=== PATIENT | male | born 1955 | race Caucasian/White ===

== ENCOUNTER 2017-09-02 01:46 | Inpatient (IN) | payer SELFPAY ==
[~2017-09-02] VITALS: Ht 170.2 cm; Wt 71.3 kg
[2017-09-02] VITALS (8 sets, daily range): BP systolic 108–129; BP diastolic 60–78; PULSE 88–125; TEMP 36.3–36.9; O2SAT 92–99; BMI 24.6
[~2017-09-02 01:46] MED LIST: INSHRI SQ; LSN25 PO; MCR5 PO; OXYC-57 PO
[2017-09-02] MEDS ORDERED: ALBUT/IPRATROP 3MG/0.5MG NEB 3 ML VIAL INH STA (02:19)
[2017-09-02] MEDS ORDERED: METHYLPREDNISOLONE 125 MG VIAL IV STA (02:19)
--- NOTE | 2017-09-02 02:27 | EMERGENCY ROOM VISIT NOTE ---
History Report prepared by Nicho: Fernando Huntley Under the Supervision of: Dr. Aleshia Mathis M.D. First contact with patient: 01:57 Chief Complaint: SHORTNESS OF BREATH Stated Complaint: SOB History of Present Illness The patient is a 62 year old male who presents to the Emergency Room with complaints of constant shortness of breath beginning three days ago. He states that his symptoms become worse when lying down. He notes he had a bronchial infection years ago. He denies a history of asthma. He also denies fever or chest pain, but occasionally coughs to get rid of phlegm. The patient states that he smokes 1.5 packs of cigarettes a day. He does not believe he is exposed to chemicals at work that would contribute to his symptoms. He reports that he has not seen a doctor in 6 years. He states that he has been under a lot of stress recently. Source of History: patient Onset: 3 days ago Quality: other (shortness of breath) Timing: constant Modifying Factors (Worsening): other (lying down) Associated Symptoms: + cough, No fevers, No chest pain Review of Systems See HPI for pertinent positives & negatives. A total of 10 systems reviewed and were otherwise negative. Past Medical & Surgical Medical Problems: (1) COPD with exacerbation (2) Infection of the larynx, trachea, bronchi or lungs Family History Diabetes mellitus Hypertension Social History Smoking Status: Current Every Day Smoker Marital Status: Housing Status: lives with family Occupation Status: employed Current/Historical Medications No Active Prescriptions or Reported Meds Allergies Coded Allergies: No Known Allergies (Unverified , 09/02/17) Physical Exam Vital Signs Date Time Temp Pulse Resp B/P (MAP) Pulse Ox O2 Delivery O2 Flow Rate FiO2 09/02/17 05:12 125 99 35 09/02/17 05:00 130 35 150/96 09/02/17 04:30 120 21 134/78 94 Nasal Cannula 2.0 09/02/17 04:00 109 14 121/66 97 Nasal Cannula 2.0 09/02/17 03:30 99 20 130/68 93 Nasal Cannula 2.0 09/02/17 03:00 100 21 137/74 96 Nasal Cannula 2.0 09/02/17 02:30 101 17 125/71 96 Nasal Cannula 2.0 09/02/17 02:26 105 22 122/65 95 Nasal Cannula 2.0 09/02/17 02:03 106 09/02/17 02:01 122/65 09/02/17 01:56 94 Nasal Cannula 2.0 09/02/17 01:53 36.9 113 20 130/75 89 Room Air 09/02/17 01:53 88 Room Air 09/02/17 01:50 94 Nasal Cannula 2.0 Physical Exam Vital signs reviewed. General: Chronically ill-appearing male, in some respiratory discomfort HEENT: No scleral icterus, PERRLA, neck supple. Atraumatic. Cardiovascular: Slightly tachycardic but regular. Distant heart tones? Systolic ejection murmur Pulmonary: normal work of breathing on nasal cannula oxygen. Distant breath sounds bilaterally with barely audible air exchange Abdomen: Soft, nontender, nondistended, positive bowel sounds. Musculoskeletal: Atraumatic, no peripheral edema. Neurologic: Patient awake alert and oriented x 3 Skin: Warm, dry, no rash Medical Decision & Procedures ER Provider Diagnostic Interpretation: Radiology results as stated below per my review and radiologist interpretation: X-ray of chest per my review reveals diffuse interstitial density. No focal lung consolidation. No failure. CTA CHEST: No evidence for pulmonary embolism. Patchy to confluent opacities in the dependent portions of the lungs and less dramatic changes in the perihilar regions. There is interlobular ansley thickening inferiorly. Primary consideration is pulmonary edema versus infectious process. Bilateral pleural effusions layering posteriorly. Thoracic aorta demonstrates no evidence for aneurysm or dissection. Atherosclerotic changes noted. No pericardial effusion. Left ventricular hypertrophy noted. No significant mediastinal or hilar adenopathy Radiologist: Fernando Lopez MD Study ready at 05:54 and initial results transmitted at 06:32. Laboratory Results Test 09/02/17 01:54 Prothrombin Time 10.7 SECONDS (9.0-12.0) Prothromb Time International Ratio 1.0 (0.9-1.1) Estimated Average Glucose 220 mg/dl Hemoglobin A1c 9.3 % (4.5-5.6) Total Bilirubin 0.5 mg/dl (0.2-1) Direct Bilirubin 0.2 mg/dl (0-0.2) Aspartate Amino Transf (AST/SGOT) 20 U/L (15-37) Alanine Aminotransferase (ALT/SGPT) 30 U/L (12-78) Alkaline Phosphatase 131 U/L (45-117) Total Protein 7.6 gm/dl (6.4-8.2) Albumin 3.5 gm/dl (3.4-5.0) Laboratory results per my review. Medications Administered Medications (Trade) Dose Ordered Sig/Jailyn Route Start Time Stop Time Status Last Admin Dose Admin Albuterol/ Ipratropium (Duoneb) 3 ml NOW STAT INH 09/02/17 02:19 09/02/17 02:22 DC 09/02/17 02:30 3 ML Methylprednisolone Sodium Succinate (Solu-Medrol IV) 125 mg NOW STAT IV 09/02/17 02:19 09/02/17 02:22 DC 09/02/17 02:30 125 MG Azithromycin 500 mg/Dextrose 255 ml @ 125 mls/hr ONE ONCE IV 09/02/17 03:00 09/02/17 05:02 DC 09/02/17 03:28 125 MLS/HR Aspirin (Aspirin Chew) 324 mg NOW STAT PO 09/02/17 02:55 09/02/17 02:56 DC 09/02/17 02:59 324 MG Albuterol/ Ipratropium (Duoneb) 3 ml STK-MED ONCE .ROUTE 09/02/17 04:47 09/02/17 04:48 DC 09/02/17 05:01 3 ML Lorazepam (Ativan Inj) 2 mg STK-MED ONCE .ROUTE 09/02/17 04:50 09/02/17 04:51 DC 09/02/17 05:02 1 MG Albuterol/ Ipratropium (Duoneb) 12 ml ONE ONCE INH 09/02/17 05:15 09/02/17 05:16 DC 09/02/17 05:11 12 ML ECG Per My Interpretation Indication: SOB/dyspnea Rate (beats per minute): 105 Rhythm: sinus tachycardia Findings: other (LVH, QRS widening, repolarization abnormality most notably in inferior and lateral leads. 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 ED Course 0217: Past medical records reviewed. The patient was evaluated in room B2. A complete history and physical examination was performed. 1489: I updated with the patient. 1985: I [facility]. He will reevaluate the patient for admission. 0510: The patient is anxious, diaphoretic, and tachycardic. He was given Ativan and BiPAP with an hour long nebulizer. Ordered repeat troponin and CT angiogram of chest. Repeat EKG shows sinus tachycardia at a rate of 134. Poor quality baseline for interpretation. Tachycardia is worsened, but there is otherwise no significant change. Medical Decision Differential diagnosis: Etiologies such as infections, reactive airway disease, pneumonia, pneumothorax , COPD, CHF, cardiac ischemia, pulmonary embolism, musculoskeletal, gastrointestinal, as well as others were entertained. This patient was evaluated and appeared to be in no significant distress. Patient was noted to be hypoxic upon arrival to his room. He is placed on nasal cannula oxygen and was able to maintain his oxygenation. Patient was given a DuoNeb treatment and 125 mg of IV Solu-Medrol. Azithromycin 500 mg IV was administered. Chest x-ray reveals evidence of interstitial fullness. I do not see focal infiltrate. Patient's laboratory work reveals a leukocytosis and elevated troponin. Patient is hyperglycemic in the 200s. Patient's EKG reveals a repolarization abnormality and previous septal infarct. Patient was resting comfortably until he was awakened. He was informed of the findings. He ambulated to the bathroom without oxygen per his request. Upon return to the bed he began to have significant respiratory difficulty, became diaphoretic and anxious. Repeat EKG was performed and although has a poor quality baseline , no ST elevation was identified. The patient was given a small dose of Ativan and a DuoNeb treatment. He continued to be very anxious although maintaining his oxygenation. He was placed on BiPAP with significant improvement. CT angiogram was performed without evidence of PE however there is patchy to confluent opacities consistent with pulmonary edema versus infectious process. The patient remains stable and case was discussed with Dr. Cazares of the hospitalist service. He agreed to evaluate the patient for admission. Patient did receive p.o. aspirin. Medication Reconcilliation Current Medication List: was personally reviewed by me Blood Pressure Screening Patient's blood pressure: Normal blood pressure Blood pressure disposition: Did not require urgent referral Consults Time Called: [id number] Consulting Physician: Dr. Sage López Returned Call: [phone] Sage López. He will reevaluate the patient for admission Impression Primary Impression: COPD with exacerbation Additional Impressions: Pulmonary vascular congestion Elevated troponin Critical Care I have personally spent greater than 45 minutes of critical care time in the direct management of this patient. This includes bedside care, interpretation of diagnostic studies, and testing, discussion with consultants, patient, and family members, and other required patient management activities. This 45 minutes is in excess of all separately billable procedures. Scribe Attestation The scribe's documentation has been prepared under my direction and personally reviewed by me in its entirety. I confirm that the note above accurately reflects all work, treatment, procedures, and medical decision making performed by me. Departure Information Dispostion Being Evaluated By Hospitalist Prescriptions No Active Prescriptions or Reported Meds Referrals No Doctor, Assigned (PCP) Patient Instructions My [facility] Problem Qualifiers
[2017-09-02 02:36] LABS: BASO % 0.3 %; BASO ABS # 0.04 K/uL (0-0.2); EOS % 0.9 %; EOS ABS # 0.14 K/uL (0-0.5); HEMATOCRIT 45.2 % (42-52); HEMOGLOBIN 15.5 g/dL (14.0-18.0); IG# 0.04 K/uL (0.00-0.02); LYMPH % 13.9 %; LYMPH ABS # 2.22 K/uL (1.2-3.4); MEAN CELL VOLUME 84.2 fL (80-100); MEAN CORPUSCULAR HEMOGLOBIN 28.9 pg (25-34); MEAN CORPUSCULAR HGB CONC 34.3 g/dl (32-36); MEAN PLATELET VOLUME 10.3 fL (7.4-10.4); NEUT % 79.6 %; PLATELET COUNT 350 K/uL (130-400); RED CELL DISTRIBUTION WIDTH CV 14.6 % (11.5-14.5); RED CELL DISTRIBUTION WIDTH SD 44.5 fL (36.4-46.3); WHITE BLOOD COUNT 15.94 K/uL (4.8-10.8)
[2017-09-02 02:55] LABS: ALBUMIN 3.5 gm/dl (3.4-5.0); CALCIUM 8.3 mg/dl (8.5-10.1); CREATININE 1.18 mg/dl (0.60-1.40); POTASSIUM 3.9 mmol/L (3.5-5.1); TOTAL PROTEIN 7.6 gm/dl (6.4-8.2)
[2017-09-02] MEDS ORDERED: ASPIRIN 81 MG CHEW PO STA (02:55)
[2017-09-02] MEDS ORDERED: AZITHROMYCIN IV 500 MG in DEXTROSE 5% 250ML 250 ML IV ONE (03:00)
[2017-09-02] MEDS ORDERED: ALBUT/IPRATROP 3MG/0.5MG NEB 3 ML VIAL ONE (04:47)
[2017-09-02] MEDS ORDERED: LORAZEPAM 2 MG/ML 1 ML VIAL ONE (04:50)
[2017-09-02] MEDS ORDERED: ACETAMINOPHEN 325 MG TAB PO PRN (05:00)
[2017-09-02] MEDS ORDERED: ALUMINUM/MAGNESIUM/SIMETH (MAALOX MAX) 30 ML UDC PO PRN (05:00)
[2017-09-02] MEDS ORDERED: NITROGLYCERIN 0.4 MG SL PER TAB CHARGE SL PRN (05:00)
[2017-09-02] MEDS ORDERED: ONDANSETRON INJ 2 MG/ML 2 ML VIAL IV PRN (05:00)
[2017-09-02] MEDS ORDERED: POLYETHYLENE (MIRALAX) 17 GM PACK PO PRN (05:00)
[2017-09-02] MEDS ORDERED: LEVALBUTEROL/IPRATROPIUM NEB INH PRN (05:00)
[2017-09-02] MEDS ORDERED: OPTIRAY 320 IV PRN (05:15)
[2017-09-02] MEDS ORDERED: ALBUT/IPRATROP 3MG/0.5MG NEB 3 ML VIAL INH ONE (05:15)
[2017-09-02] MEDS ORDERED: GLUCOSE 10 TABS/TUBE PO PRN (05:30)
[2017-09-02] MEDS ORDERED: DEXTROSE 50% 50 ML SYR IV PRN (05:30)
[2017-09-02] MEDS ORDERED: CARBOHYDRATES FOR HYPOGLYCEMIA PO PRN (05:30)
[2017-09-02] MEDS ORDERED: GLUCOSE 40% GEL 15 GM TUBE PO PRN (05:30)
[2017-09-02] MEDS ORDERED: GLUCAGON FOR INJ 1 MG VIAL IM PRN (05:30)
[2017-09-02] MEDS ORDERED: LEVALBUTEROL 0.63MG/3 ML NEB INH PRN (06:00)
[2017-09-02] MEDS ORDERED: IPRATROPIUM BROMIDE NEB SOLN 0.02% 2.5 ML VIAL INH PRN ×2 (06:00→16:30)
[2017-09-02 06:51] LABS: PTT PATIENT 32.1 SECONDS (21.0-31.0)
[2017-09-02] MEDS: LEVALBUTEROL 1.25MG/0.5ML NEB INH SCH ×2 (07:10→14:21)
[2017-09-02] MEDS: IPRATROPIUM BROMIDE NEB SOLN 0.02% 2.5 ML VIAL INH SCH ×2 (07:10→14:21)
--- NOTE | 2017-09-02 07:57 | HISTORY & PHYSICAL EXAMINATION ---
DATE OF ADMISSION: 09/02/2017 CHIEF COMPLAINT: Shortness of breath. HISTORY OF PRESENT ILLNESS: This is a 62-year-old male with past medical history significant for diabetes, hypertension, hyperlipidemia, not taking any medications. He says he could not tolerate his diabetes medications, did not see a doctor for past 6 years, smokes 1-1/2 packs a day for several years, comes with shortness of breath. Patient says she has been short of breath since about 1 year, but in the last few days, it is getting worse, and today, it was really worse, so he came to the ER. In the ER, initially he was saturating 88-89% on room air, was given DuoNebs, Solu-Medrol, azithromycin, oxygen and some Ativan, and he was doing okay, but then he went to the bathroom without using his oxygen and when he came back, he was tachypneic, tachycardic, and very air hungry. His oxygen was increased but was not getting better, so was placed him on BiPAP and started feeling better. He was sweating at that time. He denies any headaches, no blurred vision. Normal hearing. Denies any chest pain. He has some dry cough. No nausea, no vomiting, no abdominal pain. Appetite is okay. No swelling in the legs. Normal bowel and bladder movements. Currently, respiratory status is improving. ALLERGIES: No known drug allergies. PAST MEDICAL HISTORY: As mentioned above. PAST SURGICAL HISTORY: Laparoscopic converted to open sigmoid colectomy, colonoscopy, tonsillectomy, hand finger surgery. MEDICATIONS: Currently taking none. FAMILY HISTORY: Father had a cancer. SOCIAL HISTORY: Smoked 1-1/2 packs a day for several years. No alcohol use, no drug use. REVIEW OF SYMPTOMS: As per HPI. Rest of review of symptoms negative. PHYSICAL EXAMINATION: GENERAL: Patient is of moderate build, not in distress. VITAL SIGNS: Temperature 36.9, pulse when he came in was 113, currently in 120s, respiratory rate currently is more than in 20s, blood pressure 134/78, oxygen on presentation was 89% on room air and then desaturated to 83%-85% on oxygen 2 L, is currently placed back on BiPAP and saturating 99%. HEENT: No pallor, no icterus. NECK: No neck masses. CARDIOVASCULAR SYSTEM: S1 and S2 heard. Tachycardia. No murmurs. RESPIRATORY SYSTEM: Normal AP diameter. Mildly tachypneic. Bilateral diminished breath sounds. No crackles heard. GASTROINTESTINAL: Abdomen is soft, bowel sounds present, nontender, no distention. CENTRAL NERVOUS SYSTEM: Neurologically grossly nonfocal. EXTREMITIES: No edema, no erythema. LABORATORY DATA: WBC 15.9, hemoglobin 15.5, hematocrit 45.2, platelets 350. Sodium 138, potassium 3.9, chloride 106, bicarbonate 22, BUN 22, creatinine 1.1, serum glucose 235, calcium 8.3, magnesium 1.9, total bilirubin 0.5, direct bilirubin 0.2, AST 20, ALT 30, alkaline phosphatase 131. Troponin I 0.08. IMAGING: Chest x-ray: Bilateral lower lobe possible infiltrates. EKG: Poor quality, sinus tachycardia at a rate of 134. ASSESSMENT AND PLAN: This is a 62-year-old male with a history of smoking who presents with shortness of breath. 1. Chronic obstructive pulmonary disease exacerbation, history of tobacco abuse for several years with 1-1/2 packs of cigarettes a day with progressive shortness of breath but lately got worse, currently requiring BiPAP in the ER as he was tachypneic and desaturated when he went to bathroom without being on oxygen. Will get an ABG. Empirically starting on IV Solu-Medrol, nebulizers around the clock and then p.r.n., Levaquin.Possible Pneumonia. Monitor on tele floor.Followup Ct chest. Consult pulmonary for further recommendation and followup. 2. Diabetes. Did not see a doctor for the last 6 years. He was on glyburide before but not on any medications anymore. Currently, patient is put on Solu-Medrol. Will watch for blood sugars. Place him on Lantus and sliding scale. We will also check HbA1c level. 3. Hyperlipidemia, not taking any medication. Will check lipid profile. 4. Hypertension, not taking any medication currently. We will monitor blood pressure. If required, we will place him on lisinopril. 5. Mild elevation of troponin,mostlikely [id number] myocardial infarction secondary to demand ischemia from his chronic obstructive pulmonary disease exacerbation. We will follow serial cardiac enzymes and echocardiogram. Follow CT of the chest for PE study. 6. Deep venous thrombosis prophylaxis. Lovenox. DISPOSITION: Admitted to tele floor. Expect to discharge home and follow with his family doctor. Level 1 full code. MTDSabina
[2017-09-02] MEDS ORDERED: LEVALBUTEROL/IPRATROPIUM NEB INH SCH (09:00)
[2017-09-02] MEDS ORDERED: INSULIN GLARGINE SOLOSTAR 100 UNITS/ML 3 ML PEN SC SCH (09:00)
[2017-09-02] MEDS ORDERED: ENOXAPARIN 40 MG/0.4 ML SYR SC SCH (09:00)
--- NOTE | 2017-09-02 09:02 | DIAGNOSTIC IMAGING REPORT ---
CHEST ONE VIEW PORTABLE CLINICAL HISTORY: Shortness of breath. Smoker. COMPARISON STUDY: Chest radiograph April 02, 2010. FINDINGS: Lung volumes are normal. No pneumothorax or pleural effusion is identified. There is interstitial thickening and mild lower lung opacities which favors pulmonary edema. Note is made of mild cardiomegaly. IMPRESSION: Interstitial thickening and lower lung opacities which favor pulmonary edema. Bibasilar pneumonia could appear similar although is considered less likely. Electronically signed by: Ramesh Shelton M.D. 09/02/2017 6:30 AM Dictated Date/Time: 09/02/2017 6:29 AM
--- NOTE | 2017-09-02 09:03 | DIAGNOSTIC IMAGING REPORT ---
(CHEST FOR PE) ANGIO WITH CT DOSE: 417.27 mGy.cm HISTORY: Chest pain dyspnea TECHNIQUE: Multiaxial CT images of the chest were performed following the intravenous administration of contrast to evaluate the pulmonary arteries. Maximal intensity projection images were also obtained. A dose lowering technique was utilized adhering to the principles of ALARA. COMPARISON STUDY: None. FINDINGS: Considerable atherosclerotic change thoracic aorta. No evidence for aneurysm. Pulmonary vasculature enhances appropriately. No significant cardiac enlargement. No significant mediastinal or hilar adenopathy. Prominent parenchymal markings of the mid to lower lung regions bilaterally. Small bilateral pleural effusions. IMPRESSION: 1. Study is negative for pulmonary embolus. 2. Diffuse bilateral parenchymal infiltrative change versus pulmonary edema. 3. Considerable atherosclerotic change thoracic aorta. The above report was generated using voice recognition software. It may contain grammatical, syntax or spelling errors. Electronically signed by: Aung Del Toro M.D. 09/02/2017 7:02 AM Dictated Date/Time: 09/02/2017 6:59 AM
[2017-09-02] MEDS ORDERED: PERFLUTREN LIPID MICROSPHERE (DEFINITY) IV ONE (09:05)
[2017-09-02] MEDS: METHYLPREDNISOLONE IV 40 MG in SYRINGE 0 ML IV SCH ×2 (09:11→18:52)
[2017-09-02] MEDS: INSULIN ASPART 100 UNITS/ML 3 ML PEN SC SCH ×4 (09:17→21:06)
[2017-09-02 09:27] LABS: HEMOGLOBIN A1C 9.3 % (4.5-5.6)
[2017-09-02] MEDS ORDERED: PHARMACY GLYCEMIC MGMT CONSULT PRN (09:53)
[2017-09-02] MEDS ORDERED: INSULIN GLARGINE SOLOSTAR 100 UNITS/ML 3 ML PEN SC STA (09:59)
[2017-09-02] MEDS: LEVOFLOXACIN 750 MG TAB PO SCH (12:20)
--- NOTE | 2017-09-02 13:05 | PULMONARY CONSULTATION ---
DATE OF CONSULTATION: 09/02/2017 TIME: 9:45 a.m. REPORT OF CONSULTATION: The patient was seen in room 230, bed 2. He is a 62-year-old male who presented to the Emergency Room in the counter tender hours of today with severe acute respiratory distress. The patient states that he went to bed last evening and felt perfectly well. After sleeping about 2 hours, he awakened and was gasping and could not catch his breath. His called 911. The patient I believe somewhat tends to minimize his symptoms. He brought up the fact that 30 years ago, he had some type of respiratory infection and ever since then when it is hot and humid, he is bothered with his breathing. He also stated that it seems like he has trouble when he is in his bedroom. He thought it might be due to the air conditioner. I suspect it is more likely related to being in the supine position. I believe he has had some increasing shortness of breath for about 5 days. He has been under a lot of stress. His mother within the past week. She had been ill and on hospice care, but nonetheless she recently passed and he had to travel near [place]. 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 He has a job that he is trying to finish by this Wednesday and there is a lot of stress doing this. The patient also works at an [employer] store. He has had a slight cough. He does not bring up any phlegm. He denies any chest pains, chills, fevers or sweats. He denies prior pulmonary problems. He specifically denied asthma, emphysema, tuberculosis, pneumonia or pleurisy. He has a longstanding history of smoking 1.5 packs per day for 40 years. The patient denies any prior cardiac problems except having rheumatic fever as a child. He has not seen a physician for 6 years. Six years ago, the patient was hospitalized and had what sounds like a perforated diverticulum and he underwent a colon surgery. He apparently had sigmoid perforation with abscess and this was in 2010 in February. During that hospital stay, his blood sugars were elevated, but the patient did not accept the fact that he was diabetic. He has never been treated for diabetes except when he was hospitalized. There is a listed history of hypertension, but the patient denies that he has ever been told he was hypertensive. Apparently, he was told of hyperlipidemia. He was put on statins, which gave him severe pains. PAST SURGICAL HISTORY: 1. Sigmoid colectomy 2010. 2. Tonsillectomy. 3. Right thumb surgery. PAST MEDICAL HISTORY: 1. Diverticulitis. 2. Rheumatic fever as a child. 3. Hyperlipidemia. 4. Diabetes. 5. Questionable hypertension. SOCIAL HISTORY: Tobacco 60 pack years as noted. ETOH - none. ALLERGIES: No known allergies. FAMILY HISTORY: Mother , age 86, congestive heart failure, coronary artery disease and renal failure. Father , age 49, and the exact problems were unknown. REVIEW OF SYSTEMS: The patient states his energy level has been okay. He denies any change in appetite. His weight has been stable. The remainder of the review of systems is negative except as noted in the history of present illness. Ten systems reviewed. MEDICATIONS AT HOME: None. PHYSICAL EXAMINATION: GENERAL: The patient is a 62-year-old male who was cooperative, alert and oriented. He did look tired. He was closing his eyes at times during the exam. VITAL SIGNS: Temperature is 36.4. There have been no documented fevers. HEENT: Pupils were reactive to light. Nares were clear. Mouth: Exam showed teeth to be in somewhat poor repair. NECK: Palpation of the neck reveals no lymph nodes. HEART: Current cardiac rate is 104. His heart rates have been as high as the 130s. The rhythm is regular. I cannot exclude a gallop. Blood pressure is 129/78. LUNGS: Auscultation of the lung kelsey revealed rales posteriorly bilaterally in the mid and lower lung field regions. Oxygen saturation on room air was 91%. ABDOMEN: Soft. Bowel sounds were normal. There was no tenderness to palpation, masses, or organomegaly. EXTREMITIES: Showed no cyanosis, clubbing or edema. There was no erythema or induration of the legs. IMAGING DATA: Chest x-ray showed interstitial thickening and lower lung opacities which would be somewhat suggestive of pulmonary edema with an inability to exclude bibasilar pneumonia. CT angio of the chest showed no evidence of pulmonary embolic disease. There were diffuse bilateral parenchymal infiltrative changes versus pulmonary edema. LABORATORY DATA: White count is elevated at 15.94. Hemoglobin 15.5. Platelets 350,000. INR is 1 and PTT is 32.1. Arterial blood gas showed a pH of 7.33 with a pCO2 of 39 and a pO2 of 110. This was reportedly done on 35% oxygen, but it is unknown if he had BiPAP on at the time. Electrolytes show sodium 138, potassium 3.9, chloride 106, bicarbonate 22. BUN is 22 with a creatinine of 1.18. Random blood sugar was 235. Troponin initially mildly elevated at 0.086. Repeat troponin elevated at 0.138. AST and ALT were normal, but alkaline phosphatase was elevated at 131. Calcium was 8.3. Hemoglobin A1c is 9.3. EKG shows a sinus tachycardia with a rate of 105. There was left ventricular hypertrophy. There was an interventricular conduction delay. Not mentioned above is that the CAT scan of the chest also showed small bilateral pleural effusions. IMPRESSION: 1. Probable pulmonary edema. 2. Rule out bilateral pneumonia. 3. Small pleural effusions. 4. Nicotine addiction. 5. Cannot exclude chronic obstructive pulmonary disease. COMMENTS AND RECOMMENDATIONS: The patient has had an acute onset of respiratory distress in the middle of sleep. His EKG is abnormal. X-ray and CAT scan suggests pulmonary vascular congestion in all likelihood. I cannot entirely exclude bilateral pneumonia. He denies a history of vomiting or aspiration. The patient did have an echo done. We are awaiting those results. If the echo is normal, then I would assume that this was a primary pulmonary issue. At present, he is on methylprednisolone, levofloxacin and neb treatments with levalbuterol and ipratropium. I would agree with all of those for now. If his cardiac status is significantly abnormal, I would make the assumption that it would be a primary cardiac issue when these other modalities could be backed off. Obviously, the patient needs his diabetes addressed. I believe he has had a little bit of denial about some medical issues. If he does not have a cardiac issue, he ultimately would need to have a pulmonary function test done. I will order a BNP and a procalcitonin to see if these help further elucidate the origin of his problem. Thank you very much for asking me to assist in his care.
--- NOTE | 2017-09-02 13:31 | Pharmacy Progress Note ---
Glycemic Control Intl Consult Date of Service Sep 02, 2017. Scope Glycemic Pharmacist consulted by Dr Hernández on 09/02/17 for glycemic control and to write orders per [facility] inpatient glycemic control protocol Objective Weight (Kilograms): 71.100 Accuchecks BSG (last 24hrs): Test 09/02/17 01:54 09/02/17 07:29 09/02/17 10:54 Random Glucose 235 mg/dl (70-99) Bedside Glucose 343 mg/dl (70-99) 256 mg/dl (70-99) Laboratory Data (last 24hrs) Test 09/02/17 01:54 Anion Gap 10.0 mmol/L BUN/Creatinine Ratio 18.9 Blood Urea Nitrogen 22 mg/dl Creatinine 1.18 mg/dl Hemoglobin A1c 9.3 % Potassium Level 3.9 mmol/L Sodium Level 138 mmol/L White Blood Count 15.94 K/uL Red Blood Count 5.37 M/uL Hemoglobin 15.5 g/dL Hematocrit 45.2 % Mean Corpuscular Volume 84.2 fL Mean Corpuscular Hemoglobin 28.9 pg Mean Corpuscular Hemoglobin Concent 34.3 g/dl Platelet Count 350 K/uL Mean Platelet Volume 10.3 fL Neutrophils (%) (Auto) 79.6 % Lymphocytes (%) (Auto) 13.9 % Monocytes (%) (Auto) 5.0 % Eosinophils (%) (Auto) 0.9 % Basophils (%) (Auto) 0.3 % Neutrophils # (Auto) 12.70 K/uL Lymphocytes # (Auto) 2.22 K/uL Monocytes # (Auto) 0.80 K/uL Eosinophils # (Auto) 0.14 K/uL Basophils # (Auto) 0.04 K/uL HbA1c Test 09/02/17 01:54 Hemoglobin A1c 9.3 % (4.5-5.6) H Recent Pertinent Medications Outpatient Anti-diabetic Regimen: * Glyburide in the past * A1c = 9.3 % 09/02/17 Risk Factors for Insulin Resistance: * Steroids: SM 125mg in the ED then SM 40mg IV q8 * Infection: r/o Pulmonary source Assessment & Plan ASSESSMENT: * Mr. Means is a 62yo M unbeknownst to the pharmacy glycemic service. He p/w a COPD exacerbation and r/o infectious etiology. He received 125mg IV SM in the ED overnight and now being ordered ATC Solumedrol 40mg IV. BSG this AM was 343 and lunch BSG 256. All likely due to steroids. He is ordered a diet, I spoke with his nurse and the pt endorses a decreased appetite. PLAN FOR INPATIENT GLYCEMIC CONTROL: * Basal insulin with LANTUS: He receive 10 units of lantus this AM which was ordered by the primary team. Once I was consulted I ordered an additional 10 units to be given. Scheduled BID lantus scale set to start @[facility] tonight. BSGs < 110 hold lantus, BSGs 110-180 give 12 units, >180 give 16 units. * Correctional Insulin with NOVOLOG per scale ACHS - tightened * Goal Range: Low 110 mg/dL - High 140 mg/dL * Correction Factor: 25 mg/dL/unit * Nutritional / Prandial insulin per carb ratio of 1 unit per 8 grams CHO consumed * 00,04 checks while on ATC steroids * Please note that the plan above was derived based on current level of insulin resistance and hospital stress. These recommendations are appropriate for inpatient admission only. Plan of care upon discharge will need to be reassessed to avoid potential outpatient hypo/hyperglycemia. Thank you.
--- NOTE | 2017-09-02 14:26 | Progress Note ---
Internal Med Progress Note Date of Service: Sep 02, 2017. 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 ASSESSMENT & PLAN: This is a 62-year-old male with a history of smoking who presents with shortness of breath. Chronic obstructive pulmonary disease exacerbation CTA suggestive of bibasilar infiltration secondary to pneumonitis and/or pulmonary edema History of tobacco abuse for several years with 1-1/2 packs of cigarettes a day with progressive Required BiPAP in the ER Empirically starting on IV Solu-Medrol,nebulizers around the clock and then p.r.n., Appreciate pulmonary consult and recommendation Tachycardia with the EKG changes Initial troponin was mildly elevated and subsequent troponins were significantly high Echocardiogram is done but the report is pending Most likely has ACS We will get cardiology evaluation Diabetes. Did not see a doctor for the last 6 years. Not been taking any medications and/or following a diabetic diet Hemoglobin A1c more than 9 and blood sugar more than 350 Pharmacy consulted for diabetic management Discussed with the patient in detail Hyperlipidemia, not taking any medication. Will check lipid profile. Hypertension, not taking any medication currently. We will monitor blood pressure. If required, we will place him on lisinopril. Deep venous thrombosis prophylaxis. Lovenox. DISPOSITION: Admitted to tele floor. Expect to discharge home and follow Vital Signs: Date Time Temp Pulse Resp B/P (MAP) Pulse Ox O2 Delivery O2 Flow Rate FiO2 09/02/17 12:50 36.5 100 18 124/76 (92) 98 09/02/17 07:45 97 BiPAP 35 09/02/17 07:41 36.4 111 20 129/78 (95) 97 BiPAP 35 09/02/17 06:29 36.3 110 22 122/77 97 BiPAP 09/02/17 06:05 112 24 94/57 99 09/02/17 05:30 120 22 105/77 98 BiPAP 35 Nebulizer 09/02/17 05:12 125 99 35 09/02/17 05:00 130 35 150/96 09/02/17 04:30 120 21 134/78 94 Nasal Cannula 2.0 09/02/17 04:00 109 14 121/66 97 Nasal Cannula 2.0 09/02/17 03:30 99 20 130/68 93 Nasal Cannula 2.0 09/02/17 03:00 100 21 137/74 96 Nasal Cannula 2.0 09/02/17 02:30 101 17 125/71 96 Nasal Cannula 2.0 09/02/17 02:26 105 22 122/65 95 Nasal Cannula 2.0 09/02/17 02:03 106 09/02/17 02:01 122/65 09/02/17 01:56 94 Nasal Cannula 2.0 09/02/17 01:53 36.9 113 20 130/75 89 Room Air 09/02/17 01:53 88 Room Air 09/02/17 01:50 94 Nasal Cannula 2.0 Lab Results: Results Past 24 Hours Test 09/02/17 01:54 09/02/17 05:05 09/02/17 05:34 09/02/17 07:29 Range/Units White Blood Count 15.94 4.8-10.8 K/uL Red Blood Count 5.37 4.7-6.1 M/uL Hemoglobin 15.5 14.0-18.0 g/dL Hematocrit 45.2 42-52 % Mean Corpuscular Volume 84.2 80-100 fL Mean Corpuscular Hemoglobin 28.9 25-34 pg Mean Corpuscular Hemoglobin Concent 34.3 32-36 g/dl Platelet Count 350 130-400 K/uL Mean Platelet Volume 10.3 7.4-10.4 fL Neutrophils (%) (Auto) 79.6 % Lymphocytes (%) (Auto) 13.9 % Monocytes (%) (Auto) 5.0 % Eosinophils (%) (Auto) 0.9 % Basophils (%) (Auto) 0.3 % Neutrophils # (Auto) 12.70 1.4-6.5 K/uL Lymphocytes # (Auto) 2.22 1.2-3.4 K/uL Monocytes # (Auto) 0.80 0.11-0.59 K/uL Eosinophils # (Auto) 0.14 0-0.5 K/uL Basophils # (Auto) 0.04 0-0.2 K/uL RDW Standard Deviation 44.5 36.4-46.3 fL RDW Coefficient of Variation 14.6 11.5-14.5 % Immature Granulocyte % (Auto) 0.3 % Immature Granulocyte # (Auto) 0.04 0.00-0.02 K/uL Prothrombin Time 10.7 9.0-12.0 SECONDS Prothromb Time International Ratio 1.0 0.9-1.1 Activated Partial Thromboplast Time 32.1 21.0-31.0 SECONDS Partial Thromboplastin Ratio 1.2 Sodium Level 138 136-145 mmol/L Potassium Level 3.9 3.5-5.1 mmol/L Chloride Level 106 98-107 mmol/L Carbon Dioxide Level 22 21-32 mmol/L Anion Gap 10.0 3-11 mmol/L Blood Urea Nitrogen 22 7-18 mg/dl Creatinine 1.18 0.60-1.40 mg/dl Est Creatinine Clear Calc Drug Dose 61.5 ml/min Estimated GFR () 76.7 Estimated GFR (Non- 66.2 BUN/Creatinine Ratio 18.9 10-20 Random Glucose 235 70-99 mg/dl Estimated Average Glucose 220 mg/dl Hemoglobin A1c 9.3 4.5-5.6 % Calcium Level 8.3 8.5-10.1 mg/dl Magnesium Level 1.9 1.8-2.4 mg/dl Total Bilirubin 0.5 0.2-1 mg/dl Direct Bilirubin 0.2 0-0.2 mg/dl Aspartate Amino Transf (AST/SGOT) 20 15-37 U/L Alanine Aminotransferase (ALT/SGPT) 30 12-78 U/L Alkaline Phosphatase 131 45-117 U/L Troponin I 0.086 0.138 0-0.045 ng/ml Total Protein 7.6 6.4-8.2 gm/dl Albumin 3.5 3.4-5.0 gm/dl Arterial Blood pH 7.33 7.35-7.45 Arterial Blood Partial Pressure CO2 39 35-46 mmHg Arterial Blood Partial Pressure O2 110 80-95 mm/Hg Arterial Blood HCO3 20 19-24 mmol/L Arterial Blood Oxygen Saturation 97.9 90-95 % Arterial Blood Base Excess -5.3 -9-1.8 mEq/L Arterial Blood Gas Delivery 35% Steven Test POS POS Bedside Glucose 343 70-99 mg/dl Test 09/02/17 10:54 09/02/17 12:16 Range/Units Bedside Glucose 256 70-99 mg/dl Troponin I 1.840 0-0.045 ng/ml Pro-B-Type Natriuretic Peptide 9842 0-900 pg/ml Procalcitonin < 0.05 0-0.5 ng/ml Microbiology Results 09/02/17 Blood Culture, Received Pending 09/02/17 Blood Culture, Received Pending
[2017-09-02] MEDS ORDERED: PNEUMOCOCCAL ADMINISTRATION CHARGE ONE (14:45)
[2017-09-02] MEDS ORDERED: PNEUMOCOCCAL POLYSACCHARIDES 25 MCG/0.5 ML VIAL/SYR IM. ONE (14:45)
[2017-09-02] MEDS ORDERED: METOPROLOL SUCC 25MG EXT REL TAB PO STA (15:39)
[2017-09-02] MEDS ORDERED: POTASSIUM CHLORIDE 20 MEQ TABCR PO STA (15:41)
[2017-09-02] MEDS ORDERED: FUROSEMIDE INJ 20 MG in SYRINGE 0 ML IV ONE (15:45)
--- NOTE | 2017-09-02 15:58 | Cardiology Consultation ---
Cardiology Consultation Date of Service Sep 02, 2017. Cardiology Consultation Indication: Consultation for shortness of breath History: This is a 62-year-old male patient who has been a refugee from medical care. He was diagnosed with diabetes approximately 6 years ago when he had an episode of diverticulitis. He states he took medications for approximately 6 months and then stopped. He has not been followed by health provider for over 5 years. He is an avid smoker. Over the past 1-2 weeks he has had slowly progressive shortness of breath with activity. No chest, arm or neck discomfort. The patient states that he has been wheezing due to the high humidity from the rain. He denies lower extremity edema or orthopnea. After admission the patient had an echocardiogram reveals an ischemic cardiomyopathy with a previous extensive anterior wall infarct. The LVEF is around 35%. His pro natruretic peptide is 9000. His cardiac troponin is 1.8. His admission EKG reveals a sinus tachycardia with poor R-wave progression across the precordium and left ventricular hypertrophy. Allergies: No known medical allergies Medications: None listed. Past medical history: As presented in the history of chief complaint. The patient denies previous history of heart disease, strokes, kidney disease. It should be noted that the patient had a CT scan of the chest prior to admission with calcifications of the aorta suggesting diffuse arteriosclerotic vascular disease. Social history: The patient lives with his . He has a long-standing history of cigarette smoking. Denies alcohol. Family history: Patient's father is at age 49 from ischemic heart disease Review of systems: The 10 point review of systems is negative except for the history of chief complaint. Vital Signs Past 12 Hours Date Time Temp Pulse Resp B/P (MAP) Pulse Ox O2 Delivery O2 Flow Rate FiO2 09/02/17 15:30 36.9 98 18 108/67 (81) 92 Room Air 09/02/17 12:50 36.5 100 18 124/76 (92) 98 09/02/17 07:45 97 BiPAP 35 09/02/17 07:41 36.4 111 20 129/78 (95) 97 BiPAP 35 09/02/17 06:29 36.3 110 22 122/77 97 BiPAP 09/02/17 06:05 112 24 94/57 99 09/02/17 05:30 120 22 105/77 98 BiPAP 35 Nebulizer 09/02/17 05:12 125 99 35 09/02/17 05:00 130 35 150/96 09/02/17 04:30 120 21 134/78 94 Nasal Cannula 2.0 09/02/17 04:00 109 14 121/66 97 Nasal Cannula 2.0 General Appearance: Alert and Oriented x3. NAD. Head: Normocephalic Atraumatic. Eyes: PERRLA, EOMI, conjunctiva and sclera clear Neck: Supple. No carotid bruits noted. No JVD. No HJD. Respiratory: Breath sounds clear to auscultation bilaterally. No w/r/r. Cardiovascular: Reg rate and rhythm. S1 and S2 noted. No murmurs, rubs, gallops. PMI non displace. Abdomen: Normal bowel sounds, soft nontender. no abdominal bruits. Extremities: No edema, no clubbing or cyanosis. distal pulses 2/4 bilaterally. Neuro: No focal deficits. Psychiatric: Normal affect. Last 24 Hours Test 09/02/17 01:54 09/02/17 05:05 09/02/17 05:34 09/02/17 07:29 White Blood Count 15.94 K/uL Red Blood Count 5.37 M/uL Hemoglobin 15.5 g/dL Hematocrit 45.2 % Mean Corpuscular Volume 84.2 fL Mean Corpuscular Hemoglobin 28.9 pg Mean Corpuscular Hemoglobin Concent 34.3 g/dl Platelet Count 350 K/uL Mean Platelet Volume 10.3 fL Neutrophils (%) (Auto) 79.6 % Lymphocytes (%) (Auto) 13.9 % Monocytes (%) (Auto) 5.0 % Eosinophils (%) (Auto) 0.9 % Basophils (%) (Auto) 0.3 % Neutrophils # (Auto) 12.70 K/uL Lymphocytes # (Auto) 2.22 K/uL Monocytes # (Auto) 0.80 K/uL Eosinophils # (Auto) 0.14 K/uL Basophils # (Auto) 0.04 K/uL RDW Standard Deviation 44.5 fL RDW Coefficient of Variation 14.6 % Immature Granulocyte % (Auto) 0.3 % Immature Granulocyte # (Auto) 0.04 K/uL Prothrombin Time 10.7 SECONDS Prothromb Time International Ratio 1.0 Activated Partial Thromboplast Time 32.1 SECONDS Partial Thromboplastin Ratio 1.2 Sodium Level 138 mmol/L Potassium Level 3.9 mmol/L Chloride Level 106 mmol/L Carbon Dioxide Level 22 mmol/L Anion Gap 10.0 mmol/L Blood Urea Nitrogen 22 mg/dl Creatinine 1.18 mg/dl Est Creatinine Clear Calc Drug Dose 61.5 ml/min Estimated GFR () 76.7 Estimated GFR (Non- 66.2 BUN/Creatinine Ratio 18.9 Random Glucose 235 mg/dl Estimated Average Glucose 220 mg/dl Hemoglobin A1c 9.3 % Calcium Level 8.3 mg/dl Magnesium Level 1.9 mg/dl Total Bilirubin 0.5 mg/dl Direct Bilirubin 0.2 mg/dl Aspartate Amino Transf (AST/SGOT) 20 U/L Alanine Aminotransferase (ALT/SGPT) 30 U/L Alkaline Phosphatase 131 U/L Troponin I 0.086 ng/ml 0.138 ng/ml Total Protein 7.6 gm/dl Albumin 3.5 gm/dl Arterial Blood pH 7.33 Arterial Blood Partial Pressure CO2 39 mmHg Arterial Blood Partial Pressure O2 110 mm/Hg Arterial Blood HCO3 20 mmol/L Arterial Blood Oxygen Saturation 97.9 % Arterial Blood Base Excess -5.3 mEq/L Arterial Blood Gas Delivery 35% Steven Test POS Bedside Glucose 343 mg/dl Test 09/02/17 10:54 09/02/17 12:16 Bedside Glucose 256 mg/dl Troponin I 1.840 ng/ml Pro-B-Type Natriuretic Peptide 9842 pg/ml Procalcitonin < 0.05 ng/ml Impression: 1. Acute systolic heart failure 2. Ischemic cardiomyopathy 3. 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 He should be switched from DVT prophylaxis Lovenox to IV heparin in case any procedures are planned. Due to his ischemic heart disease he should be started on a beta-tam. We will start him on low-dose metoprolol tonight. His blood pressure is marginal for the start of an SILVIA inhibitor. He is receiving an aspirin. I had a long discussion with the patient and explained his shortness of breath is most likely due to heart failure. I do not believe that he has had a recent [facility]. His blood glucose level on admission was 343 and he may have a defective warning system due to diabetic neuropathy from under treatment of his diabetes.
[2017-09-02] MEDS: HEPARIN 25,000 UNIT/500ML D5W 500 ML IV SCH (16:46)
[2017-09-02] MEDS ORDERED: LEVALBUTEROL 1.25MG/0.5ML NEB INH PRN (21:00)
[2017-09-02] MEDS ORDERED: IPRATROPIUM BROMIDE NEB SOLN 0.02% 2.5 ML VIAL INH SCH (21:00)
[2017-09-02] MEDS: INSULIN GLARGINE SOLOSTAR 100 UNITS/ML 3 ML PEN SC SCH (21:05)
[2017-09-03 00:30] LABS: PTT PATIENT 54.8 SECONDS (21.0-31.0)
[2017-09-03] MEDS: INSULIN ASPART 100 UNITS/ML 3 ML PEN SC SCH ×6 (01:17→20:33)
[2017-09-03] MEDS: METHYLPREDNISOLONE IV 40 MG in SYRINGE 0 ML IV SCH (02:09)
[2017-09-03 04:15] VITALS: BP 110/62; PULSE 69; TEMP 36.6; O2SAT 95
[2017-09-03 04:29] LABS: HEMOGLOBIN 14.7 g/dL (14.0-18.0); MEAN CELL VOLUME 83.8 fL (80-100); MEAN CORPUSCULAR HEMOGLOBIN 28.7 pg (25-34); MEAN CORPUSCULAR HGB CONC 34.2 g/dl (32-36); PLATELET COUNT 312 K/uL (130-400); RED CELL DISTRIBUTION WIDTH CV 14.8 % (11.5-14.5); WHITE BLOOD COUNT 22.81 K/uL (4.8-10.8)
[2017-09-03 04:47] LABS: CALCIUM 8.5 mg/dl (8.5-10.1); CREATININE 1.13 mg/dl (0.60-1.40); POTASSIUM 4.2 mmol/L (3.5-5.1)
[2017-09-03 04:48] LABS: PTT PATIENT 65.5 SECONDS (21.0-31.0)
[2017-09-03 05:41] LABS: BASO ABS # 0.01 K/uL (0-0.2); IG# 0.09 K/uL (0.00-0.02); LYMPH % 4.4 %; MONO % 3.2 %; MONO ABS # 0.73 K/uL (0.11-0.59); NEUT ABS # 20.98 K/uL (1.4-6.5)
[2017-09-03 07:20] VITALS: BP 133/75; PULSE 67; TEMP 36.7; O2SAT 97
[2017-09-03] MEDS: METOPROLOL SUCC 25MG EXT REL TAB PO SCH (08:45)
[2017-09-03] MEDS: INSULIN GLARGINE SOLOSTAR 100 UNITS/ML 3 ML PEN SC SCH ×2 (08:48→21:45)
--- NOTE | 2017-09-03 09:58 | PULMONARY PROGRESS NOTE ---
DATE: 09/03/2017 PULMONARY PROGRESS NOTE TIME: 9:15 a.m. SUBJECTIVE: The patient is feeling much better. He is much less short of breath. He denies cough or sputum production. He has had no chest pains. He is now able to lie flat. OBJECTIVE: GENERAL: The patient is comfortable. VITAL SIGNS: Temperature is 36.7. CARDIOVASCULAR: The cardiac rate is 93 per minute. The rhythm is regular. Blood pressure is 133/75. LUNGS: Lung kelsey revealed mild rales posteriorly bilaterally. These are definitely less prominent than on yesterday's exam. His respiratory rate is 18 breaths per minute. Saturation is 97% on room air. ABDOMEN: Soft. Bowel sounds were normal. There was no tenderness to palpation or masses. EXTREMITIES: Showed no cyanosis, clubbing or edema. The patient had a proBNP yesterday severely elevated at 9842. Procalcitonin was normal. BUN today is 30 with a creatinine of 1.13. Electrolytes show sodium 137, potassium 4.2, chloride 107, bicarbonate 21. Blood sugar this a.m. 223. White count is 22.81. Yesterday it had been 15.94. This may be related to steroids. Hemoglobin 14.7. Platelets are 312,000. PTT today is 65.5. The patient's troponin level last evening was elevated to 4.95. Blood cultures have shown no growth. IMPRESSIONS: 1. Acute pulmonary edema -- clinically much improved. 2. Small bilateral pleural effusions. 3. Elevated troponin suggestive for acute myocardial infarction. 4. Nicotine addiction. COMMENTS AND RECOMMENDATIONS: The official report of the echocardiogram is not seen. However, Dr. Moore's note comments that the ejection fraction was 35%. In light of all of the information pointing to a primary cardiac problem, I am doubtful the patient has pneumonia. I explained to him that we do not know if he has underlying COPD. That would require a pulmonary function test. I believe that we should stop the steroids. I do not believe they are necessary for his breathing and they may be worsening his blood sugar situation. His neb treatments have been changed to p.r.n. only and I am fine with that. I am not certain that he actually needs the levofloxacin, but I have no problem continuing it for a day or two until it is clear what is happening. He seems to be improving in all aspects. We will sign off of his care for now. Please call us if we can help in anyway from a pulmonary perspective.
[2017-09-03] MEDS ORDERED: FUROSEMIDE 20 MG TAB PO STA (10:47)
[2017-09-03] MEDS ORDERED: ATORVASTATIN 40 MG TAB PO ONE (11:00)
[2017-09-03] MEDS ORDERED: LISINOPRIL 10 MG TAB PO ONE (11:00)
[2017-09-03] MEDS: LEVOFLOXACIN 750 MG TAB PO SCH (11:22)
[2017-09-03 11:58] VITALS: BP 150/72; PULSE 83; TEMP 36.7; O2SAT 96
--- NOTE | 2017-09-03 12:27 | Cardiology Follow-Up ---
Subjective Subjective Date of Service: Sep 03, 2017. Pt evaluation today including: conversation w/ patient, conversation w/ family , physical exam, chart review, lab review, review of studies, review of inpatient medication list Additional Details: The patient has no new cardiac complaints. He denies chest pain. His shortness of breath has improved. His was here today and I had a lengthy discussion with the patient and his . All questions were answered. The patient was considering leaving the hospital, I indicated to him that that would not be a good idea. After lengthy discussion he is decided to stay. Problem List Medical Problems: (1) Elevated troponin Status: Acute (2) Pulmonary vascular congestion Status: Acute Objective Vital Signs Last Vital Signs Documentation Date Time Temp Pulse Resp B/P (MAP) Pulse Ox O2 Delivery O2 Flow Rate FiO2 09/03/17 11:58 36.7 83 18 150/72 (98) 96 Room Air 09/02/17 07:45 35 09/02/17 04:30 2.0 Physical Exam: General Appearance: no apparent distress ENT: normal ENT inspection Neck: supple, no adenopathy, thyroid normal Respiratory/Chest: chest non-tender, lungs clear, + wheezing Cardiovascular: regular rate, rhythm, no edema, no gallop, no JVD, no murmur Abdomen: normal bowel sounds, non tender, soft, no organomegaly Extremities: normal range of motion, non-tender, normal inspection, no pedal edema Neurologic/Psychiatric: no motor/sensory deficits, alert, normal mood/affect, oriented x 3 Skin: normal color, warm/dry, no rash Lymphatic: no adenopathy Assessment and Plan Impression: 1. Non-STEMI infarct 2. Acute systolic heart failure 3. Ischemic cardiomyopathy 4. Diabetes Recommendations: As mentioned above, I had a long discussion with the patient and his . The patient wanted to leave the hospital due to finances as well as the recent of his mother. I told him that would not be a good idea and could result to further complicating his heart disease and even possible . Also, what appeared to be a elevation in his cardiac troponin of a type II variety due to heart failure and strain, further elevation of his cardiac troponin today indicate a non-STEMI. A noninvasive workup of his ischemic heart disease would not be indicated and he will need a cardiac catheterization. Our plan will be to treat him through the weekend for his heart failure and as long as he remains stable he will have cardiac catheterization on Wednesday. I have added an SILVIA inhibitor to his medical regimen. I will also give him additional diuretics today. At this point he has decided to stay in the hospital. Medications: Current Inpatient Medications Medications (Trade) Dose Ordered Sig/Jailyn Route Start Time Stop Time Status Last Admin Dose Admin Ioversol (Optiray 320) 125 ml UD PRN IV 09/02/17 05:15 09/06/17 05:14 Acetaminophen (Tylenol Tab) 650 mg Q4H PRN PO 09/02/17 05:00 10/02/17 04:59 Al Hydrox/Mg Hydrox/Simethicone (Maalox Max Susp) 15 ml Q4H PRN PO 09/02/17 05:00 10/02/17 04:59 Ondansetron HCl (Zofran Inj) 4 mg Q6H PRN IV 09/02/17 05:00 10/02/17 04:59 Nitroglycerin (Nitrostat Tab) 0.4 mg UD PRN SL 09/02/17 05:00 10/02/17 04:59 Polyethylene (Miralax Powder Packet) 17 gm DAILY PRN PO 09/02/17 05:00 10/02/17 04:59 Levofloxacin (Levaquin Tab) 750 mg DAILY@11 PO 09/02/17 11:00 09/09/17 10:59 09/03/17 11:22 750 MG Insulin Aspart (novoLOG ASPART) SLIDING SCALE G... ACHS SC 09/02/17 07:00 10/02/17 06:59 09/03/17 08:47 10 UNITS Glucose (Glucose 40% Gel) 15-30 GRAMS 15 GRAMS... UD PRN PO 09/02/17 05:30 10/02/17 05:29 Glucose (Glucose Chew Tab) 4-8 Tablets 4 Tabl... UD PRN PO 09/02/17 05:30 10/02/17 05:29 Dextrose (Dextrose 50% 50ML Syringe) 25-50ML 25ML FOR ... UD PRN IV 09/02/17 05:30 10/02/17 05:29 Glucagon (Glucagon Inj) 1 mg UD PRN IM 09/02/17 05:30 10/02/17 05:29 Carbohydrates (Carbohydrates For Hypoglycemia) 15-30 GRAMS 15 grams if BSG 54-69... UD PRN PO 09/02/17 05:30 10/02/17 05:29 Miscellaneous Information (Consult Glycemic Management Pharmacy) 1 ea UD PRN N/A 09/02/17 09:53 10/02/17 09:52 Insulin Glargine (Lantus Solostar Pen) PLEASE SEE PROTOCOL TE... BID SC 09/02/17 21:00 10/02/17 20:59 09/03/17 08:48 18 UNITS Metoprolol Succinate (Toprol Xl Tab) 25 mg QAM PO 09/03/17 09:00 10/03/17 08:59 09/03/17 08:45 25 MG Levalbuterol (Xopenex 1.25MG/ 0.5ML Neb) 1.25 mg Q6R PRN INH 09/02/17 21:00 10/02/17 20:59 Heparin Sodium/ Dextrose 500 ml @ 25 mls/hr Q20H IV 09/02/17 16:30 10/02/17 16:29 09/02/17 16:46 25 MLS/HR Ipratropium [place] (Atrovent 0.02% 0.5MG/2.5ML Neb) 0.5 mg Q6R PRN INH 09/02/17 16:30 10/02/17 16:29 Lisinopril (Zestril Tab) 10 mg QAM PO 09/04/17 09:00 10/04/17 08:59 Furosemide (Lasix Tab) 20 mg QAM PO 09/04/17 09:00 10/04/17 08:59 Atorvastatin Calcium (Lipitor Tab) 40 mg QAM PO 09/04/17 09:00 10/04/17 08:59 Lab Results: Last 24 Hours Test 09/02/17 16:18 09/02/17 16:27 09/02/17 19:54 09/02/17 20:37 Troponin I 3.160 ng/ml 4.950 ng/ml Bedside Glucose 184 mg/dl 174 mg/dl Test 09/02/17 23:07 09/02/17 23:40 09/03/17 03:53 09/03/17 04:08 Activated Partial Thromboplast Time 54.8 SECONDS 65.5 SECONDS Partial Thromboplastin Ratio 2.1 2.5 Bedside Glucose 174 mg/dl 206 mg/dl White Blood Count 22.81 K/uL Red Blood Count 5.13 M/uL Hemoglobin 14.7 g/dL Hematocrit 43.0 % Mean Corpuscular Volume 83.8 fL Mean Corpuscular Hemoglobin 28.7 pg Mean Corpuscular Hemoglobin Concent 34.2 g/dl Platelet Count 312 K/uL Mean Platelet Volume 10.0 fL Neutrophils (%) (Auto) 92.0 % Lymphocytes (%) (Auto) 4.4 % Monocytes (%) (Auto) 3.2 % Eosinophils (%) (Auto) 0.0 % Basophils (%) (Auto) 0.0 % Neutrophils # (Auto) 20.98 K/uL Lymphocytes # (Auto) 1.00 K/uL Monocytes # (Auto) 0.73 K/uL Eosinophils # (Auto) 0.00 K/uL Basophils # (Auto) 0.01 K/uL RDW Standard Deviation 45.0 fL RDW Coefficient of Variation 14.8 % Immature Granulocyte % (Auto) 0.4 % Immature Granulocyte # (Auto) 0.09 K/uL Red Blood Cell Morphology Unremarkable Sodium Level 137 mmol/L Potassium Level 4.2 mmol/L Chloride Level 107 mmol/L Carbon Dioxide Level 21 mmol/L Anion Gap 9.0 mmol/L Blood Urea Nitrogen 30 mg/dl Creatinine 1.13 mg/dl Est Creatinine Clear Calc Drug Dose 64.2 ml/min Estimated GFR () 80.9 Estimated GFR (Non- 69.8 BUN/Creatinine Ratio 26.3 Random Glucose 212 mg/dl Calcium Level 8.5 mg/dl Magnesium Level 2.4 mg/dl Test 09/03/17 07:15 Bedside Glucose 223 mg/dl
[2017-09-03] MEDS: HEPARIN 25,000 UNIT/500ML D5W 500 ML IV SCH (12:52)
[2017-09-03] MEDS ORDERED: ASPIRIN 81 MG CHEW PO ONE (13:15)
[2017-09-03 15:30] VITALS: BP 121/62; PULSE 70; TEMP 36.8; O2SAT 97
[2017-09-03] MEDS ORDERED: ASPIRIN 81 MG CHEW ONE (16:05)
--- NOTE | 2017-09-03 18:18 | Progress Note ---
Internal Med Progress Note Date of Service: Sep 03, 2017. 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 He was admitted yesterday with orthopnea, shortness of breath and high blood sugar Feels a little better as of today 09/03: Very anxious today after knowing about his current medical problems He was seen in front of his and they were explained about his current condition of heart attack, uncontrolled diabetes, ischemic cardiomyopathy and possible COPD status Denies any symptoms OBJECTIVE: Vital Signs-as noted below Exam: General-no apparent distress at rest Eyes-normal ENT-normal Neck-supple Lungs-decreased breath sounds with coarse crackles at the bases Heart-regular, no murmur appreciated Abdomen-benign, soft, nontender Extremities-negative for any edema Neuro-alert, awake and oriented 3 No focal sensory or motor deficit appreciated Lab data as noted below. ASSESSMENT & PLAN: This is a 62-year-old male with a history of smoking who presents with shortness of breath. Shortness of breath Due to acute systolic heart failure Likely complicated by chronic obstructive pulmonary disease exacerbation CTA suggestive of bibasilar infiltration secondary to pneumonitis and/or pulmonary edema History of tobacco abuse for several years with 1-1/2 packs of cigarettes a day with progressive Required BiPAP in the ER Empirically starting on IV Solu-Medrol,nebulizers around the clock and then p.r.n., Appreciate pulmonary consult and recommendation DC Solu-Medrol Lasix as per cardiology Continue antibiotic Non-ST ZEKE Tachycardia with the EKG changes Initial troponin was mildly elevated and subsequent troponins were significantly high Echocardiogram is done but the report is pending Most likely has ACS Has been on IV heparin and oral beta-tam Echo did show EF of 40-45% Appreciate cardiology input and recommendation Likely to cardiac cath on Wednesday Diabetes. Did not see a doctor for the last 6 years. Not been taking any medications and/or following a diabetic diet Hemoglobin A1c more than 9 and blood sugar more than 350 Pharmacy consulted for diabetic management Discussed with the patient in detail Hyperlipidemia, not taking any medication. Will check lipid profile. Hypertension, not taking any medication currently. We will monitor blood pressure. If required, we will place him on lisinopril. Deep venous thrombosis prophylaxis. Lovenox. DISPOSITION: Admitted to tele floor. Expect to discharge home and follow Discussed with the in detail-reasonable understanding of the medical conditions Vital Signs: Date Time Temp Pulse Resp B/P (MAP) Pulse Ox O2 Delivery O2 Flow Rate FiO2 09/03/17 15:30 36.8 70 18 121/62 (81) 97 09/03/17 11:58 36.7 83 18 150/72 (98) 96 Room Air 09/03/17 07:50 Room Air 09/03/17 07:20 36.7 67 18 133/75 (94) 97 Room Air 09/03/17 04:15 36.6 69 18 110/62 (78) 95 Room Air 09/03/17 00:50 Room Air 09/02/17 19:56 36.8 88 18 112/60 (77) 94 Room Air Lab Results: Results Past 24 Hours Test 09/02/17 19:54 09/02/17 20:37 09/02/17 23:07 09/02/17 23:40 Range/Units Troponin I 4.950 0-0.045 ng/ml Bedside Glucose 174 174 70-99 mg/dl Activated Partial Thromboplast Time 54.8 21.0-31.0 SECONDS Partial Thromboplastin Ratio 2.1 Test 09/03/17 03:53 09/03/17 04:08 09/03/17 07:15 09/03/17 11:32 Range/Units Bedside Glucose 206 223 151 70-99 mg/dl White Blood Count 22.81 4.8-10.8 K/uL Red Blood Count 5.13 4.7-6.1 M/uL Hemoglobin 14.7 14.0-18.0 g/dL Hematocrit 43.0 42-52 % Mean Corpuscular Volume 83.8 80-100 fL Mean Corpuscular Hemoglobin 28.7 25-34 pg Mean Corpuscular Hemoglobin Concent 34.2 32-36 g/dl Platelet Count 312 130-400 K/uL Mean Platelet Volume 10.0 7.4-10.4 fL Neutrophils (%) (Auto) 92.0 % Lymphocytes (%) (Auto) 4.4 % Monocytes (%) (Auto) 3.2 % Eosinophils (%) (Auto) 0.0 % Basophils (%) (Auto) 0.0 % Neutrophils # (Auto) 20.98 1.4-6.5 K/uL Lymphocytes # (Auto) 1.00 1.2-3.4 K/uL Monocytes # (Auto) 0.73 0.11-0.59 K/uL Eosinophils # (Auto) 0.00 0-0.5 K/uL Basophils # (Auto) 0.01 0-0.2 K/uL RDW Standard Deviation 45.0 36.4-46.3 fL RDW Coefficient of Variation 14.8 11.5-14.5 % Immature Granulocyte % (Auto) 0.4 % Immature Granulocyte # (Auto) 0.09 0.00-0.02 K/uL Red Blood Cell Morphology Unremarkable Activated Partial Thromboplast Time 65.5 21.0-31.0 SECONDS Partial Thromboplastin Ratio 2.5 Sodium Level 137 136-145 mmol/L Potassium Level 4.2 3.5-5.1 mmol/L Chloride Level 107 98-107 mmol/L Carbon Dioxide Level 21 21-32 mmol/L Anion Gap 9.0 3-11 mmol/L Blood Urea Nitrogen 30 7-18 mg/dl Creatinine 1.13 0.60-1.40 mg/dl Est Creatinine Clear Calc Drug Dose 64.2 ml/min Estimated GFR () 80.9 Estimated GFR (Non- 69.8 BUN/Creatinine Ratio 26.3 10-20 Random Glucose 212 70-99 mg/dl Calcium Level 8.5 8.5-10.1 mg/dl Magnesium Level 2.4 1.8-2.4 mg/dl Test 09/03/17 15:58 Range/Units Bedside Glucose 112 70-99 mg/dl
[2017-09-03 19:29] VITALS: BP 110/67; PULSE 60; TEMP 36.4; O2SAT 94
[2017-09-03] MEDS: LORAZEPAM 0.5 MG TAB PO PRN (21:47)
[2017-09-03 23:55] VITALS: BP 132/69; PULSE 51; TEMP 36.8; O2SAT 95
[2017-09-04 02:55] VITALS: BP 127/67; PULSE 48; TEMP 36.7; O2SAT 99
[2017-09-04 05:10] LABS: EOS % 0.1 %; EOS ABS # 0.01 K/uL (0-0.5); HEMATOCRIT 41.7 % (42-52); HEMOGLOBIN 14.1 g/dL (14.0-18.0); IG# 0.04 K/uL (0.00-0.02); LYMPH % 17.3 %; LYMPH ABS # 2.65 K/uL (1.2-3.4); MEAN CELL VOLUME 84.4 fL (80-100); MEAN CORPUSCULAR HEMOGLOBIN 28.5 pg (25-34); MEAN CORPUSCULAR HGB CONC 33.8 g/dl (32-36); MEAN PLATELET VOLUME 10.3 fL (7.4-10.4); MONO % 9.4 %; MONO ABS # 1.44 K/uL (0.11-0.59); NEUT % 72.9 %; PLATELET COUNT 277 K/uL (130-400); RED CELL DISTRIBUTION WIDTH CV 14.9 % (11.5-14.5); RED CELL DISTRIBUTION WIDTH SD 46.1 fL (36.4-46.3); WHITE BLOOD COUNT 15.34 K/uL (4.8-10.8)
[2017-09-04 05:39] LABS: PTT PATIENT 67.4 SECONDS (21.0-31.0)
[2017-09-04 05:44] LABS: CALCIUM 8.1 mg/dl (8.5-10.1); CREATININE 1.29 mg/dl (0.60-1.40); POTASSIUM 3.2 mmol/L (3.5-5.1)
[2017-09-04 06:54] VITALS: BP 91/56; PULSE 57; TEMP 36.8; O2SAT 98
[2017-09-04] MEDS ORDERED: POTASSIUM CHLORIDE 10 MEQ TABCR PO STA (08:25)
[2017-09-04] MEDS: HEPARIN 25,000 UNIT/500ML D5W 500 ML IV SCH (09:10)
[2017-09-04] MEDS: FUROSEMIDE 20 MG TAB PO SCH (09:11)
[2017-09-04] MEDS: ASPIRIN 81 MG CHEW PO SCH (09:11)
[2017-09-04] MEDS: ATORVASTATIN 40 MG TAB PO SCH (09:11)
[2017-09-04] MEDS: NICOTINE 14 MG/24 HR TDSY TD SCH (09:12)
[2017-09-04] MEDS: LISINOPRIL 10 MG TAB PO SCH (09:12)
[2017-09-04] MEDS: INSULIN ASPART 100 UNITS/ML 3 ML PEN SC SCH ×4 (09:15→20:58)
[2017-09-04] MEDS: METOPROLOL SUCC 25MG EXT REL TAB PO SCH (09:18)
[2017-09-04 09:19] VITALS: BP 133/69; PULSE 64
--- NOTE | 2017-09-04 10:45 | Cardiology Follow-Up ---
Subjective General Date of Service: Sep 04, 2017. Chief Complaint: Follow-up, non-ST segment elevation myocardial infarction Pt evaluation today including: conversation w/ patient, physical exam History of Present Illness The patient is a 62 year old male seen in cardiology follow-up today for the first time by the undersigned having previously seen Dr. Moore of our practice earlier this hospital stay. The patient feels well from a cardiac perspective today. Per his report, his presenting symptom of shortness of breath has improved during his hospital stay thus far. He is tolerating a heparin infusion without any bleeding complications. Telemetry reveals sinus rhythm and sinus bradycardia in the 50-60 bpm range with occasional PVCs. Allergies Coded Allergies: No Known Allergies (Unverified , 09/02/17) Social History Smoking Status: Current Every Day Smoker Hx Alcohol Use - Type And Amou: No Hx Substance Use - Type And Am: No Problem List Medical Problems: (1) Elevated troponin Status: Acute (2) Pulmonary vascular congestion Status: Acute Physical Exam Vital Signs Last Vital Signs Documentation Date Time Temp Pulse Resp B/P (MAP) Pulse Ox O2 Delivery O2 Flow Rate FiO2 09/04/17 09:19 64 133/69 (90) 09/04/17 06:54 36.8 17 98 Room Air 09/02/17 07:45 35 09/02/17 04:30 2.0 Physical Exam Constitutional: Level of Distress: NAD ENMT: normal ENT inspection, hearing grossly normal Neck: supple, trachea midline Lungs: Auscultation: no wheezing, no rales/crackles, no rhonchi Cardiovascular: Heart Auscultation: RRR, no murmurs, no rubs Abdomen: Bowel Sounds: normal Extremities: no edema Neurologic: Gait & Station: pertinent finding (No focal deficits) Assessment and Plan Assessment and Plan Transthoracic echocardiogram performed this admission on 09/02/17: Left ventricular cavity is mildly dilated. Regional wall motion abnormalities were present with hypokinesis of the anterior , anterolateral, and apical myocardial eduardo. The left ventricular ejection fraction is moderately reduced, LVEF 35-40% Normal right ventricular chamber size and systolic function is noted. There is no significant valvular abnormality. Impression: 62-year-old male 1. Essentially with shortness of breath, acute systolic heart failure in the setting of non-ST segment elevation myocardial infarction -Peak troponin IV 0.9 NG per mL -Presenting proBNP 9842 PG per mL -CT evidence of pulmonary edema on presentation 09/02/17 2. Dyslipidemia 3. Type 2 diabetes mellitus 4. Cigarette smoking Discussion/plan: I summarized the patient's cardiac findings so far this hospital stay with him. Recommend proceeding with cardiac catheterization early next week for workup of cardiomyopathy, myocardial infarction. The patient is stable without anginal symptoms or symptoms suggestive of ongoing volume overload at this time. He was somewhat tearful during his discussion with me as he is worried about his new heart related diagnosis. Reassurance was provided. Continue current medications including aspirin, atorvastatin, furosemide 20 mg p.o. daily, unfractionated heparin infusion, metoprolol succinate, and lisinopril. Patient is to remain in the hospital on telemetry pending further cardiac assessment. A repeat EKG and troponin have been requested for tomorrow. Laboratory Results Last 24 Hours Test 09/03/17 11:32 09/03/17 15:58 09/03/17 20:03 09/04/17 04:39 Bedside Glucose 151 mg/dl 112 mg/dl 114 mg/dl White Blood Count 15.34 K/uL Red Blood Count 4.94 M/uL Hemoglobin 14.1 g/dL Hematocrit 41.7 % Mean Corpuscular Volume 84.4 fL Mean Corpuscular Hemoglobin 28.5 pg Mean Corpuscular Hemoglobin Concent 33.8 g/dl Platelet Count 277 K/uL Mean Platelet Volume 10.3 fL Neutrophils (%) (Auto) 72.9 % Lymphocytes (%) (Auto) 17.3 % Monocytes (%) (Auto) 9.4 % Eosinophils (%) (Auto) 0.1 % Basophils (%) (Auto) 0.0 % Neutrophils # (Auto) 11.20 K/uL Lymphocytes # (Auto) 2.65 K/uL Monocytes # (Auto) 1.44 K/uL Eosinophils # (Auto) 0.01 K/uL Basophils # (Auto) 0.00 K/uL RDW Standard Deviation 46.1 fL RDW Coefficient of Variation 14.9 % Immature Granulocyte % (Auto) 0.3 % Immature Granulocyte # (Auto) 0.04 K/uL Activated Partial Thromboplast Time 67.4 SECONDS Partial Thromboplastin Ratio 2.6 Sodium Level 139 mmol/L Potassium Level 3.2 mmol/L Chloride Level 106 mmol/L Carbon Dioxide Level 24 mmol/L Anion Gap 9.0 mmol/L Blood Urea Nitrogen 44 mg/dl Creatinine 1.29 mg/dl Est Creatinine Clear Calc Drug Dose 56.2 ml/min Estimated GFR () 68.9 Estimated GFR (Non- 59.4 BUN/Creatinine Ratio 34.1 Random Glucose 104 mg/dl Calcium Level 8.1 mg/dl Magnesium Level 2.5 mg/dl Triglycerides Level 225 mg/dl Cholesterol Level 249 mg/dl HDL Cholesterol 36 mg/dl LDL Cholesterol, Calculated 168 mg/dl VLDL Cholesterol, Calculated 45 mg/dl Cholesterol/HDL Ratio 6.9 Test 09/04/17 07:45 Bedside Glucose 107 mg/dl
[2017-09-04 12:06] VITALS: BP 117/56; PULSE 62; TEMP 36.7; O2SAT 98
[2017-09-04] MEDS: LEVOFLOXACIN 750 MG TAB PO SCH (12:28)
--- NOTE | 2017-09-04 13:54 | Pharmacy Progress Note ---
Pharmacy Glycemic Short Note 2 Date of Service Sep 04, 2017. OUTPATIENT ANTIDIABETIC REGIMEN: * ON Glyburide in the past, n/a at this time Test 09/03/17 15:58 09/03/17 20:03 09/04/17 04:39 09/04/17 07:45 Bedside Glucose 112 mg/dl (70-99) 114 mg/dl (70-99) 107 mg/dl (70-99) Random Glucose 104 mg/dl (70-99) Test 09/04/17 11:14 Bedside Glucose 108 mg/dl (70-99) ASSESSMENT: * Blood sugars at goal, last dose of Solu-medrol yesterday morning, no longer needing basal, and can loosen other parameters * Patient to have cardiac cath early next week per cardio PLAN FOR INPATIENT GLYCEMIC CONTROL: * Discontinue Lantus * Bolus insulin * NovoLog per scale ACHS or Q6hrs while NPO * Goal Range: Low 110 mg/dL - High 140 mg/dL * Loosen: Correction Factor: 35 mg/dL/unit * Loosen: Nutritional / Prandial insulin per carb ratio of 1 unit per 12 grams CHO consumed PLAN FOR DISCHARGE: * A1c = 9.3% - recommend starting once daily dose of Lantus at home, likely 10 units daily to start then titrate every 3 days to goal.
[2017-09-04 15:47] VITALS: BP 132/63; PULSE 57; TEMP 36.6; O2SAT 98
--- NOTE | 2017-09-04 19:10 | Progress Note ---
Internal Med Progress Note Date of Service: Sep 04, 2017. 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 He was admitted yesterday with orthopnea, shortness of breath and high blood sugar Feels a little better as of today 09/03: Very anxious today after knowing about his current medical problems He was seen in front of his and they were explained about his current condition of heart attack, uncontrolled diabetes, ischemic cardiomyopathy and possible COPD status Denies any symptoms 09/04: Denies any symptoms Anxious but remains stable No arrhythmias or chest pain OBJECTIVE: Vital Signs-as noted below Exam: General-no apparent distress at rest Eyes-normal ENT-normal Neck-supple Lungs-clear to auscultate bilaterally Heart-regular, no murmur appreciated Abdomen-benign, soft, nontender Extremities-negative for any edema Neuro-alert, awake and oriented 3 No focal sensory or motor deficit appreciated Lab data as noted below. ASSESSMENT & PLAN: This is a 62-year-old male with a history of smoking who presents with shortness of breath. Shortness of breath Due to acute systolic heart failure Likely complicated by chronic obstructive pulmonary disease exacerbation CTA suggestive of bibasilar infiltration secondary to pneumonitis and/or pulmonary edema History of tobacco abuse for several years with 1-1/2 packs of cigarettes a day with progressive Required BiPAP in the ER Empirically starting on IV Solu-Medrol,nebulizers around the clock and then p.r.n., Appreciate pulmonary consult and recommendation DC Solu-Medrol Lasix as per cardiology Continue antibiotic for about 5 days in total Clinically CHF is is improved Non-ST ZEKE Tachycardia with the EKG changes Initial troponin was mildly elevated and subsequent troponins were significantly high Echocardiogram is done but the report is pending Most likely has ACS Has been on IV heparin and oral beta-tam, lisinopril and aspirin Echo did show EF of 40-45% Appreciate cardiology input and recommendation Likely to cardiac cath on Wednesday Diabetes. Did not see a doctor for the last 6 years. Not been taking any medications and/or following a diabetic diet Hemoglobin A1c more than 9 and blood sugar more than 350 Pharmacy consulted for diabetic management Discussed with the patient in detail Blood sugar seems to be under control Hyperlipidemia, not taking any medication. Lipid profile.-TG-225 and cholesterol 249 Started on Lipitor 40 mg daily Hypertension, not taking any medication currently. We will monitor blood pressure. If required, we will place him on lisinopril. Deep venous thrombosis prophylaxis. IV heparin DISPOSITION: Admitted to tele floor. Expect to discharge home and follow Discussed with the in detail-reasonable understanding of the medical conditions Vital Signs: Date Time Temp Pulse Resp B/P (MAP) Pulse Ox O2 Delivery O2 Flow Rate FiO2 09/04/17 15:47 36.6 57 19 132/63 (86) 98 Room Air 09/04/17 12:06 36.7 62 19 117/56 (76) 98 Room Air 09/04/17 09:19 64 133/69 (90) 09/04/17 08:05 Room Air 09/04/17 06:54 36.8 57 17 91/56 (68) 98 Room Air 09/04/17 02:55 36.7 48 17 127/67 (87) 99 Room Air 09/03/17 23:55 36.8 51 17 132/69 (90) 95 Room Air 09/03/17 20:00 Room Air 09/03/17 19:29 36.4 60 18 110/67 (81) 94 Lab Results: Results Past 24 Hours Test 09/03/17 20:03 09/04/17 04:39 09/04/17 07:39 09/04/17 07:45 Range/Units Bedside Glucose 114 110 107 70-99 mg/dl White Blood Count 15.34 4.8-10.8 K/uL Red Blood Count 4.94 4.7-6.1 M/uL Hemoglobin 14.1 14.0-18.0 g/dL Hematocrit 41.7 42-52 % Mean Corpuscular Volume 84.4 80-100 fL Mean Corpuscular Hemoglobin 28.5 25-34 pg Mean Corpuscular Hemoglobin Concent 33.8 32-36 g/dl Platelet Count 277 130-400 K/uL Mean Platelet Volume 10.3 7.4-10.4 fL Neutrophils (%) (Auto) 72.9 % Lymphocytes (%) (Auto) 17.3 % Monocytes (%) (Auto) 9.4 % Eosinophils (%) (Auto) 0.1 % Basophils (%) (Auto) 0.0 % Neutrophils # (Auto) 11.20 1.4-6.5 K/uL Lymphocytes # (Auto) 2.65 1.2-3.4 K/uL Monocytes # (Auto) 1.44 0.11-0.59 K/uL Eosinophils # (Auto) 0.01 0-0.5 K/uL Basophils # (Auto) 0.00 0-0.2 K/uL RDW Standard Deviation 46.1 36.4-46.3 fL RDW Coefficient of Variation 14.9 11.5-14.5 % Immature Granulocyte % (Auto) 0.3 % Immature Granulocyte # (Auto) 0.04 0.00-0.02 K/uL Activated Partial Thromboplast Time 67.4 21.0-31.0 SECONDS Partial Thromboplastin Ratio 2.6 Sodium Level 139 136-145 mmol/L Potassium Level 3.2 3.5-5.1 mmol/L Chloride Level 106 98-107 mmol/L Carbon Dioxide Level 24 21-32 mmol/L Anion Gap 9.0 3-11 mmol/L Blood Urea Nitrogen 44 7-18 mg/dl Creatinine 1.29 0.60-1.40 mg/dl Est Creatinine Clear Calc Drug Dose 56.2 ml/min Estimated GFR () 68.9 Estimated GFR (Non- 59.4 BUN/Creatinine Ratio 34.1 10-20 Random Glucose 104 70-99 mg/dl Calcium Level 8.1 8.5-10.1 mg/dl Magnesium Level 2.5 1.8-2.4 mg/dl Triglycerides Level 225 0-150 mg/dl Cholesterol Level 249 0-200 mg/dl HDL Cholesterol 36 mg/dl LDL Cholesterol, Calculated 168 mg/dl VLDL Cholesterol, Calculated 45 mg/dl Cholesterol/HDL Ratio 6.9 Test 09/04/17 11:14 09/04/17 16:12 Range/Units Bedside Glucose 108 118 70-99 mg/dl
[2017-09-04 19:14] VITALS: BP 119/64; PULSE 63; TEMP 36.9; O2SAT 97
[2017-09-04] MEDS: LORAZEPAM 0.5 MG TAB PO PRN (21:38)
[2017-09-05] VITALS (8 sets, daily range): BP systolic 101–144; BP diastolic 59–75; PULSE 55–73; TEMP 36.6–36.9; O2SAT 96–99
[2017-09-05] MEDS: HEPARIN 25,000 UNIT/500ML D5W 500 ML IV SCH ×2 (04:31→05:33)
[2017-09-05 04:46] LABS: BASO % 0.2 %; BASO ABS # 0.02 K/uL (0-0.2); EOS % 1.4 %; EOS ABS # 0.17 K/uL (0-0.5); HEMATOCRIT 44.3 % (42-52); HEMOGLOBIN 14.9 g/dL (14.0-18.0); IG# 0.04 K/uL (0.00-0.02); LYMPH % 22.2 %; LYMPH ABS # 2.65 K/uL (1.2-3.4); MEAN CELL VOLUME 85.2 fL (80-100); MEAN CORPUSCULAR HEMOGLOBIN 28.7 pg (25-34); MEAN CORPUSCULAR HGB CONC 33.6 g/dl (32-36); MEAN PLATELET VOLUME 10.3 fL (7.4-10.4); MONO % 10.8 %; MONO ABS # 1.29 K/uL (0.11-0.59); NEUT % 65.1 %; NEUT ABS # 7.78 K/uL (1.4-6.5); PLATELET COUNT 277 K/uL (130-400); RED CELL DISTRIBUTION WIDTH CV 14.7 % (11.5-14.5); RED CELL DISTRIBUTION WIDTH SD 45.6 fL (36.4-46.3); WHITE BLOOD COUNT 11.95 K/uL (4.8-10.8)
[2017-09-05 05:14] LABS: CALCIUM 7.9 mg/dl (8.5-10.1); CREATININE 1.26 mg/dl (0.60-1.40); POTASSIUM 4.1 mmol/L (3.5-5.1)
[2017-09-05 05:26] LABS: PTT PATIENT 52.8 SECONDS (21.0-31.0)
[2017-09-05] MEDS: ASPIRIN 81 MG CHEW PO SCH (08:00)
[2017-09-05] MEDS: METOPROLOL SUCC 25MG EXT REL TAB PO SCH (08:00)
[2017-09-05] MEDS: LISINOPRIL 10 MG TAB PO SCH (08:00)
[2017-09-05] MEDS: NICOTINE 14 MG/24 HR TDSY TD SCH (08:00)
[2017-09-05] MEDS: ATORVASTATIN 40 MG TAB PO SCH (08:00)
[2017-09-05] MEDS: FUROSEMIDE 20 MG TAB PO SCH (08:00)
[2017-09-05] MEDS: INSULIN ASPART 100 UNITS/ML 3 ML PEN SC SCH ×4 (08:04→20:21)
--- NOTE | 2017-09-05 09:28 | Progress Note ---
Medicine Progress Note Date & Time of Visit: Sep 05, 2017 at 09:20 . Subjective CC: Follow-up visit for non-STEMI and CHF. HPI: Feels much better. No CP or SOB. ROS: General- no fever, no chills Resp- no cough; no shortness of breath Cardiac- as noted above in HPI GI- no nausea, no vomiting, no diarrhea, no constipation - no dysuria, no difficulty voiding . Objective Last 8 Hrs Date Time Temp Pulse Resp B/P (MAP) Pulse Ox O2 Delivery O2 Flow Rate FiO2 09/05/17 08:00 99 Room Air 09/05/17 06:45 36.8 61 18 127/72 (90) 99 Room Air 09/05/17 03:58 36.8 57 16 133/64 (87) 98 Room Air Physical Exam: General- lying in bed; no distress Lungs- clear to auscultation; no respiratory distress Cardiovascular- RRR; I/ systolic murmur at base; no gallop appreciated; no JVD ; no pretibial edema Abdomen- + bowel sounds, soft, nontender Extremities- no cyanosis; no calf tenderness Neuro- alert, oriented Skin- warm & dry . Laboratory Results: Last 24 Hours Test 09/04/17 11:14 09/04/17 16:12 09/04/17 20:34 09/05/17 04:21 Bedside Glucose 108 mg/dl 118 mg/dl 191 mg/dl White Blood Count 11.95 K/uL Red Blood Count 5.20 M/uL Hemoglobin 14.9 g/dL Hematocrit 44.3 % Mean Corpuscular Volume 85.2 fL Mean Corpuscular Hemoglobin 28.7 pg Mean Corpuscular Hemoglobin Concent 33.6 g/dl Platelet Count 277 K/uL Mean Platelet Volume 10.3 fL Neutrophils (%) (Auto) 65.1 % Lymphocytes (%) (Auto) 22.2 % Monocytes (%) (Auto) 10.8 % Eosinophils (%) (Auto) 1.4 % Basophils (%) (Auto) 0.2 % Neutrophils # (Auto) 7.78 K/uL Lymphocytes # (Auto) 2.65 K/uL Monocytes # (Auto) 1.29 K/uL Eosinophils # (Auto) 0.17 K/uL Basophils # (Auto) 0.02 K/uL RDW Standard Deviation 45.6 fL RDW Coefficient of Variation 14.7 % Immature Granulocyte % (Auto) 0.3 % Immature Granulocyte # (Auto) 0.04 K/uL Activated Partial Thromboplast Time 52.8 SECONDS Partial Thromboplastin Ratio 2.0 Sodium Level 136 mmol/L Potassium Level 4.1 mmol/L Chloride Level 105 mmol/L Carbon Dioxide Level 25 mmol/L Anion Gap 6.0 mmol/L Blood Urea Nitrogen 34 mg/dl Creatinine 1.26 mg/dl Est Creatinine Clear Calc Drug Dose 57.6 ml/min Estimated GFR () 70.9 Estimated GFR (Non- 61.2 BUN/Creatinine Ratio 27.2 Random Glucose 142 mg/dl Calcium Level 7.9 mg/dl Magnesium Level 2.4 mg/dl Troponin I 1.910 ng/ml Test 09/05/17 07:21 Bedside Glucose 170 mg/dl Other Studies: EKG performed at 06:13 reviewed and demonstrated NSR at 65 / minute, LVH, inverted T-waves I, aVL, V4-V6. . Assessment & Plan NON-STEMI Presented with chest tightness and CHF. EKG in ED showed ST 105, LVH, NSSTTWA's. Serum troponin 0.086 --> --> 4.950. Cardiology consulted. Received aspirin and IV heparin. Echo showed decreased LV systolic function. Started on metoprolol succinate and lisinopril Cardiac cath recommended. CHF / PULMONARY EDEMA Presented with dyspnea. Chest x-ray demonstrated pulmonary edema. Echo demonstrated segmental wall motion abnormalities with overall LVEF 35-40%. Acute left ventricular systolic heart failure due to underlying ischemic heart disease. Received furosemide with improvement. Started on metoprolol succinate and lisinopril. DYSLIPIDEMIA LDL-c = 168. Atorvastatin. DM TYPE 2 Random blood sugar at time of admission 235. Hgb A1C = 9.3. New onset DM. Receiving insulin coverage as need with improving glycemic control. Anticipated discharge on metformin. TOBACCO USE Smoking cessation counseling. VTE PROPHYLAXIS IV heparin. DISPOSITION Expected discharge to home. Need to establish with primary care provider. Outpatient follow-up with [facility]. . Current Inpatient Medications: Current Inpatient Medications Medications (Trade) Dose Ordered Sig/Jailyn Route Start Time Stop Time Status Last Admin Dose Admin Ioversol (Optiray 320) 125 ml UD PRN IV 09/02/17 05:15 09/06/17 05:14 Acetaminophen (Tylenol Tab) 650 mg Q4H PRN PO 09/02/17 05:00 10/02/17 04:59 Al Hydrox/Mg Hydrox/Simethicone (Maalox Max Susp) 15 ml Q4H PRN PO 09/02/17 05:00 10/02/17 04:59 Ondansetron HCl (Zofran Inj) 4 mg Q6H PRN IV 09/02/17 05:00 10/02/17 04:59 Nitroglycerin (Nitrostat Tab) 0.4 mg UD PRN SL 09/02/17 05:00 10/02/17 04:59 Polyethylene (Miralax Powder Packet) 17 gm DAILY PRN PO 09/02/17 05:00 10/02/17 04:59 Levofloxacin (Levaquin Tab) 750 mg DAILY@11 PO 09/02/17 11:00 09/09/17 10:59 09/04/17 12:28 750 MG Insulin Aspart (novoLOG ASPART) SLIDING SCALE G... ACHS SC 09/02/17 07:00 10/02/17 06:59 09/05/17 08:04 5 UNITS Glucose (Glucose 40% Gel) 15-30 GRAMS 15 GRAMS... UD PRN PO 09/02/17 05:30 10/02/17 05:29 Glucose (Glucose Chew Tab) 4-8 Tablets 4 Tabl... UD PRN PO 09/02/17 05:30 10/02/17 05:29 Dextrose (Dextrose 50% 50ML Syringe) 25-50ML 25ML FOR ... UD PRN IV 09/02/17 05:30 10/02/17 05:29 Glucagon (Glucagon Inj) 1 mg UD PRN IM 09/02/17 05:30 10/02/17 05:29 Carbohydrates (Carbohydrates For Hypoglycemia) 15-30 GRAMS 15 grams if BSG 54-69... UD PRN PO 09/02/17 05:30 10/02/17 05:29 Miscellaneous Information (Consult Glycemic Management Pharmacy) 1 ea UD PRN N/A 09/02/17 09:53 10/02/17 09:52 Metoprolol Succinate (Toprol Xl Tab) 25 mg QAM PO 09/03/17 09:00 10/03/17 08:59 09/05/17 08:00 25 MG Levalbuterol (Xopenex 1.25MG/ 0.5ML Neb) 1.25 mg Q6R PRN INH 09/02/17 21:00 10/02/17 20:59 Heparin Sodium/ Dextrose 500 ml @ 25 mls/hr Q20H IV 09/02/17 16:30 10/02/17 16:29 09/05/17 05:33 25 MLS/HR Ipratropium [place] (Atrovent 0.02% 0.5MG/2.5ML Neb) 0.5 mg Q6R PRN INH 09/02/17 16:30 10/02/17 16:29 Lisinopril (Zestril Tab) 10 mg QAM PO 09/04/17 09:00 10/04/17 08:59 09/05/17 08:00 10 MG Furosemide (Lasix Tab) 20 mg QAM PO 09/04/17 09:00 10/04/17 08:59 09/05/17 08:00 20 MG Atorvastatin Calcium (Lipitor Tab) 40 mg QAM PO 09/04/17 09:00 10/04/17 08:59 09/05/17 08:00 40 MG Aspirin (Aspirin Chew) 81 mg DAILY PO 09/04/17 09:00 10/04/17 08:59 09/05/17 08:00 81 MG Nicotine (Nicoderm Cq 14MG Patch) 1 patch QAM TD 09/04/17 09:00 10/04/17 08:59 09/05/17 08:00 1 PATCH Miscellaneous (Remove Nicoderm Patch) 1 ea HS N/A 09/03/17 21:00 10/03/17 20:59 09/04/17 20:58 1 EA Lorazepam (Ativan Tab) 0.5 mg BID PRN PO 09/03/17 21:45 10/03/17 21:44 09/04/17 21:38 0.5 MG
[2017-09-05] MEDS: LEVOFLOXACIN 750 MG TAB PO SCH (12:13)
--- NOTE | 2017-09-05 12:56 | Cardiology Follow-Up ---
Subjective General Date of Service: Sep 05, 2017. Chief Complaint: Follow-up, non-ST segment elevation myocardial infarction Pt evaluation today including: conversation w/ patient, physical exam History of Present Illness The patient is a 62 year old male seen in follow-up. Patient feels well. Telemetry reveals stable sinus rhythm and sinus bradycardia in the range of 50-60 bpm. Repeat troponin today reveals that the troponin has trended down to 1.9 having peaked at 4.9 on 09/02/17. Repeat EKG performed today 09/05/17 reviewed independently reveals sinus rhythm with septal Q waves in lead V2, and evolution of lateral OH including deep T- wave inversions in the high lateral leads I and aVL, as well as the lateral precordial leads V4 to V6. Allergies Coded Allergies: No Known Allergies (Unverified , 09/02/17) Social History Smoking Status: Current Every Day Smoker Hx Alcohol Use - Type And Amou: No Hx Substance Use - Type And Am: No Problem List Medical Problems: (1) Elevated troponin Status: Acute (2) Pulmonary vascular congestion Status: Acute Physical Exam Vital Signs Last Vital Signs Documentation Date Time Temp Pulse Resp B/P (MAP) Pulse Ox O2 Delivery O2 Flow Rate FiO2 09/05/17 08:00 99 Room Air 09/05/17 06:45 36.8 61 18 127/72 (90) 09/02/17 07:45 35 09/02/17 04:30 2.0 Physical Exam Constitutional: Level of Distress: NAD ENMT: normal ENT inspection, hearing grossly normal Neck: supple, trachea midline Lungs: Auscultation: no wheezing, no rales/crackles, no rhonchi Cardiovascular: Heart Auscultation: RRR, no murmurs, no rubs Abdomen: Bowel Sounds: normal Extremities: no edema Neurologic: Gait & Station: pertinent finding (No focal deficits) Assessment and Plan Assessment and Plan Transthoracic echocardiogram performed this admission on 09/02/17: Left ventricular cavity is mildly dilated. Regional wall motion abnormalities were present with hypokinesis of the anterior , anterolateral, and apical myocardial eduardo. There is a separate small no motion abnormality limited to the basal portion of the inferior wall. The left ventricular ejection fraction is moderately reduced, LVEF ~35% Normal right ventricular chamber size and systolic function is noted. There is no significant valvular abnormality. Impression: 62-year-old male 1. Initially presented with shortness of breath, acute systolic heart failure in the setting of non-ST segment elevation myocardial infarction -Peak troponin IV 4.9 NG per mL -Presenting proBNP 9842 PG per mL -CT evidence of pulmonary edema on presentation 09/02/17 2. Dyslipidemia 3. Type 2 diabetes mellitus 4. Cigarette smoking Discussion/plan: Continue aspirin 81 mg daily, plan for 324 mg chewed aspirin tomorrow prior cardiac cath Atorvastatin, given very high total cholesterol 249 and LDL cholesterol of 160, we will increase atorvastatin to 80 mg daily. Continue metoprolol succinate 25 mg daily. Lisinopril 10 mg daily. Hold Furosemide for cardiac catheterization. Plan for cardiac cath tomorrow, with interventional cardiology. Update CBC and conference metabolic panel tomorrow. N.p.o. after midnight except medications. We will readdress timing of stopping heparin prior to the procedure tomorrow. Laboratory Results Last 24 Hours Test 09/04/17 16:12 09/04/17 20:34 09/05/17 04:21 09/05/17 07:21 Bedside Glucose 118 mg/dl 191 mg/dl 170 mg/dl White Blood Count 11.95 K/uL Red Blood Count 5.20 M/uL Hemoglobin 14.9 g/dL Hematocrit 44.3 % Mean Corpuscular Volume 85.2 fL Mean Corpuscular Hemoglobin 28.7 pg Mean Corpuscular Hemoglobin Concent 33.6 g/dl Platelet Count 277 K/uL Mean Platelet Volume 10.3 fL Neutrophils (%) (Auto) 65.1 % Lymphocytes (%) (Auto) 22.2 % Monocytes (%) (Auto) 10.8 % Eosinophils (%) (Auto) 1.4 % Basophils (%) (Auto) 0.2 % Neutrophils # (Auto) 7.78 K/uL Lymphocytes # (Auto) 2.65 K/uL Monocytes # (Auto) 1.29 K/uL Eosinophils # (Auto) 0.17 K/uL Basophils # (Auto) 0.02 K/uL RDW Standard Deviation 45.6 fL RDW Coefficient of Variation 14.7 % Immature Granulocyte % (Auto) 0.3 % Immature Granulocyte # (Auto) 0.04 K/uL Activated Partial Thromboplast Time 52.8 SECONDS Partial Thromboplastin Ratio 2.0 Sodium Level 136 mmol/L Potassium Level 4.1 mmol/L Chloride Level 105 mmol/L Carbon Dioxide Level 25 mmol/L Anion Gap 6.0 mmol/L Blood Urea Nitrogen 34 mg/dl Creatinine 1.26 mg/dl Est Creatinine Clear Calc Drug Dose 57.6 ml/min Estimated GFR () 70.9 Estimated GFR (Non- 61.2 BUN/Creatinine Ratio 27.2 Random Glucose 142 mg/dl Calcium Level 7.9 mg/dl Magnesium Level 2.4 mg/dl Troponin I 1.910 ng/ml Test 09/05/17 11:21 09/05/17 12:35 Bedside Glucose 169 mg/dl
[2017-09-05 13:32] LABS: PTT PATIENT 51.6 SECONDS (21.0-31.0)
[2017-09-05] MEDS: LORAZEPAM 0.5 MG TAB PO PRN (20:18)
[2017-09-06] VITALS (16 sets, daily range): BP systolic 90–150; BP diastolic 54–81; PULSE 58–77; TEMP 36.3–36.9; O2SAT 94–100; Ht 170.2 cm; Wt 71.3 kg
[2017-09-06] MEDS: HEPARIN 25,000 UNIT/500ML D5W 500 ML IV SCH ×2 (01:51→06:48)
[2017-09-06 06:16] LABS: HEMATOCRIT 46.6 % (42-52); HEMOGLOBIN 15.9 g/dL (14.0-18.0); MEAN CELL VOLUME 84.6 fL (80-100); MEAN CORPUSCULAR HEMOGLOBIN 28.9 pg (25-34); MEAN CORPUSCULAR HGB CONC 34.1 g/dl (32-36); MEAN PLATELET VOLUME 10.4 fL (7.4-10.4); PLATELET COUNT 296 K/uL (130-400); RED CELL DISTRIBUTION WIDTH CV 14.5 % (11.5-14.5); RED CELL DISTRIBUTION WIDTH SD 44.5 fL (36.4-46.3); WHITE BLOOD COUNT 13.53 K/uL (4.8-10.8)
[2017-09-06 06:44] LABS: PTT PATIENT 51.8 SECONDS (21.0-31.0)
[2017-09-06 06:55] LABS: ALBUMIN 2.8 gm/dl (3.4-5.0); CALCIUM 8.2 mg/dl (8.5-10.1); CREATININE 1.25 mg/dl (0.60-1.40); POTASSIUM 4.2 mmol/L (3.5-5.1); TOTAL PROTEIN 6.5 gm/dl (6.4-8.2)
[2017-09-06] MEDS: INSULIN ASPART 100 UNITS/ML 3 ML PEN SC SCH ×4 (07:42→21:27)
[2017-09-06] MEDS: NICOTINE 14 MG/24 HR TDSY TD SCH (08:36)
[2017-09-06] MEDS: METOPROLOL SUCC 25MG EXT REL TAB PO SCH (08:36)
[2017-09-06] MEDS: LISINOPRIL 10 MG TAB PO SCH (08:36)
[2017-09-06] MEDS ORDERED: ASPIRIN 81 MG CHEW PO ONE (09:00)
[2017-09-06] MEDS ORDERED: ATORVASTATIN 40 MG TAB PO SCH (09:00)
--- NOTE | 2017-09-06 09:58 | Pharmacy Progress Note ---
Pharmacy Glycemic Short Note 2 Date of Service Sep 06, 2017. OUTPATIENT ANTIDIABETIC REGIMEN: * On glyburide in the past, n/a at this time * A1c 9.3% on 09/02/17 Test 09/05/17 11:21 09/05/17 16:06 09/05/17 20:10 09/06/17 05:26 Bedside Glucose 169 mg/dl (70-99) 102 mg/dl (70-99) 116 mg/dl (70-99) Random Glucose 165 mg/dl (70-99) Test 09/06/17 07:14 Bedside Glucose 170 mg/dl (70-99) ASSESSMENT: 09/06/17 * Mr. Means received 22 units of insulin yesterday * Is currently NPO for a cardiac cath today * Fasting BSG has been elevated after discontinuation of basal insulin on 09/03. Will plan to resume Lantus this evening to improve fasting BSGs. * Continue current CF/CR for today but loosen tomorrow with resumption of basal insulin PLAN FOR INPATIENT GLYCEMIC CONTROL: * Resume Lantus at a dose of 10 units qHS * Bolus insulin - loosen starting tomorrow * NovoLog per scale ACHS or Q6hrs while NPO * Goal Range: Low 110 mg/dL - High 140 mg/dL * Correction Factor: 25 mg/dL/unit; 30 mg/dL/unit on 09/07 * Nutritional / Prandial insulin per carb ratio of 1 unit per 9 grams CHO consumed; 1 unit per 10 gm starting 09/07 PLAN FOR DISCHARGE: * A1c = 9.3% * Recommend starting once daily dose of Lantus at home, likely 10 units daily to start, then titrate by 2 units every 3 days to goal OR * Metformin 500 mg BID, titrating upwards by 500 mg on a weekly basis as tolerated
--- NOTE | 2017-09-06 11:31 | Cardiology Follow-Up ---
Subjective General Date of Service: Sep 06, 2017. Chief Complaint: Follow-up, non-ST segment elevation myocardial infarction Pt evaluation today including: conversation w/ patient, physical exam History of Present Illness The patient is a 62 year old male seen in cardiology follow up. Pt feels well, no chest pain or shortness of breath overnight. Allergies Coded Allergies: No Known Allergies (Unverified , 09/02/17) Social History Smoking Status: Current Every Day Smoker Hx Alcohol Use - Type And Amou: No Hx Substance Use - Type And Am: No Problem List Medical Problems: (1) Elevated troponin Status: Acute (2) Pulmonary vascular congestion Status: Acute Physical Exam Vital Signs Last Vital Signs Documentation Date Time Temp Pulse Resp B/P (MAP) Pulse Ox O2 Delivery O2 Flow Rate FiO2 09/06/17 08:00 99 Room Air 09/06/17 06:58 36.6 61 18 146/69 (94) 09/02/17 07:45 35 09/02/17 04:30 2.0 Physical Exam Constitutional: Level of Distress: NAD ENMT: normal ENT inspection, hearing grossly normal Neck: supple, trachea midline Lungs: Auscultation: no wheezing, no rales/crackles, no rhonchi Cardiovascular: Heart Auscultation: RRR, no murmurs, no rubs Abdomen: Bowel Sounds: normal Extremities: no edema Neurologic: Gait & Station: pertinent finding (No focal deficits) Assessment and Plan Assessment and Plan Transthoracic echocardiogram performed this admission on 09/02/17: Left ventricular cavity is mildly dilated. Regional wall motion abnormalities were present with hypokinesis of the anterior , anterolateral, and apical myocardial eduardo. There is a separate small no motion abnormality limited to the basal portion of the inferior wall. The left ventricular ejection fraction is moderately reduced, LVEF ~35% Normal right ventricular chamber size and systolic function is noted. There is no significant valvular abnormality. Impression: 62-year-old male 1. Initially presented with shortness of breath, acute systolic heart failure in the setting of non-ST segment elevation myocardial infarction -Peak troponin IV 4.9 NG per mL -Presenting proBNP 9842 PG per mL -CT evidence of pulmonary edema on presentation 09/02/17 2. Dyslipidemia 3. Type 2 diabetes mellitus 4. Cigarette smoking Discussion/plan: Continue current medications. Hold UF heparin infusion for planned cardiac cath today. Spouse at bedside, I updated her with pt's progress and plan. Laboratory Results Last 24 Hours Test 09/05/17 13:01 09/05/17 16:06 09/05/17 20:10 09/06/17 05:26 Activated Partial Thromboplast Time 51.6 SECONDS 51.8 SECONDS Partial Thromboplastin Ratio 2.0 2.0 Bedside Glucose 102 mg/dl 116 mg/dl White Blood Count 13.53 K/uL Red Blood Count 5.51 M/uL Hemoglobin 15.9 g/dL Hematocrit 46.6 % Mean Corpuscular Volume 84.6 fL Mean Corpuscular Hemoglobin 28.9 pg Mean Corpuscular Hemoglobin Concent 34.1 g/dl RDW Standard Deviation 44.5 fL RDW Coefficient of Variation 14.5 % Platelet Count 296 K/uL Mean Platelet Volume 10.4 fL Sodium Level 135 mmol/L Potassium Level 4.2 mmol/L Chloride Level 102 mmol/L Carbon Dioxide Level 25 mmol/L Anion Gap 8.0 mmol/L Blood Urea Nitrogen 31 mg/dl Creatinine 1.25 mg/dl Est Creatinine Clear Calc Drug Dose 58.0 ml/min Estimated GFR () 71.6 Estimated GFR (Non- 61.8 BUN/Creatinine Ratio 24.8 Random Glucose 165 mg/dl Calcium Level 8.2 mg/dl Total Bilirubin 0.3 mg/dl Aspartate Amino Transf (AST/SGOT) 12 U/L Alanine Aminotransferase (ALT/SGPT) 28 U/L Alkaline Phosphatase 100 U/L Total Protein 6.5 gm/dl Albumin 2.8 gm/dl Globulin 3.7 gm/dl Albumin/Globulin Ratio 0.8 Test 09/06/17 07:14 Bedside Glucose 170 mg/dl
[2017-09-06] MEDS: LEVOFLOXACIN 750 MG TAB PO SCH (11:32)
[2017-09-06] MEDS ORDERED: MIDAZOLAM HCL 1 MG/ML 2ML VIAL ONE (12:05)
[2017-09-06] MEDS ORDERED: FENTANYL CITRATE INJ 50 MCG/1 ML 2 ML VIAL ONE (12:05)
[2017-09-06] MEDS ORDERED: NiCARDipine HCL INJ 2.5 MG/ML 10 ML AMP ONE (12:05)
[2017-09-06] MEDS ORDERED: HEPARIN SOD (PORCINE) 1000 UNIT/ML 10 ML VIAL ONE (12:05)
[2017-09-06] MEDS ORDERED: NITROGLYCERIN/D5W 100MCG/ML 20ML SYR ONE (12:06)
--- NOTE | 2017-09-06 13:19 | Pre Sedation Assessment ---
Pre Sedation Assessment General Date of Sedation: Sep 06, 2017. Vital Signs Past 12 Hours Date Time Temp Pulse Resp B/P (MAP) Pulse Ox O2 Delivery O2 Flow Rate FiO2 09/06/17 13:11 72 18 107/48 (67) 95 Room Air 09/06/17 11:52 36.7 66 18 114/63 (80) 96 Room Air 09/06/17 08:00 99 Room Air 09/06/17 06:58 36.6 61 18 146/69 (94) 97 Room Air 09/06/17 03:30 36.4 58 18 150/67 (94) 100 Room Air Review Cardiovascular: regular rate, rhythm, no edema Lungs: chest non-tender, lungs clear Pre-Sedation Airway Assessment Smoking Status: Current Every Day Smoker Hx of Sleep Apnea: No Hx of difficult intubation: No Short Thick Neck: No Thyro-mental Distance: > 3 Finger Breadths Oral Cavity: WNL Mallampati Classification: Class III ASA Classification: Class III NPO Status Date of Last Intake of Solids: Sep 05, 2017 Time of Last Intake of Solids: 1900 Procedure Planning Contraindications for Sedation: None Current Medications Reviewed: Yes Notes The planned sedation has been discussed with the patient. Informed Consent was obtained. I have identified the patient, determined the appropriateness of sedation and have assessed the patient immediately prior to the procedure. All medicine(s) and interventions are by my order.
--- NOTE | 2017-09-06 13:19 | Post Sedation Assessment ---
Post Sedation Assessment General Date of Sedation Sep 06, 2017. Vital Signs: Vital Signs Past 12 Hours Date Time Temp Pulse Resp B/P (MAP) Pulse Ox O2 Delivery O2 Flow Rate FiO2 09/06/17 13:11 72 18 107/48 (67) 95 Room Air 09/06/17 11:52 36.7 66 18 114/63 (80) 96 Room Air 09/06/17 08:00 99 Room Air 09/06/17 06:58 36.6 61 18 146/69 (94) 97 Room Air 09/06/17 03:30 36.4 58 18 150/67 (94) 100 Room Air Post Procedure Recovery Score Activity: (2) Moves 4 extremities * Respiration: (2) Deep breath/cough Circulation: (2) +/-20% PreAnes Value Consciousness: (2) Fully Awake Oxygen Saturation: (2) > 92% On Room Air Post Anesthesia Score: 10 Discharge Sedation Level of Care: Fast Track Phase II Post Sedation Plan On clinical assessment, the patient appears to have tolerated the sedation without complications. Patient is recovering as anticipated. Patient will continue to be monitored by nursing and may be discharged when sedation discharge criteria are met per below protocol. Upon Completions of procedure and additional 15 minutes continue every 5 minute vital signs and the P.A.R. score; then discharge to a Phase I or Fast Track to Phase II per the following guidelines: * Discharge Patient to appropriate Phase II area if PAR is 8 or greater or return to pre- procedure baseline. The post - procedure orders will be as directed. * If PAR score is less than 8 or not return to pre-procedure baseline then patient will follow Phase I monitoring till PAR is reached for Phase II. The Phase I may be done in procedure room or may call to secure a Phase I area. * If naloxone or flumazenil are used for reversal, hold in Phase I for an additional 60 -120 minutes before discharge to Phase II. Please call the Sedation Physician to re-evaluate and complete post-note for discharge to Phase II area. Do NOT discharge from procedure sedation or Phase 1 until post- sedation evaluation note is complete by procedure /sedation MD Sedation Discharge Instructions to be given to the patient at discharge to home.
[2017-09-06] MEDS ORDERED: SODIUM CHLORIDE 0.9% 1000ML 1,000 ML IV SCH (13:31)
--- NOTE | 2017-09-06 13:31 | Cardiac Catheterization ---
Procedure Note Procedure Date Sep 06, 2017. Pre-Procedure Diagnosis Non STEMI AUC Score 8 Post-Procedure Diagnosis Severe CAD, Normal Intracardiac Pressures Procedure(s) Performed Coronary Angiography, Left Heart Cath Supervisor [employer] [employer]/Spa Manager(s) [place] Estimated Blood Loss 15 Medication(s) Fentanyl, Heparin, Nicardipine, Nitroglycerin, Versed, Lidocaine 1% Summary of Findings Indication: High-risk NSTEMI; New LV dysfunction with anterior wall motion abnormality Access: 6Fr right radial artery Catheters: [place], pigtail Findings: LM - Mild distal disease LAD - 60-70% early-mid segment stenosis at take-off of 1st diagonal; 50-60% diffuse mid disease; distal luminal irregularities as wraps around apex. - Moderate caliber 2nd diagonal with 95% hazy ostial stenosis and 60-70% mid segment disease. Circumflex - 40% ostial stenosis, mild diffuse disease; chronically occluded very small OM3 with distal vessel filling via left to left collaterals. RCA - Dominant, severe diffuse proximal to mid disease; 100% chronically occluded mid segment; right to right collaterals to R-PDA via acute marginal branch. LVEDP - 13 Arterial Closure: TR band Summary: 1. Severe multivessel coronary artery disease - 100% chronically occluded mid RCA with right to right collaterals - 70% early-mid LAD, 50-60% diffuse mid disease - Moderate caliber 2nd diagonal with 95% ostial, 60-70% mid segment stenosis. 2. Normal intracardiac filling pressure Recommendations: Evaluate for CABG versus complex PCI at [facility]. Hemodynamics Rest Ao: 109/53/73 Final Ao: 104/43/64 LV: 111/13 Recommendations CABG Specimens None Radiation Exposure (mGy) 1356 Contrast (mls) 50 Opti Fluids (cc crystalloids) 300 NSS Drains none Anesthesia moderate Procedural Complication(s) None Disposition PCU ACC Data Cardiac Status Clinical evaluation leading to the procedure CAD Presntation: Non STEMI Anginal Classification: CCS IV Heart Failure: No, NYHA Class: CCS IV Cardiogenic Shock w/in 24Hrs: No Cardiac Arrest w/in 24Hrs: No Imaging studies past 6 months: Yes Stress studies past 6 months: No Closure Device Percutaneous Entry Location: Radial Closure Device: Radial Band Recommendations: CABG Intraprocedure Events Significant Dissection: No Perforation: No
--- NOTE | 2017-09-06 14:36 | Cardiology Progress Note ---
Cardiology Progress Note Date of Service Sep 06, 2017. Cardiology Progress Note Patient underwent cardiac catheterization with findings of multivessel CAD, as described in Dr Felix' procedure note. I reviewed the films in the cardiac aquatic laborer control room with Dr Felix while patient was on the procedure table. Given complex multivessel CAD, recommend transfer to tertiary care for CT surgery consultation for CABG. CABG likely best option given history of CAD and multivessel CAD although high risk multivessel PCI by also be an option. Pt is free of angina. Results discussed with pt and spouse at bedside back in his room on the telemetry floor post procedure. Pt agreeable to transfer. I discussed case with Dr Boucher of cardiology at [facility] who accepts pt for transfer. Will transfer by ACLS ground when bed is available. Pt to complete post cath radial access recovery. As long as hemostasis present, will resume heparin infusion 4 hours post removal of radial access , which will be at 17:20 today, 09/06/17. Will resume diet. Dr Marr update. I completed the transfer paperwork.
--- NOTE | 2017-09-06 17:14 | Progress Note ---
Medicine Progress Note Date & Time of Visit: Sep 06, 2017 at 16:30 . Subjective Underwent cardiac cath today without incident. No CP or SOB. No pain or swelling right wrist. . Objective Last 8 Hrs Date Time Temp Pulse Resp B/P (MAP) Pulse Ox O2 Delivery O2 Flow Rate FiO2 09/06/17 16:15 58 18 114/69 (84) 96 Room Air 09/06/17 15:15 63 18 90/57 (68) 96 Room Air 09/06/17 14:45 63 16 97/58 (71) 96 Room Air 09/06/17 14:15 61 16 112/70 (84) 97 Room Air 09/06/17 14:00 71 16 96/58 (71) 97 Room Air 09/06/17 13:45 74 18 95/58 (70) 97 Room Air 09/06/17 13:30 36.3 65 18 100/62 (75) 98 Room Air 09/06/17 13:20 69 18 102/57 (72) 95 Room Air 09/06/17 13:11 72 18 107/48 (67) 95 Room Air 09/06/17 11:52 36.7 66 18 114/63 (80) 96 Room Air Physical Exam: General- lying in bed; no distress Lungs- clear to auscultation; no respiratory distress Cardiovascular- RRR; I/ systolic murmur at base; no gallop appreciated; no JVD ; no pretibial edema Abdomen- + bowel sounds, soft, nontender Extremities- no cyanosis; no calf tenderness; right wrist bandaged, no hematoma ; capillary refill right fingers < 1 sec Neuro- alert, oriented Skin- warm & dry . Laboratory Results: Last 24 Hours Test 09/05/17 20:10 09/06/17 05:26 09/06/17 07:14 09/06/17 11:12 Bedside Glucose 116 mg/dl 170 mg/dl 141 mg/dl White Blood Count 13.53 K/uL Red Blood Count 5.51 M/uL Hemoglobin 15.9 g/dL Hematocrit 46.6 % Mean Corpuscular Volume 84.6 fL Mean Corpuscular Hemoglobin 28.9 pg Mean Corpuscular Hemoglobin Concent 34.1 g/dl RDW Standard Deviation 44.5 fL RDW Coefficient of Variation 14.5 % Platelet Count 296 K/uL Mean Platelet Volume 10.4 fL Activated Partial Thromboplast Time 51.8 SECONDS Partial Thromboplastin Ratio 2.0 Sodium Level 135 mmol/L Potassium Level 4.2 mmol/L Chloride Level 102 mmol/L Carbon Dioxide Level 25 mmol/L Anion Gap 8.0 mmol/L Blood Urea Nitrogen 31 mg/dl Creatinine 1.25 mg/dl Est Creatinine Clear Calc Drug Dose 58.0 ml/min Estimated GFR () 71.6 Estimated GFR (Non- 61.8 BUN/Creatinine Ratio 24.8 Random Glucose 165 mg/dl Calcium Level 8.2 mg/dl Total Bilirubin 0.3 mg/dl Aspartate Amino Transf (AST/SGOT) 12 U/L Alanine Aminotransferase (ALT/SGPT) 28 U/L Alkaline Phosphatase 100 U/L Total Protein 6.5 gm/dl Albumin 2.8 gm/dl Globulin 3.7 gm/dl Albumin/Globulin Ratio 0.8 Test 09/06/17 16:20 Bedside Glucose 128 mg/dl Assessment & Plan NON-STEMI Presented with chest tightness and CHF. EKG in ED showed ST 105, LVH, NSSTTWA's. Serum troponin 0.086 --> --> 4.950. Cardiology consulted. Received aspirin and IV heparin. Echo showed decreased LV systolic function. Started on metoprolol succinate and lisinopril Cardiac cath performed 09/06/[address] Felix: Findings: LM - Mild distal disease LAD - 60-70% early-mid segment stenosis at take-off of 1st diagonal; 50-60% diffuse mid disease; distal luminal irregularities as wraps around apex. - Moderate caliber 2nd diagonal with 95% hazy ostial stenosis and 60-70% mid segment disease. Circumflex - 40% ostial stenosis, mild diffuse disease; chronically occluded very small OM3 with distal vessel filling via left to left collaterals. RCA - Dominant, severe diffuse proximal to mid disease; 100% chronically occluded mid segment; right to right collaterals to R-PDA via acute marginal branch. LVEDP - 13 CABG recommended in light of multivessel disease. Dr. Long discussed case with Dr. Boucher at [facility] who accepted the pt in transfer when a bed is available. CHF / PULMONARY EDEMA Presented with dyspnea. Chest x-ray demonstrated pulmonary edema. Echo demonstrated segmental wall motion abnormalities with overall LVEF 35-40%. Acute left ventricular systolic heart failure due to underlying ischemic heart disease. Received furosemide with improvement. Started on metoprolol succinate and lisinopril. DYSLIPIDEMIA LDL-c = 168. Startede on atorvastatin. DM TYPE 2 Random blood sugar at time of admission 235. Hgb A1C = 9.3. New onset DM. Receiving insulin coverage as need with improving glycemic control. FBS today = 170. Anticipated discharge on metformin. Will need ongoing outpatient education / support. TOBACCO USE Smoking cessation counseling. VTE PROPHYLAXIS IV heparin. DISPOSITION Arrangements being made for transfer to [facility] for evaluation for CABG. Needs to establish with primary care provider- patient prefers to make arrangements himself. [facility] with [facility]. . Current Inpatient Medications: Current Inpatient Medications Medications (Trade) Dose Ordered Sig/Jailyn Route Start Time Stop Time Status Last Admin Dose Admin Acetaminophen (Tylenol Tab) 650 mg Q4H PRN PO 09/02/17 05:00 10/02/17 04:59 Al Hydrox/Mg Hydrox/Simethicone (Maalox Max Susp) 15 ml Q4H PRN PO 09/02/17 05:00 10/02/17 04:59 Ondansetron HCl (Zofran Inj) 4 mg Q6H PRN IV 09/02/17 05:00 10/02/17 04:59 Nitroglycerin (Nitrostat Tab) 0.4 mg UD PRN SL 09/02/17 05:00 10/02/17 04:59 Polyethylene (Miralax Powder Packet) 17 gm DAILY PRN PO 09/02/17 05:00 10/02/17 04:59 Levofloxacin (Levaquin Tab) 750 mg DAILY@11 PO 09/02/17 11:00 09/09/17 10:59 09/06/17 11:32 750 MG Insulin Aspart (novoLOG ASPART) SLIDING SCALE G... ACHS SC 09/02/17 07:00 09/06/17 23:59 09/06/17 07:42 2 UNITS Glucose (Glucose 40% Gel) 15-30 GRAMS 15 GRAMS... UD PRN PO 09/02/17 05:30 10/02/17 05:29 Glucose (Glucose Chew Tab) 4-8 Tablets 4 Tabl... UD PRN PO 09/02/17 05:30 10/02/17 05:29 Dextrose (Dextrose 50% 50ML Syringe) 25-50ML 25ML FOR ... UD PRN IV 09/02/17 05:30 10/02/17 05:29 Glucagon (Glucagon Inj) 1 mg UD PRN IM 09/02/17 05:30 10/02/17 05:29 Carbohydrates (Carbohydrates For Hypoglycemia) 15-30 GRAMS 15 grams if BSG 54-69... UD PRN PO 09/02/17 05:30 10/02/17 05:29 Miscellaneous Information (Consult Glycemic Management Pharmacy) 1 ea UD PRN N/A 09/02/17 09:53 10/02/17 09:52 Metoprolol Succinate (Toprol Xl Tab) 25 mg QAM PO 09/03/17 09:00 10/03/17 08:59 09/06/17 08:36 25 MG Levalbuterol (Xopenex 1.25MG/ 0.5ML Neb) 1.25 mg Q6R PRN INH 09/02/17 21:00 10/02/17 20:59 Heparin Sodium/ Dextrose 500 ml @ 25 mls/hr Q20H IV 09/02/17 16:30 10/02/17 16:29 Future hold 09/06/17 06:48 25 MLS/HR Ipratropium [place] (Atrovent 0.02% 0.5MG/2.5ML Neb) 0.5 mg Q6R PRN INH 09/02/17 16:30 10/02/17 16:29 Lisinopril (Zestril Tab) 10 mg QAM PO 09/04/17 09:00 10/04/17 08:59 09/06/17 08:36 10 MG Furosemide (Lasix Tab) 20 mg QAM PO 09/04/17 09:00 10/04/17 08:59 Future Hold 09/05/17 08:00 20 MG Aspirin (Aspirin Chew) 81 mg DAILY PO 09/04/17 09:00 10/04/17 08:59 Future hold 09/05/17 08:00 81 MG Nicotine (Nicoderm Cq 14MG Patch) 1 patch QAM TD 09/04/17 09:00 10/04/17 08:59 09/06/17 08:36 1 PATCH Miscellaneous (Remove Nicoderm Patch) 1 ea HS N/A 09/03/17 21:00 10/03/17 20:59 09/05/17 20:18 1 EA Lorazepam (Ativan Tab) 0.5 mg BID PRN PO 09/03/17 21:45 10/03/17 21:44 09/05/17 20:18 0.5 MG Atorvastatin Calcium (Lipitor Tab) 80 mg QAM PO 09/06/17 09:00 10/06/17 08:59 09/06/17 08:35 80 MG Insulin Aspart (novoLOG ASPART) SLIDING SCALE G... ACHS SC 09/07/17 07:00 10/07/17 06:59 Insulin Glargine (Lantus Solostar Pen) 10 units HS SC 09/06/17 21:00 10/06/17 20:59 Miscellaneous Information (Pending Order) 1 ea TODAY@1720 N/A 09/06/17 17:20 09/06/17 17:21
--- NOTE | 2017-09-06 17:32 | Discharge Summary ---
Discharge Summary Date of Service Sep 06, 2017. Discharge Summary Admission Date: Sep 02, 2017 at 05:19 Discharge Date: Sep 06, 2017 Discharge Disposition: Acute care facility ([facility]) Principal Diagnosis: non ST-elevation myocardial infarction multivessel coronary artery disease SECONDARY DIAGNOSES: acute left ventricular systolic heart failure dyslipidemia DM type 2 . Procedures: cardiac monitoring IV meds CTA chest echocardiogram cardiac cath . Consultations: Cardiology with Drs. Moore and Ethan. Pulmonary with Dr. Green. . Admission Information HPI (per Admitting provider): This is a 62-year-old male with past medical history significant for diabetes, hypertension, hyperlipidemia, not taking any medications. He says he could not tolerate his diabetes medications, did not see a doctor for past 6 years, smokes 1-1/2 packs a day for several years, comes with shortness of breath. Patient says she has been short of breath since about 1 year, but in the last few days, it is getting worse, and today, it was really worse, so he came to the ER. In the ER, initially he was saturating 88-89% on room air, was given DuoNebs, Solu-Medrol, azithromycin, oxygen and some Ativan, and he was doing okay, but then he went to the bathroom without using his oxygen and when he came back, he was tachypneic, tachycardic, and very air hungry. His oxygen was increased but was not getting better, so was placed him on BiPAP and started feeling better. He was sweating at that time. He denies any headaches, no blurred vision. Normal hearing. Denies any chest pain. He has some dry cough. No nausea, no vomiting, no abdominal pain. Appetite is okay. No swelling in the legs. Normal bowel and bladder movements. Currently, respiratory status is improving. . Physical Exam (per Admitting): GENERAL: Patient is of moderate build, not in distress. VITAL SIGNS: Temperature 36.9, pulse when he came in was 113, currently in 120s, respiratory rate currently is more than in 20s, blood pressure 134/78, oxygen on presentation was 89% on room air and then desaturated to 83%-85% on oxygen 2 L, is currently placed back on BiPAP and saturating 99%. HEENT: No pallor, no icterus. NECK: No neck masses. CARDIOVASCULAR SYSTEM: S1 and S2 heard. Tachycardia. No murmurs. RESPIRATORY SYSTEM: Normal AP diameter. Mildly tachypneic. Bilateral diminished breath sounds. No crackles heard. GASTROINTESTINAL: Abdomen is soft, bowel sounds present, nontender, no distention. CENTRAL NERVOUS SYSTEM: Neurologically grossly nonfocal. EXTREMITIES: No edema, no erythema. . Hospital Course NON-STEMI Presented with chest tightness and CHF. EKG in ED showed ST 105, LVH, NSSTTWA's. Serum troponin 0.086 --> --> 4.950. Cardiology consulted. Received aspirin and IV heparin. Echo showed decreased LV systolic function. Started on metoprolol succinate and lisinopril Cardiac cath performed 09/06/[address] Felix: Findings: LM - Mild distal disease LAD - 60-70% early-mid segment stenosis at take-off of 1st diagonal; 50-60% diffuse mid disease; distal luminal irregularities as wraps around apex. - Moderate caliber 2nd diagonal with 95% hazy ostial stenosis and 60-70% mid segment disease. Circumflex - 40% ostial stenosis, mild diffuse disease; chronically occluded very small OM3 with distal vessel filling via left to left collaterals. RCA - Dominant, severe diffuse proximal to mid disease; 100% chronically occluded mid segment; right to right collaterals to R-PDA via acute marginal branch. LVEDP - 13 CABG recommended in light of multivessel disease. Dr. Long discussed case with Dr. Boucher at [facility] who accepted the pt in transfer when a bed is available. CHF / PULMONARY EDEMA Presented with dyspnea. Chest x-ray demonstrated pulmonary edema. Echo demonstrated segmental wall motion abnormalities with overall LVEF 35-40%. Acute left ventricular systolic heart failure due to underlying ischemic heart disease. Received furosemide with improvement. Started on metoprolol succinate and lisinopril. DYSLIPIDEMIA LDL-c = 168. Started on atorvastatin. DM TYPE 2 Random blood sugar at time of admission 235. Hgb A1C = 9.3. Prior history of DM, but stopped taking meds several years ago. Received insulin coverage as need with improving glycemic control. FBS 09/06 was 170. Anticipated discharge to home on metformin. Will need ongoing outpatient education / support. TOBACCO USE Smoking cessation counseling. VTE PROPHYLAXIS IV heparin. DISPOSITION Arrangements being made for transfer to [facility] for evaluation for CABG. Needs to establish with primary care provider- patient prefers to make arrangements himself. Outpatient follow-up with [facility]. . Total time spent on discharge = 40 min. This includes examination of the patient, discharge planning, medication reconciliation, and communication with other providers. . Discharge Instructions HOME MEDICATIONS: none Current Inpatient Medications Medications (Trade) Dose Ordered Sig/Jailyn Route Start Time Stop Time Status Last Admin Dose Admin Acetaminophen (Tylenol Tab) 650 mg Q4H PRN PO 09/02/17 05:00 10/02/17 04:59 Al Hydrox/Mg Hydrox/Simethicone (Maalox Max Susp) 15 ml Q4H PRN PO 09/02/17 05:00 10/02/17 04:59 Ondansetron HCl (Zofran Inj) 4 mg Q6H PRN IV 09/02/17 05:00 10/02/17 04:59 Nitroglycerin (Nitrostat Tab) 0.4 mg UD PRN SL 09/02/17 05:00 10/02/17 04:59 Polyethylene (Miralax Powder Packet) 17 gm DAILY PRN PO 09/02/17 05:00 10/02/17 04:59 Insulin Aspart (novoLOG ASPART) SLIDING SCALE G... ACHS SC 09/02/17 07:00 09/06/17 23:59 09/06/17 07:42 2 UNITS Glucose (Glucose 40% Gel) 15-30 GRAMS 15 GRAMS... UD PRN PO 09/02/17 05:30 10/02/17 05:29 Glucose (Glucose Chew Tab) 4-8 Tablets 4 Tabl... UD PRN PO 09/02/17 05:30 10/02/17 05:29 Dextrose (Dextrose 50% 50ML Syringe) 25-50ML 25ML FOR ... UD PRN IV 09/02/17 05:30 10/02/17 05:29 Glucagon (Glucagon Inj) 1 mg UD PRN IM 09/02/17 05:30 10/02/17 05:29 Carbohydrates (Carbohydrates For Hypoglycemia) 15-30 GRAMS 15 grams if BSG 54-69... UD PRN PO 09/02/17 05:30 10/02/17 05:29 Miscellaneous Information (Consult Glycemic Management Pharmacy) 1 ea UD PRN N/A 09/02/17 09:53 8/25/18 09:52 Metoprolol Succinate (Toprol Xl Tab) 25 mg QAM PO 09/03/17 09:00 10/03/17 08:59 09/06/17 08:36 25 MG Levalbuterol (Xopenex 1.25MG/ 0.5ML Neb) 1.25 mg Q6R PRN INH 09/02/17 21:00 10/02/17 20:59 Heparin Sodium/ Dextrose 500 ml @ 25 mls/hr Q20H IV 09/02/17 16:30 10/02/17 16:29 Future hold 09/06/17 06:48 25 MLS/HR Ipratropium [place] (Atrovent 0.02% 0.5MG/2.5ML Neb) 0.5 mg Q6R PRN INH 09/02/17 16:30 10/02/17 16:29 Lisinopril (Zestril Tab) 10 mg QAM PO 09/04/17 09:00 10/04/17 08:59 09/06/17 08:36 10 MG Furosemide (Lasix Tab) 20 mg QAM PO 09/04/17 09:00 10/04/17 08:59 Future Hold 09/05/17 08:00 20 MG Aspirin (Aspirin Chew) 81 mg DAILY PO 09/04/17 09:00 10/04/17 08:59 Future hold 09/05/17 08:00 81 MG Nicotine (Nicoderm Cq 14MG Patch) 1 patch QAM TD 09/04/17 09:00 10/04/17 08:59 09/06/17 08:36 1 PATCH Miscellaneous (Remove Nicoderm Patch) 1 ea HS N/A 09/03/17 21:00 10/03/17 20:59 09/05/17 20:18 1 EA Lorazepam (Ativan Tab) 0.5 mg BID PRN PO 09/03/17 21:45 10/03/17 21:44 09/05/17 20:18 0.5 MG Atorvastatin Calcium (Lipitor Tab) 80 mg QAM PO 09/06/17 09:00 10/06/17 08:59 09/06/17 08:35 80 MG Insulin Aspart (novoLOG ASPART) SLIDING SCALE G... ACHS SC 09/07/17 07:00 10/07/17 06:59 Insulin Glargine (Lantus Solostar Pen) 10 units HS SC 09/06/17 21:00 10/06/17 20:59 VITALS routine ACTIVITY as tolerated ALLERGIES NKDA IV saline lock DIET AHA, diabetic VTE PROPHYLAXIS IV heparin Thank you for receiving this patient in transfer. Please call if you have any questions. Christian Marr .
[2017-09-06] MEDS ORDERED: INSULIN GLARGINE SOLOSTAR 100 UNITS/ML 3 ML PEN SC SCH (21:00)
[2017-09-06 23:47] LABS: PTT PATIENT 47.2 SECONDS (21.0-31.0)
[2017-09-07] MEDS ORDERED: INSULIN ASPART 100 UNITS/ML 3 ML PEN SC SCH (07:00)
--- NOTE | 2017-09-07 14:57 | ECHOCARDIOGRAM REPORT ---
*NOTICE TO RECEIVING DEMOCRAT AGENCY This information is strictly Confidential and protected under [place] law. [place] law prohibits you from making any further disclosure of this information unless further disclosure is expressly permitted by the written consent of the person to whom it pertains or is authorized by law. A general authorization for the release of medical or other information is not sufficient for this purpose. Hospital accepts no responsibility if the information is made available to any other person, INCLUDING THE PATIENT. Interpretation Summary * Name: Jose GARCIA Study Date: 09/02/2017 07:53 AM BP: 105/77 mmHg * Patient Location: C.2T\S\S230\S\2 HR: 115 * : 1955 (M/d/yyyy) Gender: Male Height: 67 in * Age: 62 yrs Ethnicity: [place] Weight: 161 lb * Ordering Physician: Reymundo Cazares * Referring Physician: Self, Referred * Performed By: Mattie Zarate RDCS * * Reason For Study: Elevated Troponin * BSA: 1.8 m2 * -- Conclusions -- * The left ventricle is mildly dilated. * There is hypokinesis of the anterior, anterior lateral and apical myocardium. * Ejection Fraction = 35-40%. * The right ventricular systolic function is normal. * The left atrial size is normal. * Right atrial size is normal. * No significant valvular pathology. Procedure Details * A complete two-dimensional transthoracic echocardiogram was performed (2D, M-mode, Doppler and color flow Doppler). * The study was technically difficult. * The study was technically difficult, but visualization was adequate with the administration of Definity ultrasound contrast. * A contrast injection of Definity was performed to improve assessment of LV function. * Contrast was injected into an intravenous site in the left arm. * One vial of Definity ultrasound contrast was diluted in normal saline to a total volume of 10 ml. A total of '2' ml of solution was administered during imaging. * Lot # [id number] of Definity utilized for procedure. * Expiration date . * The attending nurse who injected the contrast agent was Rin Padgett RN. Left Ventricle * The left ventricle is mildly dilated. * There is normal left ventricular wall thickness. * Ejection Fraction = 35-40%. * There is hypokinesis of the anterior, anterior lateral and apical myocardium. Right Ventricle * The right ventricle is normal size. * The right ventricular systolic function is normal. Atria * The left atrial size is normal. * Right atrial size is normal. * No ASD detected; PFO is not assessed. Mitral Valve * The mitral valve anatomy is normal. * Significant mitral regurgitation is absent. Tricuspid Valve * The tricuspid valve anatomy is normal. * Significant tricuspid regurgitation is absent. Aortic Valve * The aortic valve is not well visualized. * No hemodynamically significant valvular aortic stenosis. * There is no significant aortic regurgitation. Pulmonic Valve * The pulmonic valve is not well visualized. * There is no significant pulmonary regurgitation. Great Vessels * The aortic root is not well visualized. Pericardium/Pleural * There is no pericardial effusion. MMode 2D Measurements and Calculations IVSd 1.2 cm IVSs 1.3 cm LVIDd 5.5 cm LVIDs 4.4 cm LVPWd 1.2 cm LVPWs 1.8 cm IVS/LVPW 1.0 FS 20.2 % EDV(Teich) 150.5 ml ESV(Teich) 89.0 ml EF(Teich) 40.8 % EDV(cubed) 170.9 ml ESV(cubed) 86.9 ml EF(cubed) 49.2 % % IVS thick 9.1 % % LVPW thick 54.8 % LV mass(C)d 278.3 grams LV mass(C)dI 150.9 grams/m\S\2 LV mass(C)s 294.2 grams LV mass(C)sI 159.5 grams/m\S\2 CO(Teich) 6.6 l/min CI(Teich) 3.6 l/min/m\S\2 SV(Teich) 61.5 ml SI(Teich) 33.3 ml/m\S\2 CO(cubed) 9.0 l/min CI(cubed) 4.9 l/min/m\S\2 SV(cubed) 84.1 ml SI(cubed) 45.6 ml/m\S\2 Ao root diam 3.2 cm Ao root area 8.2 cm\S\2 ACS 1.9 cm LA dimension 3.7 cm LA/Ao 1.1 LVAd ap4 50.3 cm\S\2 LVLd ap4 11.2 cm EDV(MOD-sp4) 185.7 ml EDV(sp4-el) 191.4 ml LVAs ap4 38.0 cm\S\2 LVLs ap4 9.7 cm ESV(MOD-sp4) 122.2 ml ESV(sp4-el) 125.7 ml EF(MOD-sp4) 34.2 % EF(sp4-el) 34.3 % LVAd ap2 48.3 cm\S\2 LVLd ap2 10.8 cm EDV(MOD-sp2) 182.2 ml EDV(sp2-el) 183.3 ml LVAs ap2 38.0 cm\S\2 LVLs ap2 10.2 cm ESV(MOD-sp2) 115.9 ml ESV(sp2-el) 120.4 ml EF(MOD-sp2) 36.4 % EF(sp2-el) 34.3 % LVLd %diff -3.60 % EDV(MOD-bp) 187.8 ml LVLs %diff 4.6 % ESV(MOD-bp) 120.3 ml EF(MOD-bp) 36.0 % CO(MOD-sp4) 6.8 l/min CI(MOD-sp4) 3.7 l/min/m\S\2 SV(MOD-sp4) 63.5 ml SI(MOD-sp4) 34.4 ml/m\S\2 CO(MOD-sp2) 7.1 l/min CI(MOD-sp2) 3.8 l/min/m\S\2 SV(MOD-sp2) 66.3 ml SI(MOD-sp2) 36.0 ml/m\S\2 CO(MOD-bp) 7.2 l/min CI(MOD-bp) 3.9 l/min/m\S\2 SV(MOD-bp) 67.6 ml SI(MOD-bp) 36.6 ml/m\S\2 CO(sp4-el) 7.0 l/min CI(sp4-el) 3.8 l/min/m\S\2 SV(sp4-el) 65.6 ml SI(sp4-el) 35.6 ml/m\S\2 CO(sp2-el) 6.7 l/min CI(sp2-el) 3.7 l/min/m\S\2 SV(sp2-el) 63.0 ml SI(sp2-el) 34.1 ml/m\S\2 Doppler Measurements and Calculations MV E max sadaf 152.8 cm/sec MV dec time 0.11 sec Ao V2 max 180.4 cm/sec Ao max PG 13.0 mmHg Ao max PG (full) 8.7 mmHg LV V1 max PG 4.3 mmHg LV V1 max 103.8 cm/sec PA V2 max 116.4 cm/sec PA max PG 5.4 mmHg
== END 2017-09-07 | disposition short-term general hospital (02) | DRG 280 ==
LOC: EDBD 01:46 → C.EDB 01:47 → C.2T 05:19 → ENRESERV 05:37
PROVIDERS: ADMIT Internal Medicine; ATTEND Hospitalist
PROC: 4A023N7 Measurement of Cardiac Sampling and Pressure, Left Heart, Percutaneous Approach (ICD-10-PCS; principal; 2017-09-06 12:03)
PROC: B2111ZZ Fluoroscopy of Multiple Coronary Arteries using Low Osmolar Contrast (ICD-10-PCS; principal; 2017-09-06 12:03)
DX: I21.4 Non-ST elevation (NSTEMI) myocardial infarction (principal); I50.21 Acute systolic (congestive) heart failure; I11.0 Hypertensive heart disease with heart failure; J44.1 Chronic obstructive pulmonary disease with (acute) exacerbation; I25.10 Atherosclerotic heart disease of native coronary artery without angina pectoris; F17.210 Nicotine dependence, cigarettes, uncomplicated; E11.9 Type 2 diabetes mellitus without complications; E78.5 Hyperlipidemia, unspecified; I50.1 Left ventricular failure, unspecified; I25.5 Ischemic cardiomyopathy

== ENCOUNTER 2019-05-16 06:29 | Inpatient (IN) ==
--- NOTE | 2019-05-09 10:43 | PAT Medication Instructions ---
Medication Instructions Date of Service May 09, 2019 Home Medications Medication Instructions Recorded hydrocodone-acetaminophen [[place]] 1 tab PO Q6H PRN #30 tab 05/05/19 hydrocodone-acetaminophen [[place]] 1 tab PO Q6H PRN #30 tab 05/05/19 atorvastatin [Lipitor] 80 mg PO QPM glyburide 2.5 mg PO QAM metoprolol tartrate 50 mg PO BID amlodipine 10 mg PO QPM furosemide [Lasix] 40 mg PO QAM trazodone 50 mg PO HS PRN aspirin 81 mg PO QPM hydroxyzine HCl 10 mg PO QID PRN lisinopril 20 mg PO QAM sevelamer carbonate [Renvela] 800 mg PO TID Triphrocaps 1 cap PO QAM dicyclomine 10 mg PO QID pantoprazole 40 mg PO BID ropinirole 0.25 mg PO HS hydrocodone-acetaminophen [[place]] 1 tab PO Q6H PRN hydrocodone-acetaminophen [[place]] 1 tab PO Q6H PRN ASK your prescriber and surgeon aspirin 81 mg PO QPM STOP taking 24 hours before surgery ropinirole 0.25 mg PO HS DO NOT take the morning of surgery glyburide 2.5 mg PO QAM furosemide [Lasix] 40 mg PO QAM hydroxyzine HCl 10 mg PO QID PRN lisinopril 20 mg PO QAM sevelamer carbonate [Renvela] 800 mg PO TID Triphrocaps 1 cap PO QAM dicyclomine 10 mg PO QID Take morning of surgery With a small sip of water, OTHERWISE NOTHING TO EAT OR DRINK AFTER MIDNIGHT: metoprolol tartrate 50 mg PO BID pantoprazole 40 mg PO BID hydrocodone-acetaminophen [[place]] 1 tab PO Q6H PRN (okay to take up to 4 hours prior to surgery if needed) hydrocodone-acetaminophen [[place]] 1 tab PO Q6H PRN (okay to take up to 4 hours prior to surgery if needed) Take evening before surgery atorvastatin [Lipitor] 80 mg PO QPM metoprolol tartrate 50 mg PO BID amlodipine 10 mg PO QPM trazodone 50 mg PO HS PRN (if needed) hydroxyzine HCl 10 mg PO QID PRN (if needed) sevelamer carbonate [Renvela] 800 mg PO TID dicyclomine 10 mg PO QID pantoprazole 40 mg PO BID hydrocodone-acetaminophen [[place]] 1 tab PO Q6H PRN (if needed) hydrocodone-acetaminophen [[place]] 1 tab PO Q6H PRN (if needed) Other Notes If you have any questions please call us at [phone] or [phone] or [phone] or [phone]
--- NOTE | 2019-05-09 10:44 | Anesthesiology Consultation ---
Date of Service May 09, 2019 Assessment & Plan (1) Encounter for pre-operative examination: - Hyperkalemia: K+ 5.6 on preop labs. Reviewed with Dr. Huber: Given proximity/urgency of procedure, he recommends rechecking AM DOS. Order placed. Left message for Karina at surgeon's office to make them aware. - S/P colonoscopy: 04/18/19: MAC sedation at [facility] - S/P Left Arm Distal Revascularization and Interval Ligation Procedure Using Bovine Graft: 05/31/18: LMA#5 at [facility] - Check BSG, BMP (of note, review potassium from BMP) AM DOS Chart Review Chart Review: Acceptable Risk for Surgery (pending evaluation/labs AM DOS) and Patient seen in Pre Admission Testing Teaching & Discussion Pre-Anesthesia Teaching/Discussion Notes: Instructed NPO after midnight before surgery,except medications with 15 cc of water. Medication instructions provided according to the PAT guidelines. History Surgery Operation Date: 05/16/19 08:00 Proposed Procedures p Left Upper Extremity Arteriorgram - Weston Rivers MD s Left Upper Extremity Brachial to Brachial Bypass - Weston Rivers MD Height/Weight Height: 5 ft 8 in Weight: 70.5 kg Allergies Allergy/AdvReac Type Severity Reaction Status Date / Time oxycodone AdvReac Intermediate Hallucinati Verified 05/09/19 10:50 ons Medications Home Medications Medication Instructions Recorded Confirmed Last Taken atorvastatin [Lipitor] 80 mg PO QPM 11/23/17 05/08/19 04/17/19 glyburide 2.5 mg PO QAM 11/23/17 05/08/19 04/17/19 metoprolol tartrate 50 mg PO BID 11/23/17 05/08/19 04/17/19 amlodipine 10 mg PO QPM 01/04/18 05/08/19 04/17/19 furosemide [Lasix] 40 mg PO QAM 01/04/18 05/08/19 04/17/19 trazodone 50 mg PO HS PRN 01/04/18 05/08/19 04/16/19 aspirin 81 mg PO QPM 03/02/18 05/08/19 04/16/19 hydroxyzine HCl 10 mg PO QID PRN 03/02/18 05/08/19 04/17/19 lisinopril 20 mg PO QAM 03/08/18 05/08/19 04/17/19 sevelamer carbonate [Renvela] 800 mg PO TID 04/06/18 05/08/19 04/17/19 Triphrocaps 1 cap PO QAM 04/11/19 05/08/19 04/17/19 dicyclomine 10 mg PO QID 04/11/19 05/08/19 04/17/19 pantoprazole 40 mg PO BID 04/11/19 05/08/19 04/17/19 ropinirole 0.25 mg PO HS 04/11/19 05/08/19 04/16/19 hydrocodone-acetaminophen [[place]] 1 tab PO Q6H PRN #30 tab 05/05/19 05/08/19 U nknown hydrocodone-acetaminophen [[place]] 1 tab PO Q6H PRN #30 tab 05/05/19 05/08/19 Unknown Past Medical History Medical History Anemia Anxiety AV fistula LUE Carotid artery stenosis under surveillance by cardiology Chronic systolic CHF (congestive heart failure) Coronary artery disease S/P CABG x4 09/2017 Diabetes mellitus, type 2 NIDDM Dyslipidemia ESRD (end stage renal disease) dialysis M/W/F, [facility] ([place]) GERD (gastroesophageal reflux disease) controlled GI bleed 11/2017 2/2 gastric ulcer s/p cauterization/clipping History of blood transfusion 11/2017 2/2 gastric ulcer s/p cauterization/clipping Hypertension Morbid obesity Myocardial Infarction 08/2017 Restless leg syndrome S/P arteriogram of extremity Exercise / Class Metabolic Activity III < 4 Walking/Shop/Light housework Past Family History Family History Father Cancer Mother Family history of diabetes mellitus Daughter Family history of diabetes mellitus Other No family history of adverse response to anesthesia Past Surgical History Surgical History History of cardiac cath 08/2017 @ [facility]--no stents placed History of colonoscopy with polypectomy History of esophagogastroduodenoscopy (EGD) EGD/COLONOSCOPY= 01/13/18= MAC SEDATION AT [facility] History of removal of Port-a-Cath 05/10/18, REMOVAL OF DIAYLSIS CATH FROM CHEST WALL. History of tonsillectomy History of tooth extraction History of vascular access device CHEST PORT/DIALYSIS ACCESS History of vascular surgery "bypass" put into left arm after fistula placed to establish blood flow--Dr. Rivers Hx of vascular surgery STARCLOSE - RIGHT FEMORAL AREA. Status post coronary artery bypass graft CABG x 4 09[place]09/2017 [place] [facility] [place] post creation of arteriovenous fistula left arm 05/2018 Dr. Rivers Status post partial resection of colon 2011 03/12 DIVERTICULITIS Past Anesthesia History No Hx of Anesthesia Complications and No Family Hx of Anesthesia Complications History of PONV No Hx of PONV and No Hx of Motion Sickness Social History Smoking Status: Current every day smoker tobacco type: cigarettes Smoking cigarettes per day: 10/day (tobacco use x 45 years) Do You Dip or Chew Tobacco: No Hx Alcohol Use: No Hx Substance Use: No substance use type: does not use Review of Systems Patient denies chest pain, shortness of breath, cough, wheezing, palpitations. Physical Exam Vital Signs VITALS BP 110/64 P 63 TEMP 98.0 SP02 100%RA RESP 18 PHYSICAL Full neck and c-spine range of motion. Full TMJ range of motion. TMD 4 finger breaths Mallampati Score 2 Dentition: poor dentition; several missing Lungs: clear throughout to auscultation Cardiac: regular rate and rhythm, II/ systolic murmur (loudest LUSB) Spine: normal Carotid arteries: + bruit Extremities: no edema Trimmed galeas Testing Laboratory Results 05/09/19 11:17 05/09/19 11:17 PT 10.9 Seconds (9.0-12.0) 05/09/19 11:17 INR 1.0 (0.9-1.1) 05/09/19 11:17 APTT 31.0 Seconds (21.0-31.0) 05/09/19 11:17 Hemoglobin A1c 5.8 % (4.5-5.6) H 05/09/19 11:17 Blood Type A Positive 05/09/19 11:17 Antibody Screen NEGATIVE 05/09/19 11:17 Surgeon's office (left message for Karina) made aware of elevated potassium and WBC on preop labs* Electrocardiogram Date: 05/09/19 SB at 59bpm. NS IVCD. Isolated NS vs. TWI lead III. Chest X-Ray Date: 05/09/19 The tunneled right internal jugular central venous catheter has been removed. Median sternotomy wires intact. Atherosclerosis of the aortic arch. Cardiac silhouette normal in size. Lungs may be mildly hyperinflated. No focal opacity. No pleural effusion or pneumothorax. Osseous structures normal. Upper abdomen normal. IMPRESSION: No acute cardiopulmonary disease. Echocardiogram Date: 11/09/17 EF of 40-44% moderate aortic sclerosis, moderate secondary mitral regurgitation without evidence of pulmonary hypertension. No pericardial effusion. Cardiac Catheterization Date: 09/06/17 Severe multivessel coronary artery disease. 100% chronically occluded mid RCA with right to right collaterals. 70% early-mid LAD, 50-60% diffuse mid disease. Moderate caliber 2nd diagonal with 95% ostial, 60-70% mid segment stenosis. Normal intracardiac filling pressure. Subsequent CABG x 4 (09/2017). Other Testing Carotid artery duplex: 02/10/18: Right vertebral artery antegrade flow. Left vertebral artery with peak systolic velocity 3.51 m/s. B/L ICA stenosis 50-69% (cardio monitoring).
--- NOTE | 2019-05-09 11:44 | XRay Report ---
XR chest Pre-admission PA/Lat CLINICAL HISTORY: 64 years-old Male presenting with preoperative assessment. TECHNIQUE: PA and lateral views of the chest were obtained. COMPARISON: 04/06/2018. FINDINGS: The tunneled right internal jugular central venous catheter has been removed. Median sternotomy wires intact. Atherosclerosis of the aortic arch. Cardiac silhouette normal in size. Lungs may be mildly h yperinflated. No focal opacity. No pleural effusion or pneumothorax. Osseous structures normal. Upper abdomen normal. IMPRESSION: 1. No acute cardiopulmonary disease. ACT 112: Negative or not required by law. Electronically signed by: Ryan Butler M.D. 05/09/2019 11:43 AM
[2019-05-09 12:32] LABS: Basophils # (auto) 0.05 K/uL (0-0.2); Basophils % (auto) 0.4 %; Eosinophils # (auto) 0.34 K/uL (0-0.5); Eosinophils % (auto) 2.5 %; Hemoglobin 12.6 g/dL (14.0-18.0); Immature Granulocytes # (auto) 0.05 K/uL (0.00-0.02); Immature Granulocytes % (auto) 0.4 %; Lymphocytes # (auto) 1.31 K/uL (1.2-3.4); Lymphocytes % (auto) 9.7 %; Mean Corpuscular Hemoglobin 31.7 pg (25-34); Mean Corpuscular Hgb Conc 33.2 g/dL (32-36); Mean Corpuscular Volume 95.5 fL (80-100); Mean Platelet Volume 9.2 fL (7.4-10.4); Monocytes % (auto) 11.1 %; Neutrophils # (auto) 10.22 K/uL (1.4-6.5); Neutrophils % (auto) 75.9 %; Platelet Count 403 K/uL (130-400); RDW Coefficient of Variation 14.4 % (11.5-14.5); RDW Standard Deviation 50.2 fL (36.4-46.3); Red Blood Count 3.98 M/uL (4.7-6.1); White Blood Count 13.47 K/uL (4.8-10.8)
[2019-05-09 12:35] LABS: Estimated Average Glucose 120 mg/dl; Hemoglobin A1C 5.8 % (4.5-5.6)
[2019-05-09 12:44] LABS: Partial Thromboplastin Ratio 1.1; Prothrombin Time 10.9 Seconds (9.0-12.0)
[2019-05-09 12:58] LABS: BUN Creatinine Ratio 5.2 (10-20); Calcium 9.3 mg/dl (8.5-10.1); Creatinine Clr Calc Pharmacy 9.6 ml/min; Est GFR (African American) 7.9; Est GFR (Non-African American) 6.9; Potassium 5.6 mmol/L (3.5-5.1)
--- NOTE | 2019-05-09 13:00 | Electrocardiogram Report ---
Test Reason : Blood Pressure : / mmHG Vent. Rate : 059 BPM Atrial Rate : 059 BPM P-R Int : 158 ms QRS Dur : 124 ms QT Int : 496 ms P-R-T Axes : 054 071 000 degrees QTc Int : 491 ms Sinus bradycardia Non-specific intra-ventricular conduction delay Borderline ECG When compared with ECG of 06-APR-2018 13:15, T wave inversion now evident in Inferior leads Nonspecific T wave abnormality no longer evident in Lateral leads Confirmed by Juan Luis Luna ([id number]) on 05/09/2019 12:59:42 PM Referred By: Weston Rivers Confirmed By:Juan Luis Luna
[~2019-05-16 06:29] MED LIST changes: -INSHRI SQ; -LSN25 PO; -MCR5 PO; -OXYC-57 PO; +SODIUM CHLORIDE 0.9% 1000ML IV SCH
[2019-05-16] MEDS ORDERED: PROPOFOL IV EMULSION 10 MG/ML 20 ML VIAL IV ONE (07:27)
[2019-05-16] MEDS ORDERED: LIDOCAINE HCL 2% 2 ML VIAL/AMP(20MG/ML) INFIL ONE ×4 (07:27→12:12)
[2019-05-16] MEDS ORDERED: ONDANSETRON INJ 2 MG/ML 2 ML VIAL ONE (07:27)
[2019-05-16] MEDS ORDERED: fentaNYL citrate 100 MCG/2 ML VIAL ONE ×3 (07:27→12:30)
[2019-05-16] MEDS ORDERED: MIDAZOLAM HCL 1 MG/ML 2ML VIAL ONE (07:27)
--- NOTE | 2019-05-16 07:28 | History & Physical Report ---
Date of Service May 16, 2019 Assessment & Plan (1) Brachial artery occlusion, left: Patient is admitted for arteriography and revascularization of his left upper extremity. I have discussed the risks options and benefits of the procedure with the patient. The patient understands the risks options and benefits and agrees to the procedure. History of Present Illness Chief Complaint: Worsening left hand pain Primary Care Provider: Myron Frost DO This is a 64yo male on dialysis with a left upper arm fistula. He had a DRIL procedure done for steal syndrome of his left arm. This has subsequently thrombosed. He did not have symptoms for a period of time. He then developed left hand pain on dialysis which has progressed. We were planning on revascularization once elective cases could be done but he has developed rest pain especially at night of his left hand. He also has developed an ulcer of his fingertips on his left hand. This now becomes an urgent case for limb salvage. Allergies Allergy/AdvReac Type Severity Reaction Status Date / Time oxycodone AdvReac Intermediate Hallucinati Verified 05/16/19 07:10 ons Home Medications Home Medications Medication Instructions Recorded Confirmed Type atorvastatin [Lipitor] 80 mg PO QPM 11/23/17 05/08/19 History glyburide 2.5 mg PO QAM 11/23/17 05/08/19 History metoprolol tartrate 50 mg PO BID 11/23/17 05/08/19 History amlodipine 10 mg PO QPM 01/04/18 05/08/19 History furosemide [Lasix] 40 mg PO QAM 01/04/18 05/08/19 History trazodone 50 mg PO HS PRN 01/04/18 05/16/19 History aspirin 81 mg PO QPM 03/02/18 05/08/19 History hydroxyzine HCl 10 mg PO QID PRN 03/02/18 05/16/19 History lisinopril 20 mg PO QAM 03/08/18 05/08/19 History sevelamer carbonate [Renvela] 800 mg PO TID 04/06/18 05/16/19 History Triphrocaps 1 cap PO QAM 04/11/19 05/08/19 History dicyclomine 10 mg PO QID 04/11/19 05/16/19 History pantoprazole 40 mg PO BID 04/11/19 05/08/19 History ropinirole 0.25 mg PO HS 04/11/19 05/16/19 History hydrocodone-acetaminophen [[place]] 1 tab PO Q6H PRN #30 tab 05/05/19 05/16/19 Rx hydrocodone-acetaminophen [[place]] 1 tab PO Q6H PRN #30 tab 05/05/19 05/16/19 Rx Past Med/Surg History Medical History Anemia Anxiety AV fistula LUE Carotid artery stenosis under surveillance by cardiology Chronic systolic CHF (congestive heart failure) Coronary artery disease S/P CABG x4 09/2017 Diabetes mellitus, type 2 NIDDM Dyslipidemia ESRD (end stage renal disease) dialysis M/W/F, [facility] ([place]) GERD (gastroesophageal reflux disease) controlled GI bleed 11/2017 2 gastric ulcer s/p cauterization/clipping History of blood transfusion 11/2017 gastric ulcer s/p cauterization/clipping Hypertension Morbid obesity Myocardial Infarction 08/2017 Restless leg syndrome S/P arteriogram of extremity Surgical History History of cardiac cath 08/2017 @ [facility]--no stents placed History of colonoscopy with polypectomy History of esophagogastroduodenoscopy (EGD) EGD/COLONOSCOPY= 01/13/18= MAC SEDATION AT [facility] History of removal of Port-a-Cath 05/10/18, REMOVAL OF DIAYLSIS CATH FROM CHEST WALL. History of tonsillectomy History of tooth extraction History of vascular access device CHEST PORT/DIALYSIS ACCESS History of vascular surgery "bypass" put into left arm after fistula placed to establish blood flow--Dr. Rivers Hx of vascular surgery STARCLOSE - RIGHT FEMORAL AREA. Status post coronary artery bypass graft CABG x 4 09/09/2017 @ [facility] [place] Status post creation of arteriovenous fistula left arm 05/2018 Dr. 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 Beliefs That Will Affect Care: None marital status: Current Living Situation: Spouse Other Information That Helps Us Care for You: No Feels Safe at Home: Yes Safety Concerns: Feels Safe At This Time Smoking Status: Current every day smoker Tobacco Type: cigarettes ; Cigarettes Per Day: 10/day (tobacco use x 45 years) ; Do You Dip or Chew Tobacco: No ; Second Hand Exposure: Yes ( smokes) ; Tobacco Cessation Education Requested by Patient: No Hx Alcohol Use: No Hx Substance Use: No Review of Systems All systems reviewed & are unremarkable except as noted in HPI & below Physical Exam Constitutional: well developed and well nourished Neck: normal visual inspection and trachea midline Respiratory: normal respiratory effort, lungs clear to auscultation Cardiovascular: RRR, no murmur, no edema Vessels: femoral pulses present and radial pulses present (none on left) Extremities: normal capillary refill (markedly decreased on left hand) and + AV fistula (left upper arm) Gastrointestinal (Abdomen): normal bowel sounds, soft, nontender, no hepatosplenomegaly Musculoskeletal: no cyanosis or clubbing, extremities motor strength 5/5 Neurologic: normal sensation to monofilament (decreased left hand) and moves all extremities; no focal motor deficits Cranial Nerves: PERRL and EOM intact bilaterally Psychiatric: Orientation: alert and oriented x 3
[2019-05-16] MEDS ORDERED: HYDROmorphone INJ 1 MG/ML SYRINGE IV PRN (07:41)
[2019-05-16] MEDS ORDERED: ePHEDrine sulfate 50 MG/ML AMP IV PRN (07:41)
[2019-05-16] MEDS ORDERED: ONDANSETRON INJ 2 MG/ML 2 ML VIAL IV PRN (07:41)
[2019-05-16] MEDS ORDERED: ATROPINE SULFATE 0.1 MG/ML 10ML SYR IV PRN (07:41)
[2019-05-16] MEDS ORDERED: HEPARIN (PORCINE) 1000 UNIT/ML 10 ML (CATH LAB USE ONLY) ONE (07:48)
[2019-05-16] MEDS ORDERED: THROMBIN FOR SOLN 20000 UNIT KIT ONE (07:49)
[2019-05-16] MEDS ORDERED: GELATIN SPONGE 12-7MM ONE (07:49)
[2019-05-16] MEDS ORDERED: BUPIVACAINE/EPINEPHRINE 0.5% MPF 1:200,000 10 ML VIAL ONE (07:49)
[2019-05-16] MEDS ORDERED: LIDOCAINE HCL 1% 20 ML VIAL ONE (07:49)
[2019-05-16 08:23] LABS: Calcium 8.7 mg/dl (8.5-10.1); Creatinine Clr Calc Pharmacy 10.8 ml/min; Est GFR (African American) 9.4; Est GFR (Non-African American) 8.1
[2019-05-16] MEDS: CEFAZOLIN 1000MG 1,000 MG/7.5 ML SYR IV SCH ×2 (08:33→09:30)
[2019-05-16] MEDS ORDERED: VISIPAQUE IV PRN (09:59)
[2019-05-16] MEDS ORDERED: KETAMINE HCL INJ 50 MG/ML 10 ML VIAL ONE ×2 (10:28)
[2019-05-16] MEDS ORDERED: CEFAZOLIN 1000MG 1,000 MG/7.5 ML SYR IV ONE (10:33)
[2019-05-16] MEDS ORDERED: SURGICEL ABSORB HEMOSTAT 2IN X 14IN TOP ONE (10:44)
[2019-05-16] MEDS ORDERED: ROCURONIUM BROMIDE 10 MG/ML 5 ML VIAL ONE (10:46)
[2019-05-16] MEDS ORDERED: PHENYLEPHRINE HCL 10 MG/ML VIAL ONE (11:57)
[2019-05-16] MEDS ORDERED: ePHEDrine sulfate 50 MG/ML AMP ONE (11:57)
--- NOTE | 2019-05-16 12:14 | Operative Report ---
Post Operative Report Pre & Post Diagnosis Operation Date: 05/16/19 08:00 Pre-Op Diagnosis: Brachial artery occlusion, left Post-Op Diagnosis: Brachial artery occlusion, left I identified the patient and participated in the time-out.: Yes Procedure Operation Date: 05/16/19 08:00 Actual Procedures p Left Upper Extremity Arteriorgram;Balloon angioplasty left subclavian artery(Left) - Weston Rivers MD s Left Upper Extremity Brachial to Brachial Reverse Saphenous Vein Bypass(Left) - Weston Rivers MD Surgeon Weston Rivers MD Engineering Project Designer Viktor,PAC Estimated Blood Loss 100 Findings Consistent with Post-Op Diagnosis Specimens none Anesthesia Type General Complications none Disposition Accompanied Patient To Recovery: No Disposition: Recovery Room Indications This is a 64-year-old male in end-stage renal disease patient with a left upper arm fistula. He had a dril procedure done in the past stent which occluded. He only had minimal symptoms once the occlusion occurred until recently which point his left hand was more painful. Occurs especially on dialysis. Over the last week he has been having rest pain at night in the hand and ulcerations of the fingertips. Arteriography with any intervention needed plus a brachial brachial bypass was recommended. I have discussed the risks options and benefits of the procedure with the patient. The patient understands the risks options and benefits and agrees to the procedure. Description of Procedure The patient was taken to the operating placed in the supine position. After general anesthesia was accomplished the 20-minute wait was done. The left thigh and left arm were then prepped and draped. Timeout was performed the patient was identified. Incision was then made over the brachial artery and the distal left upper arm. Brachial arteries identified. Puncture was then done using micropuncture technique and a 5 Occitan sheath inserted. Hand-injection was then performed which showed the brachial artery be widely patent down to the anastomosis of the fistula. Beyond that there was abrupt occlusion at the site of ligation for the dril procedure. We then passed an 035 guidewire up through the subclavian to the arch. An angled glide catheter was then inserted and passed up to the proximal subclavian. Hand-injection done there showed a 70 to 80% narrowing at the subclavian just beyond the origin. We then exchanged the 5 Occitan sheath a 6 Occitan sheath over an 035 wire once the guide catheter was removed. Using 8 x 4 balloon this area was dilated without difficulty. No residual stenosis was noted. The 6 Occitan sheath was removed. The puncture site was closed with interrupted 7-0 Prolene. An incision was then made below the antecubital fossa and the distal brachial artery just before the bifurcation was identified. It was of small caliber. It was usable. Incision was made in the left groin this was carried down to the upper third of the thigh exposing the small segment of saphenous vein which was left. There was a clip at the end which look like the vein had been harvested for the previous time. The remaining saphenous vein was then removed. All side branches were ligated and divided. This wound was inspected at the end of the procedure. Adequate stasis was obtained and was closed with running Vicryl suture subcutaneous layer and st aples for the skin. Saphenous vein was that was harvested was gently dilated. It was good caliber and usable. Patient was heparinized at that time. After adequate heparinization the brachial artery was then clamped proximal distally just below the elbow. Longitudinal arteriotomy was then made. The saphenous vein was reversed and beveled on its side anastomosis was accomplished between the saphenous vein and the distal brachial artery using a 7-0 Prolene suture in the usual vascular fashion. Prior to completing the closure backbleeding for bleeding was allowed to occur. The final few sutures were then placed and securely tied. Clamp was then placed on the saphenous vein and the clamps removed from the distal brachial artery. Brachial artery above the elbow was then clamped proximal distally. Longitudinal arteriotomy was then made. Saphenous vein was pulled appropriate length and beveled in appropriate fashion. End-to-side anastomosis was then accomplished between the saphenous vein and the brachial artery above the elbow again using a 7-0 Prolene suture in the usual vascular fashion. Once anastomosis completed clamps removed. Good Doppler signals were heard at the brachial artery beyond the distal anastomosis. There was a good radial and ulnar artery Doppler signal at the wrist level and actually a palmar arch which was heard with the Doppler. The signals did not sound like there was a significant steal present. Adequate stasis was then obtained to the wounds. After this was accomplished the arm wounds were then closed with a running 3-0 Vicryl suture for the subcutaneous layer and ruben for the skin. Sterile dressings were applied to the wounds.The patient left the operation room in satisfactory condition and tolerated the procedure well. All needle and sponge counts were correct at the end of the procedure. I attest to the content of the Intraoperative Record and any orders documented therein. Any exceptions are noted below.
[2019-05-16] MEDS ORDERED: NEOSTIGMINE METHYLSULFATE 5 MG/5 ML SYR ONE (12:32)
[2019-05-16] MEDS ORDERED: HEPARIN SOD (PORCINE) 1000 UNIT/ML 10 ML VIAL ONE (12:32)
[2019-05-16] MEDS ORDERED: GLYCOPYRROLATE 0.2 MG/ML VIAL ONE (12:32)
[2019-05-16] MEDS: fentaNYL citrate 100 MCG/2 ML VIAL IV PRN ×3 (13:20→13:40)
[2019-05-16] MEDS ORDERED: LIDOCAINE/EPINEPHRINE 1% 20 ML VIAL ONE (13:34)
--- NOTE | 2019-05-16 14:03 | Anesthesiology Progress Note ---
Date of Service May 16, 2019 Anesthesia Post Procedure Vital Signs Vital Signs: Temp Pulse Pulse Resp BP Pulse Ox 05/16/19 13:45 68 17 110/41 L 97 05/16/19 13:35 77 15 98/61 L 95 05/16/19 13:25 71 16 93/45 L 100 05/16/19 13:15 59 L 20 115/39 L 100 05/16/19 13:05 68 15 110/38 L 100 05/16/19 12:55 60 12 118/38 L 100 05/16/19 12:48 36.2 C L 71 16 114/42 L 97 05/16/19 07:18 36.9 C 59 L 18 144/50 H 98 Pain Intensity Left Arm: Pain Intensity: 4 Left Leg: Pain Intensity: 2 Transfer of Care Handoff Completed per policy Notes Mental Status: alert / awake / arousable and participated in evaluation Patient Amnestic to Procedure: Yes Nausea / Vomiting: adequately controlled Pain: adequately controlled Airway Patency, RR, SpO2: stable & adequate BP & HR: stable & adequate Hydration State: stable & adequate Anesthetic Complications: no major complications apparent and Pt Satisfied with anesthetic care
--- NOTE | 2019-05-16 14:26 | Communication Note ---
Date of Service: May 16, 2019 Notified that pt was having significant shadowing from LEFT upper arm dressing. Arrived to see pt in PACU and dressing removed. Mild bleeding noted from upper arm incision. 7cc of 1% lidocaine with epinephrine injected locally to upper arm wound and 2 more ruben placed. Bleeding significantly reduced. New clean dressings placed. No large hematoma noted. Fingers with good cap refill.
[2019-05-16] MEDS ORDERED: TRAZODONE HCL 50 MG TAB PO PRN ×2 (15:07)
[2019-05-16] MEDS ORDERED: SODIUM CHLORIDE 0.9% 500 ML IV SCH (15:07)
[2019-05-16] MEDS ORDERED: NORCO 5/325MG HOMEPACK PO PRN ×3 (15:07)
[2019-05-16] MEDS ORDERED: hydrOXYzine HCl 10 MG TAB PO PRN ×2 (15:07)
[2019-05-16] MEDS: HYDROCODONE/ACETAMOPHEN 5/325MG TAB PO PRN ×2 (16:19→23:33)
[2019-05-16] MEDS: SEVELAMER HCL 800 MG TABLET PO SCH (16:23)
[2019-05-16] MEDS: DICYCLOMINE HCL 10 MG CAP PO SCH ×3 (16:23→21:00)
[2019-05-16] MEDS ORDERED: DICYCLOMINE HCL 10 MG CAP PO SCH (17:00)
[2019-05-16] MEDS: PANTOprazole 40 MG TAB PO SCH (21:00)
[2019-05-16] MEDS ORDERED: SEVELAMER HCL 800 MG TABLET PO SCH (21:00)
[2019-05-16] MEDS: METOPROLOL TARTRATE 50 MG TAB PO SCH (21:00)
[2019-05-16] MEDS ORDERED: METOPROLOL TARTRATE 50 MG TAB PO SCH (21:00)
[2019-05-16] MEDS ORDERED: AMLODIPINE BESYLATE 5 MG TAB PO SCH ×2 (21:00)
[2019-05-16] MEDS ORDERED: ATORVASTATIN 40 MG TAB PO SCH ×2 (21:00)
[2019-05-16] MEDS ORDERED: ASPIRIN 81 MG ECTAB PO SCH ×2 (21:00)
[2019-05-16] MEDS ORDERED: PANTOprazole 40 MG TAB PO SCH (21:00)
[2019-05-16] MEDS ORDERED: ROPINIROLE HCL 0.25 MG TABLET PO SCH ×2 (21:00)
--- NOTE | 2019-05-17 07:47 | Anesthesiology Progress Note ---
Date of Service May 17, 2019 Anesthesia Post Procedure Vital Signs Vital Signs: Temp Pulse Pulse Pulse Resp BP Pulse Ox 05/17/19 07:12 36.8 C 74 18 115/49 L 99 05/17/19 03:22 36.7 C 65 16 111/57 L 94 05/16/19 23:27 37.0 C 58 L 16 137/79 97 05/16/19 23:11 36.6 C 73 16 103/49 L 93 05/16/19 20:28 36.7 C 95 H 17 119/52 L 95 05/16/19 17:31 36.6 C 69 17 115/49 L 97 05/16/19 16:38 65 17 120/52 L 93 05/16/19 16:00 36.4 C L 73 17 110/61 95 05/16/19 15:18 36.7 C 73 16 106/62 97 05/16/19 14:30 36.8 C 79 16 105/53 L 96 05/16/19 14:10 79 16 114/39 L 98 05/16/19 13:55 36.4 C L 59 L 15 111/37 L 97 05/16/19 13:45 68 17 110/41 L 97 05/16/19 13:35 77 15 98/61 L 95 05/16/19 13:25 71 16 93/45 L 100 05/16/19 13:15 59 L 20 115/39 L 100 05/16/19 13:05 68 15 110/38 L 100 05/16/19 12:55 60 12 118/38 L 100 05/16/19 12:48 36.2 C L 71 16 114/42 L 97 Pain Intensity Left Arm: Pain Intensity: 7 Left Leg: Pain Intensity: 2 Notes Mental Status: alert / awake / arousable and participated in evaluation Nausea / Vomiting: adequately controlled Pain: adequately controlled BP & HR: stable & adequate Hydration State: stable & adequate Anesthetic Complications: no major complications apparent and Pt Satisfied with anesthetic care
[2019-05-17] MEDS ORDERED: glyBURIDE 2.5 MG TAB PO SCH ×2 (08:00→09:00)
[2019-05-17] MEDS ORDERED: HYDROmorphone INJ 1 MG/ML SYRINGE IV PRN (08:57)
[2019-05-17] MEDS ORDERED: FUROSEMIDE 40 MG TAB PO SCH ×2 (09:00)
[2019-05-17] MEDS ORDERED: lisinopriL 20 MG TAB PO SCH ×2 (09:00)
[2019-05-17] MEDS ORDERED: NEPHROCAPS PO SCH ×2 (09:00)
[2019-05-17] MEDS: DICYCLOMINE HCL 10 MG CAP PO SCH ×3 (09:04→17:59)
[2019-05-17] MEDS: SEVELAMER HCL 800 MG TABLET PO SCH ×3 (09:04→17:59)
[2019-05-17] MEDS: PANTOprazole 40 MG TAB PO SCH (09:05)
[2019-05-17] MEDS: METOPROLOL TARTRATE 50 MG TAB PO SCH (09:05)
[2019-05-17] MEDS: HYDROCODONE/ACETAMOPHEN 5/325MG TAB PO PRN (09:15)
--- NOTE | 2019-05-17 09:18 | Surgery Progress Note ---
Date of Service May 17, 2019 Assessment & Plan (1) Brachial artery occlusion, left: Post op day 1 from a left brachial to brachial bypass. Doing well. Has excellent doppler signals at left wrist. Will have dialysis today and d/c after. Subjective Patient without pain in his left hand. Still has some feelings of pins and needles. Does have incisional pain. Physical Exam Constitutional: WD/WN, vitals as above Cardiovascular: Extremities: normal capillary refill (still slightly decrease in left hand fingers but improved from pre op) Skin: Incision with slight oozing from the lower incision Neurologic: no focal motor deficits Results & Data Vital Signs (Past 12 Hours) Vital Signs Temp Pulse Pulse Resp BP Pulse Ox 05/17/19 07:12 36.8 C 74 18 115/49 L 99 05/17/19 03:22 36.7 C 65 16 111/57 L 94 05/16/19 23:27 37.0 C 58 L 16 137/79 97 05/16/19 23:11 36.6 C 73 16 103/49 L 93
[2019-05-17] MEDS ORDERED: HEPARIN SOD (PORCINE) 1000 UNIT/ML 10 ML VIAL IV ONE (09:58)
[2019-05-17] MEDS ORDERED: SODIUM CHLORIDE 0.9% 1000ML 1,000 ML IV PRN ×2 (09:58→10:00)
[2019-05-17 11:13] LABS: Calcium 8.1 mg/dl (8.5-10.1); Creatinine Clr Calc Pharmacy 7.8 ml/min; Est GFR (African American) 6.3; Est GFR (Non-African American) 5.5; Potassium 5.1 mmol/L (3.5-5.1)
[2019-05-17] MEDS: HEPARIN SOD (PORCINE) 1000 UNIT/ML 10 ML VIAL IV SCH ×3 (12:40→14:40)
--- NOTE | 2019-05-17 15:12 | Consultation Report ---
DATE OF CONSULTATION: 05/17/2019 NEPHROLOGY CONSULTATION NOTE REASON FOR CONSULT: Dialysis patient. HISTORY OF PRESENT ILLNESS: The patient is a 64-year-old male who is on chronic hemodialysis [id number] and followed by Dr. Manisha Kate. Had surgery for AV graft bypass yesterday for symptomatic steal syndrome. It appears steal syndrome symptoms have improved slightly. Today is his regular dialysis day and he is getting dialysis as I speak through his AV graft. There were no issues reported. The patient is hemodynamically stable, does not have evidence of fluid overload or any major electrolyte imbalance. PAST MEDICAL HISTORY AND SURGICAL HISTORY: Reviewed in detail and includes ESRD - on hemodialysis, diabetes, hypertension, congestive heart failure, GERD, hyperlipidemia, history of GI bleed, history of [place], obesity, peripheral vascular disease, multiple surgeries related with peripheral vascular disease, status post CABG. FAMILY HISTORY: Negative for renal disease or dialysis. SOCIAL HISTORY: Current smoker. No alcohol. and lives with his . REVIEW OF SYSTEMS: Twelve systems reviewed and otherwise negative. PHYSICAL EXAMINATION: GENERAL: Middle-aged white male who is awake, alert, oriented x3. He is not in any respiratory distress. VITAL SIGNS: Blood pressure is 125/48, pulse 52 per minute, temperature 36.5 degrees Celsius, 95% on room air. HEENT: Mucous membrane is moist. NECK: Supple. No jugular venous distention. CHEST: Bilaterally clear to auscultation. CARDIOVASCULAR: S1, S2 regular. ABDOMEN: Soft, nontender. EXTREMITIES: Show no edema. AV graft appears normal looking. LABORATORY TEST: From yesterday was reviewed and showed a creatinine of 9.17, BUN 55, potassium 5.1, sodium 133. Hemoglobin 12.6, WBC count 13,000, platelet count 403. ASSESSMENT AND PLAN: A 64-year-old male, long-term diabetic with hypertension and peripheral vascular disease as well as coronary artery disease, with end-stage renal disease - on chronic hemodialysis [id number], admitted for surgery to fix his steal syndrome. End-stage renal disease: He is getting dialysis as I speak without any major problem despite fresh surgery from yesterday. Arteriovenous graft was cannulated without problem and is running smoothly with good blood flow, no evidence of fluid overload. We will do dialysis for 3 hours 30 minutes and take about 1.5 kilo off on a 2 K bath. Other medications will be as per outpatient prescriptions. Thank you very much. CRISS
--- NOTE | 2019-05-22 10:34 | Operative Report ---
Post Operative Report Pre & Post Diagnosis Operation Date: 05/16/19 08:00 Pre-Op Diagnosis: Brachial artery occlusion, left Post-Op Diagnosis: Brachial artery occlusion, left I identified the patient and participated in the time-out.: Yes Procedure Operation Date: 05/16/19 08:00 Actual Procedures s Left Upper Extremity Arteriorgram;Balloon angioplasty left subclavian artery(Left) - Weston Rivers MD p Left Upper Extremity Brachial to Brachial Reverse Saphenous Vein Bypass(Left) - Weston Rivers MD Surgeon Weston Rivers MD Barber Viktor,PAC Estimated Blood Loss 100 Findings Consistent with Post-Op Diagnosis Specimens none Anesthesia Type General Complications none Disposition Accompanied Patient To Recovery: No Disposition: Recovery Room Indications This is a 64-year-old male in end-stage renal disease patient with a left upper arm fistula. He had a dril procedure done in the past stent which occluded. He only had minimal symptoms once the occlusion occurred until recently which point his left hand was more painful. Occurs especially on dialysis. Over the last week he has been having rest pain at night in the hand and ulcerations of the fingertips. Arteriography with any intervention needed plus a brachial brachial bypass was recommended. I have discussed the risks options and benefits of the procedure with the patient. The patient understands the risks options and benefits and agrees to the procedure. Description of Procedure The patient was taken to the operating placed in the supine position. After general anesthesia was accomplished the 20-minute wait was done. The left thigh and left arm were then prepped and draped. Timeout was performed the patient was identified. Incision was then made over the brachial artery and the distal left upper arm. Brachial arteries identified. Puncture was then done using micropuncture technique and a 5 Kinyarwanda sheath inserted. Hand-injection was then performed which showed the brachial artery be widely patent down to the anastomosis of the fistula. Beyond that there was abrupt occlusion at the site of ligation for the dril procedure. We then passed an 035 guidewire up through the subclavian to the arch. An angled glide catheter was then inserted and passed up to the proximal subclavian. Hand-injection done there showed a 70 to 80% narrowing at the subclavian just beyond the origin. We then exchanged the 5 Kinyarwanda sheath a 6 Kinyarwanda sheath over an 035 wire once the guide catheter was removed. Using 8 x 4 balloon this area was dilated without difficulty. No residual stenosis was noted. The 6 Kinyarwanda sheath was removed. The puncture site was closed with interrupted 7-0 Prolene. An incision was then made below the antecubital fossa and the distal brachial artery just before the bifurcation was identified. It was of small caliber. It was usable. Incision was made in the left groin this was carried down to the upper third of the thigh exposing the small segment of saphenous vein which was left. There was a clip at the end which look like the vein had been harvested for the previous time. The remaining saphenous vein was then removed. All side branches were ligated and divided. This wound was inspected at the end of the procedure. Adequate stasis was obtained and was closed with running Vicryl suture subcutaneous layer and st aples for the skin. Saphenous vein was that was harvested was gently dilated. It was good caliber and usable. Patient was heparinized at that time. After adequate heparinization the brachial artery was then clamped proximal distally just below the elbow. Longitudinal arteriotomy was then made. The saphenous vein was reversed and beveled on its side anastomosis was accomplished between the saphenous vein and the distal brachial artery using a 7-0 Prolene suture in the usual vascular fashion. Prior to completing the closure backbleeding for bleeding was allowed to occur. The final few sutures were then placed and securely tied. Clamp was then placed on the saphenous vein and the clamps removed from the distal brachial artery. Brachial artery above the elbow was then clamped proximal distally. Longitudinal arteriotomy was then made. Saphenous vein was pulled appropriate length and beveled in appropriate fashion. End-to-side anastomosis was then accomplished between the saphenous vein and the brachial artery above the elbow again using a 7-0 Prolene suture in the usual vascular fashion. Once anastomosis completed clamps removed. Good Doppler signals were heard at the brachial artery beyond the distal anastomosis. There was a good radial and ulnar artery Doppler signal at the wrist level and actually a palmar arch which was heard with the Doppler. The signals did not sound like there was a significant steal present. Adequate stasis was then obtained to the wounds. After this was accomplished the arm wounds were then closed with a running 3-0 Vicryl suture for the subcutaneous layer and ruben for the skin. Sterile dressings were applied to the wounds.The patient left the operation room in satisfactory condition and tolerated the procedure well. All needle and sponge counts were correct at the end of the procedure. Lorraine Hunt Pac assisted due to lack of resident availability and was necessary for positioning, draping, retraction, wound closure deep layers, subcutaneous tissue, and skin closure and was necessary for assisting with the case. I attest to the content of the Intraoperative Record and any orders documented therein. Any exceptions are noted below. I attest to the content of the Intraoperative Record and any orders documented therein. Any exceptions are noted below.
--- NOTE | 2019-05-29 13:33 | Discharge Summary ---
Date of Service May 29, 2019 Admission HPI Per Admitting Provider This is a 64yo male on dialysis with a left upper arm fistula. He had a DRIL procedure done for steal syndrome of his left arm. This has subsequently thrombosed. He did not have symptoms for a period of time. He then developed left hand pain on dialysis which has progressed. We were planning on revascularization once elective cases could be done but he has developed rest pain especially at night of his left hand. He also has developed an ulcer of his fingertips on his left hand. This now becomes an urgent case for limb salvage. Admission Exam Per Admitting Provider Constitutional: well developed and well nourished Neck: normal visual inspection and trachea midline Respiratory: normal respiratory effort, lungs clear to auscultation Cardiovascular: RRR, no murmur, no edema Vessels: femoral pulses present and radial pulses present (none on left) Extremities: normal capillary refill (markedly decreased on left hand) and + AV fistula (left upper arm) Gastrointestinal (Abdomen): normal bowel sounds, soft, nontender, no hepatosplenomegaly Musculoskeletal: no cyanosis or clubbing, extremities motor strength 5/5 Neurologic: normal sensation to monofilament (decreased left hand) and moves all extremities; no focal motor deficits Cranial Nerves: PERRL and EOM intact bilaterally Psychiatric: Orientation: alert and oriented x 3 Principal Diagnosis 1. s/p LUE brachial-brachial artery reverse saphenous vein bypass and LUE Angiography wiht REPA[employer] MECH[employer]IC of subclavian artery 2. 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 Discharge Exam Constitutional WD/WN, vitals as above well developed and well nourished Neck normal visual inspection, trachea midline and + facial hair Respiratory normal respiratory effort, lungs clear to auscultation + abnormal respiratory effort Auscultation: + lungs not clear to auscultation Cardiovascular RRR, no murmur, no edema Rate/Rhythm: regular rate and regular rhythm Vessels: femoral pulses present and radial pulses present (none on left) Extremities: normal capillary refill (still slightly decrease in left hand fingers but improved from pre op) and + AV fistula (left upper arm) Gastrointestinal (Abdomen) normal bowel sounds, soft, nontender, no hepatosplenomegaly Musculoskeletal no cyanosis or clubbing, extremities motor strength 5/5 Spine: normal cervical ROM and no pain with cervical ROM Neurologic normal sensation to monofilament (decreased left hand) and moves all extremities; no focal motor deficits Cranial Nerves: PERRL and EOM intact bilaterally Psychiatric Orientation: alert and oriented x 3 Discharge Data Allergies Allergy/AdvReac Type Severity Reaction Status Date / Time oxycodone AdvReac Intermediate Hallucinati Verified 05/16/19 07:10 ons Consultations 05/16/19 15:07 Consult Nephrology Routine Procedures Performed Operation Date: 05/16/19 08:00 Actual Procedures s Left Upper Extremity Arteriorgram;Balloon angioplasty left subclavian artery(Left) - Wseton Rivers MD p Left Upper Extremity Brachial to Brachial Reverse Saphenous Vein Bypass(Left) - Weston Rivers MD Ordered Studies 05/16/19 05:00 US guide needle placement Stat 05/16/19 08:01 EV angio arteriovenous shunt Routine Hospital Course (1) Brachial artery occlusion, left: Post op day 1 from a left brachial to brachial bypass. Doing well. Has excellent doppler signals at left wrist. Will have dialysis and d/c after. 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 Left brachial to brachial bypass Activity: Per Instructions section Lifting: Gradually increase as tolerated Bathing: May shower/bathe in 3 days Driving/Machine Use: Resume 3 days after discharge Non-emergency contact: Surgeon Call non-emergency contact if: you have any medication questions, your symptoms worsen, your pain is not controlled, your pain is worsening, your pain is unusual for you, your pain is concerning for you, your temperature is above 101.5, your wound has increased redness, your wound has increased drainage and your wound pain has increased Follow-up/Referrals: Weston Rivers MD [Physician] - 06/01/19 1:00 pm (Follow up visit will be at [facility]. 's office will call to give directions.) Myron Frost DO [Primary Care Provider] - Diet: Carb Consistent or DM2, Dialysis Renal and Heart Healthy Addtl Attending Provider Instructions: ACTIVITY RECOMMENDATIONS: See Above Change left arm dressing daily with 4x4's and tape until all drainage stops, then may keep open to air SPECIAL CARE INSTRUCTIONS: Call your doctor if: * Temperature above 101 degrees * Pain not relieved by pain medicine ordered * There is increased drainage or redness from any incision * You have any unanswered questions or concerns. Pending Studies at Discharge: No Stand-Alone Forms: My [facility], Smoking Cessation Medications and DC Order Prescriptions: Continued hydroxyzine HCl 10 mg Tablet 10 mg PO QID PRN (Reason: Itching) RF: 0 aspirin 81 mg tablet,delayed release (DR/EC) 81 mg PO QPM RF: 0 lisinopril 20 mg Tablet 20 mg PO QAM RF: 0 atorvastatin [Lipitor] 80 mg Tablet 80 mg PO QPM RF: 0 glyburide 2.5 mg Tablet 2.5 mg PO QAM RF: 0 metoprolol tartrate 50 mg Tablet 50 mg PO BID RF: 0 furosemide [Lasix] 40 mg Tablet 40 mg PO QAM RF: 0 trazodone 50 mg Tablet 50 mg PO HS PRN (Reason: Sleep) RF: 0 amlodipine 10 mg Tablet 10 mg PO QPM RF: 0 sevelamer carbonate [Renvela] 800 mg Tablet 800 mg PO TID RF: 0 ropinirole 0.25 mg Tablet 0.25 mg PO HS RF: 0 pantoprazole 40 mg Tablet,Delayed Release (Dr/Ec) 40 mg PO BID RF: 0 Triphrocaps 1 mg Capsule 1 cap PO QAM RF: 0 dicyclomine 10 mg Capsule 10 mg PO QID RF: 0 hydrocodone-acetaminophen [[place]] 5-325 mg tablet 1 tab PO Q6H PRN (Reason: pain) Qty: 30 RF: 0 hydrocodone-acetaminophen [[place]] 5-325 mg tablet 1 tab PO Q6H PRN (Reason: pain) Qty: 30 RF: 0 Discharge Orders: Discharge Order (Routine); Ordered 05/17/19 Ordered By: Weston Mills/Other Patient Handouts: Diabetes Type 2 Managing Admission Data Admit Date/Time: 05/16/19 07:34 Attending Provider: Weston Rivers Admit Provider: Weston Rivers Primary Care Provider: Myron Frost Other Providers: Manisha Kate ; Mandeep Delcid ; Anayeli Reynolds ; Kary Zapata ; Rachael Lao Other Interventions: Discharge Summary Assessment (RN) Last Done: 05/17/19 12:38 DC Date/Time DO NOT enter until pt leaves facility: 05/17/19 18:40
== END 2019-05-17 18:40 | disposition home or self-care (01) | DRG 252 ==
LOC: ASU 06:29 → 3E 07:34
DX: Z79.82 Long term (current) use of aspirin; Z80.9 Family history of malignant neoplasm, unspecified; Z88.5 Allergy status to narcotic agent; F17.210 Nicotine dependence, cigarettes, uncomplicated; K21.9 Gastro-esophageal reflux disease without esophagitis; I11.0 Hypertensive heart disease with heart failure; T82.856A Stenosis of peripheral vascular stent, initial encounter; I50.22 Chronic systolic (congestive) heart failure; I25.2 Old myocardial infarction; Z83.3 Family history of diabetes mellitus; E11.9 Type 2 diabetes mellitus without complications; E78.5 Hyperlipidemia, unspecified; N18.6 End stage renal disease

== ENCOUNTER 2020-10-08 12:03 | Inpatient (IN) ==
--- NOTE | 2020-10-08 14:20 | Emergency Department Note ---
Impression & Plan Leukocytosis, HTN (hypertension), Malfunction of peripheral inserted central catheter ED Provider Note NAME: Jose GARCIA Jr AGE: 65 SEX: M : 1955 ARRIVES VIA: Walk-In INFORMANT: Patient ED PROVIDER(S): Michael Mendoza DO CHIEF COMPLAINT: catheter not working HPI: Patient is a 65-year-old male on HD dialysis with a right central line placed by Silvestre gomez in May who presents the ER as they are teaching him in her HD. They attempted to hook him up and the arterial side flushed without any difficulties and pulled back. They cannot work the venous side. They are able to flush it but there is no return. While they are trying to continue to flush it patient got sick and vomited multiple times as he became nauseated and felt very cold. He has no history of any fevers. He had a headache yesterday but that resolved today. No chest pain shortness of breath nausea or vomiting currently. He denies any diarrhea. No belly pain. ROS: See above HPI for pertinent positives & negatives. A total of 10 systems reviewed and were otherwise negative. PAST MEDICAL HISTORY:See Below PAST SURGICAL HISTORY:See Below FAMILY HISTORY:See Below SOCIAL HISTORY:See Below HOME MEDICATIONS:See Below ALLERGIES:See Below VITALS:See Below PHYSICAL EXAMINATION: GENERAL: Sitting up in bed, alert, chronically ill-appearing, disheveled EYE EXAM: normal conjunctiva. PERRL and EOM's grossly intact. OROPHARYNX: no exudate, no erythema, lips, buccal mucosa, and tongue normal and mucous membranes are moist NECK: supple, no nuchal rigidity, no adenopathy, non-tender CHEST: CVC right upper chest wall no surrounding redness LUNGS: Clear to auscultation. Normal chest wall mechanics HEART: no murmurs, S1 normal and S2 normal ABDOMEN: abdomen soft, non-tender, normo-active bowel sounds, no masses, no rebound or guarding. UPPER EXTREMITIES: upper extremities are grossly normal. LOWER EXTREMITIES: No pitting edema. NEURO EXAM: Normal sensorium, cranial nerves II-XII grossly intact, normal speech, no gross weakness of arms, no gross weakness of legs. MEDICAL DECISION MAKING: Patient is a 65-year-old male dialysis dependent who is just starting home HD. They were unable to get return of the venous port consequently he was sent in. He became very nauseated and vomited when this occurred. IV was established blood was obtained. He was found to have a leukocytosis of 19,000. Mild anemia at 11. BMP with a creatinine of 9. LFTs bilirubin was unremarkable. Troponin was negative. Lipase was unremarkable. Covid was negative. Patient denies any chest pain or shortness of breath. Discussed with Dr. Rivers's office/Lorraine Yepez check. Lorraine recommended no additional studies and if blocked they will evaluate tomorrow. Discussed with Manisha Rachel and she recommends admission and monitoring. She will dialyze him tonight to see if they can get it to work. Patient was given a dose of Zosyn with a white count was updated bedside admitted for further work-up. Blood cultures were obtained. Question if he does have an infection as he does admit to chills and has a white count. Patient only urinates about 1 to 2 ounces a day. Triage Nursing notes reviewed. Limited review of prior medical records performed Vital Signs: reviewed and remarkable for HTN Differential diagnosis: Differential diagnoses includes but is not limited to gastritis, peptic ulcer disease, GERD, gallbladder disease, pancreatitis, small bowel obstruction, acute coronary syndrome, pericarditis, ischemic bowel, irritable bowel disease, irritable bowel syndrome, appendicitis, diverticulitis, malignancy, hernia, urinary tract infection, torsion, perforation, trauma, infectious. ER treatment provided: See below Diagnostics interpreted by me: ECG: Sinus rhythm rate 86 Normal axis No PVCs QTC [address] ST depressions in the inferior leads Cardiac Monitoring: An order was placed for continuous cardiac monitoring. The monitor shows a rate of 92 with sinus rhythm. Laboratory studies: As stated above and show below. Imaging studies: CT head chest abdomen pelvis shows mild stranding around the kidneys. Consultation(s): Discussed with hospitalist for further evaluation Procedures: none Critical Care: None Past Med/Surg History Medical History (Updated 10/08/20 @ 19:27 by Michael Mendoza DO) Anemia Anxiety AV fistula LUE Carotid artery stenosis under surveillance by cardiology Chronic systolic CHF (congestive heart failure) Coronary artery disease S/P CABG x4 09/2017 Diabetes mellitus, type 2 NIDDM Dyslipidemia ESRD (end stage renal disease) dialysis M/W/F, [facility] ([place]) GERD (gastroesophageal reflux disease) controlled GI bleed 11/2017 2/2 gastric ulcer s/p cauterization/clipping History of blood transfusion 11/2017 gastric ulcer s/p cauterization/clipping Hypertension Morbid obesity Myocardial Infarction 08/2017 Restless leg syndrome S/P arteriogram of extremity Surgical History History of cardiac cath 08/2017 @ [facility]--no stents placed History of colonoscopy with polypectomy History of esophagogastroduodenoscopy (EGD) EGD/COLONOSCOPY= 01/13/18= MAC SEDATION AT [facility] History of removal of Port-a-Cath 05/10/18, REMOVAL OF DIAYLSIS CATH FROM CHEST WALL. History of tonsillectomy History of tooth extraction History of vascular access device CHEST PORT/DIALYSIS ACCESS History of vascular surgery "bypass" put into left arm after fistula placed to establish blood flow--Dr. Rivers Hx of vascular surgery STARCLOSE - RIGHT FEMORAL AREA. Status post coronary artery bypass graft CABG x 4 [place] [facility] [place] post creation of arteriovenous fistula left arm 05/2018 Dr. Rivers Status post partial resection of colon 03/12 DIVERTICULITIS Family History Father Cancer Mother Family history of diabetes mellitus Daughter Family history of diabetes mellitus Other No family history of adverse response to anesthesia Social History Smoking Status: Former smoker Tobacco Type: Cigarettes Cigarettes Per Day: 10/day (tobacco use x 45 years); Smoking End Date: 2020; Second Hand Exposure: No; Hx Alcohol Use: No Hx Substance Use: No Preferred Language: Syriac Communication Ability: Effective Orthopedic Brace Maker Required: No Beliefs That Will Affect Care: None marital status: Current Living Situation: Spouse Other Information That Helps Us Care for You: No Feels Safe at Home: Yes Safety Concerns: Feels Safe At This Time Assistive Devices: None Allergies Allergies Allergy/AdvReac Type Severity Reaction Status Date / Time oxycodone AdvReac Intermediate Hallucinati Verified 10/08/20 15:07 ons Home Meds Home Medications Medication Instructions Recorded Confirmed atorvastatin 80 mg tablet (Lipitor) 80 mg PO QPM 11/23/17 10/08/20 glyburide 2.5 mg tablet 2.5 mg PO QAM 11/23/17 10/08/20 trazodone 50 mg tablet 50 mg PO HS PRN 01/04/18 10/08/20 aspirin 81 mg tablet,delayed 81 mg PO QPM 03/02/18 10/08/20 release hydroxyzine HCl 10 mg tablet 25 mg PO QID PRN 03/02/18 10/08/20 lisinopril 20 mg tablet 20 mg PO QAM 03/08/18 10/08/20 dicyclomine 10 mg capsule 10 mg PO QID 04/11/19 10/08/20 pantoprazole 40 mg tablet,delayed 40 mg PO BID 04/11/19 10/08/20 release ropinirole 0.25 mg tablet 0.25 mg PO HS 04/11/19 10/08/20 vitamin B complex and vitamin C 1 cap PO QAM 04/11/19 10/08/20 no.20-folic acid 1 mg capsule (Triphrocaps) calcium acetate 667 mg tablet 667 mg PO BIDM 11/14/19 10/08/20 diclofenac sodium 1 % topical gel 2 g TOPICAL DIRECTED PRN 10/08/20 10/08/20 metoprolol succinate 100 mg 100 mg PO QPM 10/08/20 10/08/20 tablet,extended release 24 hr Results & Data (ED) Vital Signs Vital Signs - 24 hr 10/08/20 12:12 10/08/20 13:04 10/08/20 14:30 Temperature 36.6 C Temperature Source Temporal Artery Scan Pulse Rate 90 Pulse Rate [Apical] Pulse Rhythm [Apical] Pulse Strength [Apical] Respiratory Rate 18 23 Respiratory Effort / Characteristics Non-Labored Respiratory Depth Normal Shallow Respiratory Pattern Tachypnea Blood Pressure 201/71 H Blood Pressure [Right Arm] 164/86 H Blood Pressure Mean 114 Blood Pressure Mean [Right Arm] 112 Blood Pressure Position [Right Arm] Sitting Pulse Oximetry 97 96 96 Oxygen Delivery Method Room Air Room Air Room Air Sepsis Recent Fever Within 48 Hours No Sepsis New/Unexplained Change in Mental Status No Sepsis Action Taken by Nursing No Action Required 10/08/20 15:20 10/08/20 17:34 10/08/20 18:26 Temperature 37.7 C H Temperature Source Oral Pulse Rate Pulse Rate [Apical] 93 H 86 77 Pulse Rhythm [Apical] Regular Pulse Strength [Apical] Normal Respiratory Rate 16 18 16 Respiratory Effort / Characteristics Non-Labored Spontaneous Non-Labored Respiratory Depth Normal Normal Respiratory Pattern Regular Blood Pressure Blood Pressure [Right Arm] 176/72 H 169/62 H 138/40 L Blood Pressure Mean Blood Pressure Mean [Right Arm] 106 97 72 Blood Pressure Position [Right Arm] Lying Pulse Oximetry 95 94 94 Oxygen Delivery Method Room Air Room Air Sepsis Recent Fever Within 48 Hours Sepsis New/Unexplained Change in Mental Status Sepsis Action Taken by Nursing Laboratory Data Result diagrams: 10/08/20 15:01 10/08/20 15:01 Lab Results 10/08/20 10/08/20 10/08/20 Range/Units 15:01 15: 15:01 WBC 19.72 H (4.8-10.8) K/uL RBC 3.74 L (4.7-6.1) M/uL Hgb 11.1 L (14.0-18.0) g/dL Hct 33.5 L (42-52) % MCV 89.6 (80-100) fL MCH 29.7 (25-34) pg MCHC 33.1 (32-36) g/dL RDW Std Deviation 49.5 H (36.4-46.3) fL RDW Coeff of Lyla 15.2 H (11.5-14.5) % Plt Count 284 (130-400) K/uL MPV 9.9 (7.4-10.4) fL Immature Gran % (Auto) 0.3 % Neut % (Auto) 97.8 % Lymph % (Auto) 1.0 % [place] % (Auto) 0.7 % Eos % (Auto) 0.1 % Baso % (Auto) 0.1 % Neut # (Auto) 19.31 H (1.4-6.5) K/uL Lymph # (Auto) 0.20 L (1.2-3.4) K/uL [place] # (Auto) 0.13 (0.11-0.59) K/uL Eos # (Auto) 0.01 (0-0.5) K/uL Baso # (Auto) 0.02 (0-0.2) K/uL Immature Gran # (Auto) 0.05 H (0.00-0.02) K/uL APTT 56.7 H* (21.0-31.0) Seconds PTT Ratio 2.2 Sodium 139 (136-145) mmol/L Potassium 3.9 (3.5-5.1) mmol/L Chloride 105 (98-107) mmol/L Carbon Dioxide 21 (21-32) mmol/L Anion Gap 12.0 H (3-11) BUN 63 H (7-18) mg/dl Creatinine 9.01 H* (0.6-1.4) mg/dl Est Cr Clr Drug Dosing 8.0 ml/min Est GFR ( Amer) 6.4 ml/min Est GFR (Non-Af Amer) 5.6 ml/min BUN/Creatinine Ratio 7.0 L (10-20) Glucose 107 H (70-99) mg/dl Calcium 8.6 (8.5-10.1) mg/dl Total Bilirubin 0.6 (0.2-1) mg/dl AST 18 (15-37) U/L ALT 20 (12-78) U/L Alkaline Phosphatase 146 H (45-117) U/L Troponin I < 0.015 (0-0.045) ng/ml Total Protein 6.6 (6.4-8.2) gm/dl Albumin 3.1 L (3.4-5.0) gm/dl Globulin 3.5 (2.5-4.0) gm/dl Albumin/Globulin Ratio 0.9 (0.9-2) Lipase 116 (73-393) U/L COVID-19 Eval Order SARS-CoV-2 (PCR) (Negative) 10/08/20 10/08/20 Range/Units 15:26 15:26 WBC (4.8-10.8) K/uL RBC (4.7-6.1) M/uL Hgb (14.0-18.0) g/dL Hct (42-52) % MCV (80-100) fL MCH (25-34) pg MCHC (32-36) g/dL RDW Std Deviation (36.4-46.3) fL RDW Coeff of Lyla (11.5-14.5) % Plt Count (130-400) K/uL MPV (7.4-10.4) fL Immature Gran % (Auto) % Neut % (Auto) % Lymph % (Auto) % [place] % (Auto) % Eos % (Auto) % Baso % (Auto) % Neut # (Auto) (1.4-6.5) K/uL Lymph # (Auto) (1.2-3.4) K/uL [place] # (Auto) (0.11-0.59) K/uL Eos # (Auto) (0-0.5) K/uL Baso # (Auto) (0-0.2) K/uL Immature Gran # (Auto) (0.00-0.02) K/uL APTT (21.0-31.0) Seconds PTT Ratio Sodium (136-145) mmol/L Potassium (3.5-5.1) mmol/L Chloride (98-107) mmol/L Carbon Dioxide (21-32) mmol/L Anion Gap (3-11) BUN (7-18) mg/dl Creatinine (0.6-1.4) mg/dl Est Cr Clr Drug Dosing ml/min Est GFR ( Amer) ml/min Est GFR (Non-Af Amer) ml/min BUN/Creatinine Ratio (10-20) Glucose (70-99) mg/dl Calcium (8.5-10.1) mg/dl Total Bilirubin (0.2-1) mg/dl AST (15-37) U/L ALT (12-78) U/L Alkaline Phosphatase (45-117) U/L Troponin I (0-0.045) ng/ml Total Protein (6.4-8.2) gm/dl Albumin (3.4-5.0) gm/dl Globulin (2.5-4.0) gm/dl Albumin/Globulin Ratio (0.9-2) Lipase (73-393) U/L COVID-19 Eval Order Covid19 at [facility] SARS-CoV-2 (PCR) NEGATIVE (Negative) Administered Medications Discontinued Medications Piperacillin Sod/Tazobactam Sod (Zosyn) 4.5 gm in 120 mls @ 240 mls/hr IV NOW ONE Stop: 10/08/20 17:53 Last Infusion: 10/08/20 17:55 Dose: 0 mls/hr Documented by: [id number] Admin: 10/08/20 17:35 Dose: 240 mls/hr Documented by: [id number] Ioversol (Optiray 320 100ml) 93 ml IV ONCE ONE Stop: 10/08/20 16:27 Last Admin: 10/08/20 16:26 Dose: 93 ml Documented by: [id number] Imaging Data Radiologist's Impression: Chest X-Ray 10/08/20 14:15 XR chest 1V portable CLINICAL HISTORY: Chest pain. COMPARISON STUDY: Chest radiograph May 09, 2019. FINDINGS: Dual lumen right internal jugular catheter is in place. There are median sternotomy wires. There is no pneumothorax or pleural effusion. There is no consolidation. Cardiomediastinal silhouette is stable. There is pulmonary vascular congestion. IMPRESSION: Pulmonary vascular congestion without overt pulmonary edema. ACT 112: Negative or not required by law. Electronically signed by: Ramesh Shelton M.D. 10/08/2020 2:56 PM Abdomen/Pelvis CT 10/08/20 14:21 CT SCAN OF THE CHEST, ABDOMEN, AND PELVIS WITH IV CONTRAST CLINICAL HISTORY: Atypical chest pain. Nausea and vomiting. Central venous catheter dysfunction. COMPARISON STUDY: Chest x-ray dated 10/08/2020. Chest CT dated 09/02/2017. Abdominal CT dated 11/23/2018. TECHNIQUE: Following the IV administration of 93 of Optiray 320, CT scan of the chest, abdomen, and pelvis was performed from the thoracic inlet to the proximal femora. Images are reviewed in the axial, sagittal, and coronal planes. IV contrast was administered without complication. A dose lowering technique was utilized adhering to the principles of ALARA. CT DOSE: 1010.35 mGycm FINDINGS: CHEST: Thyroid: Imaged portions of the thyroid gland are normal in size and attenuation. Thoracic aorta: There is atherosclerotic calcification of the thoracic aorta, which is normal in caliber and demonstrates bovine variant arch anatomy. No dissection is seen. Atherosclerotic plaque causes approximately 50% stenosis of the distal descending thoracic aorta are seen on image #251. Pulmonary vasculature: The pulmonary trunk is normal in caliber. There are no filling defects identified in the central pulmonary vessels to indicate pulmonary embolus. Note that this examination was not protocoled for evaluation of the pulmonary arteries. Heart: A right internal jugular central venous catheter is in place. The patient is status post midline sternotomy. The heart is enlarged and without pericardial effusion. The coronary arteries are densely calcified. Lungs and pleural spaces: Evaluation of the lung parenchyma is modestly degraded by motion artifact. There is moderate emphysema. The trachea and central airways are clear. There is no airspace consolidation typical for pneumonia or pleural effusion. Foci of scarring/atelectasis are noted at the lung bases. A 5 mm nodular density is seen at the left apex on image #58. A 3 mm left lower lobe pulmonary nodule is seen on image were 223. Mediastinum: There is no mediastinal lymphadenopathy. Carolyne: Clear. Axillae: There is no axillary lymphadenopathy. Bony thorax: The skeletal structures are osteopenic. No lytic or blastic lesions are identified. ABDOMEN AND PELVIS: Liver: The contrast-enhanced liver is normal in size, contour, and attenuation. There is no intra- or extrahepatic biliary ductal dilatation. The hepatic veins and portal veins are patent. Gallbladder: Unremarkable. Spleen: Normal in size and attenuation. Pancreas: Unremarkable. Adrenal glands: A 3.2 cm nodule is noted in the left adrenal gland. This was shown to represent an adenoma on a prior unenhanced CT scan. The right adrenal gland is normal in appearance. Kidneys: The contrast enhanced kidneys demonstrate cortical atrophy and are without hydronephrosis. The kidneys enhance symmetrically. A 2.2 cm cyst arises from the upper pole of left kidney. Additional subcentimeter cortical hypodensities also likely represent cysts but are too small for definitive characterization. There are numerous bilateral renal vascular calcifications. Small nonobstructing renal calculi are not excluded. There is bilateral perinephric stranding and fluid. Abdominal vasculature: The abdominal aorta is normal in course and caliber noting advanced atherosclerotic calcification. 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 There is at least moderate stenosis of the right common iliac artery. Stomach and bowel: There is a tiny hiatal hernia. There is postoperative change from sigmoid colon resection with colocolonic anastomosis. No bowel obstruction is seen. There is rectosigmoid fecal retention and moderate constipation. There is mild to moderate diverticulosis of the remaining colon without CT evidence of acute diverticulitis. The appendix is well-visualized and normal. Asymmetric rectal wall thickening suggested on the left as seen on image #3 and 64. Peritoneum: There is no intraperitoneal free air or abdominal ascites. Lymphadenopathy: None. Pelvic viscera: The prostate gland is enlarged and heterogeneous noting median lobe hypertrophy. The bladder is distended. The bladder wall appears thickened and trabeculated indicating chronic outlet obstruction. The seminal vesicles are normal as visualized. There are small bilateral fat-containing inguinal hernias. Skeletal structures: The skeletal structures are osteopenic. There is a mild and chronic appearing superior endplate compression deformity of L1. Mild lumbosacral spondylosis is observed. No lytic or blastic lesions are seen. IMPRESSION: 1. Cardiomegaly and emphysema. 2. There is no airspace consolidation typical for pneumonia or pleural effusion. 3. There are 2 nodular densities in the left lung measuring up to 5 mm. These are pathologically indeterminant and follow-up is recommended as per the Fleis chner criteria. See below. 4. A right internal jugular central venous catheter is in place. The catheter is normal as visualized by CT. 5. There is nonspecific bilateral perinephric stranding and fluid. Correlate with clinical findings and urinalysis. 6. There is evidence of sigmoid colon resection with colocolonic anastomosis. No bowel obstruction is identified. 7. Rectosigmoid fecal retention and moderate constipation. 8. Mild to moderate diverticulosis of the remaining colon without CT evidence of acute diverticulitis. 9. Question asymmetric left rectal wall thickening. If not recently performed this could be further assessed with colonoscopy to assess for underlying lesion. 10. Advanced atherosclerotic change is seen throughout the chest and abdomen. 11. Additional findings as above. Please refer to below summary of Fleischner criteria recommendations for follow- up of incidental CT nodules (King Singh, Guidelines for management of small pulmonary nodules detected on CT scans: A statement from the Fleischner Society, Radiology 237: [id number].) SOLID NODULES Solitary nodule size: <6 mm * low risk patients: no follow-up needed * high risk patients: optional CT at 12 months Solitary nodule size: 6-8 mm * low risk patients: follow-up at 6-12 months, then consider further follow-up at 18-24 months * high risk patients: initial follow-up CT at 6-12 months and then at 18-24 months if no change Solitary nodule size: >8 mm * either low or high risk patients - consider follow-up CT at 3 months, and/or CT-PET, and/or biopsy Multiple nodules size: <6 mm * low risk patients: no routine follow-up * high risk patients: optional CT at 12 months Multiple nodules size: 6-8 mm * low risk patients: follow-up at 3-6 months, then consider further follow-up at 18-24 months * high risk patients: follow-up at 3-6 months, then at 18-24 months if no change Multiple nodules size: >8 mm * low risk patients: follow-up at 3-6 months, then consider further follow-up at 18-24 months * high risk patients: follow-up at 3-6 months, then at 18-24 months if no change Note: newly detected indeterminate nodule in persons 35 years of age or older. * low risk patients: minimal or absent history of smoking and/or other known r isk factors * high risk patients: history of smoking or of other known risk factors (e.g. first degree relative with lung cancer, or exposure to asbestos, radon, uranium) * if a nodule up to 8 mm is partly solid or is ground glass further follow-up is required after 24 months to exclude possible slow growing adenocarcinoma (AUTUMN) SUBSOLID NODULES Solitary pure ground-glass nodule * nodule size <6 mm - no CT follow-up required * nodule size >=6 mm - follow-up CT at 6-12 months, then every 2 years until 5 years Solitary part-solid nodule * nodule size <6 mm - no CT follow-up required * nodule size >=6 mm - follow-up CT at 3-6 months. If unchanged, and solid component remains <6 mm, then annual follow-up for 5 years Multiple subsolid nodules * nodule size <6 mm - follow-up CT at 3-6 months, consider further follow-up at 2 and 4 years if stable * nodule size >=6 mm - follow-up CT at 3-6 months, subsequent management based on the most suspicious nodule(s) ACT 112: Positive. There are findings on this exam that require communication between the performing entity and the patient following Patient Test Result Information Act ([place] Act 112) guidelines. Electronically signed by: Néstor Hernandez M.D. 10/08/2020 5:[address] 10/08/20 14:21 CT SCAN OF THE CHEST, ABDOMEN, AND PELVIS WITH IV CONTRAST CLINICAL HISTORY: Atypical chest pain. Nausea and vomiting. Central venous catheter dysfunction. COMPARISON STUDY: Chest x-ray dated 10/08/2020. Chest CT dated 09/02/2017. Abdominal CT dated 11/23/2018. TECHNIQUE: Following the IV administration of 93 of Optiray 320, CT scan of the chest, abdomen, and pelvis was performed from the thoracic inlet to the proximal femora. Images are reviewed in the axial, sagittal, and coronal planes. IV contrast was administered without complication. A dose lowering technique was utilized adhering to the principles of ALARA. CT DOSE: 1010.35 mGycm FINDINGS: CHEST: Thyroid: Imaged portions of the thyroid gland are normal in size and attenuation. Thoracic aorta: There is atherosclerotic calcification of the thoracic aorta, which is normal in caliber and demonstrates bovine variant arch anatomy. No dissection is seen. Atherosclerotic plaque causes approximately 50% stenosis of the distal descending thoracic aorta are seen on image #251. Pulmonary vasculature: The pulmonary trunk is normal in caliber. There are no filling defects identified in the central pulmonary vessels to indicate pulmonary embolus. Note that this examination was not protocoled for evaluation of the pulmonary arteries. Heart: A right internal jugular central venous catheter is in place. The patient is status post midline sternotomy. The heart is enlarged and without pericardial effusion. The coronary arteries are densely calcified. Lungs and pleural spaces: Evaluation of the lung parenchyma is modestly degraded by motion artifact. There is moderate emphysema. The trachea and central airways are clear. There is no airspace consolidation typical for pneumonia or pleural effusion. Foci of scarring/atelectasis are noted at the lung bases. A 5 mm nodular density is seen at the left apex on image #58. A 3 mm left lower lobe pulmonary nodule is seen on image were 223. Mediastinum: There is no mediastinal lymphadenopathy. Carolyne: Clear. Axillae: There is no axillary lymphadenopathy. Bony thorax: The skeletal structures are osteopenic. No lytic or blastic lesions are identified. ABDOMEN AND PELVIS: Liver: The contrast-enhanced liver is normal in size, contour, and attenuation. There is no intra- or extrahepatic biliary ductal dilatation. The hepatic veins and portal veins are patent. Gallbladder: Unremarkable. Spleen: Normal in size and attenuation. Pancreas: Unremarkable. Adrenal glands: A 3.2 cm nodule is noted in the left adrenal gland. This was shown to represent an adenoma on a prior unenhanced CT scan. The right adrenal gland is normal in appearance. Kidneys: The contrast enhanced kidneys demonstrate cortical atrophy and are without hydronephrosis. The kidneys enhance symmetrically. A 2.2 cm cyst arises from the upper pole of left kidney. Additional subcentimeter cortical hypodensities also likely represent cysts but are too small for definitive characterization. There are numerous bilateral renal vascular calcifications. Small nonobstructing renal calculi are not excluded. There is bilateral perinephric stranding and fluid. Abdominal vasculature: The abdominal aorta is normal in course and caliber noting advanced atherosclerotic calcification. 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 There is at least moderate stenosis of the right common iliac artery. Stomach and bowel: There is a tiny hiatal hernia. There is postoperative change from sigmoid colon resection with colocolonic anastomosis. No bowel obstruction is seen. There is rectosigmoid fecal retention and moderate constipation. There is mild to moderate diverticulosis of the remaining colon without CT evidence of acute diverticulitis. The appendix is well-visualized and normal. Asymmetric rectal wall thickening suggested on the left as seen on image #3 and 64. Peritoneum: There is no intraperitoneal free air or abdominal ascites. Lymphadenopathy: None. Pelvic viscera: The prostate gland is enlarged and heterogeneous noting median lobe hypertrophy. The bladder is distended. The bladder wall appears thickened and trabeculated indicating chronic outlet obstruction. The seminal vesicles are normal as visualized. There are small bilateral fat-containing inguinal hernias. Skeletal structures: The skeletal structures are osteopenic. There is a mild and chronic appearing superior endplate compression deformity of L1. Mild lumbosacral spondylosis is observed. No lytic or blastic lesions are seen. IMPRESSION: 1. Cardiomegaly and emphysema. 2. There is no airspace consolidation typical for pneumonia or pleural effusion. 3. There are 2 nodular densities in the left lung measuring up to 5 mm. These are pathologically indeterminant and follow-up is recommended as per the Fleischner criteria. See below. 4. A right internal jugular central venous catheter is in place. The catheter is normal as visualized by CT. 5. There is nonspecific bilateral perinephric stranding and fluid. Correlate with clinical findings and urinalysis. 6. There is evidence of sigmoid colon resection with colocolonic anastomosis. No bowel obstruction is identified. 7. Rectosigmoid fecal retention and moderate constipation. 8. Mild to moderate diverticulosis of the remaining colon without CT evidence of acute diverticulitis. 9. Question asymmetric left rectal wall thickening. If not recently performed this could be further assessed with colonoscopy to assess for underlying lesion. 10. Advanced atherosclerotic change is seen throughout the chest and abdomen. 11. Additional findings as above. Please refer to below summary of Fleischner criteria recommendations for follow- up of incidental CT nodules (King Singh, Guidelines for management of small pulmonary nodules detected on CT scans: A statement from the Fleischner Society, Radiology 237: [phone].) SOLID NODULES Solitary nodule size: <6 mm * low risk patients: no follow-up needed * high risk patients: optional CT at 12 months Solitary nodule size: 6-8 mm * low risk patients: follow-up at 6-12 months, then consider further follow-up at 18-24 months * high risk patients: initial follow-up CT at 6-12 months and then at 18-24 months if no change Solitary nodule size: >8 mm * either low or high risk patients - consider follow-up CT at 3 months, and/or CT-PET, and/or biopsy Multiple nodules size: <6 mm * low risk patients: no routine follow-up * high risk patients: optional CT at 12 months Multiple nodules size: 6-8 mm * low risk patients: follow-up at 3-6 months, then consider further follow-up at 18-24 months * high risk patients: follow-up at 3-6 months, then at 18-24 months if no change Multiple nodules size: >8 mm * low risk patients: follow-up at 3-6 months, then consider further follow-up at 18-24 months * high risk patients: follow-up at 3-6 months, then at 18-24 months if no change Note: newly detected indeterminate nodule in persons 35 years of age or older. * low risk patients: minimal or absent history of smoking and/or other known risk factors * high risk patients: history of smoking or of other known risk factors (e.g. first degree relative with lung cancer, or exposure to asbestos, radon, uranium) * if a nodule up to 8 mm is partly solid or is ground glass further follow-up is required after 24 months to exclude possible slow growing adenocarcinoma (AUTUMN) SUBSOLID NODULES Solitary pure ground-glass nodule * nodule size <6 mm - no CT follow-up required * nodule size >=6 mm - follow-up CT at 6-12 months, then every 2 years until 5 years Solitary part-solid nodule * nodule size <6 mm - no CT follow-up required * nodule size >=6 mm - follow-up CT at 3-6 months. If unchanged, and solid component remains <6 mm, then annual follow-up for 5 years Multiple subsolid nodules * nodule size <6 mm - follow-up CT at 3-6 months, consider further follow-up at 2 and 4 years if stable * nodule size >=6 mm - follow-up CT at 3-6 months, subsequent management based on the most suspicious nodule(s) ACT 112: Positive. There are findings on this exam that require communication between the performing entity and the patient following Patient Test Result Information Act ([place] Act 112) guidelines. Electronically signed by: Néstor Hernandez M.D. 10/08/2020 5:[address] 10/08/20 14:21 CT SCAN OF THE BRAIN WITHOUT IV CONTRAST CLINICAL HISTORY: Headache. COMPARISON STUDY: No priors. TECHNIQUE: Unenhanced axial CT scan of the brain is performed from the vertex to the skull base. A dose lowering technique was utilized adhering to the principles of ALARA. CT DOSE: 638.56 mGycm FINDINGS: Brain parenchyma: There are age-related involutional changes noting mild subcor tical and periventricular microangiopathic change. There is no hemorrhage, mass effect, or evidence of acute territorial ischemia by CT criteria. Pnito-white matter differentiation is preserved. No extra-axial fluid collection is seen. Ventricles, sulci, cisterns: Prominent secondary to involutional change. Intracranial vasculature: There is atherosclerotic calcification of the cavernous carotid and vertebral arteries. Calvarium: Unremarkable. Sinuses and mastoids: Mild mucosal thickening is noted in the left maxillary antrum. The remaining visualized paranasal sinuses are clear. The mastoid air cells are well pneumatized. Orbits: The bony orbits are grossly intact. IMPRESSION: There is no hemorrhage, mass effect, or evidence of acute territorial ischemia by CT criteria. ACT 112: Negative or not required by law. Electronically signed by: Néstor Hernandez M.D. 10/08/2020 4:39 PM Discharge Plan Visit Data Chief Complaint: Illness Stated Complaint: HEADACHE, N/V, SHIVERING - WAS AT DIALYSIS ED Provider: Michael Mendoza Discharge Problem: Leukocytosis, HTN (hypertension), Malfunction of peripheral inserted central catheter Forms Stand Alone Forms: [facility] Prescriptions Prescriptions: No Action hydroxyzine HCl 10 mg Tablet 25 mg PO QID PRN (Reason: Itching) RF: 0 aspirin 81 mg tablet,delayed release (DR/EC) 81 mg PO QPM RF: 0 lisinopril 20 mg Tablet 20 mg PO QAM RF: 0 atorvastatin [Lipitor] 80 mg Tablet 80 mg PO QPM RF: 0 glyburide 2.5 mg Tablet 2.5 mg PO QAM RF: 0 trazodone 50 mg Tablet 50 mg PO HS PRN (Reason: Sleep) RF: 0 ropinirole 0.25 mg Tablet 0.25 mg PO HS RF: 0 pantoprazole 40 mg Tablet,Delayed Release (Dr/Ec) 40 mg PO BID RF: 0 Triphrocaps 1 mg Capsule 1 cap PO QAM RF: 0 dicyclomine 10 mg Capsule 10 mg PO QID RF: 0 calcium acetate 667 mg Tablet 667 mg PO BIDM RF: 0 metoprolol succinate 100 mg tablet extended release 24 hr 100 mg PO QPM RF: 0 diclofenac sodium 1 % gel 2 g TOPICAL DIRECTED PRN (Reason: Pain) RF: 0 Referrals Referrals: Myron Frost DO [Primary Care Provider] - Discharge Problem: Leukocytosis Qualifiers: Leukocytosis type: unspecified Qualified Code(s): D72.829 - Elevated white blood cell count, unspecified HTN (hypertension) Qualifiers: Hypertension type: unspecified Qualified Code(s): I10 - Essential (primary) hypertension Malfunction of peripheral inserted central catheter Qualifiers: Encounter type: initial encounter Qualified Code(s): T82.598A - Other mechanical complication of other cardiac and vascular devices and implants, initial encounter
--- NOTE | 2020-10-08 14:57 | XRay Report ---
XR chest 1V portable CLINICAL HISTORY: Chest pain. COMPARISON STUDY: Chest radiograph May 09, 2019. FINDINGS: Dual lumen right internal jugular catheter is in place. There are median sternotomy wires. There is no pneumothorax or pleural effusion. There is no consolidation. Cardiomediastinal silhouette is stable. There is pulmonary vascular congestion. IMPRESSION: Pulmonary vascular congestion without overt pulmonary edema. ACT 112: Negative or not required by law. Electronically signed by: Ramesh Shelton M.D. 10/08/2020 2:56 PM
[2020-10-08 15:22] LABS: Basophils # (auto) 0.02 K/uL (0-0.2); Basophils % (auto) 0.1 %; Eosinophils # (auto) 0.01 K/uL (0-0.5); Eosinophils % (auto) 0.1 %; Hematocrit (blood only) 33.5 % (42-52); Hemoglobin 11.1 g/dL (14.0-18.0); Immature Granulocytes # (auto) 0.05 K/uL (0.00-0.02); Immature Granulocytes % (auto) 0.3 %; Mean Corpuscular Hemoglobin 29.7 pg (25-34); Mean Corpuscular Hgb Conc 33.1 g/dL (32-36); Mean Corpuscular Volume 89.6 fL (80-100); Mean Platelet Volume 9.9 fL (7.4-10.4); Monocytes # (auto) 0.13 K/uL (0.11-0.59); Monocytes % (auto) 0.7 %; Neutrophils # (auto) 19.31 K/uL (1.4-6.5); Neutrophils % (auto) 97.8 %; Platelet Count 284 K/uL (130-400); RDW Coefficient of Variation 15.2 % (11.5-14.5); RDW Standard Deviation 49.5 fL (36.4-46.3); Red Blood Count 3.74 M/uL (4.7-6.1); White Blood Count 19.72 K/uL (4.8-10.8)
[2020-10-08 15:41] LABS: Partial Thromboplastin Ratio 2.2
[2020-10-08 16:02] LABS: Alanine Aminotransferase 20 U/L (12-78); Albumin Globulin Ratio 0.9 (0.9-2); Albumin Level 3.1 gm/dl (3.4-5.0); Alkaline Phosphatase 146 U/L (45-117); Aspartate Aminotransferase 18 U/L (15-37); Bilirubin,Total 0.6 mg/dl (0.2-1); Blood Urea Nitrogen 63 mg/dl (7-18); Calcium 8.6 mg/dl (8.5-10.1); Carbon Dioxide 21 mmol/L (21-32); Chloride 105 mmol/L (98-107); Est GFR (African American) 6.4 ml/min; Est GFR (Non-African American) 5.6 ml/min; Globulin 3.5 gm/dl (2.5-4.0); Glucose 107 mg/dl (70-99); Lipase 116 U/L (73-393); Potassium 3.9 mmol/L (3.5-5.1); Sodium 139 mmol/L (136-145); Total Protein 6.6 gm/dl (6.4-8.2); Troponin I < 0.015 ng/ml (0-0.045)
[2020-10-08] MEDS ORDERED: OPTIRAY 320 100ml IV ONE (16:26)
--- NOTE | 2020-10-08 16:41 | CT Scan Report ---
CT SCAN OF THE BRAIN WITHOUT IV CONTRAST CLINICAL HISTORY: Headache. COMPARISON STUDY: No priors. TECHNIQUE: Unenhanced axial CT scan of the brain is performed from the vertex to the skull base. A do se lowering technique was utilized adhering to the principles of ALARA. CT DOSE: 638.56 mGycm FINDINGS: Brain parenchyma: There are age-related involutional changes noting mild subcortical and periventric ular microangiopathic change. There is no hemorrhage, mass effect, or evidence of acute territorial i schemia by CT criteria. Pinto-white matter differentiation is preserved. No extra-axial fluid collecti on is seen. Ventricles, sulci, cisterns: Prominent secondary to involutional change. Intracranial vasculature: There is atherosclerotic calcification of the cavernous carotid and vertebr al arteries. Calvarium: Unremarkable. Sinuses and mastoids: Mild mucosal thickening is noted in the left maxillary antrum. The remaining vi sualized paranasal sinuses are clear. The mastoid air cells are well pneumatized. Orbits: The bony orbits are grossly intact. IMPRESSION: There is no hemorrhage, mass effect, or evidence of acute territorial ischemia by CT galen friend. ACT 112: Negative or not required by law. Electronically signed by: Néstor Hernandez M.D. 10/08/2020 4:39 PM
[2020-10-08 16:45] LABS: Partial Thromboplastin Time 56.7 Seconds (21.0-31.0)
--- NOTE | 2020-10-08 17:01 | CT Scan Report ---
CT SCAN OF THE CHEST, ABDOMEN, AND PELVIS WITH IV CONTRAST CLINICAL HISTORY: Atypical chest pain. Nausea and vomiting. Central venous catheter dysfunction. COMPARISON STUDY: Chest x-ray dated 10/08/2020. Chest CT dated 09/02/2017. Abdominal CT dated 11/24/19 19. TECHNIQUE: Following the IV administration of 93 of Optiray 320, CT scan of the chest, abdomen, and p [place] was performed from the thoracic inlet to the proximal femora. Images are reviewed in the axial, sagittal, and coronal planes. IV contrast was administered without complication. A dose lowering te chnique was utilized adhering to the principles of ALARA. CT DOSE: 1010.35 mGycm FINDINGS: CHEST: Thyroid: Imaged portions of the thyroid gland are normal in size and attenuation. Thoracic aorta: There is atherosclerotic calcification of the thoracic aorta, which is normal in ronal conchita and demonstrates bovine variant arch anatomy. No dissection is seen. Atherosclerotic plaque cause s approximately 50% stenosis of the distal descending thoracic aorta are seen on image #251. Pulmonary vasculature: The pulmonary trunk is normal in caliber. There are no filling defects identif ied in the central pulmonary vessels to indicate pulmonary embolus. Note that this examination was no t protocoled for evaluation of the pulmonary arteries. Heart: A right internal jugular central venous catheter is in place. The patient is status post midli ne sternotomy. The heart is enlarged and without pericardial effusion. The coronary arteries are dens veronica calcified. Lungs and pleural spaces: Evaluation of the lung parenchyma is modestly degraded by motion artifact. There is moderate emphysema. The trachea and central airways are clear. There is no airspace consolid ation typical for pneumonia or pleural effusion. Foci of scarring/atelectasis are noted at the lung b ases. A 5 mm nodular density is seen at the left apex on image #58. A 3 mm left lower lobe pulmonary nodule is seen on image were 223. Mediastinum: There is no mediastinal lymphadenopathy. Carolyne: Clear. Axillae: There is no axillary lymphadenopathy. Bony thorax: The skeletal structures are osteopenic. No lytic or blastic lesions are identified. ABDOMEN AND PELVIS: Liver: The contrast-enhanced liver is normal in size, contour, and attenuation. There is no intra- or extrahepatic biliary ductal dilatation. The hepatic veins and portal veins are patent. Gallbladder: Unremarkable. Spleen: Normal in size and attenuation. Pancreas: Unremarkable. Adrenal glands: A 3.2 cm nodule is noted in the left adrenal gland. This was shown to represent an ad enoma on a prior unenhanced CT scan. The right adrenal gland is normal in appearance. Kidneys: The contrast enhanced kidneys demonstrate cortical atrophy and are without hydronephrosis. T he kidneys enhance symmetrically. A 2.2 cm cyst arises from the upper pole of left kidney. Additional subcentimeter cortical hypodensities also likely represent cysts but are too small for definitive ch aracterization. There are numerous bilateral renal vascular calcifications. Small nonobstructing silas l calculi are not excluded. There is bilateral perinephric stranding and fluid. Abdominal vasculature: The abdominal aorta is normal in course and caliber noting advanced atheroscle rotic calcification. 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 There is at least moderate stenosis of the right common iliac artery. Stomach and bowel: There is a tiny hiatal hernia. There is postoperative change from sigmoid colon re section with colocolonic anastomosis. No bowel obstruction is seen. There is rectosigmoid fecal reten tion and moderate constipation. There is mild to moderate diverticulosis of the remaining colon witho ut CT evidence of acute diverticulitis. The appendix is well-visualized and normal. Asymmetric recta l wall thickening suggested on the left as seen on image #3 and 64. Peritoneum: There is no intraperitoneal free air or abdominal ascites. Lymphadenopathy: None. Pelvic viscera: The prostate gland is enlarged and heterogeneous noting median lobe hypertrophy. The bladder is distended. The bladder wall appears thickened and trabeculated indicating chronic outlet o bstruction. The seminal vesicles are normal as visualized. There are small bilateral fat-containing i nguinal hernias. Skeletal structures: The skeletal structures are osteopenic. There is a mild and chronic appearing sales perior endplate compression deformity of L1. Mild lumbosacral spondylosis is observed. No lytic or bl astic lesions are seen. IMPRESSION: 1. Cardiomegaly and emphysema. 2. There is no airspace consolidation typical for pneumonia or pleural effusion. 3. There are 2 nodular densities in the left lung measuring up to 5 mm. These are pathologically inde terminant and follow-up is recommended as per the Fleischner criteria. See below. 4. A right internal jugular central venous catheter is in place. The catheter is normal as visualized by CT. 5. There is nonspecific bilateral perinephric stranding and fluid. Correlate with clinical findings a nd urinalysis. 6. There is evidence of sigmoid colon resection with colocolonic anastomosis. No bowel obstruction is identified. 7. Rectosigmoid fecal retention and moderate constipation. 8. Mild to moderate diverticulosis of the remaining colon without CT evidence of acute diverticulitis . 9. Question asymmetric left rectal wall thickening. If not recently performed this could be further a ssessed with colonoscopy to assess for underlying lesion. 10. Advanced atherosclerotic change is seen throughout the chest and abdomen. 11. Additional findings as above. Please refer to below summary of Fleischner criteria recommendations for follow-up of incidental CT n odules (King Singh, Guidelines for management of small pulmonary nodules detected on CT scans: A sta tement from the Fleischner Society, Radiology 237: [phone].) SOLID NODULES Solitary nodule size: <6 mm * low risk patients: no follow-up needed * high risk patients: optional CT at 12 months Solitary nodule size: 6-8 mm * low risk patients: follow-up at 6-12 months, then consider further follow-up at 18-24 months * high risk patients: initial follow-up CT at 6-12 months and then at 18-24 months if no change Solitary nodule size: >8 mm * either low or high risk patients - consider follow-up CT at 3 months, and/or CT-PET, and/or biopsy Multiple nodules size: <6 mm * low risk patients: no routine follow-up * high risk patients: optional CT at 12 months Multiple nodules size: 6-8 mm * low risk patients: follow-up at 3-6 months, then consider further follow-up at 18-24 months * high risk patients: follow-up at 3-6 months, then at 18-24 months if no change Multiple nodules size: >8 mm * low risk patients: follow-up at 3-6 months, then consider further follow-up at 18-24 months * high risk patients: follow-up at 3-6 months, then at 18-24 months if no change Note: newly detected indeterminate nodule in persons 35 years of age or older. * low risk patients: minimal or absent history of smoking and/or other known risk factors * high risk patients: history of smoking or of other known risk factors (e.g. first degree relative with lung cancer, or exposure to asbestos, radon, uranium) * if a nodule up to 8 mm is partly solid or is ground glass further follow-up is required after 24 m onths to exclude possible slow growing adenocarcinoma (AUTUMN) SUBSOLID NODULES Solitary pure ground-glass nodule * nodule size <6 mm - no CT follow-up required * nodule size >=6 mm - follow-up CT at 6-12 months, then every 2 years until 5 years Solitary part-solid nodule * nodule size <6 mm - no CT follow-up required * nodule size >=6 mm - follow-up CT at 3-6 months. If unchanged, and solid component remains <6 mm, then annual follow-up for 5 years Multiple subsolid nodules * nodule size <6 mm - follow-up CT at 3-6 months, consider further follow-up at 2 and 4 years if sta ble * nodule size >=6 mm - follow-up CT at 3-6 months, subsequent management based on the most suspiciou s nodule(s) ACT 112: Positive. There are findings on this exam that require communication between the performing entity and the patient following Patient Test Result Information Act ([place] Act 112) guidelines. Electronically signed by: Néstor Hernandez M.D. 10/08/2020 5:00 PM
[2020-10-08] MEDS ORDERED: PIPERACILLIN/TAZOBACTAM 4.5 GM/120 ML BAG IV ONE (17:24)
[2020-10-08] MEDS ORDERED: PIPERACILL/TAZOBAC CONSULT ACTIVE PRN (17:24)
[2020-10-08] MEDS ORDERED: HEPARIN SOD (PORCINE) 1000 UNIT/ML IV SCH (18:35)
[2020-10-08] MEDS ORDERED: SODIUM CHLORIDE 0.9% 1000ML 1,000 ML IV PRN (18:35)
--- NOTE | 2020-10-08 21:51 | History & Physical Report ---
Date of Service October 08, 2020 Assessment & Plan (1) Hypertensive urgency: Plan: This is a 65yo M with a PMH of ESRD on HD, HTN, DM II, RLS, ALICIA and other medical problems listed below who presents with elevated BP, nausea and headache. BP has been elevated over the past 2 days with SBP around 190-200s. Elevated BP x 2 days, initially 201/71 today with headache and nausea BP improved, now 136/66 with resolution of symptoms CT head with no hemorrhage, mass effect, or evidence of acute territorial ischemia by CT criteria Recent OP medication changes made yesterday, see HPI Continue to monitor (2) Leukocytosis: Plan: WBC 19.7, afebrile, VSS CT abd/pelvis without airspace consolidation typical for pneumonia or pleural effusion Nonspecific bilateral perinephric stranding and fluid. Correlate with clinical findings and urinalysis Patient makes very little urine, unable to obtain sample for UA Zosyn given empirically for possible bladder infxn Also need to consider possibility of vascular-access related infection in setting of home HD training Continue empiric zosyn, follow blood cultures (3) ESRD (end stage renal disease) on dialysis: (4) Malfunction of peripheral inserted central catheter: Plan: Completed HD this evening since arrival Follows with Dr. Kate (5) Coronary artery disease: Plan: CABG x 4 in 2018 Following with cardiology Recent normal dobutamine stress echo in pre-op for possible renal transplant Continue aspirin, plavix, statin, Toprol (6) Ischemic cardiomyopathy: Plan: EF 40-45%, following with Dr. Moore Continue Toprol (7) Diabetes mellitus, type II: Plan: A1c 6.7 in July 2020 Hold home agents SSI while in-patient BSG AC HS (8) Constipation: Plan: Rectosigmoid fecal retention and moderate constipation on CT abd/pelvis Bowel regimen DVT Ppx: SQ heparin Code status: FULL PCP: Steff Dispo: Admitted to PCU Patient seen in collaboration with Dr. Winchester. Please see addendum. Admission and Anticipated Discharge Date Admission Date: October 08, 2020 History of Present Illness Chief Complaint: HTN, headache, nausea Primary Care Provider: Myron Frost DO This is a 65yo M with a PMH of ESRD on HD, HTN, DM II, RLS, ALICIA and other medical problems listed below who presents with elevated BP, nausea and headache. BP has been elevated over the past 2 days with SBP around 190-200s. HTN medication changes made yesterday when patient saw Dr. Kate with lisinopril increased to 20mg daily and Lopressor switched to Toprol 100mg HS. Has been undergoing training for home hemodialysis and earlier today during training, BP was elevated and patient admitted to headache. Had 2 bouts of nausea during this time and brought to ED for further evaluation. Did not complete dialysis treatment due to malfunction so was interviewed in the hospital during dialysis treatment on fourth floor via catheter. BP improved to 138/66 at this time with resolution to headache and nausea. Patient still feeling tired. notes that earlier during treatment patient had moments of rigors that have since resolved. Denies chest pain, shortness of breath, abdominal pain, dysuria, diarrhea. + Constipation. Makes very little urine so unable to obtain urine culture. CT abd/pelvis without airspace consolidation typical for pneumonia or pleural effusion. Nonspecific bilateral perinephric stranding and fluid. Correlate with clinical findings and urinalysis. Rectosigmoid fecal retention and moderate constipation. Allergies Allergy/AdvReac Type Severity Reaction Status Date / Time oxycodone AdvReac Intermediate Hallucinati Verified 10/08/20 15:07 ons Home Medications Medication Instructions Recorded Confirmed Type atorvastatin 80 mg tablet (Lipitor) 80 mg PO QPM 11/23/17 10/08/20 History glyburide 2.5 mg tablet 2.5 mg PO QAM 11/23/17 10/08/20 History trazodone 50 mg tablet 50 mg PO HS PRN 01/04/18 10/08/20 History aspirin 81 mg tablet,delayed 81 mg PO QPM 03/02/18 10/08/20 History release hydroxyzine HCl 10 mg tablet 25 mg PO QID PRN 03/02/18 10/08/20 History lisinopril 20 mg tablet 20 mg PO QAM 03/08/18 10/08/20 History dicyclomine 10 mg capsule 10 mg PO QID 04/11/19 10/08/20 History pantoprazole 40 mg tablet,delayed 40 mg PO BID 04/11/19 10/08/20 History release ropinirole 0.25 mg tablet 0.25 mg PO HS 04/11/19 10/08/20 History vitamin B complex and vitamin C 1 cap PO QAM 04/11/19 10/08/20 History no.20-folic acid 1 mg capsule (Triphrocaps) calcium acetate 667 mg tablet 667 mg PO BIDM 11/14/19 10/08/20 History baclofen 10 mg tablet 10 mg PO HS PRN 10/08/20 10/08/20 History diclofenac sodium 1 % topical gel 2 g TOPICAL DIRECTED PRN 10/08/20 10/08/20 History metoprolol succinate 100 mg 100 mg PO QPM 10/08/20 10/08/20 History tablet,extended release 24 hr Past Med/Surg History Medical History (Updated 10/08/20 @ 22:15 by Karissa Sheppard PA-C) Anemia Anxiety AV fistula LUE Carotid artery stenosis under surveillance by cardiology Chronic systolic CHF (congestive heart failure) Coronary artery disease S/P CABG x4 09/2017 Diabetes mellitus, type 2 NIDDM Dyslipidemia ESRD (end stage renal disease) dialysis M/W/F, [facility] ([place]) GERD (gastroesophageal reflux disease) controlled GI bleed 11/2017 gastric ulcer s/p cauterization/clipping History of blood transfusion 11/2017 gastric ulcer s/p cauterization/clipping Hypertension Ischemic cardiomyopathy Morbid obesity Myocardial Infarction 08/2017 Restless leg syndrome S/P arteriogram of extremity Surgical History History of cardiac cath 08/2017 @ [facility]--no stents placed History of colonoscopy with polypectomy History of esophagogastroduodenoscopy (EGD) EGD/COLONOSCOPY= 01/13/18= [facility] AT [facility] History of removal of Port-a-Cath 05/10/18, REMOVAL OF DIAYLSIS CATH FROM CHEST WALL. History of tonsillectomy History of tooth extraction History of vascular access device CHEST PORT/DIALYSIS ACCESS History of vascular surgery "bypass" put into left arm after fistula placed to establish blood flow--Dr. Rivers Hx of vascular surgery STARCLOSE - RIGHT FEMORAL AREA. Status post coronary artery bypass graft CABG x 4 09/09/2017 @ [facility] [place] Status post creation of arteriovenous fistula left arm 05/2018 Dr. Rivers Status post partial resection of colon 2010 22 DIVERTICULITIS Family History Father Cancer Mother Family history of diabetes mellitus Daughter Family history of diabetes mellitus Other No family history of adverse response to anesthesia Social History Smoking Status: Former smoker Tobacco Type: Cigarettes Cigarettes Per Day: 10/day (tobacco use x 45 years); Smoking End Date: 2020; Second Hand Exposure: No; Hx Alcohol Use: No Hx Substance Use: No Preferred Language: Algerian Communication Ability: Effective Hose Wrapper Required: No Beliefs That Will Affect Care: None marital status: Current Living Situation: Spouse Other Information That Helps Us Care for You: No Feels Safe at Home: Yes Safety Concerns: Feels Safe At This Time Assistive Devices: None Review of Systems Review of Systems: At least ten systems reviewed and negative except as noted in the HPI. Physical Exam Physical Exam: Please see Dr. Winchester's addendum for physical exam. Results & Data Results & Data ([facility]) Vital Signs (Past 12 Hours) Vital Signs Temp Pulse Pulse Pulse Resp BP BP 10/08/20 21:36 37.7 C H 76 138/66 10/08/20 21:28 77 127/61 10/08/20 21:00 75 129/54 L 10/08/20 20:40 74 134/62 10/08/20 20:20 77 139/50 L 10/08/20 20:00 80 133/61 10/08/20 19:40 80 150/58 H 10/08/20 19:26 77 113/46 L 10/08/20 19:20 37.7 C H 77 10/08/20 19:00 75 11 L 131/34 L 10/08/20 18:30 78 21 138/40 L 10/08/20 18:26 37.7 C H 77 16 138/40 L 10/08/20 18:00 87 21 158/58 H 10/08/20 17:34 86 18 169/62 H 10/08/20 17:30 86 18 169/62 H 10/08/20 17:00 86 20 189/63 H 10/08/20 16:50 85 23 10/08/20 16:41 87 21 10/08/20 16:00 91 H 22 177/68 H 10/08/20 15:30 87 25 H 174/73 H 10/08/20 15:20 86 93 H 19 176/72 H 176/72 H 10/08/20 15:10 102 H 21 10/08/20 15:00 101 H 15 10/08/20 14:50 105 H 19 10/08/20 14:40 94 H 23 10/08/20 14:30 89 23 10/08/20 14:00 88 26 H 187/57 H 10/08/20 13:30 89 19 179/47 H 10/08/20 13:04 23 164/86 H 10/08/20 13:00 94 H 24 184/68 H 10/08/20 12:12 36.6 C 90 18 201/71 H Pulse Ox 10/08/20 21:36 10/08/20 21:28 10/08/20 21:00 10/08/20 20:40 10/08/20 20:20 10/08/20 20:00 10/08/20 19:40 10/08/20 19:26 10/08/20 19:20 10/08/20 19:00 94 10/08/20 18:30 94 10/08/20 18:26 94 10/08/20 18:00 91 10/08/20 17:34 94 10/08/20 17:30 94 10/08/20 17:00 93 10/08/20 16:50 92 10/08/20 16:41 95 10/08/20 16:00 95 10/08/20 15:30 94 10/08/20 15:20 93 10/08/20 15:10 93 10/08/20 15:00 96 10/08/20 14:50 94 10/08/20 14:40 94 10/08/20 14:30 98 10/08/20 14:00 95 10/08/20 13:30 93 10/08/20 13:04 96 10/08/20 13:00 97 10/08/20 12:12 97 Laboratory Results Short CBC 10/08/20 Range/Units 15:01 WBC 19.72 H (4.8-10.8) K/uL Hgb 11.1 L (14.0-18.0) g/dL Hct 33.5 L (42-52) % Plt Count 284 (130-400) K/uL BMP 10/08/20 15:01 Sodium 139 Potassium 3.9 Chloride 105 Carbon Dioxide 21 BUN 63 H Creatinine 9.01 H* Glucose 107 H Calcium 8.6 Cardiac Enzymes 10/08/20 Range/Units 15:01 Troponin I < 0.015 (0-0.045) ng/ml Liver Function 10/08/20 Range/Units 15:01 Total Bilirubin 0.6 (0.2-1) mg/dl AST 18 (15-37) U/L ALT 20 (12-78) U/L Alkaline Phosphatase 146 H (45-117) U/L Albumin 3.1 L (3.4-5.0) gm/dl Diagnostic Findings Chest X-Ray 10/08/20 14:15 XR chest 1V portable CLINICAL HISTORY: Chest pain. COMPARISON STUDY: Chest radiograph May 09, 2019. FINDINGS: Dual lumen right internal jugular catheter is in place. There are median sternotomy wires. There is no pneumothorax or pleural effusion. There is no consolidation. Cardiomediastinal silhouette is stable. There is pulmonary vascular congestion. IMPRESSION: Pulmonary vascular congestion without overt pulmonary edema. ACT 112: Negative or not required by law. Electronically signed by: Ramesh Shelton M.D. 10/08/2020 2:56 PM Abdomen/Pelvis CT 10/08/20 14:21 CT SCAN OF THE CHEST, ABDOMEN, AND PELVIS WITH IV CONTRAST CLINICAL HISTORY: Atypical chest pain. Nausea and vomiting. Central venous catheter dysfunction. COMPARISON STUDY: Chest x-ray dated 10/08/2020. Chest CT dated 09/02/2017. Abdominal CT dated 11/23/2018. TECHNIQUE: Following the IV administration of 93 of Optiray 320, CT scan of the chest, abdomen, and pelvis was performed from the thoracic inlet to the proximal femora. Images are reviewed in the axial, sagittal, and coronal planes. IV contrast was administered without complication. A dose lowering technique was utilized adhering to the principles of ALARA. CT DOSE: 1010.35 mGycm FINDINGS: CHEST: Thyroid: Imaged portions of the thyroid gland are normal in size and attenuation. Thoracic aorta: There is atherosclerotic calcification of the thoracic aorta, which is normal in caliber and demonstrates bovine variant arch anatomy. No dissection is seen. Atherosclerotic plaque causes approximately 50% stenosis of the distal descending thoracic aorta are seen on image #251. Pulmonary vasculature: The pulmonary trunk is normal in caliber. There are no filling defects identified in the central pulmonary vessels to indicate pulmonary embolus. Note that this examination was not protocoled for evaluation of the pulmonary arteries. Heart: A right internal jugular central venous catheter is in place. The patient is status post midline sternotomy. The heart is enlarged and without pericardial effusion. The coronary arteries are densely calcified. Lungs and pleural spaces: Evaluation of the lung parenchyma is modestly degraded by motion artifact. There is moderate emphysema. The trachea and central airways are clear. There is no airspace consolidation typical for pneumonia or pleural effusion. Foci of scarring/atelectasis are noted at the lung bases. A 5 mm nodular density is seen at the left apex on image #58. A 3 mm left lower lobe pulmonary nodule is seen on image were 223. Mediastinum: There is no mediastinal lymphadenopathy. Carolyne: Clear. Axillae: There is no axillary lymphadenopathy. Bony thorax: The skeletal structures are osteopenic. No lytic or blastic lesions are identified. ABDOMEN AND PELVIS: Liver: The contrast-enhanced liver is normal in size, contour, and attenuation. There is no intra- or extrahepatic biliary ductal dilatation. The hepatic veins and portal veins are patent. Gallbladder: Unremarkable. Spleen: Normal in size and attenuation. Pancreas: Unremarkable. Adrenal glands: A 3.2 cm nodule is noted in the left adrenal gland. This was shown to represent an adenoma on a prior unenhanced CT scan. The right adrenal gland is normal in appearance. Kidneys: The contrast enhanced kidneys demonstrate cortical atrophy and are without hydronephrosis. The kidneys enhance symmetrically. A 2.2 cm cyst arises from the upper pole of left kidney. Additional subcentimeter cortical hypodensities also likely represent cysts but are too small for definitive characterization. There are numerous bilateral renal vascular calcifications. Small nonobstructing renal calculi are not excluded. There is bilateral perinephric stranding and fluid. Abdominal vasculature: The abdominal aorta is normal in course and caliber noting advanced atherosclerotic calcification. 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 There is at least moderate stenosis of the right common iliac artery. Stomach and bowel: There is a tiny hiatal hernia. There is postoperative change from sigmoid colon resection with colocolonic anastomosis. No bowel obstruction is seen. There is rectosigmoid fecal retention and moderate constipation. There is mild to moderate diverticulosis of the remaining colon without CT evidence of acute diverticulitis. The appendix is well-visualized and normal. Asymmetric rectal wall thickening suggested on the left as seen on image #3 and 64. Peritoneum: There is no intraperitoneal free air or abdominal ascites. Lymphadenopathy: None. Pelvic viscera: The prostate gland is enlarged and heterogeneous noting median lobe hypertrophy. The bladder is distended. The bladder wall appears thickened and trabeculated indicating chronic outlet obstruction. The seminal vesicles are normal as visualized. There are small bilateral fat-containing inguinal hernias. Skeletal structures: The skeletal structures are osteopenic. There is a mild and chronic appearing superior endplate compression deformity of L1. Mild lumbosacral spondylosis is observed. No lytic or blastic lesions are seen. IMPRESSION: 1. Cardiomegaly and emphysema. 2. There is no airspace consolidation typical for pneumonia or pleural effusion. 3. There are 2 nodular densities in the left lung measuring up to 5 mm. These are pathologically indeterminant and follow-up is recommended as per the Fleischner criteria. See below. 4. A right internal jugular central venous catheter is in place. The catheter is normal as visualized by CT. 5. There is nonspecific bilateral perinephric stranding and fluid. Correlate with clinical findings and urinalysis. 6. There is evidence of sigmoid colon resection with colocolonic anastomosis. No bowel obstruction is identified. 7. Rectosigmoid fecal retention and moderate constipation. 8. Mild to moderate diverticulosis of the remaining colon without CT evidence of acute diverticulitis. 9. Question asymmetric left rectal wall thickening. If not recently performed this could be further assessed with colonoscopy to assess for underlying lesion. 10. Advanced atherosclerotic change is seen throughout the chest and abdomen. 11. Additional findings as above. Please refer to below summary of Fleischner criteria recommendations for follow- up of incidental CT nodules (King Singh, Guidelines for management of small pulmonary nodules detected on CT scans: A statement from the Fleischner Society, Radiology 237: [phone].) SOLID NODULES Solitary nodule size: <6 mm * low risk patients: no follow-up needed * high risk patients: optional CT at 12 months Solitary nodule size: 6-8 mm * low risk patients: follow-up at 6-12 months, then consider further follow-up at 18-24 months * high risk patients: initial follow-up CT at 6-12 months and then at 18-24 months if no change Solitary nodule size: >8 mm * either low or high risk patients - consider follow-up CT at 3 months, and/or CT-PET, and/or biopsy Multiple nodules size: <6 mm * low risk patients: no routine follow-up * high risk patients: optional CT at 12 months Multiple nodules size: 6-8 mm * low risk patients: follow-up at 3-6 months, then consider further follow-up at 18-24 months * high risk patients: follow-up at 3-6 months, then at 18-24 months if no ch ashlie Multiple nodules size: >8 mm * low risk patients: follow-up at 3-6 months, then consider further follow-up at 18-24 months * high risk patients: follow-up at 3-6 months, then at 18-24 months if no change Note: newly detected indeterminate nodule in persons 35 years of age or older. * low risk patients: minimal or absent history of smoking and/or other known risk factors * high risk patients: history of smoking or of other known risk factors (e.g. first degree relative with lung cancer, or exposure to asbestos, radon, uranium) * if a nodule up to 8 mm is partly solid or is ground glass further follow-up is required after 24 months to exclude possible slow growing adenocarcinoma (AUTUMN) SUBSOLID NODULES Solitary pure ground-glass nodule * nodule size <6 mm - no CT follow-up required * nodule size >=6 mm - follow-up CT at 6-12 months, then every 2 years until 5 years Solitary part-solid nodule * nodule size <6 mm - no CT follow-up required * nodule size >=6 mm - follow-up CT at 3-6 months. If unchanged, and solid component remains <6 mm, then annual follow-up for 5 years Multiple subsolid nodules * nodule size <6 mm - follow-up CT at 3-6 months, consider further follow-up at 2 and 4 years if stable * nodule size >=6 mm - follow-up CT at 3-6 months, subsequent management based on the most suspicious nodule(s) ACT 112: Positive. There are findings on this exam that require communication between the performing entity and the patient following Patient Test Result Information Act ([place] Act 112) guidelines. Electronically signed by: Néstor Hernandez M.D. 10/08/2020 5:[address] 10/08/20 14:21 CT SCAN OF THE CHEST, ABDOMEN, AND PELVIS WITH IV CONTRAST CLINICAL HISTORY: Atypical chest pain. Nausea and vomiting. Central venous catheter dysfunction. COMPARISON STUDY: Chest x-ray dated 10/08/2020. Chest CT dated 09/02/2017. Abdominal CT dated 11/23/2018. TECHNIQUE: Following the IV administration of 93 of Optiray 320, CT scan of the chest, abdomen, and pelvis was performed from the thoracic inlet to the proximal femora. Images are reviewed in the axial, sagittal, and coronal planes. IV con trast was administered without complication. A dose lowering technique was utilized adhering to the principles of ALARA. CT DOSE: 1010.35 mGycm FINDINGS: CHEST: Thyroid: Imaged portions of the thyroid gland are normal in size and attenuation. Thoracic aorta: There is atherosclerotic calcification of the thoracic aorta, which is normal in caliber and demonstrates bovine variant arch anatomy. No dissection is seen. Atherosclerotic plaque causes approximately 50% stenosis of the distal descending thoracic aorta are seen on image #251. Pulmonary vasculature: The pulmonary trunk is normal in caliber. There are no filling defects identified in the central pulmonary vessels to indicate pulmonary embolus. Note that this examination was not protocoled for evaluation of the pulmonary arteries. Heart: A right internal jugular central venous catheter is in place. The patient is status post midline sternotomy. The heart is enlarged and without pericardial effusion. The coronary arteries are densely calcified. Lungs and pleural spaces: Evaluation of the lung parenchyma is modestly degraded by motion artifact. There is moderate emphysema. The trachea and central airways are clear. There is no airspace consolidation typical for pneumonia or pleural effusion. Foci of scarring/atelectasis are noted at the lung bases. A 5 mm nodular density is seen at the left apex on image #58. A 3 mm left lower lobe pulmonary nodule is seen on image were 223. Mediastinum: There is no mediastinal lymphadenopathy. Carolyne: Clear. Axillae: There is no axillary lymphadenopathy. Bony thorax: The skeletal structures are osteopenic. No lytic or blastic lesions are identified. ABDOMEN AND PELVIS: Liver: The contrast-enhanced liver is normal in size, contour, and attenuation. There is no intra- or extrahepatic biliary ductal dilatation. The hepatic veins and portal veins are patent. Gallbladder: Unremarkable. Spleen: Normal in size and attenuation. Pancreas: Unremarkable. Adrenal glands: A 3.2 cm nodule is noted in the left adrenal gland. This was shown to represent an adenoma on a prior unenhanced CT scan. The right adrenal gland is normal in appearance. Kidneys: The contrast enhanced kidneys demonstrate cortical atrophy and are without hydronephrosis. The kidneys enhance symmetrically. A 2.2 cm cyst arises from the upper pole of left kidney. Additional subcentimeter cortical hypodensities also likely represent cysts but are too small for definitive characterization. There are numerous bilateral renal vascular calcifications. Small nonobstructing renal calculi are not excluded. There is bilateral perinephric stranding and fluid. Abdominal vasculature: The abdominal aorta is normal in course and caliber noting advanced atherosclerotic calcification. 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 There is at least moderate stenosis of the right common iliac artery. Stomach and bowel: There is a tiny hiatal hernia. There is postoperative change from sigmoid colon resection with colocolonic anastomosis. No bowel obstruction is seen. There is rectosigmoid fecal retention and moderate constipation. There is mild to moderate diverticulosis of the remaining colon without CT evidence of acute diverticulitis. The appendix is well-visualized and normal. Asymmetric rectal wall thickening suggested on the left as seen on image #3 and 64. Peritoneum: There is no intraperitoneal free air or abdominal ascites. Lymphadenopathy: None. Pelvic viscera: The prostate gland is enlarged and heterogeneous noting median lobe hypertrophy. The bladder is distended. The bladder wall appears thickened and trabeculated indicating chronic outlet obstruction. The seminal vesicles are normal as visualized. There are small bilateral fat-containing inguinal hernias. Skeletal structures: The skeletal structures are osteopenic. There is a mild and chronic appearing superior endplate compression deformity of L1. Mild lumbo sacral spondylosis is observed. No lytic or blastic lesions are seen. IMPRESSION: 1. Cardiomegaly and emphysema. 2. There is no airspace consolidation typical for pneumonia or pleural effusion. 3. There are 2 nodular densities in the left lung measuring up to 5 mm. These are pathologically indeterminant and follow-up is recommended as per the Fleischner criteria. See below. 4. A right internal jugular central venous catheter is in place. The catheter is normal as visualized by CT. 5. There is nonspecific bilateral perinephric stranding and fluid. Correlate with clinical findings and urinalysis. 6. There is evidence of sigmoid colon resection with colocolonic anastomosis. No bowel obstruction is identified. 7. Rectosigmoid fecal retention and moderate constipation. 8. Mild to moderate diverticulosis of the remaining colon without CT evidence of acute diverticulitis. 9. Question asymmetric left rectal wall thickening. If not recently performed this could be further assessed with colonoscopy to assess for underlying lesion. 10. Advanced atherosclerotic change is seen throughout the chest and abdomen. 11. Additional findings as above. Please refer to below summary of Fleischner criteria recommendations for follow- up of incidental CT nodules (King Singh, Guidelines for management of small pulmonary nodules detected on CT scans: A statement from the [employer], Radiology 237: [phone].) SOLID NODULES Solitary nodule size: <6 mm * low risk patients: no follow-up needed * high risk patients: optional CT at 12 months Solitary nodule size: 6-8 mm * low risk patients: follow-up at 6-12 months, then consider further follow-up at 18-24 months * high risk patients: initial follow-up CT at 6-12 months and then at 18-24 mo nths if no change Solitary nodule size: >8 mm * either low or high risk patients - consider follow-up CT at 3 months, and/or CT-PET, and/or biopsy Multiple nodules size: <6 mm * low risk patients: no routine follow-up * high risk patients: optional CT at 12 months Multiple nodules size: 6-8 mm * low risk patients: follow-up at 3-6 months, then consider further follow-up at 18-24 months * high risk patients: follow-up at 3-6 months, then at 18-24 months if no change Multiple nodules size: >8 mm * low risk patients: follow-up at 3-6 months, then consider further follow-up at 18-24 months * high risk patients: follow-up at 3-6 months, then at 18-24 months if no change Note: newly detected indeterminate nodule in persons 35 years of age or older. * low risk patients: minimal or absent history of smoking and/or other known risk factors * high risk patients: history of smoking or of other known risk factors (e.g. first degree relative with lung cancer, or exposure to asbestos, radon, uranium) * if a nodule up to 8 mm is partly solid or is ground glass further follow-up is required after 24 months to exclude possible slow growing adenocarcinoma (AUTUMN) SUBSOLID NODULES Solitary pure ground-glass nodule * nodule size <6 mm - no CT follow-up required * nodule size >=6 mm - follow-up CT at 6-12 months, then every 2 years until 5 years Solitary part-solid nodule * nodule size <6 mm - no CT follow-up required * nodule size >=6 mm - follow-up CT at 3-6 months. If unchanged, and solid component remains <6 mm, then annual follow-up for 5 years Multiple subsolid nodules * nodule size <6 mm - follow-up CT at 3-6 months, consider further follow-up at 2 and 4 years if stable * nodule size >=6 mm - follow-up CT at 3-6 months, subsequent management based on the most suspicious nodule(s) ACT 112: Positive. There are findings on this exam that require communication between the performing entity and the patient following Patient Test Result Information Act ([place] Act 112) guidelines. Electronically signed by: éNstor Hernandez M.D. 10/08/2020 5:[address] 10/08/20 14:21 CT SCAN OF THE BRAIN WITHOUT IV CONTRAST CLINICAL HISTORY: Headache. COMPARISON STUDY: No priors. TECHNIQUE: Unenhanced axial CT scan of the brain is performed from the vertex to the skull base. A dose lowering technique was utilized adhering to the principles of ALARA. CT DOSE: 638.56 mGycm FINDINGS: Brain parenchyma: There are age-related involutional changes noting mild subcortical and periventricular microangiopathic change. There is no hemorrhage, mass effect, or evidence of acute territorial ischemia by CT criteria. Pinto- white matter differentiation is preserved. No extra-axial fluid collection is seen. Ventricles, sulci, cisterns: Prominent secondary to involutional change. Intracranial vasculature: There is atherosclerotic calcification of the cavernous carotid and vertebral arteries. Calvarium: Unremarkable. Sinuses and mastoids: Mild mucosal thickening is noted in the left maxillary antrum. The remaining visualized paranasal sinuses are clear. The mastoid air cells are well pneumatized. Orbits: The bony orbits are grossly intact. IMPRESSION: There is no hemorrhage, mass effect, or evidence of acute territorial ischemia by CT criteria. ACT 112: Negative or not required by law. Electronically signed by: Néstor Hernandez M.D. 10/08/2020 4:39 PM Code Status & VTE Plan VTE Prophylaxis Plan VTE Prophylaxis will be ordered: Yes Supervising Physician Co-Signing Physician Notes I saw this patient with the physician pediatric physician assistant, I participated in the history, physical, review of systems, and physical exam. I reviewed the medications with the patient and the physician pediatric physician assistant and helped reconcile the medications. I helped take a detailed family and social history as well. I formulated the assessment and plan personally with the physician pediatric physician assistant and went over it with the patient. Physical Exam Gen-AAO x 3, NAD, Afebrile, hematuria-BRB in johnson Head-NCAT, EOMI, PERRLA, Anicteric Sclera, No Posterior Pharyngeal Erythema Neck-Supple, No JVD, No Thyromegaly, No Masses, No LAD, No Bruits Lungs-Clear to Auscultation Bilaterally, No Rales, No Rhonchi, No Wheezing, No Crepitus Chest-No S4, +S1, +S2, No S3, No Murmurs, No Rubs, No Gallops, No Ectopy Abdomen-Soft, Bowel Sounds Present, Non Tender, Non Distended, No Hepatomegaly, No Splenomegaly, No Palpable Masses, No Rebound, No Rigidity, No Guarding Musculoskeletal-Full Range of Motion Bilaterally, No CVAT Extremities-No Cyanosis, No Clubbing, No Edema Nuero-Cranial Nerves II-XII grossly intact, Motor WNL, DTRs WNL, Strength WNL, Non Focal Psych-Normal Mood (1) Malfunction of peripheral inserted central catheter Encounter type: initial encounter Qualified Code(s): T82.598A - Other mechanical complication of other cardiac and vascular devices and implants, initial encounter (2) Leukocytosis Leukocytosis type: unspecified Qualified Code(s): D72.829 - Elevated white blood cell count, unspecified
[2020-10-08] MEDS ORDERED: GLUCAGON FOR INJ 1 MG VIAL SQ PRN (21:58)
[2020-10-08] MEDS ORDERED: GLUCOSE 40% GEL 15 GM TUBE PO PRN (21:58)
[2020-10-08] MEDS ORDERED: POLYETHYLENE (MIRALAX) 17 GM PACK PO PRN ×2 (21:58→22:23)
[2020-10-08] MEDS ORDERED: GLUCOSE 10 TABS/TUBE PO PRN (21:58)
[2020-10-08] MEDS ORDERED: DEXTROSE 50% 50 ML SYRINGE IV PRN (21:58)
[2020-10-08] MEDS ORDERED: hydrOXYzine HCl 25 MG TAB PO PRN (21:58)
[2020-10-08] MEDS ORDERED: ONDANSETRON INJ 2 MG/ML 2 ML VIAL IV PRN (21:58)
[2020-10-08] MEDS ORDERED: CARBOHYDRATES FOR HYPOGLYCEMIA PO PRN (21:58)
[2020-10-08] MEDS ORDERED: DICLOFENAC SOD 1% GEL 100 GM TUBE EXT PRN (21:58)
[2020-10-08 22:35] LABS: Hepatitis B Surface Ab Quant 114.76 mIU/mL (>or=10mIU/mL Immune); Hepatitis B Surface Antibody Immune
[2020-10-08 22:46] LABS: Hepatitis B Surf Ag Rflx Conf Neg (Neg)
[2020-10-08] MEDS: HEPARIN SOD 5,000 UNIT/0.5 ML VIAL SQ SCH (23:06)
[2020-10-08] MEDS: DOCUSATE SODIUM 100 MG CAP PO SCH (23:07)
[2020-10-08] MEDS: METOPROLOL SUCC 50MG EXT REL TAB PO SCH (23:07)
[2020-10-08] MEDS: INSULIN ASPART 100 UNITS/ML 3 ML PEN SC SCH (23:20)
[2020-10-08] MEDS: HEPARIN SOD (PORCINE) 1000 UNIT/ML IV SCH ×3 (23:22→23:24)
[2020-10-09] MEDS: PIPERACILLIN/TAZOBACTAM 3.375 GM in DEXTROSE 5% 100 ML IV SCH ×2 (02:18→13:30)
[2020-10-09] MEDS: HEPARIN SOD 5,000 UNIT/0.5 ML VIAL SQ SCH ×3 (05:50→21:24)
--- NOTE | 2020-10-09 05:55 | Electrocardiogram Report ---
Test Reason : Blood Pressure : / mmHG Vent. Rate : 086 BPM Atrial Rate : 086 BPM P-R Int : 140 ms QRS Dur : 106 ms QT Int : 394 ms P-R-T Axes : 000 063 -10 degrees QTc Int : 471 ms Poor data quality, interpretation may be adversely affected Normal sinus rhythm Cannot rule out Inferior infarct , age undetermined Nonspecific ST abnormality Abnormal ECG When compared with ECG of 09-MAY-2019 11:14, No significant change was found Confirmed by Nikita Fernandez ([id number]) on 10/09/2020 5:55:39 AM Referred By: REFERRED SELF Confirmed By:Nikita Fernandez
[2020-10-09 06:12] LABS: Hemoglobin 10.3 g/dL (14.0-18.0); Mean Corpuscular Hemoglobin 29.4 pg (25-34); Mean Corpuscular Hgb Conc 33.2 g/dL (32-36); Mean Corpuscular Volume 88.6 fL (80-100); Mean Platelet Volume 9.8 fL (7.4-10.4); Platelet Count 255 K/uL (130-400); RDW Coefficient of Variation 15.5 % (11.5-14.5); RDW Standard Deviation 49.3 fL (36.4-46.3); White Blood Count 20.99 K/uL (4.8-10.8)
[2020-10-09 07:00] LABS: BUN Creatinine Ratio 6.2 (10-20); Calcium 8.2 mg/dl (8.5-10.1); Creatinine Clr Calc Pharmacy 9.7 ml/min; Est GFR (African American) 8.1 ml/min; Phosphorus 4.2 mg/dl (2.5-4.9); Potassium 4.3 mmol/L (3.5-5.1)
[2020-10-09] MEDS ORDERED: CALCIUM ACETATE 667 MG CAP/TAB PO SCH (08:00)
[2020-10-09] MEDS: DICYCLOMINE HCL 10 MG CAP PO SCH ×4 (08:29→20:19)
[2020-10-09] MEDS: DOCUSATE SODIUM 100 MG CAP PO SCH ×2 (08:29→20:19)
--- NOTE | 2020-10-09 08:29 | Hospitalist Progress Note ---
Date of Service October 09, 2020 Assessment & Plan (1) Hypertensive urgency: Plan: Gram-negative bacteremia Pt is a 65yo M w/ ESRD on HD, HTN, DM II, RLS, ALICIA who presents with elevated BP, nausea and headache. BP has been elevated over the past 2 days with SBP around 190-200s. In hospital he was also found to be bacteremic, with gram-negative bacilli Elevated BP x 2 days, initially 201/71 on admission with headache and nausea BP improved, now 136/66 with resolution of symptoms CT head with no hemorrhage, mass effect, or evidence of acute territorial ischemia by CT criteria Recent OP medication changes made, see HPI Continue to monitor (2) Leukocytosis: Plan: Gram-negative bacteremia WBC 20K, afebrile, VSS CT abd/pelvis without airspace consolidation typical for pneumonia or pleural effusion Nonspecific bilateral perinephric stranding and fluid. Correlate with clinical findings and urinalysis Patient makes very little urine, unable to obtain sample for UA - but UA ordered Zosyn given empirically for possible bladder infxn Blood cultx (10/08) -positive with gram-negative bacilli Also need to consider possibility of vascular- access related infection in setting of home HD training Continue empiric zosyn, follow blood cultures Patient also reports poor dentition, however currently denies any dental pain, drainage, abscess ID consulted Also discussed with nephrology (3) ESRD (end stage renal disease) on dialysis: (4) Malfunction of peripheral inserted central catheter: Plan: Completed HD last evening (on admission) Follows with Dr. Kate (5) Coronary artery disease: Plan: CABG x 4 in 2017 Following with cardiology Recent normal dobutamine stress echo in pre-op for possible renal transplant Continue aspirin, plavix, statin, Toprol (6) Ischemic cardiomyopathy: Plan: EF 40-45%, following with Dr. Moore Continue Toprol (7) Diabetes mellitus, type II: Plan: A1c 6.7 in July 2020 Hold home agents SSI while in-patient BSG AC HS (8) Constipation: Plan: Rectosigmoid fecal retention and moderate constipation on CT abd/pelvis Bowel regimen DVT Ppx: SQ heparin Code status: FULL PCP: Dr. 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 Review of Systems Review of Systems: All systems reviewed & are unremarkable except as noted in Subjective Physical Exam Physical Exam: Gen- AAO x 3, NAD, R upper Chest HD Catheter in place HEENT- NCAT, EOMI, PERRL, Anicteric Sclera, No Posterior Pharyngeal Erythema Neck- Supple, No JVD Lungs- Clear to Auscultation Bilaterally, No Rales, No Rhonchi, No Wheezing Chest- No S4, +S1, +S2, No S3, No Murmurs Abdomen- Soft, + Bowel Sounds, Non Tender, Non Distended Musculoskeletal- Full Range of Motion Bilaterally, No CVAT Extremities- No Edema, moves extremities spontaneously Neuro-alert, oriented, answering questions appropriately, no facial asymmetry, moves extremities Psych- Normal Mood Results & Data Results & Data ([facility]) Vital Signs (Past 12 Hours) Vital Signs Temp Pulse Pulse Pulse Resp BP BP 10/09/20 05:14 37.3 C 65 16 116/56 L 10/08/20 23:00 66 10/08/20 21:51 36.8 C 79 17 136/66 10/08/20 21:36 37.7 C H 76 138/66 10/08/20 21:28 77 127/61 10/08/20 21:00 75 129/54 L 10/08/20 20:40 74 134/62 Pulse Ox 10/09/20 05:14 98 10/08/20 23:00 10/08/20 21:51 98 10/08/20 21:36 10/08/20 21:28 10/08/20 21:00 10/08/20 20:40 Laboratory Results 10/09/20 10/09/20 10/09/20 Range/Units 07:13 05:46 05:46 WBC 20.99 H (4.8-10.8) K/uL RBC 3.50 L (4.7-6.1) M/uL Hgb 10.3 L (14.0-18.0) g/dL Hct 31.0 L (42-52) % MCV 88.6 (80-100) fL MCH 29.4 (25-34) pg MCHC 33.2 (32-36) g/dL RDW Std Deviation 49.3 H (36.4-46.3) fL RDW Coeff of Lyla 15.5 H (11.5-14.5) % Plt Count 255 (130-400) K/uL MPV 9.8 (7.4-10.4) fL Immature Gran % (Auto) % Neut % (Auto) % Lymph % (Auto) % Cascade % (Auto) % Eos % (Auto) % Baso % (Auto) % Neut # (Auto) (1.4-6.5) K/uL Lymph # (Auto) (1.2-3.4) K/uL Cascade # (Auto) (0.11-0.59) K/uL Eos # (Auto) (0-0.5) K/uL Baso # (Auto) (0-0.2) K/uL Immature Gran # (Auto) (0.00-0.02) K/uL APTT (21.0-31.0) Seconds PTT Ratio Sodium 137 (136-145) mmol/L Potassium 4.3 (3.5-5.1) mmol/L Chloride 102 (98-107) mmol/L Carbon Dioxide 26 (21-32) mmol/L Anion Gap 9.0 (3-11) BUN 46 H (7-18) mg/dl Creatinine 7.47 H* D (0.6-1.4) mg/dl Est Cr Clr Drug Dosing 9.7 ml/min Est GFR ( Amer) 8.1 ml/min Est GFR (Non-Af Amer) 7.0 ml/min BUN/Creatinine Ratio 6.2 L (10-20) Glucose 98 (70-99) mg/dl POC Glucose 91 (70-99) mg/dl Calcium 8.2 L (8.5-10.1) mg/dl Phosphorus 4.2 (2.5-4.9) mg/dl Magnesium 2.0 (1.8-2.4) mg/dl Total Bilirubin (0.2-1) mg/dl AST (15-37) U/L ALT (12-78) U/L Alkaline Phosphatase (45-117) U/L Troponin I (0-0.045) ng/ml Total Protein (6.4-8.2) gm/dl Albumin (3.4-5.0) gm/dl Globulin (2.5-4.0) gm/dl Albumin/Globulin Ratio (0.9-2) Lipase (73-393) U/L COVID-19 Eval Order SARS-CoV-2 (PCR) (Negative) Hep Bs Antigen (Neg) Hep Bs Antibody Hep Bs Antibody, Quant (>or=10mIU/mL Immune) mIU/mL 10/08/20 10/08/20 10/08/20 Range/Units 22:06 15:26 15:26 WBC (4.8-10.8) K/uL RBC (4.7-6.1) M/uL Hgb (14.0-18.0) g/dL Hct (42-52) % MCV (80-100) fL MCH (25-34) pg MCHC (32-36) g/dL RDW Std Deviation (36.4-46.3) fL RDW Coeff of Lyla (11.5-14.5) % Plt Count (130-400) K/uL MPV (7.4-10.4) fL Immature Gran % (Auto) % Neut % (Auto) % Lymph % (Auto) % Cascade % (Auto) % Eos % (Auto) % Baso % (Auto) % Neut # (Auto) (1.4-6.5) K/uL Lymph # (Auto) (1.2-3.4) K/uL Cascade # (Auto) (0.11-0.59) K/uL Eos # (Auto) (0-0.5) K/uL Baso # (Auto) (0-0.2) K/uL Immature Gran # (Auto) (0.00-0.02) K/uL APTT (21.0-31.0) Seconds PTT Ratio Sodium (136-145) mmol/L Potassium (3.5-5.1) mmol/L Chloride (98-107) mmol/L Carbon Dioxide (21-32) mmol/L Anion Gap (3-11) BUN (7-18) mg/dl Creatinine (0.6-1.4) mg/dl Est Cr Clr Drug Dosing ml/min Est GFR ( Amer) ml/min Est GFR (Non-Af Amer) ml/min BUN/Creatinine Ratio (10-20) Glucose (70-99) mg/dl POC Glucose 136 H (70-99) mg/dl Calcium (8.5-10.1) mg/dl Phosphorus (2.5-4.9) mg/dl Magnesium (1.8-2.4) mg/dl Total Bilirubin (0.2-1) mg/dl AST (15-37) U/L ALT (12-78) U/L Alkaline Phosphatase (45-117) U/L Troponin I (0-0.045) ng/ml Total Protein (6.4-8.2) gm/dl Albumin (3.4-5.0) gm/dl Globulin (2.5-4.0) gm/dl Albumin/Globulin Ratio (0.9-2) Lipase (73-393) U/L COVID-19 Eval Order Covid19 at [facility] SARS-CoV-2 (PCR) NEGATIVE (Negative) Hep Bs Antigen (Neg) Hep Bs Antibody Hep Bs Antibody, Quant (>or=10mIU/mL Immune) mIU/mL 10/08/20 10/08/20 10/08/20 Range/Units 15:01 15:01 15:01 WBC (4.8-10.8) K/uL RBC (4.7-6.1) M/uL Hgb (14.0-18.0) g/dL Hct (42-52) % MCV (80-100) fL MCH (25-34) pg MCHC (32-36) g/dL RDW Std Deviation (36.4-46.3) fL RDW Coeff of Lyla (11.5-14.5) % Plt Count (130-400) K/uL MPV (7.4-10.4) fL Immature Gran % (Auto) % Neut % (Auto) % Lymph % (Auto) % Cascade % (Auto) % Eos % (Auto) % Baso % (Auto) % Neut # (Auto) (1.4-6.5) K/uL Lymph # (Auto) (1.2-3.4) K/uL Cascade # (Auto) (0.11-0.59) K/uL Eos # (Auto) (0-0.5) K/uL Baso # (Auto) (0-0.2) K/uL Immature Gran # (Auto) (0.00-0.02) K/uL APTT 56.7 H* (21.0-31.0) Seconds PTT Ratio 2.2 Sodium 139 (136-145) mmol/L Potassium 3.9 (3.5-5.1) mmol/L Chloride 105 (98-107) mmol/L Carbon Dioxide 21 (21-32) mmol/L Anion Gap 12.0 H (3-11) BUN 63 H (7-18) mg/dl Creatinine 9.01 H* (0.6-1.4) mg/dl Est Cr Clr Drug Dosing 8.0 ml/min Est GFR ( Amer) 6.4 ml/min Est GFR (Non-Af Amer) 5.6 ml/min BUN/Creatinine Ratio 7.0 L (10-20) Glucose 107 H (70-99) mg/dl POC Glucose (70-99) mg/dl Calcium 8.6 (8.5-10.1) mg/dl Phosphorus (2.5-4.9) mg/dl Magnesium (1.8-2.4) mg/dl Total Bilirubin 0.6 (0.2-1) mg/dl AST 18 (15-37) U/L ALT 20 (12-78) U/L Alkaline Phosphatase 146 H (45-117) U/L Troponin I < 0.015 (0-0.045) ng/ml Total Protein 6.6 (6.4-8.2) gm/dl Albumin 3.1 L (3.4-5.0) gm/dl Globulin 3.5 (2.5-4.0) gm/dl Albumin/Globulin Ratio 0.9 (0.9-2) Lipase 116 (73-393) U/L COVID-19 Eval Order SARS-CoV-2 (PCR) (Negative) Hep Bs Antigen Neg (Neg) Hep Bs Antibody Immune Hep Bs Antibody, Quant 114.76 (>or=10mIU/mL Immune) mIU/mL 10/08/20 Range/Units 15:01 WBC 19.72 H (4.8-10.8) K/uL RBC 3.74 L (4.7-6.1) M/uL Hgb 11.1 L (14.0-18.0) g/dL Hct 33.5 L (42-52) % MCV 89.6 (80-100) fL MCH 29.7 (25-34) pg MCHC 33.1 (32-36) g/dL RDW Std Deviation 49.5 H (36.4-46.3) fL RDW Coeff of Lyla 15.2 H (11.5-14.5) % Plt Count 284 (130-400) K/uL MPV 9.9 (7.4-10.4) fL Immature Gran % (Auto) 0.3 % Neut % (Auto) 97.8 % Lymph % (Auto) 1.0 % Cascade % (Auto) 0.7 % Eos % (Auto) 0.1 % Baso % (Auto) 0.1 % Neut # (Auto) 19.31 H (1.4-6.5) K/uL Lymph # (Auto) 0.20 L (1.2-3.4) K/uL Cascade # (Auto) 0.13 (0.11-0.59) K/uL Eos # (Auto) 0.01 (0-0.5) K/uL Baso # (Auto) 0.02 (0-0.2) K/uL Immature Gran # (Auto) 0.05 H (0.00-0.02) K/uL APTT (21.0-31.0) Seconds PTT Ratio Sodium (136-145) mmol/L Potassium (3.5-5.1) mmol/L Chloride (98-107) mmol/L Carbon Dioxide (21-32) mmol/L Anion Gap (3-11) BUN (7-18) mg/dl Creatinine (0.6-1.4) mg/dl Est Cr Clr Drug Dosing ml/min Est GFR ( Amer) ml/min Est GFR (Non-Af Amer) ml/min BUN/Creatinine Ratio (10-20) Glucose (70-99) mg/dl POC Glucose (70-99) mg/dl Calcium (8.5-10.1) mg/dl Phosphorus (2.5-4.9) mg/dl Magnesium (1.8-2.4) mg/dl Total Bilirubin (0.2-1) mg/dl AST (15-37) U/L ALT (12-78) U/L Alkaline Phosphatase (45-117) U/L Troponin I (0-0.045) ng/ml Total Protein (6.4-8.2) gm/dl Albumin (3.4-5.0) gm/dl Globulin (2.5-4.0) gm/dl Albumin/Globulin Ratio (0.9-2) Lipase (73-393) U/L COVID-19 Eval Order SARS-CoV-2 (PCR) (Negative) Hep Bs Antigen (Neg) Hep Bs Antibody Hep Bs Antibody, Quant (>or=10mIU/mL Immune) mIU/mL Medications Administered Current Inpatient Medications Acetaminophen (Acetaminophen 325 Mg Tab) 650 mg PO Q4H PRN PRN Reason: Pain or Fever Stop: 11/07/20 21:55 Aspirin (Aspirin 81 Mg Ectab) 81 mg PO QPM TROY Stop: 11/08/20 20:59 Atorvastatin Calcium (Atorvastatin 40 Mg Tab) 80 mg PO QPM TROY Stop: 11/08/20 20:59 Calcium Acetate (Calcium Acetate 667 Mg Cap/Tab) 667 mg PO BIDM TROY Stop: 11/08/20 07:59 Dextrose (Dextrose 50% 50 Ml Syringe) 25 - 50 ml IV UD PRN; Protocol PRN Reason: Hypoglycemia Protocol Stop: 11/07/20 21:57 Dicyclomine HCl (Dicyclomine Hcl 10 Mg Cap) 10 mg PO ACHS TROY Stop: 11/08/20 07:29 Docusate Sodium (Docusate Sodium 100 Mg Cap) 100 mg PO BID TROY Stop: 11/07/20 22:29 Last Admin: 10/08/20 23:07 Dose: 100 mg Documented by: Glucagon (Glucagon For Inj 1 Mg Vial) 1 mg SQ UD PRN; Protocol PRN Reason: Hypoglycemia Protocol Stop: 11/07/20 21:57 Glucose (Glucose 10 Tabs/Tube) 4 - 8 tabs PO UD PRN; Protocol PRN Reason: Hypoglycemia Protocol Stop: 11/07/20 21:57 Glucose (Glucose 40% Gel 15 Gm Tube) 15 - 30 gm PO UD PRN; Protocol PRN Reason: Hypoglycemia Protocol Stop: 11/07/20 21:57 Heparin Sodium (Porcine) (Heparin Sod 5,000 Unit/0.5 Ml Vial) 5,000 units SQ Q8 TROY Stop: 11/07/20 21:59 Last Admin: 10/09/20 05:50 Dose: 5,000 units Documented by: Hydroxyzine HCl (Hydroxyzine Hcl 25 Mg Tab) 25 mg PO QID PRN PRN Reason: Itching Stop: 11/07/20 21:57 Piperacillin Sod/Tazobactam (Sod 3.375 gm/ Dextrose) 115 mls @ 28.75 mls/hr IV Q12H [facility]; Protocol Stop: 10/23/20 01:59 Last Infusion: 10/09/20 06:18 Dose: Infused Documented by: Insulin Aspart (Insulin Aspart 100 Units/Ml 3 Ml Pen) 0 units SC ACHS RTOY Stop: 11/07/20 21:57 Last Admin: 10/08/20 23:20 Dose: Not Given Documented by: Lisinopril (Lisinopril 20 Mg Tab) 20 mg PO QAM [facility] Stop: 11/08/20 08:59 Metoprolol Succinate (Metoprolol Succ 50mg Ext Rel Tab) 100 mg PO QPM TROY Stop: 11/07/20 21:59 Last Admin: 10/08/20 23:07 Dose: 100 mg Documented by: Miscellaneous (Carbohydrates For Hypoglycemia ) 15 - 30 gm PO UD PRN PRN Reason: Hypoglycemia Protocol Stop: 11/07/20 21:57 Miscellaneous Information (Piperacill/Tazobac Consult Active) 1 ea N/A UD PRN PRN Reason: Consult Stop: 11/07/20 17:23 Ondansetron HCl (Ondansetron Inj 2 Mg/Ml 2 Ml Vial) 4 mg IV Q6H PRN PRN Reason: Nausea Stop: 11/07/20 21:57 Pantoprazole Sodium (Pantoprazole 40 Mg Tab) 40 mg PO BID [facility] Stop: 11/08/20 08:59 Polyethylene Glycol (Polyethylene (Miralax) 17 Gm Pack) 17 gm PO DAILY PRN PRN Reason: Constipation Stop: 11/07/20 21:57 Polyethylene Glycol (Polyethylene (Miralax) 17 Gm Pack) 17 gm PO DAILY PRN PRN Reason: Constipation Stop: 11/07/20 22:22 Ropinirole HCl (Ropinirole Hcl 0.25 Mg Tablet) 0.25 mg PO HS [facility] Stop: 11/08/20 20:59 Trazodone HCl (Trazodone Hcl 50 Mg Tab) 50 mg PO HS PRN PRN Reason: Sleep Stop: 11/07/20 21:57 Vitamin B Complex/Folic Acid (Nephrocaps) 1 cap PO QAM TROY Stop: 11/08/20 08:59 (1) Malfunction of peripheral inserted central catheter Encounter type: initial encounter Qualified Code(s): T82.598A - Other mechanical complication of other cardiac and vascular devices and implants, initial encounter (2) Leukocytosis Leukocytosis type: unspecified Qualified Code(s): D72.829 - Elevated white blood cell count, unspecified
[2020-10-09] MEDS: lisinopril 20 MG TAB PO SCH (08:30)
[2020-10-09] MEDS: PANTOprazole 40 MG TAB PO SCH ×2 (08:30→20:19)
[2020-10-09] MEDS: INSULIN ASPART 100 UNITS/ML 3 ML PEN SC SCH ×3 (08:30→19:00)
[2020-10-09] MEDS ORDERED: NEPHROCAPS PO SCH (09:00)
--- NOTE | 2020-10-09 11:37 | Nephrology Consultation ---
Date of Consultation October 09, 2020 Assessment & Plan (1) Bacteremia associated with intravascular line: anaerobic GNR bacteremia > on zosyn; no evidence of severe sepsis but will cont to monitor -f/u cxs to be drawn 9/2 PM -may need TDC exchange versus line holiday and/or TTE depending on course Care coordinated w/ Dr Banda (2) Hypertensive urgency: resolved since admission and after adjustment earlier this week of bp meds > cont BB, ACEI current dose; ? role for 3 CM L adrenal lesion?; no evidence of HTN emergency which was the concern on presentatoin (3) Hemodialysis catheter malfunction: some issues on 10/08 as OP; again today he had issues on dialysis (after none yesterday). today he ran only a few minutes and had issues - he also developed TORRES with this; we rested briefly and restarted; no further TORRES; tx stopped about 1 hr even after reversing lines; not limb specific malfunction; trial of alteplase planned; may need exchange d/t cath malfunction (4) ESRD (end stage renal disease) on dialysis: for HD today; he has refused further permanent vascular access and prefers TDC; reeval in AM for further tx. chemistries, volume status, anemia generally acceptable. will need urology f/u for txplt w/u of L renal lesion. History of Present Illness Reason for Consultation: ESRD on dialysis w/ HTN emergency Requesting Physician: Dr Winchester Attending Physician: Candelario Banda MD History of Present Illness 65 y/o M whom I'm askd to see for ESRD care and HTN management was admitted last evening for evaluation of uncontrolled HTN with n/v at dialysis. PMH includes CAD s/p 2017 4V CABG and w/ ischemic EDGE BONDER EF 40%, ESRD on HD via dialysis catheter, HTN, DM, reformed tobacco abuse (quit 05/2020; 63 pyh), asymptomatic peripheral arterial disease w/ asymptomatic L>R carotid stenosis and L subclavian artery stenosis, s/p 2010 open sigmoid colectomy for complicated diverticulitis, RLS, ALICIA. Also noted at txplt work up late September to have 2 CM L renal lesion needing urologic evaluation (pt will need MRI for this and in process of being scheduled w/ Dr Denys MARX; pt may not be aware of this plan). He had L arm AVG by Dr Rivers s/p LUCIANA x 2 and c/b residual weakness/numbness/impairment. [place] [facility] [place] w/ AVG thrombosis > TDC placement after unsuccessful thrombectomy. Refuses further non catheter vascula r access d/t fears about permanent R arm/hand dysfunction. He is currently training to do home hemodialysis at [facility]. I saw him on 10/07 at training and he had asymptomatic sbp 200s, improving to 170s by the end of dialysis treatment; he also shivered (not full blown rigors) and endo rsed chills; no fever at that time. we adjusted his BP meds > increased lisinopril from 10 > 20 mg daily and changed metoprolol from short acting to long acting 100 mg hs. He developed a headache evening of 10/07 and presented for training 10/08 again w/ SBP in 200s and now w/ mild TORRES. no confusion, no visual changes, no new focal numbness/weakness; no abd pain or constipation/diarrhea; no dyspnea; again no fever but he did have chills again at dialysis. The venous limb of the catheter was not pulling well initially but eventually ran after heparin dwell. However by the time the dwell was complete, the dialyzer had clotted off. As the nurse was preparing to set up a new system, the pt became ill w/ nausea, malaise, and intensifying headache and refused further treatment. He had at least 2 (and possible 3 or 4) bouts of emesis. His SBP were in 190s. he stated to dialysis nurse "I haven't hurt like this (headache) in years." he was advised to have ER evaluation. On presentation to ER, SBP were in 200s initially; he was also noted to have WBC of 20K. No ECG changes, no troponin elevation. N and TORRES resolved quickly on arrival to ER; no further chills or malaise. SBP gradually improved w/o aggressive intervention to 150s yesterday afternoon and 130s last evening/today. CT head non con unremarkable. CT abd/pelvis w/ con without findings of pneumonia or pleural effusion; diffuse advanced atherosclerotic calcifications in abdomen noted with high grade L common iliac artery stenosis and at least moderate stenosis of R common iliac arteray; also w/ L 3.2 cm adrenal lesion noted as well as 2 cm L renal lesion noted as well as ?asymmetric L rectal thickening for which colonoscopy recommended. Pt sx resolved shortly after ER arrival w/ minimal intervention. he had u nremarkable dialysis last evening at my order w/ 1.5L fluid removal and no issues. This morning his blood cultures turned + for anaerobic GNR 2/2; has AEROBIC GNR in cultures drawn from TDC 02/09. He was started on zosyn today. Allergies Allergy/AdvReac Type Severity Reaction Status Date / Time oxycodone AdvReac Intermediate Hallucinati Verified 10/08/20 15:07 ons Home Medications Medication Instructions Recorded Confirmed Type atorvastatin 80 mg tablet (Lipitor) 80 mg PO QPM 11/23/17 10/08/20 History glyburide 2.5 mg tablet 2.5 mg PO QAM 11/23/17 10/08/20 History trazodone 50 mg tablet 50 mg PO HS PRN 01/04/18 10/08/20 History aspirin 81 mg tablet,delayed 81 mg PO QPM 03/02/18 10/08/20 History release hydroxyzine HCl 10 mg tablet 25 mg PO QID PRN 03/02/18 10/08/20 History lisinopril 20 mg tablet 20 mg PO QAM 03/08/18 10/08/20 History dicyclomine 10 mg capsule 10 mg PO QID 04/11/19 10/08/20 History pantoprazole 40 mg tablet,delayed 40 mg PO BID 04/11/19 10/08/20 History release ropinirole 0.25 mg tablet 0.25 mg PO HS 04/11/19 10/08/20 History vitamin B complex and vitamin C 1 cap PO QAM 04/11/19 10/08/20 History no.20-folic acid 1 mg capsule (Triphrocaps) calcium acetate 667 mg tablet 667 mg PO BIDM 11/14/19 10/08/20 History baclofen 10 mg tablet 10 mg PO HS PRN 10/08/20 10/08/20 History diclofenac sodium 1 % topical gel 2 g TOPICAL DIRECTED PRN 10/08/20 10/08/20 History metoprolol succinate 100 mg 100 mg PO QPM 10/08/20 10/08/20 History tablet,extended release 24 hr Patient History Medical History (Updated 10/09/20 @ 17:57 by Manisha Kate MD, PhD) Anemia Anxiety AV fistula LUE Carotid artery stenosis under surveillance by cardiology Chronic systolic CHF (congestive heart failure) Coronary artery disease S/P CABG x4 09/2017 Diabetes mellitus, type 2 NIDDM Dyslipidemia ESRD (end stage renal disease) dialysis M/W/F, [facility] ([place]) GERD (gastroesophageal reflux disease) controlled GI bleed 11/20172 gastric ulcer s/p cauterization/clipping History of blood transfusion 11/2017 gastric ulcer s/p cauterization/clipping Hypertension Ischemic cardiomyopathy Myocardial Infarction 08/2017 Peripheral arterial disease w/ L>R carotid stenosis and L subclavian artery stenosis and BL common iliac stenosis Restless leg syndrome S/P arteriogram of extremity Surgical History History of cardiac cath 08/2017 @ [facility]--no stents placed History of colonoscopy with polypectomy History of esophagogastroduodenoscopy (EGD) EGD/COLONOSCOPY= 01/13/18= MAC SEDATION AT [facility] History of removal of Port-a-Cath 05/10/18, REMOVAL OF DIAYLSIS CATH FROM CHEST WALL. History of tonsillectomy History of tooth extraction History of vascular access device CHEST PORT/DIALYSIS ACCESS History of vascular surgery "bypass" put into left arm after fistula placed to establish blood flow--Dr. Rivers Hx of vascular surgery STARCLOSE - RIGHT FEMORAL AREA. Status post coronary artery bypass graft CABG x 4 09/09/2017 [place] [facility] [place] Status post creation of arteriovenous fistula left arm 05/2018 Dr. Rivers Status post partial resection of colon 03/12 DIVERTICULITIS Family History Father Cancer Mother Family history of diabetes mellitus Daughter Family history of diabetes mellitus Other No family history of adverse response to anesthesia Social History Smoking Status: Former smoker Tobacco Type: Cigarettes Cigarettes Per Day: 10/day (tobacco use x 45 years); Smoking End Date: 2020; Second Hand Exposure: No; Hx Alcohol Use: No Hx Substance Use: No Preferred Language: Turkmen Communication Ability: Effective Yarn Washer Required: No Beliefs That Will Affect Care: None marital status: Current Living Situation: Spouse Other Information That Helps Us Care for You: No Feels Safe at Home: Yes Safety Concerns: Feels Safe At This Time Assistive Devices: None Review of Systems Review of Systems: All systems reviewed & are unremarkable except as noted in HPI & below Genitourinary: + problem reported (pt anuric; no change in chronic voiding habits) Physical Exam Constitutional: well developed, well nourished and average body habitus; no acute distress Eyes: EOM intact bilaterally ENMT: Ears: no external ear abnormality Nose: no external nose abnormality Mouth: + dry oral mucous membranes Neck: no nuchal rigidity Respiratory: normal respiratory effort Auscultation: + diminished lung sounds Cardiovascular: Rate/Rhythm: regular rate and regular rhythm Heart Sounds: normal S1 and normal S2 Extremities: no edema Gastrointestinal (Abdomen): Inspection/Auscultation: normal bowel sounds Percussion/Palpation: abdomen soft; abdomen nontender Musculoskeletal: Extremities: strength 5/5 throughout Skin: no rashes, warm and dry Neurologic: portillo, fluent speech, no tremor Psychiatric: Orientation: alert and oriented x 3 Speech: normal rate/rhythm/volume of speech Insight: good insight Judgement: good judgement Results & Data ([facility]) Vital Signs (Past 12 Hours) Vital Signs Temp Pulse Pulse Resp BP Pulse Ox 10/09/20 07:52 37.8 C H 69 21 135/64 93 10/09/20 05:14 37.3 C 65 16 116/56 L 98 Laboratory Results 10/09/20 05:46 10/09/20 05:46 cx results as above Diagnostic Findings CT ff as above (1) Hemodialysis catheter malfunction Encounter type: initial encounter Qualified Code(s): T82.41XA - Breakdown (mechanical) of vascular dialysis catheter, initial encounter
[2020-10-09] MEDS ORDERED: HEPARIN SOD (PORCINE) 1000 UNIT/ML IV ONE (13:10)
[2020-10-09] MEDS ORDERED: SODIUM CHLORIDE 0.9% 1000ML 1,000 ML IV PRN (13:10)
[2020-10-09] MEDS ORDERED: CALCIUM ACETATE 667 MG CAP/TAB PO PRN (14:24)
[2020-10-09] MEDS: ACETAMINOPHEN 325 MG TAB PO PRN (15:21)
[2020-10-09] MEDS ORDERED: ALTEPLASE, RECOMBINANT 1 MG/ML 2ML VIAL INSTIL ONE (16:46)
[2020-10-09] MEDS ORDERED: ALTEPLASE, RECOMBINANT 1 MG/ML 2ML VIAL INSTIL STA (16:48)
[2020-10-09] MEDS: HEPARIN SOD (PORCINE) 1000 UNIT/ML IV SCH ×3 (18:16→18:49)
[2020-10-09] MEDS: CALCIUM ACETATE 667 MG CAP/TAB PO SCH (18:17)
[2020-10-09] MEDS: ATORVASTATIN 40 MG TAB PO SCH (20:19)
[2020-10-09] MEDS: ASPIRIN 81 MG ECTAB PO SCH (20:19)
[2020-10-09] MEDS: rOPINIRole HCL 0.25 MG TABLET PO SCH (20:19)
[2020-10-09] MEDS: METOPROLOL SUCC 50MG EXT REL TAB PO SCH (20:19)
[2020-10-10] MEDS: PIPERACILLIN/TAZOBACTAM 3.375 GM in DEXTROSE 5% 100 ML IV SCH ×2 (01:39→15:34)
[2020-10-10] MEDS: HEPARIN SOD 5,000 UNIT/0.5 ML VIAL SQ SCH ×3 (05:24→21:03)
[2020-10-10 07:02] LABS: Hematocrit (blood only) 31.4 % (42-52); Hemoglobin 10.2 g/dL (14.0-18.0); Mean Corpuscular Hgb Conc 32.5 g/dL (32-36); Mean Corpuscular Volume 89.2 fL (80-100); Mean Platelet Volume 10.4 fL (7.4-10.4); Platelet Count 254 K/uL (130-400); RDW Coefficient of Variation 15.5 % (11.5-14.5); RDW Standard Deviation 50.2 fL (36.4-46.3); Red Blood Count 3.52 M/uL (4.7-6.1); White Blood Count 10.61 K/uL (4.8-10.8)
[2020-10-10] MEDS: DOCUSATE SODIUM 100 MG CAP PO SCH ×2 (07:41→21:03)
[2020-10-10] MEDS: DICYCLOMINE HCL 10 MG CAP PO SCH ×4 (07:41→21:03)
[2020-10-10] MEDS: lisinopril 20 MG TAB PO SCH (07:42)
[2020-10-10] MEDS: CALCIUM ACETATE 667 MG CAP/TAB PO SCH ×3 (07:42→16:39)
[2020-10-10] MEDS: PANTOprazole 40 MG TAB PO SCH ×2 (07:42→21:03)
[2020-10-10 07:50] LABS: BUN Creatinine Ratio 5.8 (10-20); Calcium 7.8 mg/dl (8.5-10.1); Creatinine Clr Calc Pharmacy 9.3 ml/min; Est GFR (African American) 7.7 ml/min; Est GFR (Non-African American) 6.7 ml/min; Magnesium 2.3 mg/dl (1.8-2.4); Phosphorus 4.2 mg/dl (2.5-4.9); Potassium 4.4 mmol/L (3.5-5.1)
[2020-10-10] MEDS: INSULIN ASPART 100 UNITS/ML 3 ML PEN SC SCH ×4 (07:57→21:04)
--- NOTE | 2020-10-10 08:15 | Nephrology Progress Note ---
Date of Service October 10, 2020 Assessment & Plan (1) Bacteremia associated with intravascular line: Plan: anaerobic GNR bacteremia (still not speciated) > on zosyn; no evidence of severe sepsis but will cont to monitor; hope eventually to wean to ceftazidime or ce fepime if appropriate (easier to give w/ dialysis) -defer to primary service when to draw next cxs; last ones are from 10/09 and are in process; last + bld cx 10/08 -he will need 48 hrs negative blood cxs before replacing TDC Care coordinated w/ Dr Banda (2) Hypertensive urgency: Plan: intermittent since admission and after adjustment earlier this week of bp meds > cont BB, ACEI current dose; ? role for 3 CM L adrenal lesion? ->can use enaliprilat prn (3) Hemodialysis catheter malfunction: Plan: some issues on 10/08 as OP; again 10/09 he had issues with TDC on dialysis (after none yesterday)-- he ran only a few minutes and had issues - he also developed TORRES with this; we rested briefly and restarted; no further TORRES; tx stopped about 1 hr even after reversing lines; not limb specific malfunction; trial of alteplase w/o resolution; recommend catheter exchange d/t cath malfunction -d/w Dr Rivers who will remove tdc today and get temp line in; for TDC replaceme nt assuming clear cxs on 10/15 (4) ESRD (end stage renal disease) on dialysis: Plan: for HD tomorrow; he has refused further permanent vascular access and prefers TDC. chemistries, volume status, anemia generally acceptable. will need urology f/u for txplt w/u of L renal lesion. Admission and Anticipated Discharge Date Admission Date: October 08, 2020 Subjective dialysis catheter ran poorly again yesterday despite alteplace/running reversed; no TORRES or malaise yesterday and BP was well controlled; BP surging now. some situational HTN. at bedside. no further rigors Review of Systems Review of Systems: All systems reviewed & are unremarkable except as noted in Subjective Physical Exam Constitutional: well developed, well nourished and average body habitus; no acute distress Eyes: EOM intact bilaterally ENMT: Ears: no external ear abnormality Nose: no external nose abnormality Mouth: + dry oral mucous membranes Neck: no nuchal rigidity Respiratory: normal respiratory effort Auscultation: + diminished lung sounds Cardiovascular: Rate/Rhythm: regular rate and regular rhythm Heart Sounds: normal S1 and normal S2 Extremities: no edema Gastrointestinal (Abdomen): Inspection/Auscultation: normal bowel sounds Percussion/Palpation: abdomen soft; abdomen nontender Musculoskeletal: Extremities: strength 5/5 throughout Skin: no rashes, warm and dry Psychiatric: Orientation: alert and oriented x 3 Speech: normal rate/rhythm/volume of speech Insight: good insight Judgement: good judgement Results & Data ([facility]) Vital Signs (Past 12 Hours) Vital Signs Temp Pulse Pulse Resp BP Pulse Ox 10/10/20 06:50 37 C 65 18 203/74 H 97 10/10/20 05:12 36.9 C 66 16 136/56 L 96 10/09/20 23:14 37.2 C 64 18 144/54 H 95 10/09/20 23:00 60 Laboratory Results 10/10/20 06:20 10/10/20 06:20 (1) Hemodialysis catheter malfunction Encounter type: initial encounter Qualified Code(s): T82.41XA - Breakdown (mechanical) of vascular dialysis catheter, initial encounter
--- NOTE | 2020-10-10 08:26 | Communication Note ---
Date of Service: October 10, 2020 Will remove permcath today and place a temporary dialysis catheter today.
[2020-10-10] MEDS: NEPHROCAPS PO SCH (08:37)
[2020-10-10] MEDS ORDERED: hydrALAZINE HCL 20 MG/ML VIAL IV ONE (11:41)
[2020-10-10] MEDS ORDERED: Nursing to Pharmacy Communication SCH (11:45)
--- NOTE | 2020-10-10 13:42 | Consultation ---
Date of Consultation October 10, 2020 Assessment & Plan (1) Sepsis due to infected central venous catheter: Is recommended the patient have the PermCath removed and a temporary catheter placed. I have discussed the risks options and benefits of the procedure with the patient. The patient understands the risks options and benefits and agrees to the procedure. We will place a new PermCath once cultures are negative. History of Present Illness Reason for Consultation: Infected PermCath Attending Physician: Candelario Banda MD History of Present Illness This is a 65-year-old gentleman who has a PermCath in place. He has numerous positive blood cultures. There is no other obvious source of his infection. Removal of the catheter and insertion of a temporary catheter recommended. Allergies Allergy/AdvReac Type Severity Reaction Status Date / Time oxycodone AdvReac Intermediate Hallucinati Verified 10/08/20 15:07 ons Home Medications Medication Instructions Recorded Confirmed Type atorvastatin 80 mg tablet (Lipitor) 80 mg PO QPM 11/23/17 10/08/20 History glyburide 2.5 mg tablet 2.5 mg PO QAM 11/23/17 10/08/20 History trazodone 50 mg tablet 50 mg PO HS PRN 01/04/18 10/08/20 History aspirin 81 mg tablet,delayed 81 mg PO QPM 03/02/18 10/08/20 History release hydroxyzine HCl 10 mg tablet 25 mg PO QID PRN 03/02/18 10/08/20 History lisinopril 20 mg tablet 20 mg PO QAM 03/08/18 10/08/20 History dicyclomine 10 mg capsule 10 mg PO QID 04/11/19 10/08/20 History pantoprazole 40 mg tablet,delayed 40 mg PO BID 04/11/19 10/08/20 History release ropinirole 0.25 mg tablet 0.25 mg PO HS 04/11/19 10/08/20 History vitamin B complex and vitamin C 1 cap PO QAM 04/11/19 10/08/20 History no.20-folic acid 1 mg capsule (Triphrocaps) calcium acetate 667 mg tablet 667 mg PO BIDM 11/14/19 10/08/20 History baclofen 10 mg tablet 10 mg PO HS PRN 10/08/20 10/08/20 History diclofenac sodium 1 % topical gel 2 g TOPICAL DIRECTED PRN 10/08/20 10/08/20 History metoprolol succinate 100 mg 100 mg PO QPM 10/08/20 10/08/20 History tablet,extended release 24 hr Patient History Medical History Anemia Anxiety AV fistula LUE Carotid artery stenosis under surveillance by cardiology Chronic systolic CHF (congestive heart failure) Coronary artery disease S/P CABG x4 09/2017 Diabetes mellitus, type 2 NIDDM Dyslipidemia ESRD (end stage renal disease) dialysis M/W/F, [facility] ([place]) GERD (gastroesophageal reflux disease) controlled GI bleed 11/2017 2/2 gastric ulcer s/p cauterization/clipping History of blood transfusion 11/2017 gastric ulcer s/p cauterization/clipping Hypertension Ischemic cardiomyopathy Myocardial Infarction 08/2017 Peripheral arterial disease w/ L>R carotid stenosis and L subclavian artery stenosis and BL common iliac stenosis Restless leg syndrome S/P arteriogram of extremity Surgical History History of cardiac cath 08/2017 @ [facility]--no stents placed History of colonoscopy with polypectomy History of esophagogastroduodenoscopy (EGD) EGD/COLONOSCOPY= 01/13/18= MAC SEDATION AT [facility] History of removal of Port-a-Cath 05/10/18, REMOVAL OF DIAYLSIS CATH FROM CHEST WALL. History of tonsillectomy History of tooth extraction History of vascular access device CHEST PORT/DIALYSIS ACCESS History of vascular surgery "bypass" put into left arm after fistula placed to establish blood flow--Dr. Rivers Hx of vascular surgery STARCLOSE - RIGHT FEMORAL AREA. [place] post coronary artery bypass graft [place] 4 09[place]09[place] [facility] [place] post creation of arteriovenous fistula left arm 05/2018 Dr. Rivers Status post partial resection of colon 03/12 DIVERTICULITIS Family History Father Cancer Mother Family history of diabetes mellitus Daughter Family history of diabetes mellitus Other No family history of adverse response to anesthesia Social History Smoking Status: Former smoker Tobacco Type: Cigarettes Cigarettes Per Day: 10/day (tobacco use x 45 years); Smoking End Date: 2020; Second Hand Exposure: No; Hx Alcohol Use: No Hx Substance Use: No Preferred Language: Polish Communication Ability: Effective Material Requirements Worker Required: No Beliefs That Will Affect Care: None marital status: Current Living Situation: Spouse Other Information That Helps Us Care for You: No Feels Safe at Home: Yes Safety Concerns: Feels Safe At This Time Assistive Devices: None Review of Systems Review of Systems: All systems reviewed & are unremarkable except as noted in HPI & below Physical Exam Physical Exam: Constitutional: WD/WN, vitals as above Respiratory: normal respiratory effort, lungs clear to auscultation Cardiovascular: RRR, no murmur, no edema Gastrointestinal (Abdomen): Inspection/Auscultation: abdomen normal to inspection Percussion/Palpation: abdomen soft; abdomen nontender Skin: no rashes, warm and dry Neurologic: CN's II-XI intact bilaterally and moves all extremities Psychiatric: Orientation: alert and oriented x 3 Results & Data ([facility]) Vital Signs (Past 12 Hours) Vital Signs Temp Pulse Pulse Resp BP Pulse Ox 10/10/20 12:45 162/72 H 10/10/20 11:26 37.3 C 57 L 19 178/66 H 96 10/10/20 10:00 172/62 H 10/10/20 08:00 69 10/10/20 06:50 37 C 65 18 203/74 H 97 10/10/20 05:12 36.9 C 66 16 136/56 L 96
[2020-10-10] MEDS ORDERED: LIDOCAINE 1% LOCAL 20 ML VIAL ONE (14:06)
[2020-10-10] MEDS ORDERED: HEPARIN SOD (PORCINE) 5,000 UNITS/ML VIAL ONE (14:06)
[2020-10-10] MEDS ORDERED: fentaNYL citrate 100 MCG/2 ML VIAL ONE (14:08)
[2020-10-10] MEDS ORDERED: MIDAZOLAM HCL 1 MG/ML 2ML VIAL ONE (14:08)
--- NOTE | 2020-10-10 14:27 | Pre Anesthesia Assessment ---
Date of Service October 10, 2020 Pre Sedation Assessment Vital Signs Temp Pulse Pulse Pulse Resp BP Pulse Ox 10/10/20 14:20 69 16 180/69 H 99 10/10/20 13:59 37.2 C 62 18 146/67 H 97 10/10/20 12:45 162/72 H 10/10/20 11:26 37.3 C 57 L 19 178/66 H 96 10/10/20 10:00 172/62 H 10/10/20 08:00 69 10/10/20 06:50 37 C 65 18 203/74 H 97 10/10/20 05:12 36.9 C 66 16 136/56 L 96 10/09/20 23:14 37.2 C 64 18 144/54 H 95 10/09/20 23:00 60 10/09/20 18:50 36.7 C 65 18 171/70 H 98 10/09/20 18:36 37.1 C 64 171/70 H 10/09/20 14:52 64 10/09/20 14:44 37.1 C 67 Cardiovascular RRR, no murmur, no edema Respiratory normal respiratory effort, lungs clear to auscultation Pre-Sedation Airway Assessment Smoking Status: Former smoker Hx Sleep Apnea: No Short, Thick Neck: No Thyromental Distance: > or= 3.5 Finger Breadths Oral Cavity: + WNL Mallampati Class: III ASA: ASA3 NPO Status Date of Last Intake of Fluids: 10/10/20 Time of Last Intake of Fluids: 07:30 Date of Last Intake of Solid Food: 10/10/20 Time of Last Intake of Solid Foods: 07:30 Procedure Planning Contraindications for Sedation: none Current Medications Reviewed: Yes Notes The planned sedation has been discussed with the patient. Informed Consent was obtained. I have identified the patient, determined the appropriateness of sedation and have assessed the patient immediately prior to the procedure. All medicine(s) and interventions are by my order.
--- NOTE | 2020-10-10 14:58 | Operative Report ---
Post Operative Report Pre & Post Diagnosis Operation Date: 10/10/20 07:00 Pre-Op Diagnosis: infected perm catheter Post-Op Diagnosis: infected perm catheter Operation Date: 10/15/20 08:00 <No data on this case meets the specified criteria> I identified the patient and participated in the time-out.: Yes Procedure Operation Date: 10/10/20 07:00 Actual Procedures p removal of right internal jugular catheter, insertion of right femoral temporary dialysis catheter moderate RN sedation [id number] - Weston Rivers MD Operation Date: 10/15/20 08:00 <No data on this case meets the specified criteria> Surgeon Weston Rivers MD Reimbursement Manager Yari Goldman Estimated Blood Loss 5 Findings Consistent with Post-Op Diagnosis Specimens catheter tip for culture Anesthesia Type RN Sedation Complications none Disposition Accompanied Patient To Recovery: No Disposition: Recovery Room Indications This is a 65 yo M with ESRD and permacath in place for HD who has bacteremia. Description of Procedure Patient was taken to the angio suite and placed in the supine position. The R groin was prepped and draped in a sterile manner. The patient was identified and a timeout performed. Local anesthesia was then administered to the appropriate areas of the groin. Ultrasound was then used to locate the right femoral vein. The vein compressed easily, had no filing defects, and was patent. The vein was then punctured under direct ultrasound imaging. A guidewire was then passed centrally under fluoroscopic imaging. The mahakur was then inserted to a central position in the distal vena cava. The catheter was then sutured in place using nylon sutures. The puncture was then closed using a 4-0 Vicryl subcuticular suture. Dermabond was used for a dressing on the puncture site. Both ports aspirated and flushed easily and were then packed with heparin. A sterile dressing was applied to the catheter. The R side of the neck, chest wall and catheter were prepped and draped in a sterile manner. Local anesthesia was then accomplished. Using sharp and blunt dissection, the cuff of the permcath was freed up from the surrounding fibrous tissue. The permcath and cuff were completely removed. Pressure was then applied and adequate hemostasis was obtained. A sterile dressing was then applied. The patient left the operation room in satisfactory condition and tolerated the procedure well. All needle and sponge counts were correct at the end of the procedure. The patient left the operation room in satisfactory condition and tolerated the procedure well. All needle and sponge counts were correct at the end of the procedure. Dr. Rivers was present and scrubbed for the entire procedure. I attest to the content of the Intraoperative Record and any orders documented therein. Any exceptions are noted below.
--- NOTE | 2020-10-10 14:59 | Post Anesthesia Assessment ---
Date of Service October 10, 2020 Post Sedation Assessment Vital Signs Temp Pulse Pulse Pulse Resp BP Pulse Ox 10/10/20 14:56 69 16 138/85 97 10/10/20 14:52 68 16 170/68 H 99 10/10/20 14:47 63 16 179/64 H 99 10/10/20 14:42 67 16 172/62 H 99 10/10/20 14:37 68 16 188/66 H 97 10/10/20 14:32 69 16 194/71 H 99 10/10/20 14:20 69 16 180/69 H 99 10/10/20 13:59 37.2 C 62 18 146/67 H 97 10/10/20 12:45 162/72 H 10/10/20 11:26 37.3 C 57 L 19 178/66 H 96 10/10/20 10:00 172/62 H 10/10/20 08:00 69 10/10/20 06:50 37 C 65 18 203/74 H 97 10/10/20 05:12 36.9 C 66 16 136/56 L 96 10/09/20 23:14 37.2 C 64 18 144/54 H 95 10/09/20 23:00 60 10/09/20 18:50 36.7 C 65 18 171/70 H 98 10/09/20 18:36 37.1 C 64 171/70 H Recovery Score Activity: Moves 4 extremities Respiration: Deep Breath/Cough Circulation: +/-20% PreAnes Value Consciousness: Fully Awake Oxygen Saturation: > 92% On Room Air Post Anesthesia Score: 10 Discharge Sedation Level of Care: Fast Track Phase II Post Sedation Plan On clinical assessment, the patient appears to have tolerated the sedation without complications. Patient is recovering as anticipated. Patient will continue to be monitored by nursing and may be discharged when sedation discharge criteria are met per below protocol. Upon Completions of procedure up to 15 minutes continue every 5 minute vital signs and the P.A.R. score; then discharge to a Phase I or Fast Track to Phase II per the following guidelines: * Discharge Patient to appropriate Phase II area if PAR is 8 or greater or return to pre- procedure baseline. The post - procedure orders will be as directed. * If PAR score is less than 8 or not return to pre-procedure baseline then patient will follow Phase I monitoring till PAR is reached for Phase II. The Phase I may be done in procedure room or may call to secure a Phase I area. * If naloxone or flumazenil are used for reversal, hold in Phase I for continued monitoring from when last reversal dose was given for a minimum of 60 minutes or longer pending the nurse and/or physician discretion of patient condition before discharge to Phase II. Please call the Sedation Physician to re-evaluate and complete post-note for discharge to Phase II area. Do NOT discharge from procedure sedation or Phase 1 until post- sedation evaluation note is complete by procedure /sedation MD Sedation Discharge Instructions to be given to the patient at discharge to home.
[2020-10-10] MEDS ORDERED: hydrALAZINE HCL 25 MG TAB PO STA (17:13)
--- NOTE | 2020-10-10 18:56 | Hospitalist Progress Note ---
Date of Service October 10, 2020 Assessment & Plan (1) Hypertensive urgency: Plan: Gram-negative bacteremia, likely secondary to infected HD catheter Pt is a 65yo M w/ ESRD on HD, HTN, DM II, RLS, ALICIA who presents with elevated BP, nausea and headache. BP has been elevated over the past 2 days with SBP around 190-200s. In hospital he was also found to be bacteremic, with gram-negative bacilli Elevated BP x 2 days, initially 201/71 on admission with headache and nausea BP improved, then 136/66 with resolution of symptoms CT head with no hemorrhage, mass effect, or evidence of acute territorial ischemia by CT criteria Recent OP medication changes made, see HPI Continue to monitor 10/10 - BP elevated today, diff. w/ HD yesterday (2) Leukocytosis: Plan: Gram-negative bacteremia, likely secondary to infected HD catheter WBC 20K, afebrile, VSS CT abd/pelvis without airspace consolidation typical for pneumonia or pleural effusion Nonspecific bilateral perinephric stranding and fluid. Correlate with clinical findings and urinalysis Patient makes very little urine, unable to obtain sample for UA - but UA ordered Zosyn given empirically for possible bladder infxn Blood cultx (10/08) -positive with gram-negative bacilli Possibility of vascular- access related infection in setting of home HD training Continue empiric zosyn, follow blood cultures Patient also reports poor dentition, however currently denies any dental pain, drainage, abscess ID consulted Also discussed with nephrology 10/09 blood cultx - pending WBC down to 10K Pt s/p removal of RIJ HD permacath, and placement of temporary R femoral line (3) ESRD (end stage renal disease) on dialysis: (4) Malfunction of peripheral inserted central catheter: Plan: Completed HD the evening of admission 10/08 - difficulty w/ permacath, unable to finish HD treatment Follows with Dr. Kate (5) Coronary artery disease: Plan: CABG x 4 in 2017 Following with cardiology Recent normal dobutamine stress echo in pre-op for possible renal transplant Continue aspirin, plavix, statin, Toprol (6) Ischemic cardiomyopathy: Plan: EF 40-45%, following with Dr. Moore Continue Toprol (7) Diabetes mellitus, type II: Plan: A1c 6.7 in July 2020 Hold home agents SSI while in-patient BSG AC HS (8) Constipation: Plan: Rectosigmoid fecal retention and moderate constipation on CT abd/pelvis Bowel regimen DVT Ppx: SQ heparin Code status: FULL PCP: Dr. Artis Dispo: Admitted to PCU Admission and Anticipated Discharge Date Admission Date: October 08, 2020 Subjective Patient seen in follow-up of gram-negative bacteremia Currently sitting up in bed, in no acute distress Denies any fevers, chills, chest pain, shortness of breath, headache, abdominal pain, nausea vomiting Yesterday difficulty with dialysis catheter, not able to finish the treatment Hypertensive today Given bacteremia, and concern for catheter infection - permcath removed today and temporary line placed Review of Systems Review of Systems: All systems reviewed & are unremarkable except as noted in Subjective Physical Exam Physical Exam: Gen- AAO x 3, NAD, R upper Chest HD Catheter removed, R femoral temp. cath placed HEENT- NCAT, EOMI, PERRL, Anicteric Sclera, No Posterior Pharyngeal Erythema Neck- Supple, No JVD Lungs- Clear to Auscultation Bilaterally, No Rales, No Rhonchi, No Wheezing Chest- No S4, +S1, +S2, No S3, No Murmurs Abdomen- Soft, + Bowel Sounds, Non Tender, Non Distended Musculoskeletal- Full Range of Motion Bilaterally, No CVAT Extremities- No Edema, moves extremities spontaneously Neuro-alert, oriented, answering questions appropriately, no facial asymmetry, moves extremities Psych- Normal Mood Results & Data Results & Data ([facility]) Vital Signs (Past 12 Hours) Vital Signs Temp Pulse Pulse Resp BP Pulse Ox 10/10/20 18:00 70 20 169/64 H 97 10/10/20 16:07 67 20 170/67 H 96 10/10/20 15:40 37.4 C 65 18 184/51 H 95 10/10/20 15:31 36.8 C 66 18 183/64 H 97 10/10/20 15:01 70 16 170/68 H 97 10/10/20 14:56 69 16 138/85 97 10/10/20 14:52 68 16 170/68 H 99 10/10/20 14:47 63 16 179/64 H 99 10/10/20 14:42 67 16 172/62 H 99 10/10/20 14:37 68 16 188/66 H 97 09/02/21 14:32 69 16 194/71 H 99 10/10/20 14:20 69 16 180/69 H 99 10/10/20 13:59 37.2 C 62 18 146/67 H 97 10/10/20 12:45 162/72 H 10/10/20 11:26 37.3 C 57 L 19 178/66 H 96 10/10/20 10:00 172/62 H 10/10/20 08:00 69 Laboratory Results 10/10/20 10/10/20 10/10/20 Range/Units 16:24 13:55 11:21 WBC (4.8-10.8) K/uL RBC (4.7-6.1) M/uL Hgb (14.0-18.0) g/dL Hct (42-52) % MCV (80-100) fL MCH (25-34) pg MCHC (32-36) g/dL RDW Std Deviation (36.4-46.3) fL RDW Coeff of Lyla (11.5-14.5) % Plt Count (130-400) K/uL MPV (7.4-10.4) fL Sodium (136-145) mmol/L Potassium (3.5-5.1) mmol/L Chloride (98-107) mmol/L Carbon Dioxide (21-32) mmol/L Anion Gap (3-11) BUN (7-18) mg/dl Creatinine (0.6-1.4) mg/dl Est Cr Clr Drug Dosing ml/min Est GFR ( Amer) ml/min Est GFR (Non-Af Amer) ml/min BUN/Creatinine Ratio (10-20) Glucose (70-99) mg/dl POC Glucose 101 H 115 H 129 H (70-99) mg/dl Calcium (8.5-10.1) mg/dl Phosphorus (2.5-4.9) mg/dl Magnesium (1.8-2.4) mg/dl 10/10/20 10/10/20 10/10/20 Range/Units 07:20 06:20 06:20 WBC 10.61 (4.8-10.8) K/uL RBC 3.52 L (4.7-6.1) M/uL Hgb 10.2 L (14.0-18.0) g/dL Hct 31.4 L (42-52) % MCV 89.2 (80-100) fL MCH 29.0 (25-34) pg MCHC 32.5 (32-36) g/dL RDW Std Deviation 50.2 H (36.4-46.3) fL RDW Coeff of Lyla 15.5 H (11.5-14.5) % Plt Count 254 (130-400) K/uL MPV 10.4 (7.4-10.4) fL Sodium 136 (136-145) mmol/L Potassium 4.4 (3.5-5.1) mmol/L Chloride 103 (98-107) mmol/L Carbon Dioxide 26 (21-32) mmol/L Anion Gap 7.0 (3-11) BUN 45 H (7-18) mg/dl Creatinine 7.75 H* (0.6-1.4) mg/dl Est Cr Clr Drug Dosing 9.3 ml/min Est GFR ( Amer) 7.7 ml/min Est GFR (Non-Af Amer) 6.7 ml/min BUN/Creatinine Ratio 5.8 L (10-20) Glucose 99 (70-99) mg/dl POC Glucose 100 H (70-99) mg/dl Calcium 7.8 L (8.5-10.1) mg/dl Phosphorus 4.2 (2.5-4.9) mg/dl Magnesium 2.3 (1.8-2.4) mg/dl 10/09/20 Range/Units 18:50 WBC (4.8-10.8) K/uL RBC (4.7-6.1) M/uL Hgb (14.0-18.0) g/dL Hct (42-52) % MCV (80-100) fL MCH (25-34) pg MCHC (32-36) g/dL RDW Std Deviation (36.4-46.3) fL RDW Coeff of Lyla (11.5-14.5) % Plt Count (130-400) K/uL MPV (7.4-10.4) fL Sodium (136-145) mmol/L Potassium (3.5-5.1) mmol/L Chloride (98-107) mmol/L Carbon Dioxide (21-32) mmol/L Anion Gap (3-11) BUN (7-18) mg/dl Creatinine (0.6-1.4) mg/dl Est Cr Clr Drug Dosing ml/min Est GFR ( Amer) ml/min Est GFR (Non-Af Amer) ml/min BUN/Creatinine Ratio (10-20) Glucose (70-99) mg/dl POC Glucose 79 (70-99) mg/dl Calcium (8.5-10.1) mg/dl Phosphorus (2.5-4.9) mg/dl Magnesium (1.8-2.4) mg/dl Medications Administered Current Inpatient Medications Acetaminophen (Acetaminophen 325 Mg Tab) 650 mg PO Q4H PRN PRN Reason: Pain or Fever Stop: 11/07/20 21:55 Last Admin: 10/09/20 15:21 Dose: 650 mg Documented by: Aspirin (Aspirin 81 Mg Ectab) 81 mg PO QPM TROY Stop: 11/08/20 20:59 Last Admin: 10/09/20 20:19 Dose: 81 mg Documented by: Atorvastatin Calcium (Atorvastatin 40 Mg Tab) 80 mg PO QPM TROY Stop: 11/08/20 20:59 Last Admin: 10/09/20 20:19 Dose: 80 mg Documented by: Calcium Acetate (Calcium Acetate 667 Mg Cap/Tab) 2,001 mg PO TIDM TROY Stop: 11/08/20 16:59 Last Admin: 10/10/20 16:39 Dose: 2,001 mg Documented by: Calcium Acetate (Calcium Acetate 667 Mg Cap/Tab) 1,334 mg PO BID PRN PRN Reason: WITH SNACKS Stop: 11/08/20 14:23 Dextrose (Dextrose 50% 50 Ml Syringe) 25 - 50 ml IV UD PRN; Protocol PRN Reason: Hypoglycemia Protocol Stop: 11/07/20 21:57 Dicyclomine HCl (Dicyclomine Hcl 10 Mg Cap) 10 mg PO ACHS TROY Stop: 11/08/20 07:29 Last Admin: 10/10/20 16:39 Dose: Not Given Documented by: Docusate Sodium (Docusate Sodium 100 Mg Cap) 100 mg PO BID TROY Stop: 11/07/20 22:29 Last Admin: 10/10/20 07:41 Dose: Not Given Documented by: Glucagon (Glucagon For Inj 1 Mg Vial) 1 mg SQ UD PRN; Protocol PRN Reason: Hypoglycemia Protocol Stop: 11/07/20 21:57 Glucose (Glucose 10 Tabs/Tube) 4 - 8 tabs PO UD PRN; Protocol PRN Reason: Hypoglycemia Protocol Stop: 11/07/20 21:57 Glucose (Glucose 40% Gel 15 Gm Tube) 15 - 30 gm PO UD PRN; Protocol PRN Reason: Hypoglycemia Protocol Stop: 11/07/20 21:57 Heparin Sodium (Porcine) (Heparin Sod 5,000 Unit/0.5 Ml Vial) 5,000 units SQ Q8 TROY Stop: 11/07/20 21:59 Last Admin: 10/10/20 11:37 Dose: Not Given Documented by: Hydroxyzine HCl (Hydroxyzine Hcl 25 Mg Tab) 25 mg PO QID PRN PRN Reason: Itching Stop: 11/07/20 21:57 Piperacillin Sod/Tazobactam (Sod 3.375 gm/ Dextrose) 115 mls @ 28.75 mls/hr IV Q12H TROY; Protocol Stop: 10/23/20 01:59 Last Admin: 10/10/20 15:34 Dose: 28.8 mls/hr Documented by: Insulin Aspart (Insulin Aspart 100 Units/Ml 3 Ml Pen) 0 units SC ACHS TROY Stop: 11/07/20 21:57 Last Admin: 10/10/20 17:04 Dose: 3 units Documented by: Lisinopril (Lisinopril 20 Mg Tab) 20 mg PO QAM TROY Stop: 11/08/20 08:59 Last Admin: 10/10/20 07:42 Dose: 20 mg Documented by: Metoprolol Succinate (Metoprolol Succ 50mg Ext Rel Tab) 100 mg PO QPM TROY Stop: 11/07/20 21:59 Last Admin: 10/09/20 20:19 Dose: 100 mg Documented by: Miscellaneous (Carbohydrates For Hypoglycemia ) 15 - 30 gm PO UD PRN PRN Reason: Hypoglycemia Protocol Stop: 11/07/20 21:57 Miscellaneous Information (Piperacill/Tazobac Consult Active) 1 ea N/A UD PRN PRN Reason: Consult Stop: 11/07/20 17:23 Ondansetron HCl (Ondansetron Inj 2 Mg/Ml 2 Ml Vial) 4 mg IV Q6H PRN PRN Reason: Nausea Stop: 11/07/20 21:57 Pantoprazole Sodium (Pantoprazole 40 Mg Tab) 40 mg PO BID TROY Stop: 11/08/20 08:59 Last Admin: 10/10/20 07:42 Dose: 40 mg Documented by: Polyethylene Glycol (Polyethylene (Miralax) 17 Gm Pack) 17 gm PO DAILY PRN PRN Reason: Constipation Stop: 11/07/20 21:57 Polyethylene Glycol (Polyethylene (Miralax) 17 Gm Pack) 17 gm PO DAILY PRN PRN Reason: Constipation Stop: 11/07/20 22:22 Ropinirole HCl (Ropinirole Hcl 0.25 Mg Tablet) 0.25 mg PO HS TROY Stop: 11/08/20 20:59 Last Admin: 10/09/20 20:19 Dose: 0.25 mg Documented by: Trazodone HCl (Trazodone Hcl 50 Mg Tab) 50 mg PO HS PRN PRN Reason: Sleep Stop: 11/07/20 21:57 Vitamin B Complex/Folic Acid (Nephrocaps) 1 cap PO QAM TROY Stop: 11/09/20 08:59 Last Admin: 10/10/20 08:37 Dose: 1 cap Documented by: (1) Malfunction of peripheral inserted central catheter Encounter type: initial encounter Qualified Code(s): T82.598A - Other mechanical complication of other cardiac and vascular devices and implants, initial encounter (2) Leukocytosis Leukocytosis type: unspecified Qualified Code(s): D72.829 - Elevated white blood cell count, unspecified
[2020-10-10] MEDS: ASPIRIN 81 MG ECTAB PO SCH (21:02)
[2020-10-10] MEDS: METOPROLOL SUCC 50MG EXT REL TAB PO SCH (21:02)
[2020-10-10] MEDS: ATORVASTATIN 40 MG TAB PO SCH (21:02)
[2020-10-10] MEDS: rOPINIRole HCL 0.25 MG TABLET PO SCH (21:03)
[2020-10-10] MEDS: ACETAMINOPHEN 325 MG TAB PO PRN (23:31)
[2020-10-11] MEDS: PIPERACILLIN/TAZOBACTAM 3.375 GM in DEXTROSE 5% 100 ML IV SCH (01:04)
[2020-10-11] MEDS: HEPARIN SOD 5,000 UNIT/0.5 ML VIAL SQ SCH ×3 (05:25→20:32)
[2020-10-11 06:48] LABS: Hematocrit (blood only) 29.4 % (42-52); Hemoglobin 9.6 g/dL (14.0-18.0); Mean Corpuscular Hemoglobin 28.8 pg (25-34); Mean Corpuscular Hgb Conc 32.7 g/dL (32-36); Mean Corpuscular Volume 88.3 fL (80-100); Mean Platelet Volume 10.1 fL (7.4-10.4); Platelet Count 243 K/uL (130-400); RDW Coefficient of Variation 15.2 % (11.5-14.5); RDW Standard Deviation 48.7 fL (36.4-46.3); Red Blood Count 3.33 M/uL (4.7-6.1)
[2020-10-11 07:33] LABS: BUN Creatinine Ratio 5.6 (10-20); Calcium 7.9 mg/dl (8.5-10.1); Creatinine Clr Calc Pharmacy 7.5 ml/min; Est GFR (Non-African American) 5.2 ml/min; Magnesium 2.3 mg/dl (1.8-2.4); Phosphorus 3.6 mg/dl (2.5-4.9); Potassium 4.1 mmol/L (3.5-5.1)
[2020-10-11] MEDS: CALCIUM ACETATE 667 MG CAP/TAB PO SCH ×3 (07:48→17:54)
[2020-10-11] MEDS: DICYCLOMINE HCL 10 MG CAP PO SCH ×4 (07:49→20:30)
[2020-10-11] MEDS: ADVANCED PROBIOTIC 1250 MG CAPSULE PO SCH (07:49)
[2020-10-11] MEDS: PANTOprazole 40 MG TAB PO SCH ×2 (07:49→20:30)
[2020-10-11] MEDS: DOCUSATE SODIUM 100 MG CAP PO SCH (07:51)
[2020-10-11] MEDS: INSULIN ASPART 100 UNITS/ML 3 ML PEN SC SCH ×4 (07:57→20:42)
[2020-10-11] MEDS: NEPHROCAPS PO SCH (07:58)
[2020-10-11] MEDS ORDERED: SODIUM CHLORIDE 0.9% 1000ML 1,000 ML IV PRN (08:39)
--- NOTE | 2020-10-11 08:42 | Nephrology Progress Note ---
Date of Service October 11, 2020 Assessment & Plan (1) Bacteremia associated with intravascular line: Plan: rodriguez sensitive Serratia marescens > on zosyn; no evidence of severe or progressive infection so far but will cont to monitor >recommend ceftazidime one gram after every HD treatment (whether daily or q 48 hr) and 2 gm if 72 hrs planned before next treatment; tx to last 3 wks; NO PICC; will be given at/after dialysis -defer to primary service when to draw next cxs; last ones are from 10/09 and are in process; last + bld cx 10/08 -he will need 48 hrs negative blood cxs before replacing TDC Care coordinated w/ Dr Banda (2) Hypertensive urgency: Plan: intermittent since admission and labile at baseline; bp meds were adjusted 10/07 > cont BB current dose; ? role for 3 CM L adrenal lesion? -will increase lisinopril to 20 mg bid ->can use enaliprilat prn -will be as aggressive as tolerated for UF -continue fluid limit and low Na diet -defer to primary service to ask about/manage anxiety (3) Hemodialysis catheter malfunction: Plan: THIS, not bacteremia, is rationale for catheter removal. some issues on 10/08 as OP; again 10/09 he had issues with TDC on dialysis -- he ran only a few minutes and had issues - he also developed TORRES with this; we rested briefly and restarted; no further TORRES; tx stopped about 1 hr even after reversing lines; not limb specific malfunction; trial of alteplase w/o resolution; recommend catheter exchange d/t cath malfunction -Dr Rivers following/assistance appreciated >for TDC replacement assuming clear cxs on 10/15 (4) ESRD (end stage renal disease) on dialysis: Plan: for HD today; he has refused further permanent vascular access and prefers TDC; he does have challenging vascular access. chemistries, volume status, anemia generally acceptable. will give 10K of epo w/ tx to support anemia. will need urology f/u for txplt w/u of L renal lesion (missing it during this admission). Admission and Anticipated Discharge Date Admission Date: October 08, 2020 Subjective c/o pain at cath insertion site, else "I feel great." no further TORRES or rigors Review of Systems Review of Systems: All systems reviewed & are unremarkable except as noted in Subjective Physical Exam Constitutional: well developed, well nourished and average body habitus; no acute distress Eyes: EOM intact bilaterally ENMT: Ears: no external ear abnormality Nose: no external nose abnormality Mouth: + dry oral mucous membranes Neck: no nuchal rigidity Respiratory: normal respiratory effort Auscultation: + diminished lung sounds Cardiovascular: Rate/Rhythm: regular rate and regular rhythm Heart Sounds: normal S1 and normal S2 Extremities: no edema Gastrointestinal (Abdomen): Inspection/Auscultation: normal bowel sounds Percussion/Palpation: abdomen soft; abdomen nontender Musculoskeletal: Extremities: strength 5/5 throughout Skin: no rashes, warm and dry Psychiatric: Orientation: alert and oriented x 3 Speech: normal rate/rhythm/volume of speech Insight: good insight Judgement: good judgement Results & Data ([facility]) Vital Signs (Past 12 Hours) Vital Signs Temp Pulse Pulse Resp BP Pulse Ox 10/11/20 08:01 36.8 C 59 L 19 191/77 H 96 10/11/20 03:28 36.8 C 58 L 16 178/64 H 96 10/10/20 23:22 37.4 C 66 18 153/49 H 94 10/10/20 22:20 70 Laboratory Results 10/11/20 06:18 10/11/20 06:18 (1) Hemodialysis catheter malfunction Encounter type: initial encounter Qualified Code(s): T82.41XA - Breakdown (mechanical) of vascular dialysis catheter, initial encounter
[2020-10-11] MEDS ORDERED: POLYETHYLENE (MIRALAX) 17 GM PACK PO SCH (09:00)
[2020-10-11] MEDS ORDERED: EPOETIN ALFA 10,000 UNITS/ML VIAL IV SCH (09:00)
[2020-10-11] MEDS ORDERED: HEPARIN SOD (PORCINE) 1000 UNIT/ML IV ONE (09:00)
[2020-10-11] MEDS: lisinopril 20 MG TAB PO SCH (09:39)
[2020-10-11] MEDS ORDERED: hydrALAZINE HCL 20 MG/ML VIAL IV ONE (12:35)
[2020-10-11] MEDS ORDERED: hydrALAZINE HCL 20 MG/ML VIAL ONE (12:41)
[2020-10-11] MEDS ORDERED: CONSULT PHARMACY STA (13:03)
[2020-10-11] MEDS: HEPARIN SOD (PORCINE) 1000 UNIT/ML IV SCH ×2 (13:23→13:24)
[2020-10-11] MEDS ORDERED: CEFEPIME CONSULT ACTIVE PRN (13:24)
[2020-10-11] MEDS ORDERED: CEFEPIME 1,000 MG in SYRINGE 0 ML IV ONE (13:30)
[2020-10-11] MEDS ORDERED: CEFEPIME 1,000 MG in SYRINGE 0 ML IV SCH (18:00)
[2020-10-11] MEDS: METOPROLOL SUCC 50MG EXT REL TAB PO SCH (19:23)
[2020-10-11] MEDS: hydrALAZINE HCL 20 MG/ML VIAL IV PRN (20:21)
[2020-10-11] MEDS: rOPINIRole HCL 0.25 MG TABLET PO SCH (20:29)
[2020-10-11] MEDS: ASPIRIN 81 MG ECTAB PO SCH (20:29)
[2020-10-11] MEDS: ATORVASTATIN 40 MG TAB PO SCH (20:31)
[2020-10-11] MEDS: traZODone HCL 50 MG TAB PO PRN (22:31)
[2020-10-12] MEDS: HEPARIN SOD 5,000 UNIT/0.5 ML VIAL SQ SCH ×3 (05:55→21:11)
[2020-10-12 06:32] LABS: Hematocrit (blood only) 33.1 % (42-52); Hemoglobin 10.9 g/dL (14.0-18.0); Mean Corpuscular Hemoglobin 29.7 pg (25-34); Mean Corpuscular Hgb Conc 32.9 g/dL (32-36); Mean Corpuscular Volume 90.2 fL (80-100); Mean Platelet Volume 10.4 fL (7.4-10.4); Platelet Count 293 K/uL (130-400); RDW Coefficient of Variation 15.1 % (11.5-14.5); RDW Standard Deviation 49.5 fL (36.4-46.3); Red Blood Count 3.67 M/uL (4.7-6.1); White Blood Count 10.03 K/uL (4.8-10.8)
[2020-10-12 07:17] LABS: BUN Creatinine Ratio 4.4 (10-20); Calcium 9.1 mg/dl (8.5-10.1); Creatinine Clr Calc Pharmacy 11.1 ml/min; Est GFR (African American) 9.5 ml/min; Est GFR (Non-African American) 8.2 ml/min; Potassium 4.2 mmol/L (3.5-5.1)
--- NOTE | 2020-10-12 08:12 | Hospitalist Progress Note ---
Date of Service October 12, 2020 Assessment & Plan (1) Hypertensive urgency: Plan: Gram-negative bacteremia, likely secondary to infected HD catheter Pt is a 65yo M w/ ESRD on HD, HTN, DM II, RLS, ALICIA who presents with elevated BP, nausea and headache. BP has been elevated over the past 2 days with SBP around 190-200s. In hospital he was also found to be bacteremic, with gram-negative bacilli Elevated BP x 2 days, initially 201/71 on admission with headache and nausea BP improved, then 136/66 with resolution of symptoms CT head with no hemorrhage, mass effect, or evidence of acute territorial ischemia by CT criteria Recent OP medication changes made, see HPI Continue to monitor 10/10 - BP elevated today, diff. w/ HD yesterday 10/11 - pt seen on HD today- using new temp. R femoral line (2) Leukocytosis: Plan: Gram-negative bacteremia, likely secondary to infected HD catheter WBC 20K, afebrile, VSS CT abd/pelvis without airspace consolidation typical for pneumonia or pleural effusion Nonspecific bilateral perinephric stranding and fluid. Correlate with clinical findings and urinalysis Patient makes very little urine, unable to obtain sample for UA - but UA ordered Zosyn given empirically for possible bladder infxn Blood cultx (10/08) -positive with gram-negative bacilli -Serratia marcescens Possibility of vascular- access related infection in setting of home HD training Continued empiric zosyn - on 10/11 switched to cefepime Patient also reports poor dentition, however currently denies any dental pain, drainage, abscess ID consulted Also discussed with nephrology 10/09 blood cultx - pending WBC down to 10K Pt s/p removal of RIJ HD permacath, and placement of temporary R femoral line 10/11 - Initial Blood cultx -positive for Serratia marcescens, discussed with ID, switched Zosyn to cefepime Repeat blood culture from October 09, so far negative (3) ESRD (end stage renal disease) on dialysis: (4) Malfunction of peripheral inserted central catheter: Plan: Completed HD the evening of admission 10/08 - difficulty w/ permacath, unable to finish HD treatment 10/11 - on HD today, using new temporary right femoral line Follows with Dr. Kate (5) Coronary artery disease: Plan: CABG x 4 in 2018 Following with cardiology Recent normal dobutamine stress echo in pre-op for possible renal transplant Continue aspirin, plavix, statin, Toprol (6) Ischemic cardiomyopathy: Plan: EF 40-45%, following with Dr. Moore Continue Toprol (7) Diabetes mellitus, type II: Plan: A1c 6.7 in July 2020 Hold home agents SSI while in-patient BSG AC HS (8) Constipation: Plan: Rectosigmoid fecal retention and moderate constipation on CT abd/pelvis Bowel regimen DVT Ppx: SQ heparin Code status: FULL PCP: Dr. Artis Dispo: Admitted to PCU Admission and Anticipated Discharge Date Admission Date: October 08, 2020 Subjective Patient seen in follow-up of gram-negative bacteremia Currently laying in bed, in no acute distress, on HD treatment - using new temporary line, right femoral Denies any fevers, chills, chest pain, shortness of breath, headache, abdominal pain, nausea vomiting Blood culture positive for Serratia marcescens, ID consulted, antibiotics switched to cefepime Review of Systems Review of Systems: All systems reviewed & are unremarkable except as noted in Subjective Physical Exam Physical Exam: Gen- AAO x 3, NAD, R upper Chest (RIJ) HD Catheter removed, R femoral temp. cath placed HEENT- NCAT, EOMI, PERRL, Anicteric Sclera, No Posterior Pharyngeal Erythema Neck- Supple, No JVD Lungs- Clear to Auscultation Bilaterally, No Rales, No Rhonchi, No Wheezing Chest- No S4, +S1, +S2, No S3, No Murmurs Abdomen- Soft, + Bowel Sounds, Non Tender, Non Distended Musculoskeletal- Full Range of Motion Bilaterally, No CVAT Extremities- No Edema, moves extremities spontaneously Neuro-alert, oriented, answering questions appropriately, no facial asymmetry, moves extremities Psych- Normal Mood Results & Data Results & Data ([facility]) Vital Signs (Past 12 Hours) Vital Signs Temp Pulse Pulse Resp BP Pulse Ox 10/11/20 23:06 74 10/11/20 22:32 164/54 H 10/11/20 20:16 185/66 H (1) Leukocytosis Leukocytosis type: unspecified Qualified Code(s): D72.829 - Elevated white blood cell count, unspecified (2) Malfunction of peripheral inserted central catheter Encounter type: initial encounter Qualified Code(s): T82.598A - Other mechanical complication of other cardiac and vascular devices and implants, initial encounter
--- NOTE | 2020-10-12 08:14 | Hospitalist Progress Note ---
Date of Service October 12, 2020 Assessment & Plan (1) Hypertensive urgency: Plan: Gram-negative bacteremia, likely secondary to infected HD catheter Pt is a 65yo M w/ ESRD on HD, HTN, DM II, RLS, ALICIA who presents with elevated BP, nausea and headache. BP has been elevated over the past 2 days with SBP around 190-200s. In hospital he was also found to be bacteremic, with gram-negative bacilli Elevated BP x 2 days, initially 201/71 on admission with headache and nausea BP improved, then 136/66 with resolution of symptoms CT head with no hemorrhage, mass effect, or evidence of acute territorial ischemia by CT criteria Recent OP medication changes made, see HPI Continue to monitor 10/10 - BP elevated today, diff. w/ HD yesterday 10/11 - pt seen on HD today- using new temp. R femoral line (2) Leukocytosis: Plan: Gram-negative bacteremia, likely secondary to infected HD catheter WBC 20K, afebrile, VSS CT abd/pelvis without airspace consolidation typical for pneumonia or pleural effusion Nonspecific bilateral perinephric stranding and fluid. Correlate with clinical findings and urinalysis Patient makes very little urine, unable to obtain sample for UA - but UA ordered Zosyn given empirically for possible bladder infxn Blood cultx (10/08) -positive with gram-negative bacilli -Serratia marcescens Possibility of vascular- access related infection in setting of home HD training Continued empiric zosyn - on 10/11 switched to cefepime Patient also reports poor dentition, however currently denies any dental pain, drainage, abscess ID consulted Also discussed with nephrology 10/09 blood cultx - pending WBC down to 10K Pt s/p removal of RIJ HD permacath, and placement of temporary R femoral line 10/11 - Initial Blood cultx -positive for Serratia marcescens, discussed with ID, switched Zosyn to cefepime Repeat blood culture from October 09, so far negative (48 hrs) (3) ESRD (end stage renal disease) on dialysis: (4) Malfunction of peripheral inserted central catheter: Plan: Completed HD the evening of admission 10/08 - difficulty w/ permacath, unable to finish HD treatment 10/11 - on HD today, using new temporary right femoral line Follows with Dr. Kate (5) Coronary artery disease: Plan: CABG x 4 in 2018 Following with cardiology Recent normal dobutamine stress echo in pre-op for possible renal transplant Continue aspirin, plavix, statin, Toprol (6) Ischemic cardiomyopathy: Plan: EF 40-45%, following with Dr. Moore Continue Toprol (7) Diabetes mellitus, type II: Plan: A1c 6.7 in July 2020 Hold home agents SSI while in-patient BSG AC HS (8) Constipation: Plan: Rectosigmoid fecal retention and moderate constipation on CT abd/pelvis Bowel regimen DVT Ppx: SQ heparin Code status: FULL PCP: Dr. Artis Dispo: Admitted to PCU Admission and Anticipated Discharge Date Admission Date: October 08, 2020 Subjective Patient seen in follow-up of gram-negative bacteremia Currently sitting up in bed, in no acute distress Denies any fevers, chills, chest pain, shortness of breath, headache, abdominal pain, nausea vomiting Blood culture positive for Serratia marcescens, ID consulted, antibiotics switched to cefepime Metoprolol 100 mg HS decreased to 50 due to bradycardia yesterday present at the bedside updated Review of Systems Review of Systems: All systems reviewed & are unremarkable except as noted in Subjective Physical Exam Physical Exam: Gen- AAO x 3, NAD, R upper Chest (RIJ) HD Catheter removed, R femoral temp. cath placed HEENT- NCAT, EOMI, PERRL, Anicteric Sclera, No Posterior Pharyngeal Erythema Neck- Supple, No JVD Lungs- Clear to Auscultation Bilaterally, No Rales, No Rhonchi, No Wheezing Chest- No S4, +S1, +S2, No S3, No Murmurs Abdomen- Soft, + Bowel Sounds, Non Tender, Non Distended Musculoskeletal- Full Range of Motion Bilaterally, No CVAT Extremities- No Edema, moves extremities spontaneously Neuro-alert, oriented, answering questions appropriately, no facial asymmetry, moves extremities Psych- Normal Mood Results & Data Results & Data ([facility]) Vital Signs (Past 12 Hours) Vital Signs Temp Pulse Pulse Resp BP Pulse Ox 10/12/20 03:34 36.4 C L 65 16 160/53 H 96 10/12/20 00:23 36.6 C 62 20 138/51 L 96 10/11/20 23:06 74 10/11/20 22:32 164/54 H 09/03/21 20:16 185/66 H Laboratory Results 10/12/20 10/12/20 10/12/20 Range/Units 07:35 05:52 05:52 WBC 10.03 (4.8-10.8) K/uL RBC 3.67 L (4.7-6.1) M/uL Hgb 10.9 L (14.0-18.0) g/dL Hct 33.1 L (42-52) % MCV 90.2 (80-100) fL MCH 29.7 (25-34) pg MCHC 32.9 (32-36) g/dL RDW Std Deviation 49.5 H (36.4-46.3) fL RDW Coeff of Lyla 15.1 H (11.5-14.5) % Plt Count 293 (130-400) K/uL MPV 10.4 (7.4-10.4) fL Sodium 138 (136-145) mmol/L Potassium 4.2 (3.5-5.1) mmol/L Chloride 104 (98-107) mmol/L Carbon Dioxide 25 (21-32) mmol/L Anion Gap 9.0 (3-11) BUN 29 H (7-18) mg/dl Creatinine 6.53 H* D (0.6-1.4) mg/dl Est Cr Clr Drug Dosing 11.1 ml/min Est GFR ( Amer) 9.5 ml/min Est GFR (Non-Af Amer) 8.2 ml/min BUN/Creatinine Ratio 4.4 L (10-20) Glucose 102 H (70-99) mg/dl POC Glucose 109 H (70-99) mg/dl Calcium 9.1 D (8.5-10.1) mg/dl 10/11/20 10/11/20 10/11/20 Range/Units 20:30 17:48 11:20 WBC (4.8-10.8) K/uL RBC (4.7-6.1) M/uL Hgb (14.0-18.0) g/dL Hct (42-52) % MCV (80-100) fL MCH (25-34) pg MCHC (32-36) g/dL RDW Std Deviation (36.4-46.3) fL RDW Coeff of Lyla (11.5-14.5) % Plt Count (130-400) K/uL MPV (7.4-10.4) fL Sodium (136-145) mmol/L Potassium (3.5-5.1) mmol/L Chloride (98-107) mmol/L Carbon Dioxide (21-32) mmol/L Anion Gap (3-11) BUN (7-18) mg/dl Creatinine (0.6-1.4) mg/dl Est Cr Clr Drug Dosing ml/min Est GFR ( Amer) ml/min Est GFR (Non-Af Amer) ml/min BUN/Creatinine Ratio (10-20) Glucose (70-99) mg/dl POC Glucose 111 H 96 111 H (70-99) mg/dl Calcium (8.5-10.1) mg/dl Medications Administered Current Inpatient Medications Acetaminophen (Acetaminophen 325 Mg Tab) 650 mg PO Q4H PRN PRN Reason: Pain or Fever Stop: 11/07/20 21:55 Last Admin: 10/10/20 23:31 Dose: 650 mg Documented by: Aspirin (Aspirin 81 Mg Ectab) 81 mg PO QPM TROY Stop: 11/08/20 20:59 Last Admin: 10/11/20 20:29 Dose: 81 mg Documented by: Atorvastatin Calcium (Atorvastatin 40 Mg Tab) 80 mg PO QPM TROY Stop: 11/08/20 20:59 Last Admin: 10/11/20 20:31 Dose: 80 mg Documented by: Calcium Acetate (Calcium Acetate 667 Mg Cap/Tab) 2,001 mg PO TIDM TROY Stop: 11/08/20 16:59 Last Admin: 10/11/20 17:54 Dose: 2,001 mg Documented by: Calcium Acetate (Calcium Acetate 667 Mg Cap/Tab) 1,334 mg PO BID PRN PRN Reason: WITH SNACKS Stop: 11/08/20 14:23 Dextrose (Dextrose 50% 50 Ml Syringe) 25 - 50 ml IV UD PRN; Protocol PRN Reason: Hypoglycemia Protocol Stop: 11/07/20 21:57 Dicyclomine HCl (Dicyclomine Hcl 10 Mg Cap) 10 mg PO ACHS TROY Stop: 11/08/20 07:29 Last Admin: 10/11/20 20:30 Dose: 10 mg Documented by: Glucagon (Glucagon For Inj 1 Mg Vial) 1 mg SQ UD PRN; Protocol PRN Reason: Hypoglycemia Protocol Stop: 11/07/20 21:57 Glucose (Glucose 10 Tabs/Tube) 4 - 8 tabs PO UD PRN; Protocol PRN Reason: Hypoglycemia Protocol Stop: 11/07/20 21:57 Glucose (Glucose 40% Gel 15 Gm Tube) 15 - 30 gm PO UD PRN; Protocol PRN Reason: Hypoglycemia Protocol Stop: 11/07/20 21:57 Heparin Sodium (Porcine) (Heparin Sod 5,000 Unit/0.5 Ml Vial) 5,000 units SQ Q8 TROY Stop: 11/07/20 21:59 Last Admin: 10/12/20 05:55 Dose: 5,000 units Documented by: Hydralazine HCl (Hydralazine Hcl 20 Mg/Ml Vial) 5 mg IV Q4H PRN PRN Reason: sbp >175 Stop: 11/10/20 12:34 Last Admin: 10/11/20 20:21 Dose: 5 mg Documented by: Hydroxyzine HCl (Hydroxyzine Hcl 25 Mg Tab) 25 mg PO QID PRN PRN Reason: Itching Stop: 11/07/20 21:57 Last Admin: 10/10/20 21:03 Dose: 25 mg Documented by: Cefepime HCl 500 mg/ Syringe 5.65 mls @ 5.5 mls/min IV Q24H [facility]; Protocol Stop: 10/26/20 17:59 Cefepime HCl 1,000 mg/ Syringe 11.3 mls @ 5.5 mls/min IV TODAY@1800 [facility] Stop: 10/25/20 17:59 Last Admin: 10/11/20 17:54 Dose: 5.5 mls/min Documented by: Insulin Aspart (Insulin Aspart 100 Units/Ml 3 Ml Pen) 0 units SC ACHS [facility] Stop: 11/07/20 21:57 Last Admin: 10/11/20 20:42 Dose: Not Given Documented by: Lactobacillus Acidoph/Casei/Rhamnos (Advanced Probiotic 1250 Mg Capsule) 2 cap PO DAILY [facility] Stop: 11/10/20 08:59 Last Admin: 10/11/20 07:49 Dose: 2 cap Documented by: Lisinopril (Lisinopril 20 Mg Tab) 20 mg PO QAM [facility] Stop: 11/08/20 08:59 Last Admin: 10/11/20 09:39 Dose: 20 mg Documented by: Metoprolol Succinate (Metoprolol Succ 50mg Ext Rel Tab) 50 mg PO QPM TROY Stop: 11/10/20 20:59 Last Admin: 10/11/20 19:23 Dose: 50 mg Documented by: Miscellaneous (Carbohydrates For Hypoglycemia ) 15 - 30 gm PO UD PRN PRN Reason: Hypoglycemia Protocol Stop: 11/07/20 21:57 Miscellaneous Information (Cefepime Consult Active) 1 ea N/A UD PRN PRN Reason: Consult Stop: 11/10/20 13:23 Ondansetron HCl (Ondansetron Inj 2 Mg/Ml 2 Ml Vial) 4 mg IV Q6H PRN PRN Reason: Nausea Stop: 11/07/20 21:57 Pantoprazole Sodium (Pantoprazole 40 Mg Tab) 40 mg PO BID TROY Stop: 11/08/20 08:59 Last Admin: 10/11/20 20:30 Dose: 40 mg Documented by: Ropinirole HCl (Ropinirole Hcl 0.25 Mg Tablet) 0.25 mg PO HS TROY Stop: 11/08/20 20:59 Last Admin: 10/11/20 20:29 Dose: 0.25 mg Documented by: Trazodone HCl (Trazodone Hcl 50 Mg Tab) 50 mg PO HS PRN PRN Reason: Sleep Stop: 11/07/20 21:57 Last Admin: 10/11/20 22:31 Dose: 50 mg Documented by: Vitamin B Complex/Folic Acid (Nephrocaps) 1 cap PO QAM TROY Stop: 11/09/20 08:59 Last Admin: 10/11/20 07:58 Dose: Not Given Documented by: (1) Malfunction of peripheral inserted central catheter Encounter type: initial encounter Qualified Code(s): T82.598A - Other mechanical complication of other cardiac and vascular devices and implants, initial encounter (2) Leukocytosis Leukocytosis type: unspecified Qualified Code(s): D72.829 - Elevated white blood cell count, unspecified
[2020-10-12] MEDS: NEPHROCAPS PO SCH (08:24)
[2020-10-12] MEDS: PANTOprazole 40 MG TAB PO SCH ×2 (08:24→20:42)
[2020-10-12] MEDS: DICYCLOMINE HCL 10 MG CAP PO SCH ×4 (08:24→20:42)
[2020-10-12] MEDS: lisinopril 20 MG TAB PO SCH (08:24)
[2020-10-12] MEDS: CALCIUM ACETATE 667 MG CAP/TAB PO SCH ×3 (08:24→16:44)
[2020-10-12] MEDS: ADVANCED PROBIOTIC 1250 MG CAPSULE PO SCH (08:25)
[2020-10-12] MEDS: INSULIN ASPART 100 UNITS/ML 3 ML PEN SC SCH ×4 (08:31→20:43)
--- NOTE | 2020-10-12 10:16 | Nephrology Progress Note ---
Date of Service October 12, 2020 Assessment & Plan (1) Bacteremia associated with intravascular line: Plan: rodriguez sensitive Serratia marescens > on zosyn; no evidence of severe or progressive infection so far but will cont to monitor >recommend ceftazidime one gram after every HD treatment (whether daily or q 48 hr) and 2 gm if 72 hrs planned before next treatment; tx to last 3 wks; NO PICC; will be given at/after dialysis Patient now has a temporary CVC -he will need 48 hrs negative blood cxs before replacing TDC Care coordinated w/ Dr Banda (2) Hypertensive urgency: Plan: intermittent since admission and labile at baseline; bp meds were adjusted 10/07 > cont BB current dose; ? role for 3 CM L adrenal lesion? -will increase lisinopril to 20 mg bid ->can use enaliprilat prn -will be as aggressive as tolerated for UF -continue fluid limit and low Na diet -defer to primary service to ask about/manage anxiety (3) Hemodialysis catheter malfunction: Plan: THIS, not bacteremia, is rationale for catheter removal. some issues on 10/08 as OP; again 10/09 he had issues with TDC on dialysis -- he ran only a few minutes and had issues - he also developed TORRES with this; we rested briefly and restarted; no further TORRES; tx stopped about 1 hr even after reversing lines; not limb specific malfunction; trial of alteplase w/o resoluti on; recommend catheter exchange d/t cath malfunction -Dr Rivers following/assistance appreciated >for TDC replacement assuming clear cxs on 10/15 (4) ESRD (end stage renal disease) on dialysis: Plan: for HD today; he has refused further permanent vascular access and prefers TDC; he does have challenging vascular access. chemistries, volume status, anemia generally acceptable. will give 10K of epo w/ tx to support anemia. will need urology f/u for txplt w/u of L renal lesion (missing it during this admission). -We will dialyze him tomorrow for 3-1/2 hours to get UF 3 L. Admission and Anticipated Discharge Date Admission Date: October 08, 2020 Subjective Seen in follow-up for ESRD on HD. He had dialysis yesterday. No shortness of breath. He has right temporary CVC Review of Systems Review of Systems: All other systems were reviewed and negative except as noted in HPI Physical Exam Physical Exam: General exam: Appears comfortable, no acute distress HEENT: Pupils are equal and reactive to light Neck: No JVD, neck is supple trachea is midline Respiratory system: Clear breath sounds bilaterally. Gastrointestinal: Abdomen is soft, non distended, non tender, bowel sounds are present CVS: Regular rate and rhythm. No murmurs, rubs or gallops Musculoskeletal: No joint or muscle tenderness Extremities: Non tender, no edema, peripheral pulses are present Neuro: Oriented, no tremors, no focal neurological deficits Skin: No rashes Results & Data ([facility]) Vital Signs (Past 12 Hours) Vital Signs Temp Pulse Pulse Resp BP Pulse Ox 10/12/20 08:00 48 L 10/12/20 07:30 36.9 C 86 16 170/89 H 96 10/12/20 03:34 36.4 C L 65 16 160/53 H 96 10/12/20 00:23 36.6 C 62 20 138/51 L 96 10/11/20 23:06 74 10/11/20 22:32 164/54 H Laboratory Results 10/12/20 05:52 10/12/20 05:52 WBC 10.03 RBC 3.67 L MCV 90.2 MCH 29.7 MCHC 32.9 RDW Std Deviation 49.5 H RDW Coeff of Lyla 15.1 H Plt Count 293 MPV 10.4 (1) Hemodialysis catheter malfunction Encounter type: initial encounter Qualified Code(s): T82.41XA - Breakdown (mechanical) of vascular dialysis catheter, initial encounter
[2020-10-12] MEDS ORDERED: SODIUM CHLORIDE 0.9% 1000ML 1,000 ML IV PRN (15:15)
[2020-10-12] MEDS: hydrALAZINE HCL 20 MG/ML VIAL IV PRN (17:13)
[2020-10-12] MEDS: CEFEPIME 500 MG in SYRINGE 0 ML IV SCH (17:51)
[2020-10-12] MEDS: ATORVASTATIN 40 MG TAB PO SCH (20:41)
[2020-10-12] MEDS: ASPIRIN 81 MG ECTAB PO SCH (20:41)
[2020-10-12] MEDS: METOPROLOL SUCC 50MG EXT REL TAB PO SCH (20:42)
[2020-10-12] MEDS: rOPINIRole HCL 0.25 MG TABLET PO SCH (20:43)
[2020-10-13] MEDS: HEPARIN SOD 5,000 UNIT/0.5 ML VIAL SQ SCH ×3 (05:48→22:09)
[2020-10-13 06:46] LABS: BUN Creatinine Ratio 4.4 (10-20); Calcium 9.1 mg/dl (8.5-10.1); Creatinine Clr Calc Pharmacy 12.3 ml/min; Est GFR (African American) 10.8 ml/min; Est GFR (Non-African American) 9.3 ml/min; Potassium 3.8 mmol/L (3.5-5.1)
[2020-10-13] MEDS: DICYCLOMINE HCL 10 MG CAP PO SCH ×4 (08:33→22:08)
[2020-10-13] MEDS: CALCIUM ACETATE 667 MG CAP/TAB PO SCH ×3 (08:33→17:13)
[2020-10-13] MEDS: PANTOprazole 40 MG TAB PO SCH ×2 (08:33→22:08)
[2020-10-13] MEDS: ADVANCED PROBIOTIC 1250 MG CAPSULE PO SCH (08:34)
[2020-10-13] MEDS: NEPHROCAPS PO SCH (08:34)
[2020-10-13] MEDS: lisinopril 20 MG TAB PO SCH (08:34)
[2020-10-13] MEDS: INSULIN ASPART 100 UNITS/ML 3 ML PEN SC SCH ×4 (08:36→22:19)
--- NOTE | 2020-10-13 08:45 | Hospitalist Progress Note ---
Date of Service October 13, 2020 Assessment & Plan (1) Hypertensive urgency: Plan: Gram-negative bacteremia, possibly secondary to infected HD catheter Pt is a 65yo M w/ ESRD on HD, HTN, DM II, RLS, ALICIA who presents with elevated BP, nausea and headache. BP has been elevated over the past 2 days with SBP around 190-200s. In hospital he was also found to be bacteremic, with gram-negative bacilli Elevated BP x 2 days, initially 201/71 on admission with headache and nausea BP improved, then 136/66 with resolution of symptoms CT head with no hemorrhage, mass effect, or evidence of acute territorial ischemia by CT criteria Recent OP medication changes made, see HPI Continue to monitor 10/10 - BP elevated today, difficulty w/ HD yesterday 10/11 - pt seen on HD today- using new temp. R femoral line 10/13 -plan to remove temporary line today, permacath to be placed on October 15, blood cultures from October 09 - for 72 hours (2) Leukocytosis: Plan: Gram-negative bacteremia, possibly secondary to infected HD catheter WBC 20K, afebrile, VSS CT abd/pelvis without airspace consolidation typical for pneumonia or pleural effusion Nonspecific bilateral perinephric stranding and fluid. Correlate with clinical findings and urinalysis Patient makes very little urine, unable to obtain sample for UA - but UA ordered Zosyn given empirically for possible bladder infxn Blood cultx (10/08) -positive with gram-negative bacilli -Serratia marcescens Possibility of vascular- access related infection in setting of home HD training Continued empiric zosyn - on 10/11 switched to cefepime Patient also reports poor dentition, however currently denies any dental pain, drainage, abscess ID consulted Also discussed with nephrology 10/09 blood cultx - pending WBC down to 10K Pt s/p removal of RIJ HD permacath, and placement of temporary R femoral line 10/11 - Initial Blood cultx -positive for Serratia marcescens, discussed with ID, switched Zosyn to cefepime 10/13 - Repeat blood culture from October 09, so far negative (72 hrs) Plan to remove temporary line today, permacath to be placed on October 15, blood cultures from October 09 - for 72 hours Last HD on 10/12 (3) ESRD (end stage renal disease) on dialysis: (4) Malfunction of peripheral inserted central catheter: Plan: Completed HD the evening of admission 10/08 - difficulty w/ permacath, unable to finish HD treatment 10/11 - on HD today, using new temporary right femoral line 10/12 - last HD, next one planned for 10/15 after permacath placed Follows with Dr. Kate (5) Coronary artery disease: Plan: CABG x 4 in 2018 Following with cardiology Recent normal dobutamine stress echo in pre-op for possible renal transplant Continue aspirin, plavix, statin, Toprol (6) Ischemic cardiomyopathy: Plan: EF 40-45%, following with Dr. Moore Continue Toprol (7) Diabetes mellitus, type II: Plan: A1c 6.7 in July 2020 Hold home agents SSI while in-patient BSG AC HS (8) Constipation: Plan: Rectosigmoid fecal retention and moderate constipation on CT abd/pelvis Bowel regimen DVT Ppx: SQ heparin Code status: FULL PCP: Dr. Artis Dispo: Admitted to PCU Admission and Anticipated Discharge Date Admission Date: October 08, 2020 Subjective Patient seen in follow-up of gram-negative bacteremia Currently laying in bed, in no acute distress Denies any fevers, chills, chest pain, shortness of breath, headache, abdominal pain, nausea vomiting Blood culture positive for Serratia marcescens, ID consulted, antibiotics switched to cefepime Metoprolol 100 mg HS decreased to 50 due to bradycardia updated at the bedside yesterday, and over the phone today Review of Systems Review of Systems: All systems reviewed & are unremarkable except as noted in Subjective Physical Exam Physical Exam: Gen- AAO x 3, NAD, R upper Chest (RIJ) HD Catheter removed, R femoral temp. cath placed HEENT- NCAT, EOMI, PERRL, Anicteric Sclera, No Posterior Pharyngeal Erythema Neck- Supple, No JVD Lungs- Clear to Auscultation Bilaterally, No Rales, No Rhonchi, No Wheezing Chest- No S4, +S1, +S2, No S3, No Murmurs Abdomen- Soft, + Bowel Sounds, Non Tender, Non Distended Musculoskeletal- Full Range of Motion Bilaterally, No CVAT Extremities- No Edema, moves extremities spontaneously Neuro-alert, oriented, answering questions appropriately, no facial asymmetry, moves extremities Psych- Normal Mood Results & Data Results & Data ([facility]) Vital Signs (Past 12 Hours) Vital Signs Temp Pulse Pulse Resp BP Pulse Ox 10/13/20 07:52 36.7 C 56 L 18 161/54 H 98 10/13/20 03:22 36.6 C 64 18 151/58 H 96 10/13/20 00:10 62 10/12/20 23:47 36.7 C 70 18 129/53 L 93 Laboratory Results 10/13/20 10/13/20 10/12/20 Range/Units 07:42 05:28 20:24 Sodium 137 (136-145) mmol/L Potassium 3.8 (3.5-5.1) mmol/L Chloride 103 (98-107) mmol/L Carbon Dioxide 26 (21-32) mmol/L Anion Gap 8.0 (3-11) BUN 26 H (7-18) mg/dl Creatinine 5.86 H* D (0.6-1.4) mg/dl Est Cr Clr Drug Dosing 12.3 ml/min Est GFR ( Amer) 10.8 ml/min Est GFR (Non-Af Amer) 9.3 ml/min BUN/Creatinine Ratio 4.4 L (10-20) Glucose 132 H (70-99) mg/dl POC Glucose 138 H 188 H (70-99) mg/dl Calcium 9.1 (8.5-10.1) mg/dl 10/12/20 10/12/20 Range/Units 16:38 11:31 Sodium (136-145) mmol/L Potassium (3.5-5.1) mmol/L Chloride (98-107) mmol/L Carbon Dioxide (21-32) mmol/L Anion Gap (3-11) BUN (7-18) mg/dl Creatinine (0.6-1.4) mg/dl Est Cr Clr Drug Dosing ml/min Est GFR ( Amer) ml/min Est GFR (Non-Af Amer) ml/min BUN/Creatinine Ratio (10-20) Glucose (70-99) mg/dl POC Glucose 119 H 154 H (70-99) mg/dl Calcium (8.5-10.1) mg/dl Medications Administered Current Inpatient Medications Acetaminophen (Acetaminophen 325 Mg Tab) 650 mg PO Q4H PRN PRN Reason: Pain or Fever Stop: 11/07/20 21:55 Last Admin: 10/10/20 23:31 Dose: 650 mg Documented by: Aspirin (Aspirin 81 Mg Ectab) 81 mg PO QPM TROY Stop: 11/08/20 20:59 Last Admin: 10/12/20 20:41 Dose: 81 mg Documented by: Atorvastatin Calcium (Atorvastatin 40 Mg Tab) 80 mg PO QPM TROY Stop: 11/08/20 20:59 Last Admin: 10/12/20 20:41 Dose: 80 mg Documented by: Calcium Acetate (Calcium Acetate 667 Mg Cap/Tab) 2,001 mg PO TIDM TROY Stop: 11/08/20 16:59 Last Admin: 10/13/20 08:33 Dose: 2,001 mg Documented by: Calcium Acetate (Calcium Acetate 667 Mg Cap/Tab) 1,334 mg PO BID PRN PRN Reason: WITH SNACKS Stop: 11/08/20 14:23 Dextrose (Dextrose 50% 50 Ml Syringe) 25 - 50 ml IV UD PRN; Protocol PRN Reason: Hypoglycemia Protocol Stop: 11/07/20 21:57 Dicyclomine HCl (Dicyclomine Hcl 10 Mg Cap) 10 mg PO ACHS TROY Stop: 11/08/20 07:29 Last Admin: 10/13/20 08:33 Dose: 10 mg Documented by: Glucagon (Glucagon For Inj 1 Mg Vial) 1 mg SQ UD PRN; Protocol PRN Reason: Hypoglycemia Protocol Stop: 11/07/20 21:57 Glucose (Glucose 10 Tabs/Tube) 4 - 8 tabs PO UD PRN; Protocol PRN Reason: Hypoglycemia Protocol Stop: 11/07/20 21:57 Glucose (Glucose 40% Gel 15 Gm Tube) 15 - 30 gm PO UD PRN; Protocol PRN Reason: Hypoglycemia Protocol Stop: 11/07/20 21:57 Heparin Sodium (Porcine) (Heparin Sod 5,000 Unit/0.5 Ml Vial) 5,000 units SQ Q8 TROY Stop: 11/07/20 21:59 Last Admin: 10/13/20 05:48 Dose: 5,000 units Documented by: Hydralazine HCl (Hydralazine Hcl 20 Mg/Ml Vial) 5 mg IV Q4H PRN PRN Reason: sbp >175 Stop: 11/10/20 12:34 Last Admin: 10/12/20 17:13 Dose: 5 mg Documented by: Hydroxyzine HCl (Hydroxyzine Hcl 25 Mg Tab) 25 mg PO QID PRN PRN Reason: Itching Stop: 11/07/20 21:57 Last Admin: 10/10/20 21:03 Dose: 25 mg Documented by: Cefepime HCl 500 mg/ Syringe 5.65 mls @ 5.5 mls/min IV Q24H [facility]; Protocol Stop: 10/26/20 17:59 Last Admin: 10/12/20 17:51 Dose: 5.5 mls/min Documented by: Insulin Aspart (Insulin Aspart 100 Units/Ml 3 Ml Pen) 0 units SC ACHS TROY Stop: 11/07/20 21:57 Last Admin: 10/13/20 08:36 Dose: 4 units Documented by: Lactobacillus Acidoph/Casei/Rhamnos (Advanced Probiotic 1250 Mg Capsule) 2 cap PO DAILY [facility] Stop: 11/10/20 08:59 Last Admin: 10/13/20 08:34 Dose: 2 cap Documented by: Lisinopril (Lisinopril 20 Mg Tab) 20 mg PO QAM TROY Stop: 11/08/20 08:59 Last Admin: 10/13/20 08:34 Dose: 20 mg Documented by: Metoprolol Succinate (Metoprolol Succ 50mg Ext Rel Tab) 50 mg PO QPM [facility]OY Stop: 11/10/20 20:59 Last Admin: 10/12/20 20:42 Dose: 50 mg Documented by: Miscellaneous (Carbohydrates For Hypoglycemia ) 15 - 30 gm PO UD PRN PRN Reason: Hypoglycemia Protocol Stop: 11/07/20 21:57 Miscellaneous Information (Cefepime Consult Active) 1 ea N/A UD PRN PRN Reason: Consult Stop: 11/10/20 13:23 Ondansetron HCl (Ondansetron Inj 2 Mg/Ml 2 Ml Vial) 4 mg IV Q6H PRN PRN Reason: Nausea Stop: 11/07/20 21:57 Pantoprazole Sodium (Pantoprazole 40 Mg Tab) 40 mg PO BID [facility] Stop: 11/08/20 08:59 Last Admin: 10/13/20 08:33 Dose: 40 mg Documented by: Ropinirole HCl (Ropinirole Hcl 0.25 Mg Tablet) 0.25 mg PO HS [facility] Stop: 11/08/20 20:59 Last Admin: 10/12/20 20:43 Dose: 0.25 mg Documented by: Trazodone HCl (Trazodone Hcl 50 Mg Tab) 50 mg PO HS PRN PRN Reason: Sleep Stop: 11/07/20 21:57 Last Admin: 10/11/20 22:31 Dose: 50 mg Documented by: Vitamin B Complex/Folic Acid (Nephrocaps) 1 cap PO QAM [facility] Stop: 11/09/20 08:59 Last Admin: 10/13/20 08:34 Dose: 1 cap Documented by: (1) Malfunction of peripheral inserted central catheter Encounter type: initial encounter Qualified Code(s): T82.598A - Other mechanical complication of other cardiac and vascular devices and implants, initial encounter (2) Leukocytosis Leukocytosis type: unspecified Qualified Code(s): D72.829 - Elevated white blood cell count, unspecified
--- NOTE | 2020-10-13 10:50 | Nephrology Progress Note ---
Date of Service October 13, 2020 Assessment & Plan (1) Bacteremia associated with intravascular line: Plan: rodriguez sensitive Serratia marescens > on zosyn; no evidence of severe or progressive infection so far but will cont to monitor >recommend ceftazidime one gram after every HD treatment (whether daily or q 48 hr) and 2 gm if 72 hrs planned before next treatment; tx to last 3 wks; NO PICC; will be given at/after dialysis Patient now has a temporary CVC. Patient had dialysis on Wednesday and Wednesday. -We will remove temporary catheter today. -he will need 48 hrs negative blood cxs before replacing TDC likely on Wednesday. Cultures negative so far Care coordinated w/ Dr Banda (2) Hypertensive urgency: Plan: intermittent since admission and labile at baseline; bp meds were adjusted 10/07 > cont BB current dose; ? role for 3 CM L adrenal lesion? BP is acceptable. -will continue lisinopril to 20 mg bid ->can use enaliprilat prn -will be as aggressive as tolerated for UF -continue fluid limit and low Na diet -defer to primary service to ask about/manage anxiety (3) ESRD (end stage renal disease) on dialysis: Plan: for HD today; he has refused further permanent vascular access and prefers TDC; he does have challenging vascular access. chemistries, volume status, anemia generally acceptable. will give 10K of epo w/ tx to support anemia. will need urology f/u for txplt w/u of L renal lesion (missing it during this admission). -We will dialyze him again on Wednesday after PermCath placement Admission and Anticipated Discharge Date Admission Date: October 08, 2020 Subjective Seen in follow-up for ESRD. He had dialysis yesterday. He continues to receive antibiotic for bacteremia. No fevers. No shortness of breath. Review of Systems 2 Review of Systems: All other systems were reviewed and negative except as noted in HPI Physical Exam Physical Exam: General exam: Appears comfortable, no acute distress HEENT: Pupils are equal and reactive to light Neck: No JVD, neck is supple trachea is midline Respiratory system: Clear breath sounds bilaterally. Gastrointestinal: Abdomen is soft, non distended, non tender, bowel sounds are present CVS: Regular rate and rhythm. No murmurs, rubs or gallops Musculoskeletal: No joint or muscle tenderness Extremities: Non tender, no edema, peripheral pulses are present Neuro: Oriented, no tremors, no focal neurological deficits Skin: No rashes Results & Data ([facility]) Vital Signs (Past 12 Hours) Vital Signs Temp Pulse Pulse Resp BP Pulse Ox 10/13/20 07:52 36.7 C 56 L 18 161/54 H 98 10/13/20 03:22 36.6 C 64 18 151/58 H 96 10/13/20 00:10 62 10/12/20 23:47 36.7 C 70 18 129/53 L 93 Laboratory Results 10/13/20 05:28
[2020-10-13] MEDS: hydrALAZINE HCL 20 MG/ML VIAL IV PRN (12:28)
[2020-10-13] MEDS: CEFEPIME 500 MG in SYRINGE 0 ML IV SCH (17:30)
[2020-10-13] MEDS: METOPROLOL SUCC 50MG EXT REL TAB PO SCH (22:08)
[2020-10-13] MEDS: ASPIRIN 81 MG ECTAB PO SCH (22:08)
[2020-10-13] MEDS: ATORVASTATIN 40 MG TAB PO SCH (22:08)
[2020-10-13] MEDS: rOPINIRole HCL 0.25 MG TABLET PO SCH (22:08)
[2020-10-13] MEDS: traZODone HCL 50 MG TAB PO PRN (22:25)
[2020-10-14] MEDS: HEPARIN SOD 5,000 UNIT/0.5 ML VIAL SQ SCH ×3 (05:48→21:29)
[2020-10-14 07:04] LABS: Calcium 9.1 mg/dl (8.5-10.1); Est GFR (African American) 7.4 ml/min; Est GFR (Non-African American) 6.4 ml/min; Potassium 3.7 mmol/L (3.5-5.1)
[2020-10-14] MEDS: DICYCLOMINE HCL 10 MG CAP PO SCH ×4 (07:54→20:19)
[2020-10-14] MEDS: lisinopril 20 MG TAB PO SCH (07:54)
[2020-10-14] MEDS: NEPHROCAPS PO SCH (07:55)
[2020-10-14] MEDS: CALCIUM ACETATE 667 MG CAP/TAB PO SCH ×3 (07:55→17:11)
[2020-10-14] MEDS: ADVANCED PROBIOTIC 1250 MG CAPSULE PO SCH (07:55)
[2020-10-14] MEDS: PANTOprazole 40 MG TAB PO SCH ×2 (07:56→20:20)
[2020-10-14] MEDS: INSULIN ASPART 100 UNITS/ML 3 ML PEN SC SCH ×4 (07:58→20:59)
--- NOTE | 2020-10-14 08:39 | Hospitalist Progress Note ---
Date of Service October 14, 2020 Assessment & Plan (1) Hypertensive urgency: Plan: Gram-negative bacteremia, possibly secondary to infected HD catheter Pt is a 65yo M w/ ESRD on HD, HTN, DM II, RLS, ALICIA who presents with elevated BP, nausea and headache. BP has been elevated over the past 2 days with SBP around 190-200s. In hospital he was also found to be bacteremic, with gram-negative bacilli Elevated BP x 2 days, initially 201/71 on admission with headache and nausea BP improved, then 136/66 with resolution of symptoms CT head with no hemorrhage, mass effect, or evidence of acute territorial ischemia by CT criteria Recent OP medication changes made, see HPI Continue to monitor 10/10 - BP elevated today, difficulty w/ HD yesterday 10/11 - pt seen on HD today- using new temp. R femoral line 10/13 -plan to remove temporary line today, permacath to be placed on October 15, blood cultures from October 09 - for 72 hours (2) Leukocytosis: Plan: Gram-negative bacteremia, possibly secondary to infected HD catheter WBC 20K, afebrile, VSS CT abd/pelvis without airspace consolidation typical for pneumonia or pleural e ffusion Nonspecific bilateral perinephric stranding and fluid. Correlate with clinical findings and urinalysis Patient makes very little urine, unable to obtain sample for UA - but UA ordered Zosyn given empirically for possible bladder infxn Blood cultx (10/08) -positive with gram-negative bacilli -Serratia marcescens Possibility of vascular- access related infection in setting of home HD training Continued empiric zosyn - on 10/11 switched to cefepime Patient also reports poor dentition, however currently denies any dental pain, drainage, abscess ID consulted Also discussed with nephrology 10/09 blood cultx - pending WBC down to 10K Pt s/p removal of RIJ HD permacath, and placement of temporary R femoral line 10/11 - Initial Blood cultx -positive for Serratia marcescens, discussed with ID, switched Zosyn to cefepime 10/13 - Repeat blood culture from October 09, so far negative (72 hrs) Plan to remove temporary line today, permcath to be placed on October 15, blood cultures from October 09 - for 72 hours Last HD on 9/4 (3) ESRD (end stage renal disease) on dialysis: (4) Malfunction of peripheral inserted central catheter: Plan: Completed HD the evening of admission 10/08 - difficulty w/ permacath, unable to finish HD treatment 10/11 - on HD today, using new temporary right femoral line 10/12 - last HD, next one planned for 10/15 after permacath placed Follows with Dr. Kate (5) Coronary artery disease: Plan: CABG x 4 in 2018 Following with cardiology Recent normal dobutamine stress echo in pre-op for possible renal transplant Continue aspirin, plavix, statin, Toprol Metoprolol dose decreased from 100 mg at bedtime to 50 mg at bedtime due to bradycardia (6) Ischemic cardiomyopathy: Plan: EF 40-45%, following with Dr. Moore Continue Toprol (7) Diabetes mellitus, type II: Plan: A1c 6.7 in July 2020 Hold home agents SSI while in-patient BSG AC HS (8) Constipation: Plan: Rectosigmoid fecal retention and moderate constipation on CT abd/pelvis Bowel regimen DVT Ppx: SQ heparin Code status: FULL PCP: Dr. Artis Dispo: Admitted to PCU Admission and Anticipated Discharge Date Admission Date: October 08, 2020 Subjective Patient seen in follow-up of gram-negative bacteremia Currently laying in bed, in no acute distress Denies any fevers, chills, chest pain, shortness of breath, headache, abdominal pain, nausea vomiting Blood culture positive for Serratia marcescens, ID consulted, antibiotics switched to cefepime Temporary line removed yesterday, plan for permanent line tomorrow, and dialysis afterward Review of Systems Review of Systems: All systems reviewed & are unremarkable except as noted in Subjective Physical Exam Physical Exam: Gen- AAO x 3, NAD, R upper Chest (RIJ) HD Catheter removed, R femoral temp. cath placed HEENT- NCAT, EOMI, PERRL, Anicteric Sclera, No Posterior Pharyngeal Erythema Neck- Supple, No JVD Lungs- Clear to Auscultation Bilaterally, No Rales, No Rhonchi, No Wheezing Chest- No S4, +S1, +S2, No S3, No Murmurs Abdomen- Soft, + Bowel Sounds, Non Tender, Non Distended Musculoskeletal- Full Range of Motion Bilaterally, No CVAT Extremities- No Edema, moves extremities spontaneously Neuro-alert, oriented, answering questions appropriately, no facial asymmetry, moves extremities Psych- Normal Mood Results & Data Results & Data ([facility]) Vital Signs (Past 12 Hours) Vital Signs Temp Pulse Pulse Pulse Resp BP Pulse Ox 10/14/20 07:20 36.4 C L 66 18 139/66 97 10/14/20 04:28 36.4 C L 60 18 160/57 H 98 10/13/20 23:30 70 10/13/20 23:16 36.5 C 54 L 18 161/56 H 96 10/13/20 22:08 69 163/61 H Laboratory Results 10/14/20 10/14/20 10/13/20 Range/Units 07:57 05:58 20:14 Sodium 135 L (136-145) mmol/L Potassium 3.7 (3.5-5.1) mmol/L Chloride 101 (98-107) mmol/L Carbon Dioxide 25 (21-32) mmol/L Anion Gap 9.0 (3-11) BUN 40 H D (7-18) mg/dl Creatinine 8.03 H* D (0.6-1.4) mg/dl Est Cr Clr Drug Dosing 9.0 ml/min Est GFR ( Amer) 7.4 ml/min Est GFR (Non-Af Amer) 6.4 ml/min BUN/Creatinine Ratio 5.0 L (10-20) Glucose 147 H (70-99) mg/dl POC Glucose 143 H 159 H (70-99) mg/dl Calcium 9.1 (8.5-10.1) mg/dl 10/13/20 10/13/20 Range/Units 16:40 11:49 Sodium (136-145) mmol/L Potassium (3.5-5.1) mmol/L Chloride (98-107) mmol/L Carbon Dioxide (21-32) mmol/L Anion Gap (3-11) BUN (7-18) mg/dl Creatinine (0.6-1.4) mg/dl Est Cr Clr Drug Dosing ml/min Est GFR ( Amer) ml/min Est GFR (Non-Af Amer) ml/min BUN/Creatinine Ratio (10-20) Glucose (70-99) mg/dl POC Glucose 116 H 155 H (70-99) mg/dl Calcium (8.5-10.1) mg/dl Medications Administered Current Inpatient Medications Acetaminophen (Acetaminophen 325 Mg Tab) 650 mg PO Q4H PRN PRN Reason: Pain or Fever Stop: 11/07/20 21:55 Last Admin: 10/10/20 23:31 Dose: 650 mg Documented by: Aspirin (Aspirin 81 Mg Ectab) 81 mg PO QPM TROY Stop: 11/08/20 20:59 Last Admin: 10/13/20 22:08 Dose: 81 mg Documented by: Atorvastatin Calcium (Atorvastatin 40 Mg Tab) 80 mg PO QPM TROY Stop: 11/08/20 20:59 Last Admin: 10/13/20 22:08 Dose: 80 mg Documented by: Calcium Acetate (Calcium Acetate 667 Mg Cap/Tab) 2,001 mg PO TIDM TROY Stop: 11/08/20 16:59 Last Admin: 10/14/20 07:55 Dose: 2,001 mg Documented by: Calcium Acetate (Calcium Acetate 667 Mg Cap/Tab) 1,334 mg PO BID PRN PRN Reason: WITH SNACKS Stop: 11/08/20 14:23 Dextrose (Dextrose 50% 50 Ml Syringe) 25 - 50 ml IV UD PRN; Protocol PRN Reason: Hypoglycemia Protocol Stop: 11/07/20 21:57 Dicyclomine HCl (Dicyclomine Hcl 10 Mg Cap) 10 mg PO ACHS [facility] Stop: 11/08/20 07:29 Last Admin: 10/14/20 07:54 Dose: 10 mg Documented by: Glucagon (Glucagon For Inj 1 Mg Vial) 1 mg SQ UD PRN; Protocol PRN Reason: Hypoglycemia Protocol Stop: 11/07/20 21:57 Glucose (Glucose 10 Tabs/Tube) 4 - 8 tabs PO UD PRN; Protocol PRN Reason: Hypoglycemia Protocol Stop: 11/07/20 21:57 Glucose (Glucose 40% Gel 15 Gm Tube) 15 - 30 gm PO UD PRN; Protocol PRN Reason: Hypoglycemia Protocol Stop: 11/07/20 21:57 Heparin Sodium (Porcine) (Heparin Sod 5,000 Unit/0.5 Ml Vial) 5,000 units SQ Q8 TROY Stop: 11/07/20 21:59 Last Admin: 10/14/20 05:48 Dose: 5,000 units Documented by: Hydralazine HCl (Hydralazine Hcl 20 Mg/Ml Vial) 5 mg IV Q4H PRN PRN Reason: sbp >175 Stop: 11/10/20 12:34 Last Admin: 10/13/20 12:28 Dose: 5 mg Documented by: Hydroxyzine HCl (Hydroxyzine Hcl 25 Mg Tab) 25 mg PO QID PRN PRN Reason: Itching Stop: 11/07/20 21:57 Last Admin: 10/10/20 21:03 Dose: 25 mg Documented by: Cefepime HCl 500 mg/ Syringe 5.65 mls @ 5.5 mls/min IV Q24H [facility]; Protocol Stop: 10/26/20 17:59 Last Admin: 10/13/20 17:30 Dose: 5.5 mls/min Documented by: Insulin Aspart (Insulin Aspart 100 Units/Ml 3 Ml Pen) 0 units SC ACHS [facility] Stop: 11/07/20 21:57 Last Admin: 10/14/20 07:58 Dose: 4 units Documented by: Lactobacillus Acidoph/Casei/Rhamnos (Advanced Probiotic 1250 Mg Capsule) 2 cap PO DAILY [facility] Stop: 11/10/20 08:59 Last Admin: 10/14/20 07:55 Dose: 2 cap Documented by: Lisinopril (Lisinopril 20 Mg Tab) 20 mg PO QAM [facility] Stop: 11/08/20 08:59 Last Admin: 10/14/20 07:54 Dose: 20 mg Documented by: Metoprolol Succinate (Metoprolol Succ 50mg Ext Rel Tab) 50 mg PO QPM [facility] Stop: 11/10/20 20:59 Last Admin: 10/13/20 22:08 Dose: 50 mg Documented by: Miscellaneous (Carbohydrates For Hypoglycemia ) 15 - 30 gm PO UD PRN PRN Reason: Hypoglycemia Protocol Stop: 11/07/20 21:57 Miscellaneous Information (Cefepime Consult Active) 1 ea N/A UD PRN PRN Reason: Consult Stop: 11/10/20 13:23 Ondansetron HCl (Ondansetron Inj 2 Mg/Ml 2 Ml Vial) 4 mg IV Q6H PRN PRN Reason: Nausea Stop: 11/07/20 21:57 Pantoprazole Sodium (Pantoprazole 40 Mg Tab) 40 mg PO BID [facility] Stop: 11/08/20 08:59 Last Admin: 10/14/20 07:56 Dose: 40 mg Documented by: Ropinirole HCl (Ropinirole Hcl 0.25 Mg Tablet) 0.25 mg PO HS TROY Stop: 11/08/20 20:59 Last Admin: 10/13/20 22:08 Dose: 0.25 mg Documented by: Trazodone HCl (Trazodone Hcl 50 Mg Tab) 50 mg PO HS PRN PRN Reason: Sleep Stop: 11/07/20 21:57 Last Admin: 10/13/20 22:25 Dose: 50 mg Documented by: Vitamin B Complex/Folic Acid (Nephrocaps) 1 cap PO QAM TROY Stop: 11/09/20 08:59 Last Admin: 10/14/20 07:55 Dose: 1 cap Documented by: (1) Malfunction of peripheral inserted central catheter Encounter type: initial encounter Qualified Code(s): T82.598A - Other mechanical complication of other cardiac and vascular devices and implants, initial encounter (2) Leukocytosis Leukocytosis type: unspecified Qualified Code(s): D72.829 - Elevated white blood cell count, unspecified
--- NOTE | 2020-10-14 11:07 | Nephrology Progress Note ---
Date of Service October 14, 2020 Assessment & Plan (1) Bacteremia associated with intravascular line: Plan: rodriguez sensitive Serratia marescens > on zosyn; no evidence of severe or progressive infection so far but will cont to monitor >recommend ceftazidime one gram after every HD treatment (whether daily or q 48 hr) and 2 gm if 72 hrs planned before next treatment; tx to last 3 wks; NO PICC; will be given at/after dialysis Patient now has a temporary CVC. Patient had dialysis on Wednesday and Wednesday. Temporary dialysis catheter was removed. -he will need 48 hrs negative blood cxs before replacing TDC likely on Wednesday. Cultures negative so far -He will have a PermCath placement tomorrow and then dialysis. Patient can go home after dialysis tomorrow Care coordinated w/ Dr Banda (2) Hypertensive urgency: Plan: intermittent since admission and labile at baseline; bp meds were adjusted 10/07 > cont BB current dose; ? role for 3 CM L adrenal lesion? BP is acceptable. -will continue lisinopril to 20 mg bid ->can use enaliprilat prn -will be as aggressive as tolerated for UF -continue fluid limit and low Na diet -defer to primary service to ask about/manage anxiety (3) ESRD (end stage renal disease) on dialysis: Plan: for HD today; he has refused further permanent vascular access and prefers TDC; he does have challenging vascular access. chemistries, volume status, anemia generally acceptable. will give 10K of epo w/ tx to support anemia. will need urology f/u for txplt w/u of L renal lesion (missing it during this admission). -We will dialyze him again on Wednesday after PermCath placement Admission and Anticipated Discharge Date Admission Date: October 08, 2020 Subjective Seen in follow-up for ESRD. No shortness of breath or pain. No fevers Review of Systems Review of Systems: All other systems were reviewed and negative except as noted in HPI Genitourinary: + problem reported (pt anuric; no change in chronic voiding habits) Physical Exam Physical Exam: General exam: Appears comfortable, no acute distress HEENT: Pupils are equal and reactive to light Neck: No JVD, neck is supple trachea is midline Respiratory system: Clear breath sounds bilaterally. Gastrointestinal: Abdomen is soft, non distended, non tender, bowel sounds are present CVS: Regular rate and rhythm. No murmurs, rubs or gallops Musculoskeletal: No joint or muscle tenderness Extremities: Non tender, no edema, peripheral pulses are present Neuro: Oriented, no tremors, no focal neurological deficits Skin: No rashes Results & Data ([facility]) Vital Signs (Past 12 Hours) Vital Signs Temp Pulse Pulse Resp BP Pulse Ox 10/14/20 07:30 55 L 10/14/20 07:20 36.4 C L 66 18 139/66 97 10/14/20 04:28 36.4 C L 60 18 160/57 H 98 10/13/20 23:30 70 10/13/20 23:16 36.5 C 54 L 18 161/56 H 96 Laboratory Results 10/14/20 05:58
[2020-10-14] MEDS: CEFEPIME 500 MG in SYRINGE 0 ML IV SCH (17:10)
[2020-10-14] MEDS: hydrALAZINE HCL 20 MG/ML VIAL IV PRN (19:27)
[2020-10-14] MEDS: ASPIRIN 81 MG ECTAB PO SCH (20:18)
[2020-10-14] MEDS: METOPROLOL SUCC 50MG EXT REL TAB PO SCH (20:19)
[2020-10-14] MEDS: ATORVASTATIN 40 MG TAB PO SCH (20:19)
[2020-10-14] MEDS: rOPINIRole HCL 0.25 MG TABLET PO SCH (20:20)
[2020-10-14] MEDS: traZODone HCL 50 MG TAB PO PRN (21:07)
[2020-10-14] MEDS ORDERED: hydrALAZINE HCL 20 MG/ML VIAL IV STA (21:26)
[2020-10-14] MEDS: NITROGLYCERIN 2% OINTMENT 30GM TUBE EXT SCH (23:38)
[2020-10-15] MEDS ORDERED: Nursing to Pharmacy Communication SCH ×2 (02:00→15:00)
[2020-10-15] MEDS: NITROGLYCERIN 2% OINTMENT 30GM TUBE EXT SCH ×2 (04:40→12:00)
[2020-10-15] MEDS: HEPARIN SOD 5,000 UNIT/0.5 ML VIAL SQ SCH ×2 (05:58→14:39)
[2020-10-15] MEDS: INSULIN ASPART 100 UNITS/ML 3 ML PEN SC SCH ×2 (06:29→12:00)
--- NOTE | 2020-10-15 07:54 | Hospitalist Progress Note ---
Date of Service October 15, 2020 Assessment & Plan (1) Hypertensive urgency: Plan: Gram-negative bacteremia, possibly secondary to infected HD catheter Pt is a 65yo M w/ ESRD on HD, HTN, DM II, RLS, ALICIA who presents with elevated BP, nausea and headache. BP has been elevated over the past 2 days with SBP around 190-200s. In hospital he was also found to be bacteremic, with gram-negative bacilli Elevated BP x 2 days, initially 201/71 on admission with headache and nausea BP improved, then 136/66 with resolution of symptoms CT head with no hemorrhage, mass effect, or evidence of acute territorial ischemia by CT criteria Recent OP medication changes made, see HPI Continue to monitor 10/10 - BP elevated today, difficulty w/ HD yesterday 10/11 - pt seen on HD today- using new temp. R femoral line 10/13 -plan to remove temporary line today, permacath to be placed on October 15, blood cultures from October 09 - for 72 hours 10/15 -permanent left IJ catheter placed, plan for dialysis today, and discharge l ater today (2) Leukocytosis: Plan: Gram-negative bacteremia, possibly secondary to infected HD catheter WBC 20K, afebrile, VSS CT abd/pelvis without airspace consolidation typical for pneumonia or pleural effusion Nonspecific bilateral perinephric stranding and fluid. Correlate with clinical findings and urinalysis Patient makes very little urine, unable to obtain sample for UA - but UA ordered Zosyn given empirically for possible bladder infxn Blood cultx (10/08) -positive with gram-negative bacilli -Serratia marcescens Possibility of vascular- access related infection in setting of home HD training Continued empiric zosyn - on 10/11 switched to cefepime Patient also reports poor dentition, however currently denies any dental pain, drainage, abscess ID consulted Also discussed with nephrology 10/09 blood cultx - pending WBC down to 10K Pt s/p removal of RIJ HD permacath, and placement of temporary R femoral line 10/11 - Initial Blood cultx -positive for Serratia marcescens, discussed with ID, switched Zosyn to cefepime 10/13 - Repeat blood culture from October 09, so far negative (72 hrs) Plan to remove temporary line today, permcath to be placed on October 15, blood cultures from October 09 - for 72 hours Last HD on 10/12 10/15 -permanent left IJ catheter placed, plan for dialysis today, and discharge later today Will receive cefepime after dialysis today Discussed in detail antibiotic coverage after discharge with ID, nephrology and pharmacy. Patient will be discharged on Bactrim DS daily (HS) for 1 more week. (3) ESRD (end stage renal disease) on dialysis: (4) Malfunction of peripheral inserted central catheter: Plan: Completed HD the evening of admission 10/08 - difficulty w/ permacath, unable to finish HD treatment 10/11 - on HD today, using new temporary right femoral line 10/12 - last HD, next one planned for 10/15 after permacath placed 10/15 - new L IJ permacath placed today. plan for HD today, then DC home Follows with Dr. Kate (5) Coronary artery disease: Plan: CABG x 4 in 2017 Following with cardiology Recent normal dobutamine stress echo in pre-op for possible renal transplant Continue aspirin, plavix, statin, Toprol Metoprolol dose decreased from 100 mg at bedtime to 50 mg at bedtime due to bradycardia (6) Ischemic cardiomyopathy: Plan: EF 40-45%, following with Dr. Moore Continue Toprol (7) Diabetes mellitus, type II: Plan: A1c 6.7 in July 2020 Hold home agents SSI while in-patient BSG AC HS (8) Constipation: Plan: Rectosigmoid fecal retention and moderate constipation on CT abd/pelvis Bowel regimen DVT Ppx: SQ heparin Code status: FULL PCP: Dr. Artis Dispo: Admitted to PCU Admission and Anticipated Discharge Date Admission Date: October 08, 2020 Subjective Patient seen in follow-up of gram-negative bacteremia Currently laying in bed, in no acute distress, on HD treatment Denies any fevers, chills, chest pain, shortness of breath, headache, abdominal pain, nausea vomiting Permanent line placed earlier today Review of Systems Review of Systems: All systems reviewed & are unremarkable except as noted in Subjective Physical Exam Physical Exam: Gen- AAO x 3, NAD, R upper Chest (RIJ) HD Catheter removed, L IJ perm cath placed HEENT- NCAT, EOMI, PERRL, Anicteric Sclera, No Posterior Pharyngeal Erythema Neck- Supple, No JVD Lungs- Clear to Auscultation Bilaterally, No Rales, No Rhonchi, No Wheezing Chest- No S4, +S1, +S2, No S3, No Murmurs Abdomen- Soft, + Bowel Sounds, Non Tender, Non Distended Musculoskeletal- Full Range of Motion Bilaterally, No CVAT Extremities- No Edema, moves extremities spontaneously Neuro-alert, oriented, answering questions appropriately, no facial asymmetry, moves extremities Psych- Normal Mood Results & Data Results & Data ([facility]) Vital Signs (Past 12 Hours) Vital Signs Temp Pulse Pulse Resp BP Pulse Ox 10/15/20 07:44 54 L 10/15/20 05:05 171/57 H 10/15/20 04:11 176/67 H 10/15/20 02:51 36.5 C 64 18 202/79 H 96 10/15/20 01:59 172/58 H 10/14/20 23:30 191/82 H 10/14/20 23:15 67 10/14/20 22:34 36.6 C 58 L 18 198/65 H 96 10/14/20 21:35 202/70 H 10/14/20 20:51 210/68 H 10/14/20 20:15 62 211/65 H Laboratory Results 10/15/20 10/15/20 10/14/20 Range/Units 07:23 06:14 20:32 Sodium 136 (136-145) mmol/L Potassium 4.6 D (3.5-5.1) mmol/L Chloride 101 (98-107) mmol/L Carbon Dioxide 23 (21-32) mmol/L Anion Gap 12.0 H (3-11) BUN 54 H (7-18) mg/dl Creatinine 9.51 H* D (0.6-1.4) mg/dl Est Cr Clr Drug Dosing 7.6 ml/min Est GFR ( Amer) 6.0 ml/min Est GFR (Non-Af Amer) 5.2 ml/min BUN/Creatinine Ratio 5.6 L (10-20) Glucose 170 H (70-99) mg/dl POC Glucose 164 H 141 H (70-99) mg/dl Calcium 9.8 (8.5-10.1) mg/dl Phosphorus 3.6 (2.5-4.9) mg/dl Magnesium 2.3 (1.8-2.4) mg/dl 10/14/20 Range/Units 16:42 Sodium (136-145) mmol/L Potassium (3.5-5.1) mmol/L Chloride (98-107) mmol/L Carbon Dioxide (21-32) mmol/L Anion Gap (3-11) BUN (7-18) mg/dl Creatinine (0.6-1.4) mg/dl Est Cr Clr Drug Dosing ml/min Est GFR ( Amer) ml/min Est GFR (Non-Af Amer) ml/min BUN/Creatinine Ratio (10-20) Glucose (70-99) mg/dl POC Glucose 171 H (70-99) mg/dl Calcium (8.5-10.1) mg/dl Phosphorus (2.5-4.9) mg/dl Magnesium (1.8-2.4) mg/dl Medications Administered Current Inpatient Medications Acetaminophen (Acetaminophen 325 Mg Tab) 650 mg PO Q4H PRN PRN Reason: Pain or Fever Stop: 11/07/20 21:55 Last Admin: 10/10/20 23:31 Dose: 650 mg Documented by: Aspirin (Aspirin 81 Mg Ectab) 81 mg PO QPM TROY Stop: 11/08/20 20:59 Last Admin: 10/14/20 20:18 Dose: 81 mg Documented by: Atorvastatin Calcium (Atorvastatin 40 Mg Tab) 80 mg PO QPM TROY Stop: 11/08/20 20:59 Last Admin: 10/14/20 20:19 Dose: 80 mg Documented by: Calcium Acetate (Calcium Acetate 667 Mg Cap/Tab) 2,001 mg PO TIDM TROY Stop: 11/08/20 16:59 Last Admin: 10/14/20 17:11 Dose: 2,001 mg Documented by: Calcium Acetate (Calcium Acetate 667 Mg Cap/Tab) 1,334 mg PO BID PRN PRN Reason: WITH SNACKS Stop: 11/08/20 14:23 Dextrose (Dextrose 50% 50 Ml Syringe) 25 - 50 ml IV UD PRN; Protocol PRN Reason: Hypoglycemia Protocol Stop: 11/07/20 21:57 Dicyclomine HCl (Dicyclomine Hcl 10 Mg Cap) 10 mg PO ACHS TROY Stop: 11/08/20 07:29 Last Admin: 10/14/20 20:19 Dose: 10 mg Documented by: Glucagon (Glucagon For Inj 1 Mg Vial) 1 mg SQ UD PRN; Protocol PRN Reason: Hypoglycemia Protocol Stop: 11/07/20 21:57 Glucose (Glucose 10 Tabs/Tube) 4 - 8 tabs PO UD PRN; Protocol PRN Reason: Hypoglycemia Protocol Stop: 11/07/20 21:57 Glucose (Glucose 40% Gel 15 Gm Tube) 15 - 30 gm PO UD PRN; Protocol PRN Reason: Hypoglycemia Protocol Stop: 11/07/20 21:57 Heparin Sodium (Porcine) (Heparin Sod 5,000 Unit/0.5 Ml Vial) 5,000 units SQ Q8 TROY Stop: 11/07/20 21:59 Last Admin: 10/15/20 05:58 Dose: Not Given Documented by: Hydralazine HCl (Hydralazine Hcl 20 Mg/Ml Vial) 5 mg IV Q4H PRN PRN Reason: sbp >175 Stop: 11/10/20 12:34 Last Admin: 10/14/20 19:27 Dose: 5 mg Documented by: Hydroxyzine HCl (Hydroxyzine Hcl 25 Mg Tab) 25 mg PO QID PRN PRN Reason: Itching Stop: 11/07/20 21:57 Last Admin: 10/10/20 21:03 Dose: 25 mg Documented by: Cefepime HCl 500 mg/ Syringe 5.65 mls @ 5.5 mls/min IV Q24H [facility]; Protocol Stop: 10/26/20 17:59 Last Admin: 10/14/20 17:10 Dose: 5.5 mls/min Documented by: Insulin Aspart (Insulin Aspart 100 Units/Ml 3 Ml Pen) 0 units SC Q6 TROY Stop: 11/14/20 05:59 Last Admin: 10/15/20 06:29 Dose: 1 units Documented by: Lactobacillus Acidoph/Casei/Rhamnos (Advanced Probiotic 1250 Mg Capsule) 2 cap PO DAILY TROY Stop: 11/10/20 08:59 Last Admin: 10/14/20 07:55 Dose: 2 cap Documented by: Lisinopril (Lisinopril 20 Mg Tab) 20 mg PO QAM TROY Stop: 11/08/20 08:59 Last Admin: 10/14/20 07:54 Dose: 20 mg Documented by: Metoprolol Succinate (Metoprolol Succ 50mg Ext Rel Tab) 50 mg PO QPM TROY Stop: 11/10/20 20:59 Last Admin: 10/14/20 20:19 Dose: 50 mg Documented by: Miscellaneous (Carbohydrates For Hypoglycemia ) 15 - 30 gm PO UD PRN PRN Reason: Hypoglycemia Protocol Stop: 11/07/20 21:57 Miscellaneous Information (Cefepime Consult Active) 1 ea N/A UD PRN PRN Reason: Consult Stop: 11/10/20 13:23 Nitroglycerin (Nitroglycerin 2% Ointment 30gm Tube) 0.5 inch EXT Q6H TROY Stop: 11/13/20 23:29 Last Admin: 10/15/20 04:40 Dose: 0.5 inch Documented by: Ondansetron HCl (Ondansetron Inj 2 Mg/Ml 2 Ml Vial) 4 mg IV Q6H PRN PRN Reason: Nausea Stop: 11/07/20 21:57 Pantoprazole Sodium (Pantoprazole 40 Mg Tab) 40 mg PO BID TROY Stop: 11/08/20 08:59 Last Admin: 10/14/20 20:20 Dose: 40 mg Documented by: Ropinirole HCl (Ropinirole Hcl 0.25 Mg Tablet) 0.25 mg PO HS TROY Stop: 11/08/20 20:59 Last Admin: 10/14/20 20:20 Dose: 0.25 mg Documented by: Trazodone HCl (Trazodone Hcl 50 Mg Tab) 50 mg PO HS PRN PRN Reason: Sleep Stop: 11/07/20 21:57 Last Admin: 10/14/20 21:07 Dose: 50 mg Documented by: Vitamin B Complex/Folic Acid (Nephrocaps) 1 cap PO QAM TROY Stop: 11/09/20 08:59 Last Admin: 10/14/20 07:55 Dose: 1 cap Documented by: (1) Malfunction of peripheral inserted central catheter Encounter type: initial encounter Qualified Code(s): T82.598A - Other mechanical complication of other cardiac and vascular devices and implants, initial encounter (2) Leukocytosis Leukocytosis type: unspecified Qualified Code(s): D72.829 - Elevated white blood cell count, unspecified
[2020-10-15] MEDS: CALCIUM ACETATE 667 MG CAP/TAB PO SCH ×2 (07:55→12:57)
[2020-10-15] MEDS: NEPHROCAPS PO SCH (07:55)
[2020-10-15] MEDS: ADVANCED PROBIOTIC 1250 MG CAPSULE PO SCH (07:56)
[2020-10-15] MEDS: PANTOprazole 40 MG TAB PO SCH (07:56)
[2020-10-15] MEDS: DICYCLOMINE HCL 10 MG CAP PO SCH ×2 (07:57→12:57)
[2020-10-15] MEDS: lisinopril 20 MG TAB PO SCH (08:00)
[2020-10-15 08:37] LABS: BUN Creatinine Ratio 5.6 (10-20); Calcium 9.8 mg/dl (8.5-10.1); Creatinine Clr Calc Pharmacy 7.6 ml/min; Est GFR (Non-African American) 5.2 ml/min; Magnesium 2.3 mg/dl (1.8-2.4); Phosphorus 3.6 mg/dl (2.5-4.9); Potassium 4.6 mmol/L (3.5-5.1)
--- NOTE | 2020-10-15 09:05 | History & Physical Bridge Note ---
Date of Service October 15, 2020 History & Physical Bridge Note Patient for insertion of permcath today. Blood cultures were negative. I have discussed the risks options and benefits of the procedure with the patient. The patient understands the risks options and benefits and agrees to the procedure. I have examined the patient, reviewed the History & Physical and in the interval since the performance of the History & Physical I have noted the following changes of clinical significance: no changes noted
[2020-10-15] MEDS ORDERED: fentaNYL citrate 100 MCG/2 ML VIAL ONE ×2 (09:15)
[2020-10-15] MEDS ORDERED: MIDAZOLAM HCL 1 MG/ML 2ML VIAL ONE (09:15)
[2020-10-15] MEDS ORDERED: HEPARIN SOD (PORCINE) 5,000 UNITS/ML VIAL ONE (09:16)
[2020-10-15] MEDS ORDERED: LIDOCAINE 1% LOCAL 20 ML VIAL ONE ×2 (09:17→10:17)
[2020-10-15] MEDS ORDERED: SODIUM CHLORIDE 0.9% 1000ML 1,000 ML IV PRN (10:13)
--- NOTE | 2020-10-15 10:22 | Operative Report ---
Post Operative Report Pre & Post Diagnosis Operation Date: 10/10/20 07:00 Pre-Op Diagnosis: infected perm catheter Post-Op Diagnosis: infected perm catheter Operation Date: 10/15/20 09:20 Pre-Op Diagnosis: End Stage Renal Disease Post-Op Diagnosis: End Stage Renal Disease I identified the patient and participated in the time-out.: Yes Procedure Operation Date: 10/10/20 07:00 Actual Procedures p removal of right internal jugular catheter, insertion of right femoral temporary dialysis catheter, right femoral approach, ultrasound localization of right femoral vein, fluoroscopy for positioning, moderate RN sedation [id number] - Weston Rivers MD Operation Date: 10/15/20 09:20 Actual Procedures p Insertion of Perm Catheter, left internal jugular approach, ultrasound localization of left internal jugular vein, fluoroscopy for positioning, moderate sedation [id number] - Weston Rivers MD Surgeon Weston Rivers MD Sales Technician Yari Goldman Estimated Blood Loss 3 Findings Consistent with Post-Op Diagnosis Specimens none Anesthesia Type RN Sedation Complications none Disposition Accompanied Patient To Recovery: No Disposition: Recovery Room Indications This is a 65 yo M with ESRD and recent bacteremia requiring removal of tunneled dialysis catheter, now here for replacement. Description of Procedure Patient was taken to the angio suite and placed in the supine position. Examination of the previous catheter site on the right chest revealed subcu taneous hematoma, so the left side was selected. The left neck and chest wall were prepped and draped in a sterile manner. The patient was identified and a timeout performed. Local anesthesia was then administered to the appropriate areas of the neck and chest wall. Ultrasound was then used to locate the left internal jugular vein. The vein compressed easily, had no filing defects, and was patent. The vein was then punctured under direct ultrasound imaging. A guidewire was then passed centrally under fluoroscopic imaging. A stab wound was then made in the anterior chest wall and a 19 cm permcath was passed from the stab wound on the chest wall to the puncture site on the neck. The puncture site was then dilated till the 14Fr peel away sheath was inserted. The permcath was then inserted through the sheath to a central position in the distal superior vena cava. The peel away sheath was then removed. The catheter was then sutured in place using nylon sutures. The puncture was then closed using a 4-0 Vicryl subcuticular suture. Dermabond was used for a dressing on the puncture site. Both ports aspirated and flushed easily and were then packed with heparin. A sterile dressing was applied to the catheter. The patient left the angio suite in good condition and tolerated the procedure well. I, Dr. Rivers was present and scrubbed for the entire procedure. I attest to the content of the Intraoperative Record and any orders documented therein. Any exceptions are noted below.
--- NOTE | 2020-10-15 10:22 | Post Operative Brief Note ---
Immediate Post Op Note v1 Date of Surgery October 15, 2020 Pre & Post Diagnosis Operation Date: 10/10/20 07:00 Pre-Op Diagnosis: infected perm catheter Post-Op Diagnosis: infected perm catheter Operation Date: 10/15/20 09:20 Pre-Op Diagnosis: End Stage Renal Disease Post-Op Diagnosis: End Stage Renal Disease I identified the patient and participated in the time-out.: Yes Procedure Operation Date: 10/10/20 07:00 Actual Procedures p removal of right internal jugular catheter, insertion of right femoral temporary dialysis catheter, right femoral approach, ultrasound localization of right femoral vein, fluoroscopy for positioning, moderate RN sedation [id number] - Weston Rivers MD Operation Date: 10/15/20 09:20 Actual Procedures p Insertion of Perm Catheter, left internal jugular approach, ultrasound localization of left internal jugular vein, fluoroscopy for positioning, moderate sedation [id number]- Weston Rivers MD Surgeon Weston Rivers MD Base Draw Operator Yari Goldman Estimated Blood Loss 3 Findings Consistent with Post-Op Diagnosis Anesthesia Type RN Sedation Complications none Disposition Accompanied Patient To Recovery: No Disposition: Recovery Room
--- NOTE | 2020-10-15 10:26 | Pre Anesthesia Assessment ---
Date of Service October 15, 2020 Pre Sedation Assessment Vital Signs Temp Pulse Pulse Pulse Resp BP Pulse Ox 10/15/20 10:23 79 16 143/67 H 97 10/15/20 10:20 79 16 134/69 97 10/15/20 10:15 73 20 150/70 H 100 10/15/20 10:10 81 18 131/62 99 10/15/20 10:05 77 20 147/74 H 99 10/15/20 10:00 75 20 149/69 H 100 10/15/20 09:55 73 18 164/69 H 100 10/15/20 09:51 69 20 170/70 H 98 10/15/20 09:30 36.6 C 86 18 120/84 96 10/15/20 07:55 36.6 C 64 18 186/72 H 96 10/15/20 07:44 54 L 10/15/20 05:05 171/57 H 10/15/20 04:11 176/67 H 10/15/20 02:51 36.5 C 64 18 202/79 H 96 10/15/20 01:59 172/58 H 10/14/20 23:30 191/82 H 10/14/20 23:15 67 10/14/20 22:34 36.6 C 58 L 18 198/65 H 96 10/14/20 21:35 202/70 H 10/14/20 20:51 210/68 H 10/14/20 20:15 62 211/65 H 10/14/20 19:25 59 L 216/66 H 10/14/20 19:16 36.7 C 51 L 18 209/71 H 97 10/14/20 16:00 36.7 C 63 18 168/68 H 97 10/14/20 15:48 58 L 10/14/20 12:11 175/70 H 10/14/20 11:14 36.9 C 65 18 184/60 H 98 Cardiovascular RRR, no murmur, no edema Respiratory normal respiratory effort, lungs clear to auscultation Pre-Sedation Airway Assessment Smoking Status: Former smoker Hx Sleep Apnea: No Short, Thick Neck: No Thyromental Distance: > or= 3.5 Finger Breadths Oral Cavity: + WNL Mallampati Class: III ASA: ASA3 NPO Status Date of Last Intake of Fluids: 10/14/20 Time of Last Intake of Fluids: 19:00 Date of Last Intake of Solid Food: 10/14/20 Time of Last Intake of Solid Foods: 12:00 Procedure Planning Contraindications for Sedation: none Current Medications Reviewed: Yes Notes The planned sedation has been discussed with the patient. Informed Consent was obtained. I have identified the patient, determined the appropriateness of sedation and have assessed the patient immediately prior to the procedure. All medicine(s) and interventions are by my order.
--- NOTE | 2020-10-15 10:28 | Post Anesthesia Assessment ---
Date of Service October 15, 2020 Post Sedation Assessment Vital Signs Temp Pulse Pulse Pulse Resp BP Pulse Ox 10/15/20 10:23 79 16 143/67 H 97 10/15/20 10:20 79 16 134/69 97 10/15/20 10:15 73 20 150/70 H 100 10/15/20 10:10 81 18 131/62 99 10/15/20 10:05 77 20 147/74 H 99 10/15/20 10:00 75 20 149/69 H 100 10/15/20 09:55 73 18 164/69 H 100 10/15/20 09:51 69 20 170/70 H 98 10/15/20 09:30 36.6 C 86 18 120/84 96 10/15/20 07:55 36.6 C 64 18 186/72 H 96 10/15/20 07:44 54 L 10/15/20 05:05 171/57 H 10/15/20 04:11 176/67 H 10/15/20 02:51 36.5 C 64 18 202/79 H 96 10/15/20 01:59 172/58 H 10/14/20 23:30 191/82 H 10/14/20 23:15 67 10/14/20 22:34 36.6 C 58 L 18 198/65 H 96 10/14/20 21:35 202/70 H 10/14/20 20:51 210/68 H 10/14/20 20:15 62 211/65 H 10/14/20 19:25 59 L 216/66 H 10/14/20 19:16 36.7 C 51 L 18 209/71 H 97 10/14/20 16:00 36.7 C 63 18 168/68 H 97 10/14/20 15:48 58 L 10/14/20 12:11 175/70 H 10/14/20 11:14 36.9 C 65 18 184/60 H 98 Recovery Score Activity: Moves 4 extremities Respiration: Deep Breath/Cough Circulation: +/-20% PreAnes Value Consciousness: Fully Awake Oxygen Saturation: > 92% On Room Air Post Anesthesia Score: 10 Discharge Sedation Level of Care: Fast Track Phase II Post Sedation Plan On clinical assessment, the patient appears to have tolerated the sedation without complications. Patient is recovering as anticipated. Patient will continue to be monitored by nursing and may be discharged when sedation discharge criteria are met per below protocol. Upon Completions of procedure up to 15 minutes continue every 5 minute vital signs and the P.A.R. score; then discharge to a Phase I or Fast Track to Phase II per the following guidelines: * Discharge Patient to appropriate Phase II area if PAR is 8 or greater or return to pre- procedure baseline. The post - procedure orders will be as directed. * If PAR score is less than 8 or not return to pre-procedure baseline then patient will follow Phase I monitoring till PAR is reached for Phase II. The Phase I may be done in procedure room or may call to secure a Phase I area. * If naloxone or flumazenil are used for reversal, hold in Phase I for continued monitoring from when last reversal dose was given for a minimum of 60 minutes or longer pending the nurse and/or physician discretion of patient condition before discharge to Phase II. Please call the Sedation Physician to re-evaluate and complete post-note for discharge to Phase II area. Do NOT discharge from procedure sedation or Phase 1 until post- sedation evaluation note is complete by procedure /sedation MD Sedation Discharge Instructions to be given to the patient at discharge to home.
[2020-10-15] MEDS ORDERED: EPOETIN ALFA 4,000 UNIT/ML VIAL IV SCH (10:30)
--- NOTE | 2020-10-15 11:29 | Dialysis Progress Note ---
Date of Service October 15, 2020 Assessment & Plan Admission and Anticipated Discharge Date Admission Date: October 08, 2020 Subjective (1) Bacteremia associated with intravascular line: Plan: rodriguez sensitive Serratia marescens sensitive to everything. Also ECHO--neg for IE. rpt Blood c/s are all negative. NO e/o sepsis at this time. Already got 8 days of Iv Abx. I agree with ID that he can be managed with Bactrim oral as outpt--Sensitive to serratia and almost always has coverage for Coag neg Staph also ( Most likely contaminant ). 1 more week of bactrim should be fine. Bactrim DS --one tab after Dialysis 3 times a week Care coordinated w/ Dr Banda and suggested to co-ordinate care with ID (3) ESRD (end stage renal disease) on dialysis: Plan: Seen during HD today; he has refused further permanent vascular access and prefers TDC; he does have challenging vascular access. chemistries, volume status, anemia generally acceptable. will give 10K of epo w/ tx to support anemia. will need urology f/u for txplt w/u of L renal lesion (missing it during this admission). Subjective Seen in follow-up for ESRD. No shortness of breath or pain. No fevers. Just had New CVC placed and is working. Review of Systems Review of Systems: All other systems were reviewed and negative except as noted in HPI Genitourinary: + problem reported (pt anuric; no change in chronic voiding habits) Physical Exam Physical Exam: General exam: Appears comfortable, no acute distress HEENT: Pupils are equal and reactive to light Neck: No JVD, neck is supple trachea is midline Respiratory system: Clear breath sounds bilaterally. Gastrointestinal: Abdomen is soft, non distended, non tender, bowel sounds are present CVS: Regular rate and rhythm. No murmurs, rubs or gallops Musculoskeletal: No joint or muscle tenderness Extremities: Non tender, no edema, peripheral pulses are present Neuro: Oriented, no tremors, no focal neurological deficits Skin: No rashes Results & Data ([facility]) Vital Signs (Past 12 Hours) Vital Signs Temp Pulse Pulse Pulse Resp BP BP 10/15/20 11:00 74 161/69 H 10/15/20 10:45 74 153/67 H 10/15/20 10:40 36.6 C 76 10/15/20 10:28 74 16 152/70 H 10/15/20 10:23 79 16 143/67 H 10/15/20 10:20 79 16 134/69 10/15/20 10:15 73 20 150/70 H 10/15/20 10:10 81 18 131/62 10/15/20 10:05 77 20 147/74 H 10/15/20 10:00 75 20 149/69 H 10/15/20 09:55 73 18 164/69 H 10/15/20 09:51 69 20 170/70 H 10/15/20 09:30 36.6 C 86 18 120/84 10/15/20 07:55 36.6 C 64 18 186/72 H 10/15/20 07:44 54 L 10/15/20 05:05 171/57 H 10/15/20 04:11 176/67 H 10/15/20 02:51 36.5 C 64 18 202/79 H 10/15/20 01:59 172/58 H 10/14/20 23:30 191/82 H Pulse Ox 10/15/20 11:00 10/15/20 10:45 10/15/20 10:40 10/15/20 10:28 97 10/15/20 10:23 97 10/15/20 10:20 97 10/15/20 10:15 100 10/15/20 10:10 99 10/15/20 10:05 99 10/15/20 10:00 100 10/15/20 09:55 100 10/15/20 09:51 98 10/15/20 09:30 96 10/15/20 07:55 96 10/15/20 07:44 10/15/20 05:05 10/15/20 04:11 10/15/20 02:51 96 10/15/20 01:59 10/14/20 23:30
--- NOTE | 2020-10-15 12:10 | Discharge Summary ---
Date of Service October 15, 2020 Admission HPI Per Admitting Provider This is a 65yo M with a PMH of ESRD on HD, HTN, DM II, RLS, ALICIA and other medical problems listed below who presents with elevated BP, nausea and headache. BP has been elevated over the past 2 days with SBP around 190-200s. HTN medication changes made yesterday when patient saw Dr. Kate with lisinopril increased to 20mg daily and Lopressor switched to Toprol 100mg HS. Has been undergoing training for home hemodialysis and earlier today during training, BP was elevated and patient admitted to headache. Had 2 bouts of nausea during this time and brought to ED for further evaluation. Did not complete dialysis treatment due to malfunction so was interviewed in the hospital during dialysis treatment on fourth floor via catheter. BP improved to 138/66 at this time with resolution to headache and nausea. Patient still feeling tired. notes that earlier during treatment patient had moments of rigors that have since resolved. Denies chest pain, shortness of breath, abdominal pain, dysuria, diarrhea. + Constipation. Makes very little urine so unable to obtain urine culture. CT abd/pelvis without airspace consolidation typical for pneumonia or pleural effusion. Nonspecific bilateral perinephric stranding and fluid. Correlate with clinical findings and urinalysis. Rectosigmoid fecal retention and moderate constipation. Admission Exam Per Admitting Provider Gen-AAO x 3, NAD, Afebrile, obese, R upper Chest HD Catheter in place Head-NCAT, EOMI, PERRLA, Anicteric Sclera, No Posterior Pharyngeal Erythema Neck-Supple, No JVD, No Thyromegaly, No Masses, No LAD, No Bruits Lungs-Clear to Auscultation Bilaterally, No Rales, No Rhonchi, No Wheezing, No Crepitus Chest-No S4, +S1, +S2, No S3, No Murmurs, No Rubs, No Gallops, No Ectopy Abdomen-Soft, Bowel Sounds Present, Non Tender, Non Distended, No Hepatomegaly, No Splenomegaly, No Palpable Masses, No Rebound, No Rigidity, No Guarding Musculoskeletal-Full Range of Motion Bilaterally, No CVAT Extremities-No Cyanosis, No Clubbing, No Edema Nuero-Cranial Nerves II-XII grossly intact, Motor WNL, DTRs WNL, Strength WNL, Non Focal Psych-Normal Mood Principal Diagnosis Serratia bacteremia End-stage renal disease on dialysis Discharge Exam Gen- AAO x 3, NAD, R upper Chest (RIJ) HD Catheter removed, L IJ perm cath placed HEENT- NCAT, EOMI, PERRL, Anicteric Sclera, No Posterior Pharyngeal Erythema Neck- Supple, No JVD Lungs- Clear to Auscultation Bilaterally, No Rales, No Rhonchi, No Wheezing Chest- No S4, +S1, +S2, No S3, No Murmurs Abdomen- Soft, + Bowel Sounds, Non Tender, Non Distended Musculoskeletal- Full Range of Motion Bilaterally, No CVAT Extremities- No Edema, moves extremities spontaneously Neuro-alert, oriented, answering questions appropriately, no facial asymmetry, moves extremities Psych- Normal Mood Discharge Data Allergies Allergy/AdvReac Type Severity Reaction Status Date / Time oxycodone AdvReac Intermediate Hallucinati Verified 10/08/20 15:07 ons Consultations 10/08/20 17:27 ED Decision to Admit Stat 10/08/20 21:58 Consult Nephrology Routine 10/09/20 12:14 Consult Infectious Diseases Routine 10/10/20 08:23 Consult Vascular Surgery Routine Procedures Performed Operation Date: 10/10/20 07:00 Actual Procedures p removal of right internal jugular catheter, insertion of right femoral temporary dialysis catheter, right femoral approach, ultrasound localization of right femoral vein, fluoroscopy for positioning, moderate RN sedation [id number] - Weston Rivers MD Operation Date: 10/15/20 09:20 Actual Procedures p Insertion of Perm Catheter, left internal jugular approach, ultrasound localization of left internal jugular vein, fluoroscopy for positioning, moderate sedation [id number](Left) - Weston Rivers MD Ordered Studies 10/08/20 14:21 CT abd pelvis IV con only Stat CT chest diagnostic w con Stat CT head/brain wo con Stat 10/10/20 13:41 EV cvc insert non tunnel Routine US EV guide vascular access Routine 10/15/20 07:27 EV cvc insert non tunnel Routine US EV guide vascular access Routine Hospital Course (1) Hypertensive urgency: Gram-negative bacteremia, possibly secondary to infected HD catheter Pt is a 65yo M w/ ESRD on HD, HTN, DM II, RLS, ALICIA who presents with elevated BP, nausea and headache. BP has been elevated over the past 2 days with SBP around 190-200s. In hospital he was also found to be bacteremic, with gram-negative bacilli Elevated BP x 2 days, initially 201/71 on admission with headache and nausea BP improved, then 136/66 with resolution of symptoms CT head with no hemorrhage, mass effect, or evidence of acute territorial ischemia by CT criteria Recent OP medication changes made, see HPI Continue to monitor 10/10 - BP elevated today, difficulty w/ HD yesterday 10/11 - pt seen on HD today- using new temp. R femoral line 10/13 -plan to remove temporary line today, permacath to be placed on October 15, blood cultures from October 09 - for 72 hours 10/15 -permanent left IJ catheter placed, plan for dialysis today, and discharge later today (2) Leukocytosis: Gram-negative bacteremia, possibly secondary to infected HD catheter WBC 20K, afebrile, VSS CT abd/pelvis without airspace consolidation typical for pneumonia or pleural effusion Nonspecific bilateral perinephric stranding and fluid. Correlate with clinical findings and urinalysis Patient makes very little urine, unable to obtain sample for UA - but UA ordered Zosyn given empirically for possible bladder infxn Blood cultx (10/08) -positive with gram-negative bacilli -Serratia marcescens Possibility of vascular- access related infection in setting of home HD training Continued empiric zosyn - on 10/11 switched to cefepime Patient also reports poor dentition, however currently denies any dental pain, drainage, abscess ID consulted Also discussed with nephrology 10/09 blood cultx - pending WBC down to 10K Pt s/p removal of RIJ HD permacath, and placement of temporary R femoral line 10/11 - Initial Blood cultx -positive for Serratia marcescens, discussed with ID, switched Zosyn to cefepime 10/13 - Repeat blood culture from October 09, so far negative (72 hrs) Plan to remove temporary line today, permcath to be placed on October 15, blood cultures from October 09 - for 72 hours Last HD on 10/12 10/15 -permanent left IJ catheter placed, plan for dialysis today, and discharge later today Will receive cefepime after dialysis today Discussed in detail antibiotic coverage after discharge with ID, nephrology and pharmacy. Patient will be discharged on Bactrim DS daily (HS) for 1 more week. (3) ESRD (end stage renal disease) on dialysis: (4) Malfunction of peripheral inserted central catheter: Completed HD the evening of admission 10/08 - difficulty w/ permacath, unable to finish HD treatment 10/11 - on HD today, using new temporary right femoral line 10/12 - last HD, next one planned for 10/15 after permacath placed 10/15 - new L IJ permacath placed today. plan for HD today, then DC home Follows with Dr. Kate (5) Coronary artery disease: CABG x 4 in 2017 Following with cardiology Recent normal dobutamine stress echo in pre-op for possible renal transplant Continue aspirin, plavix, statin, Toprol Metoprolol dose decreased from 100 mg at bedtime to 50 mg at bedtime due to bradycardia (6) Ischemic cardiomyopathy: EF 40-45%, following with Dr. Moore Continue Toprol (7) Diabetes mellitus, type II: A1c 6.7 in July 2020 Hold home agents SSI while in-patient BSG AC HS (8) Constipation: Rectosigmoid fecal retention and moderate constipation on CT abd/pelvis Bowel regimen DVT Ppx: SQ heparin Code status: FULL PCP: Dr. Artis Dispo: Admitted to PCU Total Time Total Time Spent Total Time Spent (In Minutes): 40 Discharge Plan Discharge Items Patient Disposition: Home - Self-Care Reason For Visit: HTN, ESRD ON HD, LEUKOCYTOSIS Discharge Diagnosis: Serratia bacteremia End-stage renal disease on dialysis Activity: Per Instructions section Non-emergency contact: Primary Care Provider and Car Dryer Call non-emergency contact if: you have any medication questions and your symptoms worsen Follow-up/Referrals: Myron Artis DO [Primary Care Provider] - (Date & Time 10/21/2020 11:20 AM Provider Myron Artis DO Department [facility] ) Diet: Dialysis Renal Addtl Attending Provider Instructions: Follow up with a primary care doctor, the appointment was scheduled for you for October 21. Finish the antibiotic treatment (Bactrim) as prescribed. Your metoprolol dose was decreased to 50 mg (instead of 100 mg). Continue to closely follow-up with your dialysis providers. Pending Studies at Discharge: No Stand-Alone Forms: My Veng[employer], Smoking Cessation Medications and DC Order Prescriptions: New Advanced Probiotic 625 mg (10 billion cell) Capsule 2 cap PO DAILY Qty: 20 RF: 0 sulfamethoxazole-trimethoprim [Bactrim DS] 800-160 mg tablet 1 tab PO DAILY 7 Days Qty: 7 RF: 0 metoprolol succinate 50 mg Tablet Extended Release 24 Hr 50 mg PO QPM Qty: 30 RF: 0 Continued hydroxyzine HCl 10 mg Tablet 25 mg PO QID PRN (Reason: Itching) RF: 0 aspirin 81 mg tablet,delayed release (DR/EC) 81 mg PO QPM RF: 0 lisinopril 20 mg Tablet 20 mg PO QAM RF: 0 atorvastatin [Lipitor] 80 mg Tablet 80 mg PO QPM RF: 0 glyburide 2.5 mg Tablet 2.5 mg PO QAM RF: 0 trazodone 50 mg Tablet 50 mg PO HS PRN (Reason: Sleep) RF: 0 ropinirole 0.25 mg Tablet 0.25 mg PO HS RF: 0 pantoprazole 40 mg Tablet,Delayed Release (Dr/Ec) 40 mg PO BID RF: 0 Triphrocaps 1 mg Capsule 1 cap PO QAM RF: 0 dicyclomine 10 mg Capsule 10 mg PO QID RF: 0 calcium acetate 667 mg Tablet 667 mg PO BIDM RF: 0 diclofenac sodium 1 % gel 2 g TOPICAL DIRECTED PRN (Reason: Pain) RF: 0 baclofen 10 mg tablet 10 mg PO HS PRN (Reason: spasm) RF: 0 Discontinued metoprolol succinate 100 mg tablet extended release 24 hr 100 mg PO QPM RF: 0 Discharge Orders: Discharge Order (Routine); Ordered 10/15/20 Ordered By: Candelario Banda Admission Data Admit Date/Time: 10/08/20 18:04 Attending Provider: Candelario Banda Admit Provider: Nathan Winchester Primary Care Provider: Myron Artis Other Providers: Nathan Winchester ; Manisha Kate ; Alfonso Olvera ; Rachele Lozano ; Steven Sheppard I. ; Rich Mercer II ; Aarti Whitmore ; Aung Garcia ; Weston Rivers
[2020-10-15] MEDS: CEFEPIME 500 MG in SYRINGE 0 ML IV SCH (14:51)
[2020-10-15] MEDS: ACETAMINOPHEN 325 MG TAB PO PRN (15:03)
== END 2020-10-15 16:45 | disposition home or self-care (01) | DRG 314 ==
LOC: ED 12:03 → SUATTDRO 18:04 → 2S 18:04 → 2N 10-12 17:44

== ENCOUNTER 2020-11-02 04:40 | Inpatient (IN) ==
[2020-11-02 05:10] LABS: Basophils # (auto) 0.07 K/uL (0-0.2); Basophils % (auto) 0.4 %; Eosinophils # (auto) 0.78 K/uL (0-0.5); Eosinophils % (auto) 4.4 %; Hematocrit (blood only) 30.9 % (42-52); Hemoglobin 9.7 g/dL (14.0-18.0); Immature Granulocytes # (auto) 0.12 K/uL (0.00-0.02); Immature Granulocytes % (auto) 0.7 %; Lymphocytes # (auto) 2.38 K/uL (1.2-3.4); Lymphocytes % (auto) 13.3 %; Mean Corpuscular Hemoglobin 29.7 pg (25-34); Mean Corpuscular Hgb Conc 31.4 g/dL (32-36); Mean Corpuscular Volume 94.5 fL (80-100); Mean Platelet Volume 9.8 fL (7.4-10.4); Monocytes # (auto) 1.63 K/uL (0.11-0.59); Monocytes % (auto) 9.1 %; Neutrophils # (auto) 12.88 K/uL (1.4-6.5); Neutrophils % (auto) 72.1 %; Platelet Count 544 K/uL (130-400); RDW Coefficient of Variation 15.9 % (11.5-14.5); RDW Standard Deviation 54.8 fL (36.4-46.3); Red Blood Count 3.27 M/uL (4.7-6.1); White Blood Count 17.86 K/uL (4.8-10.8)
[2020-11-02 05:34] LABS: Base Excess ABG -0.7 mEq/L (-9-1.8); HCO3 ABG 24 mmol/L (19-24); Oxygen Saturation ABG 99.1 % (90-95); PCO2 ABG 37 mmHg (35-46); PO2 ABG 170 mmHg (80-95); pH ABG 7.42 (7.35-7.45)
[2020-11-02 05:39] LABS: Allen Test Pos (Pos)
[2020-11-02 05:46] LABS: Alanine Aminotransferase 19 U/L (12-78); Albumin Globulin Ratio 0.7 (0.9-2); Alkaline Phosphatase 153 U/L (45-117); Aspartate Aminotransferase 11 U/L (15-37); BUN Creatinine Ratio 5.7 (10-20); Bilirubin,Total 0.3 mg/dl (0.2-1); Blood Urea Nitrogen 46 mg/dl (7-18); Calcium 8.8 mg/dl (8.5-10.1); Carbon Dioxide 26 mmol/L (21-32); Chloride 105 mmol/L (98-107); Est GFR (African American) 7.4 ml/min; Est GFR (Non-African American) 6.4 ml/min; Globulin 4.3 gm/dl (2.5-4.0); Glucose 246 mg/dl (70-99); Magnesium 2.2 mg/dl (1.8-2.4); NT Pro B Type Natriuretic Pept > 35000 pg/ml (0-900); Potassium 3.8 mmol/L (3.5-5.1); Sodium 141 mmol/L (136-145); Total Protein 7.3 gm/dl (6.4-8.2); Troponin I < 0.015 ng/ml (0-0.045)
[2020-11-02] MEDS ORDERED: ALBUT/IPRATROP 3MG/0.5MG NEB 3 ML VIAL NEB STA (06:16)
[2020-11-02] MEDS ORDERED: METOPROLOL SUCC 50MG EXT REL TAB PO STA (06:22)
--- NOTE | 2020-11-02 07:06 | History & Physical Report ---
Date of Service November 02, 2020 Assessment & Plan (1) Acute hypoxemic respiratory failure: Plan: Multifactorial : Fluid overload, cardiorenal syndrome, ESRD on PD, possible dialysis catheter malfunction Complicated bronchitis, possible sepsis Hypertensive crisis secondary to illness CAD status post CABG/PVD hyperlipidemia on statin Rx DM2 on oral medications, well-controlled as of recent hemoglobin A1c of 6.15 July 2020 chronic anemia, hemoglobin at baseline past tobacco abuse PCU Supplemental O2 Lasix IV 1 dose now dose for renal function Solu-Medrol, nebs, Doxycycline for complicated bronchitis causing hypoxemia Nephrology consult Re: Dialysis management (ER provider already in touch with Dr. Childs.) Facilitate home BP meds, initiate Amlodipine Basal insulin, ISS BG goal 1 10-1 40, carb count coverage DVT prophylaxis. Heparin subcu Full code Patient's requesting updates from providers. Ms. Irma Means, contact #[phone]. Total critical care time was 50 minutes. Text document was generated using Neronote voice recognition software. It may contain grammatical or spelling errors. Kindly contact undersigned for clarification of any documentation item in question. History of Present Illness Chief Complaint: Shortness of breath Primary Care Provider: Myron Frost DO History obtained from patient and records. Medical history significant for chronic diastolic heart failure (EF 67%, TTE 2020), CAD status post CABG, PVD, hypertension, hyperlipidemia, ESRD on periton eal dialysis, DM2 on oral medications, chronic anemia (baseline hemoglobin of 9 ), past tobacco abuse. Last confinement 3 weeks ago for hypertensive urgency and gram-negative mamta (Serratia marcescens) bacteremia possibly secondary to infected HD catheter status post removal of right IJ HD permacath status post Bactrim Rx. 2 weeks history of junky cough symptoms, patient unable to expectorate. No chest pain, no fever, no chills, no aspiration. Not sure about recent COVID-19 contacts given recent confinement. Patient denies aspiration. Patient having issues with peritoneal dialysis catheter the last few days. Difficulty aspirating catheter as per . Increase fluid retention as per patient. BP always high at home as per patient despite compliance with medications. Patient woke up early this morning with shortness of breath. No actual chest pain. No headache symptoms. Patient brought to the ER for evaluation. 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 Allergies Allergy/AdvReac Type Severity Reaction Status Date / Time oxycodone AdvReac Intermediate Hallucinati Verified 11/02/20 07:30 ons Home Medications Medication Instructions Recorded Confirmed Type atorvastatin 80 mg tablet (Lipitor) 80 mg PO QPM 11/23/17 11/02/20 History glyburide 2.5 mg tablet 2.5 mg PO QAM 11/23/17 11/02/20 History trazodone 50 mg tablet 50 mg PO HS PRN 01/04/18 11/02/20 History aspirin 81 mg tablet,delayed 81 mg PO QPM 03/02/18 11/02/20 History release hydroxyzine HCl 10 mg tablet 25 mg PO QID PRN 03/02/18 11/02/20 History lisinopril 20 mg tablet 20 mg PO QPM 03/08/18 11/02/20 History dicyclomine 10 mg capsule 10 mg PO QID 04/11/19 11/02/20 History pantoprazole 40 mg tablet,delayed 40 mg PO BID 04/11/19 11/02/20 History release ropinirole 0.25 mg tablet 0.25 mg PO HS 04/11/19 11/02/20 History vitamin B complex and vitamin C 1 cap PO QAM 04/11/19 11/02/20 History no.20-folic acid 1 mg capsule (Triphrocaps) calcium acetate 667 mg tablet 2,001 - 2,668 mg PO TIDM 11/14/19 11/02/20 History diclofenac sodium 1 % topical gel 2 g TOPICAL DIRECTED PRN 10/08/20 11/02/20 History metoprolol succinate 50 mg 50 mg PO QPM #30 tab 10/15/20 11/02/20 Rx tablet,extended release 24 hr Past Med/Surg History Medical History Anemia Anxiety AV fistula LUE Carotid artery stenosis under surveillance by cardiology Chronic systolic CHF (congestive heart failure) Coronary artery disease S/P CABG x4 09/2017 Diabetes mellitus, type 2 NIDDM Dyslipidemia ESRD (end stage renal disease) dialysis M/W/F, [facility] ([place]) GERD (gastroesophageal reflux disease) controlled GI bleed 11/2017 gastric ulcer s/p cauterization/clipping History of blood transfusion 11/2017 gastric ulcer s/p cauterization/clipping Hypertension Ischemic cardiomyopathy Myocardial Infarction 08/2017 Peripheral arterial disease w/ L>R carotid stenosis and L subclavian artery stenosis and BL common iliac stenosis Restless leg syndrome S/P arteriogram of extremity Surgical History History of cardiac cath 08/2017 @ [facility]--no stents placed History of colonoscopy with polypectomy History of esophagogastroduodenoscopy (EGD) EGD/COLONOSCOPY= 01/13/18= MAC SEDATION AT [facility] History of removal of Port-a-Cath 05/10/18, REMOVAL OF DIAYLSIS CATH FROM CHEST WALL. History of tonsillectomy History of tooth extraction History of vascular access device CHEST PORT/DIALYSIS ACCESS History of vascular surgery "bypass" put into left arm after fistula placed to establish blood flow--Dr. Rivers Hx of vascular surgery STARCLOSE - RIGHT FEMORAL AREA. Status post coronary artery bypass graft CABG x 4 09/09/2017 @ [facility] [place] Status post creation of arteriovenous fistula left arm 05/2018 Dr. 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 Required: No Beliefs That Will Affect Care: None marital status: Current Living Situation: Spouse Feels Safe at Home: Yes Assistive Devices: None Review of Systems Review of Systems: As per HPI, all 10 systems reviewed, all other ROS negative Physical Exam Physical Exam: GENERAL: Slightly uncomfortable, minimal respiratory distress SKIN: Pallor, warm HEENT: Pale palpebral conjunctivae, no ptosis, dry buccal mucosa, O2 mask in place NECK : Supple, no tenderness CHEST : Decreased breath sounds, occasional expiratory wheezes, no tenderness HEART : RRR, no obvious murmurs ABDOMEN: Some distention, nontender EXTREMITIES : Minimal LE swelling, no LE tenderness, no other conspicuous deformities noted NEUROLOGIC : Coherent, no facial asymmetry, no other gross focality Results & Data Results & Data ([facility]) Vital Signs (Past 12 Hours) Vital Signs Temp Pulse Pulse Resp BP BP Pulse Ox 11/02/20 06:43 75 20 214/74 H 100 11/02/20 06:09 67 22 197/79 H 100 11/02/20 05:12 70 22 204/69 H 100 11/02/20 04:55 36.8 C 75 24 210/78 H 98 11/02/20 04:50 98 Laboratory Results Laboratory Results WBC 17.86 K/uL (4.8-10.8) H 11/02/20 04:20 RBC 3.27 M/uL (4.7-6.1) L 11/02/20 04:20 Hgb 9.7 g/dL (14.0-18.0) L 11/02/20 04:20 Hct 30.9 % (42-52) L 11/02/20 04:20 MCV 94.5 fL (80-100) 11/02/20 04:20 MCH 29.7 pg (25-34) 11/02/20 04:20 MCHC 31.4 g/dL (32-36) L 11/02/20 04:20 RDW Std Deviation 54.8 fL (36.4-46.3) H 11/02/20 04:20 RDW Coeff of Lyla 15.9 % (11.5-14.5) H 11/02/20 04:20 Plt Count 544 K/uL (130-400) H 11/02/20 04:20 MPV 9.8 fL (7.4-10.4) 11/02/20 04:20 Immature Gran % (Auto) 0.7 % 11/02/20 04:20 Neut % (Auto) 72.1 % 11/02/20 04:20 Lymph % (Auto) 13.3 % 11/02/20 04:20 Dunn % (Auto) 9.1 % 11/02/20 04:20 Eos % (Auto) 4.4 % 11/02/20 04:20 Baso % (Auto) 0.4 % 11/02/20 04:20 Neut # (Auto) 12.88 K/uL (1.4-6.5) H 11/02/20 04:20 Lymph # (Auto) 2.38 K/uL (1.2-3.4) 11/02/20 04:20 Dunn # (Auto) 1.63 K/uL (0.11-0.59) H 11/02/20 04:20 Eos # (Auto) 0.78 K/uL (0-0.5) H 11/02/20 04:20 Baso # (Auto) 0.07 K/uL (0-0.2) 11/02/20 04:20 Immature Gran # (Auto) 0.12 K/uL (0.00-0.02) H 11/02/20 04:20 ABG pH 7.42 (7.35-7.45) 11/02/20 05:20 ABG pCO2 37 mmHg (35-46) 11/02/20 05:20 ABG pO2 170 mmHg (80-95) H 11/02/20 05:20 ABG HCO3 24 mmol/L (19-24) 11/02/20 05:20 ABG O2 Saturation 99.1 % (90-95) H 11/02/20 05:20 ABG Base Excess -0.7 mEq/L (-9-1.8) 11/02/20 05:20 Steven Test Pos (Pos) 11/02/20 05:20 Barometric Pressure 733.5 mm/Hg 11/02/20 05:20 Oxygen Given 10L 11/02/20 05:20 Sodium 141 mmol/L (136-145) 11/02/20 04:20 Potassium 3.8 mmol/L (3.5-5.1) 11/02/20 04:20 Chloride 105 mmol/L (98-107) 11/02/20 04:20 Carbon Dioxide 26 mmol/L (21-32) 11/02/20 04:20 Anion Gap 10.0 (3-11) 11/02/20 04:20 BUN 46 mg/dl (7-18) H 11/02/20 04:20 Creatinine 8.02 mg/dl (0.6-1.4) H* 11/02/20 04:20 Est Cr Clr Drug Dosing 9.0 ml/min 11/02/20 04:20 Est GFR ( Amer) 7.4 ml/min 11/02/20 04:20 Est GFR (Non-Af Amer) 6.4 ml/min 11/02/20 04:20 BUN/Creatinine Ratio 5.7 (10-20) L 11/02/20 04:20 Glucose 246 mg/dl (70-99) H 11/02/20 04:20 Lactate 1.1 mmol/L (0.4-2.0) 11/02/20 05:35 Calcium 8.8 mg/dl (8.5-10.1) 11/02/20 04:20 Magnesium 2.2 mg/dl (1.8-2.4) 11/02/20 04:20 Total Bilirubin 0.3 mg/dl (0.2-1) 11/02/20 04:20 AST 11 U/L (15-37) L 11/02/20 04:20 ALT 19 U/L (12-78) 11/02/20 04:20 Alkaline Phosphatase 153 U/L (45-117) H 11/02/20 04:20 Troponin I < 0.015 ng/ml (0-0.045) 11/02/20 04:20 NT-Pro-B Natriuret Pep > 56967 pg/ml (0-900) H 11/02/20 04:20 Total Protein 7.3 gm/dl (6.4-8.2) 11/02/20 04:20 Albumin 3.0 gm/dl (3.4-5.0) L 11/02/20 04:20 Globulin 4.3 gm/dl (2.5-4.0) H 11/02/20 04:20 Albumin/Globulin Ratio 0.7 (0.9-2) L 11/02/20 04:20 TSH Cancelled 11/02/20 04:20 COVID-19 Eval Order Covid19 at [facility] 11/02/20 05:20 SARS-CoV-2 (PCR) NEGATIVE (Negative) 11/02/20 05:20 Diagnostic Findings Chest x-ray as per my interpretation cardiomegaly, CHF EKG as per my interpretation : Rate 70, NSR, normal axis, T wave abnormalities lateral leads
[2020-11-02 07:07] LABS: Partial Thromboplastin Ratio 1.2; Partial Thromboplastin Time 30.5 Seconds (21.0-31.0)
[2020-11-02] MEDS ORDERED: methylPREDNISolone 20 MG in SYRINGE 0 ML IV STA (07:12)
[2020-11-02] MEDS ORDERED: DOXYCYCLINE HYCLATE 100 MG in DEXTROSE 5% 100 ML IV STA (07:13)
[2020-11-02] MEDS ORDERED: FUROSEMIDE 100 MG in SYRINGE 0 ML IV SCH (07:30)
--- NOTE | 2020-11-02 07:37 | XRay Report ---
XR chest 1V portable HISTORY: 65 years-old Male SOB, dialysis patient acute shortness of breath. COMPARISON: Chest radiograph and chest CT 10/27/2020 TECHNIQUE: Portable AP view of the chest FINDINGS: Cardiac silhouette is enlarged. Prior median sternotomy. Left IJ dual lumen hemodialysis catheter is redemonstrated with distal tip in the expected location of the upper SVC. Emphysema. Pulmonary vascul ar congestion with interstitial coarsening. No pneumothorax. Trace pleural effusions redemonstrated. Mild bibasilar densities suggestive of atelectasis redemonstrated. No acute fracture. IMPRESSION: 1. Cardiomegaly with stable to slightly worsened pulmonary edema. 2. Trace pleural effusions. 3. Emphysema. ACT 112: Negative or not required by law. The above report was generated using voice recognition software. It may contain grammatical, syntax o r spelling errors. Electronically signed by: Sherman Brown M.D. 11/02/2020 7:36 AM
[2020-11-02] MEDS ORDERED: FUROSEMIDE 10 MG/ML 10 ML VIAL IV STA (07:38)
[2020-11-02] MEDS ORDERED: hydrALAZINE HCL 20 MG/ML VIAL IV STA ×2 (07:46→11:13)
[2020-11-02] MEDS ORDERED: hydrALAZINE HCL 20 MG/ML VIAL ONE (07:48)
[2020-11-02] MEDS ORDERED: amLODIPine BESYLATE 5 MG TAB PO ONE (07:56)
[2020-11-02] MEDS ORDERED: GLUCOSE 40% GEL 15 GM TUBE PO PRN (09:58)
[2020-11-02] MEDS ORDERED: XOPENEX/ATROVENT 1.25mg/0.5MG NEB COMBO NEB PRN (09:58)
[2020-11-02] MEDS ORDERED: LEVALBUTEROL 1.25MG/0.5ML NEB INH PRN (09:58)
[2020-11-02] MEDS ORDERED: GLUCOSE 10 TABS/TUBE PO PRN (09:58)
[2020-11-02] MEDS ORDERED: ACETAMINOPHEN 325 MG TAB PO PRN (09:58)
[2020-11-02] MEDS ORDERED: IPRATROPIUM BROMIDE NEB SOLN 0.02% 2.5 ML VIAL INH PRN (09:58)
[2020-11-02] MEDS ORDERED: CARBOHYDRATES FOR HYPOGLYCEMIA PO PRN (09:58)
[2020-11-02] MEDS ORDERED: PROMETHAZINE HCL 12.5 MG in SODIUM CHLORIDE 0.9% 50 ML IV PRN (09:58)
[2020-11-02] MEDS ORDERED: DEXTROSE 50% 50 ML SYRINGE IV PRN (09:58)
[2020-11-02] MEDS ORDERED: DICLOFENAC SOD 1% GEL 100 GM TUBE EXT PRN (09:58)
[2020-11-02] MEDS ORDERED: traZODone HCL 50 MG TAB PO PRN (09:58)
[2020-11-02] MEDS ORDERED: NITROGLYCERIN SL 0.4 MG/TAB TAB SL PRN (09:58)
[2020-11-02] MEDS ORDERED: GLUCAGON FOR INJ 1 MG VIAL SQ PRN (09:58)
[2020-11-02 10:07] LABS: Estimated Average Glucose 154 mg/dl
[2020-11-02] MEDS: NEPHROCAPS PO SCH (11:01)
[2020-11-02] MEDS: guaiFENesin 600 MG TABCR PO SCH ×2 (11:01→20:28)
[2020-11-02] MEDS: INSULIN GLARGINE SOLOSTAR 100 UNITS/ML 3 ML PEN SC SCH (11:02)
[2020-11-02] MEDS: PANTOprazole 40 MG TAB PO SCH ×2 (11:02→20:27)
--- NOTE | 2020-11-02 11:31 | Nephrology Consultation ---
Date of Consultation November 02, 2020 Assessment & Plan (1) ESRD (end stage renal disease) on dialysis: ESRD -patient is home hemopatient, on Wednesday treatment. He has been having problems with his access, being positional and complains of not having a decent hemodialysis over the last 2 weeks. Last dialysis on Wednesday. Fluid overloaded requiring high oxygen, in respiratory distress. Dialyze him today with for 3 hours with 3 L UF 2K, use alteplase if problem with blood flow. Dialysis nurse made aware. If problem continues, will need changing or rail roading of his present catheter. (2) Hypertensive urgency: Patient did not all have all his hypertensive medications. Please start him on metoprolol 50 mg twice daily. Lisinopril 20, and increase amlodipine to 10 mg. As needed hydralazine 10 mg, if blood pressure constantly above more than 160/100. Fluid removal will help History of Present Illness Reason for Consultation: ESRD on home hemo, ( [facility] Wednesday) Attending Physician: Kat Avila, History of Present Illness 65-year-old, last medical history of CAD s/p 2017 4V CABG and w/ ischemic [employer] EF 40%, ESRD on HD via dialysis catheter, HTN, DM, reformed tobacco abuse (quit 05/2020; 64 pyh), asymptomatic peripheral arterial disease w/ asymptomatic L>R carotid stenosis and L subclavian artery stenosis, s/p 2010 open sigmoid colectomy for complicated diverticulitis, RLS, ALICIA. 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 Had a new tunnel dialysis catheter put in around 3 weeks back, and is presently on home hemo-, 5 times a week( holiday on and Wednesday) . Presented to the ER yesterday evening with increasing shortness of breath. He states that he has been having problems with his salty lysis catheter over the last 2 weeks , his TDC being mostly positional. Yesterday he could not get a good blood flow and change in position did not improve it which made him come to the ER. In ER he was found to be hypertensive with systolics in the 200s, requiring 10 L of oxygen to maintain a saturation above 95. No chest pain no palpitations, he makes minimal urine. May have missed his antihypertensives. Nephrology called for dialysis support during his present stay. Allergies Allergy/AdvReac Type Severity Reaction Status Date / Time oxycodone AdvReac Intermediate Hallucinati Verified 11/02/20 07:30 ons Home Medications Medication Instructions Recorded Confirmed Type atorvastatin 80 mg tablet (Lipitor) 80 mg PO QPM 11/23/17 11/02/20 History glyburide 2.5 mg tablet 2.5 mg PO QAM 11/23/17 11/02/20 History trazodone 50 mg tablet 50 mg PO HS PRN 01/04/18 11/02/20 History aspirin 81 mg tablet,delayed 81 mg PO QPM 03/02/18 11/02/20 History release hydroxyzine HCl 10 mg tablet 25 mg PO QID PRN 03/02/18 11/02/20 History lisinopril 20 mg tablet 20 mg PO QPM 03/08/18 11/02/20 History dicyclomine 10 mg capsule 10 mg PO QID 04/11/19 11/02/20 History pantoprazole 40 mg tablet,delayed 40 mg PO BID 04/11/19 11/02/20 History release ropinirole 0.25 mg tablet 0.25 mg PO HS 04/11/19 11/02/20 History vitamin B complex and vitamin C 1 cap PO QAM 04/11/19 11/02/20 History no.20-folic acid 1 mg capsule (Triphrocaps) calcium acetate 667 mg tablet 2,001 - 2,668 mg PO TIDM 11/14/19 11/02/20 History diclofenac sodium 1 % topical gel 2 g TOPICAL DIRECTED PRN 10/08/20 11/02/20 History metoprolol succinate 50 mg 50 mg PO QPM #30 tab 10/15/20 11/02/20 Rx tablet,extended release 24 hr Patient History Medical History Anemia Anxiety AV fistula LUE Carotid artery stenosis under surveillance by cardiology Chronic systolic CHF (congestive heart failure) Coronary artery disease S/P CABG x4 09/2017 Diabetes mellitus, type 2 NIDDM Dyslipidemia ESRD (end stage renal disease) dialysis M/W/F, [facility] ([place] GERD (gastroesophageal reflux disease) controlled GI bleed 11/2017 2/2 gastric ulcer s/p cauterization/clipping History of blood transfusion 11/2017 gastric ulcer s/p cauterization/clipping Hypertension Ischemic cardiomyopathy Myocardial Infarction 08/2017 Peripheral arterial disease w/ L>R carotid stenosis and L subclavian artery stenosis and BL common iliac stenosis Restless leg syndrome S/P arteriogram of extremity Surgical History History of cardiac cath 08/2017 @ [facility]--no stents placed History of colonoscopy with polypectomy History of esophagogastroduodenoscopy (EGD) EGD/COLONOSCOPY= 01/13/18= MAC SEDATION AT [facility] History of removal of Port-a-Cath 05/10/18, REMOVAL OF DIAYLSIS CATH FROM CHEST WALL. History of tonsillectomy History of tooth extraction History of vascular access device CHEST PORT/DIALYSIS ACCESS History of vascular surgery "bypass" put into left arm after fistula placed to establish blood flow--Dr. Rivers Hx of vascular surgery STARCLOSE - RIGHT FEMORAL AREA. Status post coronary artery bypass graft CABG x 4 09/09/[address] [facility] [place] Status post creation of arteriovenous fistula left arm 05/2018 Dr. Rivers Status post partial resection of colon 03/12 DIVERTICULITIS Family History (System 11/02/20 @ 07:14 by Trina Fried) Father Cancer Mother Family history of diabetes mellitus Daughter Family history of diabetes mellitus Other No family history of adverse response to anesthesia Social History (System 11/02/20 @ 07:14 by Trina Fried) Smoking Status: Current every day smoker Tobacco Type: Cigarettes Cigarettes Per Day: 2; Second Hand Exposure: No; Do You Dip or Chew Tobacco: No; Hx Alcohol Use: No Hx Substance Use: Yes Preferred Language: German Communication Ability: Effective Clinical Coordinator Required: No Beliefs That Will Affect Care: None marital status: Current Living Situation: Spouse Current Living Situation Comment: HOUSE Other Information That Helps Us Care for You: No Feels Safe at Home: Yes Safety Concerns: Feels Safe At This Time Assistive Devices: Glasses Review of Systems Review of Systems: In respiratory distress, bilateral crepitations No pedal edema, no chest pain. Physical Exam Physical Exam: Gen- AAO x 3, NAD, perm cath in place, in respiratory distress HEENT- NCAT, EOMI, PERRL, Anicteric Sclera, No Posterior Pharyngeal Erythema Neck- Supple, No JVD Lungs-bilateral crepitations. Chest- No S4, +S1, +S2, No S3, No Murmurs Abdomen- Soft, + Bowel Sounds, Non Tender, Non Distended Musculoskeletal- Full Range of Motion Bilaterally, No CVAT Extremities- No Edema, moves extremities spontaneously Neuro-alert, oriented Results & Data ([place]) Vital Signs (Past 12 Hours) Vital Signs Temp Pulse Pulse Pulse Resp BP BP 11/02/20 10:21 36.5 C 74 18 213/83 H 11/02/20 09:15 65 15 187/71 H 11/02/20 09:00 62 15 209/75 H 11/02/20 08:45 54 L 15 209/74 H 11/02/20 08:30 80 19 197/73 H 11/02/20 08:15 83 20 198/68 H 11/02/20 08:00 68 18 192/69 H 11/02/20 07:46 64 14 195/68 H 11/02/20 07:45 64 18 11/02/20 06:43 75 20 214/74 H 11/02/20 06:09 67 22 197/79 H 11/02/20 05:12 70 22 204/69 H 11/02/20 04:55 36.8 C 75 24 210/78 H 11/02/20 04:50 Pulse Ox 11/02/20 10:21 99 11/02/20 09:15 95 11/02/20 09:00 95 11/02/20 08:45 95 11/02/20 08:30 95 11/02/20 08:15 98 11/02/20 08:00 98 11/02/20 07:46 100 11/02/20 07:45 98 11/02/20 06:43 100 11/02/20 06:09 100 11/02/20 05:12 100 11/02/20 04:55 98 11/02/20 04:50 98 Laboratory Results 11/02/20 04:20 11/02/20 04:20
[2020-11-02] MEDS ORDERED: CALCIUM ACETATE 667 MG PO SCH (12:00)
[2020-11-02] MEDS ORDERED: CALCIUM ACETATE 667 MG CAP/TAB PO SCH (12:00)
[2020-11-02] MEDS: INSULIN ASPART 100 UNITS/ML 3 ML PEN SC SCH ×3 (12:05→20:30)
[2020-11-02] MEDS ORDERED: CALCIUM ACETATE 667 MG CAP/TAB PO PRN (13:56)
--- NOTE | 2020-11-02 14:11 | Communication Note ---
Date of Service: November 02, 2020 65-year-old man presented overnight with acute respiratory failure likely secondary to fluid overload after 2 missed dialysis sessions. He does home d ialysis 5 days a week and reports being off on for an "off day" followed by inability to initiate hemodialysis through his catheter last evening. He subsequently developed worsening shortness of breath and is now having nonproductive coughing. He denies any fevers or chills or other clear pneumonia symptoms. Chest X bracelet they were then prior. Procalcitonin is negative. Although he has a slight elevation in white blood cell count he informs me this is always been an issue for him. Record review reveals that he is correct to a certain extent. He has also just received long-term antibiotic therapy for Serratia bacteremia. Suspect his dyspnea secondary to fluid overload. As he is anuric at baseline, Lasix 100 mg IV given this morning is less likely to help with this. He is set up for hemodialysis later today per nephrology. He is also hypertensive and has received 2 doses of hydralazine 10 mg IV. He also is apparently someone who suffers from anxiety. Lung exam reveals coarse crackles in the bases bilaterally up to mid lung kelsey bilaterally without wheezing or rales present. Heart exam reveals S1/S2 with no murmurs gallops or rubs to auscultation. He has a regular rate and rhythm to auscultation. Abdomen is nondistended nontender. Tunneled catheter in left anterior chest wall, intact without surrounding erythema or drainage. He is otherwise mentating and ambulating at baseline. He is mildly in distress secondary to shortness of breath and coughing. Continue to treat blood pressure for goal 140/80. He is going for his mean therapy which is hemodialysis currently. We will continue to follow in PCU. As pneumonia is less likely will stop antibiotics at this time Kat Avila DO [facility]
[2020-11-02] MEDS: HEPARIN SOD 5,000 UNIT/0.5 ML VIAL SQ SCH ×2 (15:20→22:59)
[2020-11-02] MEDS: CALCIUM ACETATE 667 MG CAP/TAB PO SCH (17:02)
[2020-11-02] MEDS: lisinopril 20 MG TAB PO SCH (20:27)
[2020-11-02] MEDS: ATORVASTATIN 40 MG TAB PO SCH (20:29)
[2020-11-02] MEDS: ASPIRIN 81 MG ECTAB PO SCH (20:29)
[2020-11-02] MEDS: rOPINIRole HCL 0.25 MG TABLET PO SCH (20:29)
[2020-11-02] MEDS ORDERED: DOXYCYCLINE HYCLATE 100 MG CAP PO SCH (21:00)
[2020-11-03] MEDS ORDERED: hydrALAZINE HCL 20 MG/ML VIAL IV ONE ×3 (02:41→16:27)
[2020-11-03] MEDS ORDERED: amLODIPine BESYLATE 5 MG TAB PO SCH ×3 (03:45→09:00)
--- NOTE | 2020-11-03 04:49 | Emergency Department Note ---
History of Present Illness General Chief complaint: Shortness of Breath/Dyspnea Stated complaint: SHORT OF BREATH/MISSED DIALYSIS X2DAYS Time Seen by Provider: 11/02/20 04:49 History of Present Illness This is a 65-year-old male presenting to the emergency department for evaluation of shortness of breath symptoms. The patient states that he awoke from sleep gasping for air and had difficulty breathing. He does arrive to the facility via EMS and is on 10 L nonrebreather. This has significantly helped his b reathing difficulty. The patient is a dialysis patient, and is in the process of getting home dialysis performed. He has had some complications with his access port, and has missed his last 2 dialysis. He is unsure what his dry weight versus wet weight is and is not able to determine if he has been gaining weight. The patient has dialysis 5 days a week, skipping and Saturdays. He did not have dialysis on Wednesday or Wednesday. He has had a bit of a cough. The patient was seen and evaluated in this hospital a few weeks ago where he was septic. The patient does not make urine. Home Medications Medication Instructions Recorded Confirmed Type atorvastatin 80 mg tablet (Lipitor) 80 mg PO QPM 11/23/17 11/02/20 History glyburide 2.5 mg tablet 2.5 mg PO QAM 11/23/17 11/02/20 History trazodone 50 mg tablet 50 mg PO HS PRN 01/04/18 11/02/20 History aspirin 81 mg tablet,delayed 81 mg PO QPM 03/02/18 11/02/20 History release hydroxyzine HCl 10 mg tablet 25 mg PO QID PRN 03/02/18 11/02/20 History lisinopril 20 mg tablet 20 mg PO QPM 03/08/18 11/02/20 History dicyclomine 10 mg capsule 10 mg PO QID 04/11/19 11/02/20 History pantoprazole 40 mg tablet,delayed 40 mg PO BID 04/11/19 11/02/20 History release ropinirole 0.25 mg tablet 0.25 mg PO HS 04/11/19 11/02/20 History vitamin B complex and vitamin C 1 cap PO QAM 04/11/19 11/02/20 History no.20-folic acid 1 mg capsule (Triphrocaps) calcium acetate 667 mg tablet 2,001 - 2,668 mg PO TIDM 11/14/19 11/02/20 History diclofenac sodium 1 % topical gel 2 g TOPICAL DIRECTED PRN 10/08/20 11/02/20 History metoprolol succinate 50 mg 50 mg PO QPM #30 tab 10/15/20 11/02/20 Rx tablet,extended release 24 hr Allergies Allergy/AdvReac Type Severity Reaction Status Date / Time oxycodone AdvReac Intermediate Hallucinati Verified 11/02/20 07:30 ons Past Med/Surg History Medical History Anemia Anxiety AV fistula LUE Carotid artery stenosis under surveillance by cardiology Chronic systolic CHF (congestive heart failure) Coronary artery disease S/P CABG x4 09/2017 Diabetes mellitus, type 2 NIDDM Dyslipidemia ESRD (end stage renal disease) dialysis M/W/F, [facility] ([place]) GERD (gastroesophageal reflux disease) controlled GI bleed 11/2017 gastric ulcer s/p cauterization/clipping History of blood transfusion 11/2017 gastric ulcer s/p cauterization/clipping Hypertension Ischemic cardiomyopathy Myocardial Infarction 08/2017 Peripheral arterial disease w/ L>R carotid stenosis and L subclavian artery stenosis and BL common iliac stenosis Restless leg syndrome S/P arteriogram of extremity Surgical History History of cardiac cath 08/2017 @ [facility]--no stents placed History of colonoscopy with polypectomy History of esophagogastroduodenoscopy (EGD) EGD/COLONOSCOPY= 01/13/18= [facility] SEDATION AT [facility] History of removal of Port-a-Cath 05/10/18, REMOVAL OF DIAYLSIS CATH FROM CHEST WALL. History of tonsillectomy History of tooth extraction History of vascular access device CHEST PORT/DIALYSIS ACCESS History of vascular surgery "bypass" put into left arm after fistula placed to establish blood flow--Dr. Rivers Hx of vascular surgery STARCLOSE - RIGHT FEMORAL AREA. Status post coronary artery bypass graft CABG x 4 [place] [facility] [place] post creation of arteriovenous fistula left arm 05/2018 Dr. Rivers Status post partial resection of colon 2010 2/2 DIVERTICULITIS Family History Father Cancer Mother Family history of diabetes mellitus Daughter Family history of diabetes mellitus Other No family history of adverse response to anesthesia Social History Smoking Status: Current every day smoker Tobacco Type: Cigarettes Cigarettes Per Day: 2; Second Hand Exposure: No; Do You Dip or Chew Tobacco: No; Hx Alcohol Use: No Hx Substance Use: Yes Preferred Language: Mauritian Communication Ability: Effective Barrel Marker Required: No Beliefs That Will Affect Care: None marital status: Current Living Situation: Spouse Current Living Situation Comment: HOUSE Other Information That Helps Us Care for You: No Feels Safe at Home: Yes Safety Concerns: Feels Safe At This Time Assistive Devices: Glasses Review of Systems A total of 10 systems reviewed and were otherwise negative Physical Exam Vital Signs Vital Signs - 24 hr 11/02/20 06:43 Pulse Rate [Bilateral Apical] 75 Respiratory Rate 20 Blood Pressure [Right Arm] 214/74 H Blood Pressure Mean [Right Arm] 120 Pulse Oximetry 100 Oxygen Delivery Method Non-rebreather Oxygen Flow Rate 10 VITALS: Vitals are noted on the nurse's note and reviewed by myself. Vital signs with elevated blood pressure GENERAL: Chronically ill-appearing white male who is on nonrebreather HEAD: Normocephalic atraumatic. HEART: Regular rate and rhythm LUNGS: Scattered bibasilar Rales ABDOMEN: Positive normal bowel sounds x 4. Soft, nontender, without masses or organomegaly. No guarding or rebound tenderness. MUSCULOSKELETAL: No muscle atrophy, erythema, or edema noted. Full range of motion in all extremities. NEURO: Patient was alert and oriented to person place and time. CN II through XII grossly intact Course Administered Medications Amlodipine Besylate (Amlodipine Besylate 5 Mg Tab) 5 mg PO QAM TROY Stop: 12/03/20 03:44 Last Admin: 11/03/20 04:45 Dose: 5 mg Documented by: [id number] Aspirin (Aspirin 81 Mg Ectab) 81 mg PO QPM TROY Stop: 12/02/20 20:59 Last Admin: 11/02/20 20:29 Dose: 81 mg Documented by: [id number] Atorvastatin Calcium (Atorvastatin 40 Mg Tab) 80 mg PO QPM TROY Stop: 12/02/20 20:59 Last Admin: 11/02/20 20:29 Dose: 80 mg Documented by: [id number] Calcium Acetate (Calcium Acetate 667 Mg Cap/Tab) 2,001 mg PO TIDM TROY Stop: 12/02/20 16:59 Last Admin: 11/02/20 17:02 Dose: 2,001 mg Documented by: [id number] Guaifenesin (Guaifenesin 600 Mg Tabcr) 600 mg PO Q12 TROY Stop: 12/02/20 09:57 Last Admin: 11/02/20 20:28 Dose: 600 mg Documented by: [id number] Admin: 11/02/20 11:01 Dose: 600 mg Documented by: [id number] Heparin Sodium (Porcine) (Heparin Sod 5,000 Unit/0.5 Ml Vial) 5,000 units SQ Q8 TROY Stop: 12/02/20 13:59 Last Admin: 11/03/20 05:55 Dose: 5,000 units Documented by: [id number] Admin: 11/02/20 22:59 Dose: 5,000 units Documented by: [id number] Admin: 11/02/20 15:20 Dose: Not Given Documented by: [id number] Insulin Aspart (Insulin Aspart 100 Units/Ml 3 Ml Pen) 0 units SC ACHS TROY Stop: 12/02/20 11:29 Last Admin: 11/02/20 20:30 Dose: 3 units Documented by: [id number] Cosigned by: [id number] Admin: 11/02/20 17:02 Dose: 2 units Documented by: [id number] Cosigned by: [id number] Admin: 11/02/20 12:05 Dose: 1 units Documented by: [id number] Cosigned by: [id number] Insulin Glargine (Insulin Glargine Solostar 100 Units/Ml 3 Ml Pen) 5 units SC DAILY TROY Stop: 12/02/20 08:59 Last Admin: 11/02/20 11:02 Dose: 5 units Documented by: [id number] Cosigned by: [id number] Lisinopril (Lisinopril 20 Mg Tab) 20 mg PO QPM TROY Stop: 12/02/20 20:59 Last Admin: 11/02/20 20:27 Dose: 20 mg Documented by: [id number] Pantoprazole Sodium (Pantoprazole 40 Mg Tab) 40 mg PO BID TROY Stop: 12/02/20 09:57 Last Admin: 11/02/20 20:27 Dose: 40 mg Documented by: [id number] Admin: 11/02/20 11:02 Dose: 40 mg Documented by: [id number] Ropinirole HCl (Ropinirole Hcl 0.25 Mg Tablet) 0.25 mg PO HS TROY Stop: 12/02/20 20:59 Last Admin: 11/02/20 20:29 Dose: 0.25 mg Documented by: [id number] Vitamin B Complex/Folic Acid (Nephrocaps) 1 cap PO QAM TROY Stop: 12/02/20 09:57 Last Admin: 11/02/20 11:01 Dose: 1 cap Documented by: [id number] Discontinued Medications Albuterol (Albut/Ipratrop 3mg/0.5mg Neb 3 Ml Vial) 3 ml NEB NOW STA Stop: 11/02/20 06:17 Last Admin: 11/02/20 07:44 Dose: 3 ml Documented by: [id number] Amlodipine Besylate (Amlodipine Besylate 5 Mg Tab) 2.5 mg PO NOW ONE Stop: 11/02/20 07:57 Last Admin: 11/02/20 11:00 Dose: 2.5 mg Documented by: [id number] Calcium Acetate (Calcium Acetate 667 Mg Cap/Tab) 2,001 - 2,668 mg PO TIDM TROY Stop: 11/02/20 12:01 Last Admin: 11/02/20 15:19 Dose: Not Given Documented by: [id number] Furosemide (Furosemide 10 Mg/Ml 10 Ml Vial) 100 mg IV NOW STA Stop: 11/02/20 07:39 Last Admin: 11/02/20 11:00 Dose: Not Given Documented by: [id number] Hydralazine HCl (Hydralazine Hcl 20 Mg/Ml Vial) Confirm Administered Dose 20 mg .ROUTE .STK-MED ONE Stop: 11/02/20 07:49 Last Increment: 11/02/20 07:55 Dose: 10 mg Documented by: [id number] Hydralazine HCl (Hydralazine Hcl 20 Mg/Ml Vial) 10 mg IV NOW STA Stop: 11/02/20 11:14 Last Admin: 11/02/20 11:30 Dose: 10 mg Documented by: [id number] Hydralazine HCl (Hydralazine Hcl 20 Mg/Ml Vial) 10 mg IV NOW ONE Stop: 11/03/20 06:31 Last Admin: 11/03/20 06:25 Dose: 10 mg Documented by: [id number] Methylprednisolone 20 mg/ (Syringe) 0.32 mls @ 1.5 mls/min IV NOW STA Stop: 11/02/20 07:13 Last Admin: 11/02/20 10:01 Dose: 1.5 mls/min Documented by: [id number] Doxycycline Hyclate 100 mg/ (Dextrose) 110 mls @ 50 mls/hr IV NOW STA Stop: 11/02/20 09:24 Last Infusion: 11/02/20 12:25 Dose: 0 mls/hr Documented by: [id number] Admin: 11/02/20 10:01 Dose: 50 mls/hr Documented by: [id number] Furosemide 100 mg/ Syringe 10 mls @ 4 mls/min IV TODAY@0730 [facility] Stop: 11/02/20 12:30 Last Admin: 11/02/20 11:00 Dose: 4 mls/min Documented by: [id number] Metoprolol Succinate (Metoprolol Succ 50mg Ext Rel Tab) 50 mg PO NOW STA Stop: 11/02/20 06:23 Last Admin: 11/02/20 06:42 Dose: 50 mg Documented by: [id number] Medical Decision Making Differential Diagnosis Differential diagnosis includes, but is not limited to: Myocardial infarction, dysrhythmia, pericarditis, pneumothorax, aortic aneurysm/dissection, DVT/PE, anxiety, GERD, PUD, electrolyte imbalance, thyroid disorder, pneumonia, bronchitis, pancreatitis, and others Laboratory Data Result diagrams: 11/02/20 04:20 11/02/20 04:20 Lab Results 11/02/20 11/02/20 11/02/20 Range/Units 04:20 04:20 04:20 WBC 17.86 H (4.8-10.8) K/uL RBC 3.27 L (4.7-6.1) M/uL Hgb 9.7 L (14.0-18.0) g/dL Hct 30.9 L (42-52) % MCV 94.5 (80-100) fL MCH 29.7 (25-34) pg MCHC 31.4 L (32-36) g/dL RDW Std Deviation 54.8 H (36.4-46.3) fL RDW Coeff of Lyla 15.9 H (11.5-14.5) % Plt Count 544 H (130-400) K/uL MPV 9.8 (7.4-10.4) fL Immature Gran % (Auto) 0.7 % Neut % (Auto) 72.1 % Lymph % (Auto) 13.3 % [place] % (Auto) 9.1 % Eos % (Auto) 4.4 % Baso % (Auto) 0.4 % Neut # (Auto) 12.88 H (1.4-6.5) K/uL Lymph # (Auto) 2.38 (1.2-3.4) K/uL [place] # (Auto) 1.63 H (0.11-0.59) K/uL Eos # (Auto) 0.78 H (0-0.5) K/uL Baso # (Auto) 0.07 (0-0.2) K/uL Immature Gran # (Auto) 0.12 H (0.00-0.02) K/uL APTT (21.0-31.0) Seconds PTT Ratio ABG pH (7.35-7.45) ABG pCO2 (35-46) mmHg ABG pO2 (80-95) mmHg ABG HCO3 (19-24) mmol/L ABG O2 Saturation (90-95) % ABG Base Excess (-9-1.8) mEq/L Steven Test (Pos) Barometric Pressure mm/Hg Oxygen Given Sodium 141 (136-145) mmol/L Potassium 3.8 (3.5-5.1) mmol/L Chloride 105 (98-107) mmol/L Carbon Dioxide 26 (21-32) mmol/L Anion Gap 10.0 (3-11) BUN 46 H (7-18) mg/dl Creatinine 8.02 H* (0.6-1.4) mg/dl Est Cr Clr Drug Dosing 9.0 ml/min Est GFR ( Amer) 7.4 ml/min Est GFR (Non-Af Amer) 6.4 ml/min BUN/Creatinine Ratio 5.7 L (10-20) Glucose 246 H (70-99) mg/dl Estimat Average Glucose mg/dl Hemoglobin A1c (4.5-5.6) % Lactate (0.4-2.0) mmol/L Calcium 8.8 (8.5-10.1) mg/dl Magnesium 2.2 (1.8-2.4) mg/dl Total Bilirubin 0.3 (0.2-1) mg/dl AST 11 L (15-37) U/L ALT 19 (12-78) U/L Alkaline Phosphatase 153 H (45-117) U/L Troponin I < 0.015 (0-0.045) ng/ml NT-Pro-B Natriuret Pep > 80807 H (0-900) pg/ml Total Protein 7.3 (6.4-8.2) gm/dl Albumin 3.0 L (3.4-5.0) gm/dl Globulin 4.3 H (2.5-4.0) gm/dl Albumin/Globulin Ratio 0.7 L (0.9-2) Procalcitonin 0.15 (0-0.5) ng/ml TSH 1.880 (0.300-4.500) uIu/ml COVID-19 Eval Order SARS-CoV-2 (PCR) (Negative) 11/02/20 11/02/20 11/02/20 Range/Units 04:20 04:20 04:20 WBC (4.8-10.8) K/uL RBC (4.7-6.1) M/uL Hgb (14.0-18.0) g/dL Hct (42-52) % MCV (80-100) fL MCH (25-34) pg MCHC (32-36) g/dL RDW Std Deviation (36.4-46.3) fL RDW Coeff of Lyla (11.5-14.5) % Plt Count (130-400) K/uL MPV (7.4-10.4) fL Immature Gran % (Auto) % Neut % (Auto) % Lymph % (Auto) % [place] % (Auto) % Eos % (Auto) % Baso % (Auto) % Neut # (Auto) (1.4-6.5) K/uL Lymph # (Auto) (1.2-3.4) K/uL [place] # (Auto) (0.11-0.59) K/uL Eos # (Auto) (0-0.5) K/uL Baso # (Auto) (0-0.2) K/uL Immature Gran # (Auto) (0.00-0.02) K/uL APTT 30.5 (21.0-31.0) Seconds PTT Ratio 1.2 ABG pH (7.35-7.45) ABG pCO2 (35-46) mmHg ABG pO2 (80-95) mmHg ABG HCO3 (19-24) mmol/L ABG O2 Saturation (90-95) % ABG Base Excess (-9-1.8) mEq/L Steven Test (Pos) Barometric Pressure mm/Hg Oxygen Given Sodium (136-145) mmol/L Potassium (3.5-5.1) mmol/L Chloride (98-107) mmol/L Carbon Dioxide (21-32) mmol/L Anion Gap (3-11) BUN (7-18) mg/dl Creatinine (0.6-1.4) mg/dl Est Cr Clr Drug Dosing ml/min Est GFR ( Amer) ml/min Est GFR (Non-Af Amer) ml/min BUN/Creatinine Ratio (10-20) Glucose (70-99) mg/dl Estimat Average Glucose 154 mg/dl Hemoglobin A1c 7.0 H (4.5-5.6) % Lactate (0.4-2.0) mmol/L Calcium (8.5-10.1) mg/dl Magnesium (1.8-2.4) mg/dl Total Bilirubin (0.2-1) mg/dl AST (15-37) U/L ALT (12-78) U/L Alkaline Phosphatase (45-117) U/L Troponin I (0-0.045) ng/ml NT-Pro-B Natriuret Pep (0-900) pg/ml Total Protein (6.4-8.2) gm/dl Albumin (3.4-5.0) gm/dl Globulin (2.5-4.0) gm/dl Albumin/Globulin Ratio (0.9-2) Procalcitonin (0-0.5) ng/ml TSH Cancelled (0.300-4.500) uIu/ml COVID-19 Eval Order SARS-CoV-2 (PCR) (Negative) 11/02/20 11/02/20 11/02/20 Range/Units 05:20 05:20 05:20 WBC (4.8-10.8) K/uL RBC (4.7-6.1) M/uL Hgb (14.0-18.0) g/dL Hct (42-52) % MCV (80-100) fL MCH (25-34) pg MCHC (32-36) g/dL RDW Std Deviation (36.4-46.3) fL RDW Coeff of Lyla (11.5-14.5) % Plt Count (130-400) K/uL MPV (7.4-10.4) fL Immature Gran % (Auto) % Neut % (Auto) % Lymph % (Auto) % [place] % (Auto) % Eos % (Auto) % Baso % (Auto) % Neut # (Auto) (1.4-6.5) K/uL Lymph # (Auto) (1.2-3.4) K/uL [place] # (Auto) (0.11-0.59) K/uL Eos # (Auto) (0-0.5) K/uL Baso # (Auto) (0-0.2) K/uL Immature Gran # (Auto) (0.00-0.02) K/uL APTT (21.0-31.0) Seconds PTT Ratio ABG pH 7.42 (7.35-7.45) ABG pCO2 37 (35-46) mmHg ABG pO2 170 H (80-95) mmHg ABG HCO3 24 (19-24) mmol/L ABG O2 Saturation 99.1 H (90-95) % ABG Base Excess -0.7 (-9-1.8) mEq/L Steven Test Pos (Pos) Barometric Pressure 733.5 mm/Hg Oxygen Given 10L Sodium (136-145) mmol/L Potassium (3.5-5.1) mmol/L Chloride (98-107) mmol/L Carbon Dioxide (21-32) mmol/L Anion Gap (3-11) BUN (7-18) mg/dl Creatinine (0.6-1.4) mg/dl Est Cr Clr Drug Dosing ml/min Est GFR ( Amer) ml/min Est GFR (Non-Af Amer) ml/min BUN/Creatinine Ratio (10-20) Glucose (70-99) mg/dl Estimat Average Glucose mg/dl Hemoglobin A1c (4.5-5.6) % Lactate (0.4-2.0) mmol/L Calcium (8.5-10.1) mg/dl Magnesium (1.8-2.4) mg/dl Total Bilirubin (0.2-1) mg/dl AST (15-37) U/L ALT (12-78) U/L Alkaline Phosphatase (45-117) U/L Troponin I (0-0.045) ng/ml NT-Pro-B Natriuret Pep (0-900) pg/ml Total Protein (6.4-8.2) gm/dl Albumin (3.4-5.0) gm/dl Globulin (2.5-4.0) gm/dl Albumin/Globulin Ratio (0.9-2) Procalcitonin (0-0.5) ng/ml TSH (0.300-4.500) uIu/ml COVID-19 Eval Order Covid19 at [facility] SARS-CoV-2 (PCR) NEGATIVE (Negative) 11/02/20 Range/Units 05:35 WBC (4.8-10.8) K/uL RBC (4.7-6.1) M/uL Hgb (14.0-18.0) g/dL Hct (42-52) % MCV (80-100) fL MCH (25-34) pg MCHC (32-36) g/dL RDW Std Deviation (36.4-46.3) fL RDW Coeff of Lyla (11.5-14.5) % Plt Count (130-400) K/uL MPV (7.4-10.4) fL Immature Gran % (Auto) % Neut % (Auto) % Lymph % (Auto) % [place] % (Auto) % Eos % (Auto) % Baso % (Auto) % Neut # (Auto) (1.4-6.5) K/uL Lymph # (Auto) (1.2-3.4) K/uL [place] # (Auto) (0.11-0.59) K/uL Eos # (Auto) (0-0.5) K/uL Baso # (Auto) (0-0.2) K/uL Immature Gran # (Auto) (0.00-0.02) K/uL APTT (21.0-31.0) Seconds PTT Ratio ABG pH (7.35-7.45) ABG pCO2 (35-46) mmHg ABG pO2 (80-95) mmHg ABG HCO3 (19-24) mmol/L ABG O2 Saturation (90-95) % ABG Base Excess (-9-1.8) mEq/L Steven Test (Pos) Barometric Pressure mm/Hg Oxygen Given Sodium (136-145) mmol/L Potassium (3.5-5.1) mmol/L Chloride (98-107) mmol/L Carbon Dioxide (21-32) mmol/L Anion Gap (3-11) BUN (7-18) mg/dl Creatinine (0.6-1.4) mg/dl Est Cr Clr Drug Dosing ml/min Est GFR ( Amer) ml/min Est GFR (Non-Af Amer) ml/min BUN/Creatinine Ratio (10-20) Glucose (70-99) mg/dl Estimat Average Glucose mg/dl Hemoglobin A1c (4.5-5.6) % Lactate 1.1 (0.4-2.0) mmol/L Calcium (8.5-10.1) mg/dl Magnesium (1.8-2.4) mg/dl Total Bilirubin (0.2-1) mg/dl AST (15-37) U/L ALT (12-78) U/L Alkaline Phosphatase (45-117) U/L Troponin I (0-0.045) ng/ml NT-Pro-B Natriuret Pep (0-900) pg/ml Total Protein (6.4-8.2) gm/dl Albumin (3.4-5.0) gm/dl Globulin (2.5-4.0) gm/dl Albumin/Globulin Ratio (0.9-2) Procalcitonin (0-0.5) ng/ml TSH (0.300-4.500) uIu/ml COVID-19 Eval Order SARS-CoV-2 (PCR) (Negative) Imaging Data Radiologist's Impression: Chest X-Ray 11/02/20 04:56 XR chest 1V portable HISTORY: 65 years-old Male SOB, dialysis patient acute shortness of breath. COMPARISON: Chest radiograph and chest CT 10/27/2020 TECHNIQUE: Portable AP view of the chest FINDINGS: Cardiac silhouette is enlarged. Prior median sternotomy. Left IJ dual lumen hemodialysis catheter is redemonstrated with distal tip in the expected location of the upper SVC. Emphysema. Pulmonary vascular congestion with interstitial coarsening. No pneumothorax. Trace pleural effusions redemonstrated. Mild bibasilar densities suggestive of atelectasis redemonstrated. No acute fracture. IMPRESSION: 1. Cardiomegaly with stable to slightly worsened pulmonary edema. 2. Trace pleural effusions. 3. Emphysema. ACT 112: Negative or not required by law. The above report was generated using voice recognition software. It may contain grammatical, syntax or spelling errors. Electronically signed by: Sherman Brown M.D. 11/02/2020 7:36 AM MDM Narrative Physical exam and history were performed. Nursing notes, EMR, and Medication List were personally reviewed. Patient appears to have shortness of breath symptoms bringing him to the emergency department. The patient did miss dialysis this week and seems fluid overloaded on exam. IV access was established and labs were obtained. Lactic and blood cultures were gathered. ABG was performed. The patient blood work is as above and was reviewed. The patient has an elevated white blood cell count of 17,000. He is anemic at 9.7. PO2 is 170. Potassium is normal at 3.8. Creatinine is 8.02. Lactic acid is negative. Transaminases are not diagnostic. Troponin x1 is negative. BNP is greater than 35,000. X-ray was reviewed by myself and radiology concerning for fluid overload. COVID-19 test is negative. EKG is without acute ST elevation. Overall the patient does not appear well for discharge home. I did discuss the case with the on-call [facility] milk route deliverer as well as the on-call [facility] hospitalist. The hospitalist team will evaluate the patient here in the emergency department. Please see their dictation for further patient course, plan, and disposition. The chart was completed utilizing [employer] Voice Recognition Software. Grammatical errors, random word insertions, pronoun errors, and incomplete sentences are an occasional consequence of this system due to software limitations, ambient noise, and hardware issues. Any formal questions or concerns about the content, text, or information contained within the body of this dictation should be directly addressed to the provider for clarification. . Impression & Plan Acute hypoxemic respiratory failure, ESRD (end stage renal disease) on dialysis Discharge Plan Visit Data Chief Complaint: Shortness of Breath/Dyspnea Stated Complaint: SHORT OF BREATH/MISSED DIALYSIS X2DAYS ED Provider: Cristina Trevino ED Midlevel Provider: Justin Hong Discharge Problem: Acute hypoxemic respiratory failure, ESRD (end stage renal disease) on dialysis Patient Disposition: Admitted As Inpatient Discharge Instructions Interventions: ED Discharge Assessment Last Done: 11/02/20 09:34
[2020-11-03] MEDS: HEPARIN SOD 5,000 UNIT/0.5 ML VIAL SQ SCH ×3 (05:55→22:22)
--- NOTE | 2020-11-03 07:05 | Electrocardiogram Report ---
Test Reason : Blood Pressure : / mmHG Vent. Rate : 072 BPM Atrial Rate : 072 BPM P-R Int : 164 ms QRS Dur : 116 ms QT Int : 478 ms P-R-T Axes : 015 034 088 degrees QTc Int : 523 ms Normal sinus rhythm Nonspecific T wave abnormality Prolonged QT Abnormal ECG No previous ECGs available Confirmed by Nikita Fernandez ([id number]) on 11/03/2020 7:05:07 AM Referred By: REFERRED SELF Confirmed By:Nikita Fernandez
[2020-11-03] MEDS: NEPHROCAPS PO SCH (07:55)
[2020-11-03] MEDS: CALCIUM ACETATE 667 MG CAP/TAB PO SCH ×3 (07:55→16:24)
[2020-11-03] MEDS: guaiFENesin 600 MG TABCR PO SCH ×2 (07:55→20:36)
[2020-11-03] MEDS: PANTOprazole 40 MG TAB PO SCH ×2 (07:56→20:35)
[2020-11-03] MEDS: INSULIN GLARGINE SOLOSTAR 100 UNITS/ML 3 ML PEN SC SCH (07:57)
[2020-11-03] MEDS: INSULIN ASPART 100 UNITS/ML 3 ML PEN SC SCH ×4 (07:57→20:37)
[2020-11-03 08:00] LABS: Basophils # (auto) 0.03 K/uL (0-0.2); Basophils % (auto) 0.2 %; Eosinophils # (auto) 0.25 K/uL (0-0.5); Eosinophils % (auto) 1.6 %; Hematocrit (blood only) 28.6 % (42-52); Immature Granulocytes # (auto) 0.07 K/uL (0.00-0.02); Immature Granulocytes % (auto) 0.4 %; Lymphocytes # (auto) 2.39 K/uL (1.2-3.4); Lymphocytes % (auto) 15.3 %; Mean Corpuscular Hemoglobin 28.9 pg (25-34); Mean Corpuscular Hgb Conc 31.5 g/dL (32-36); Mean Platelet Volume 9.9 fL (7.4-10.4); Monocytes # (auto) 1.45 K/uL (0.11-0.59); Monocytes % (auto) 9.3 %; Neutrophils # (auto) 11.47 K/uL (1.4-6.5); Neutrophils % (auto) 73.2 %; Platelet Count 512 K/uL (130-400); RDW Coefficient of Variation 16.1 % (11.5-14.5); RDW Standard Deviation 53.5 fL (36.4-46.3); Red Blood Count 3.11 M/uL (4.7-6.1); White Blood Count 15.66 K/uL (4.8-10.8)
[2020-11-03] MEDS ORDERED: hydrALAZINE 10 MG TAB PO PRN (08:01)
[2020-11-03] MEDS ORDERED: amLODIPine BESYLATE 5 MG TAB PO ONE (08:05)
[2020-11-03 08:38] LABS: BUN Creatinine Ratio 5.9 (10-20); Calcium 8.6 mg/dl (8.5-10.1); Creatinine Clr Calc Pharmacy 9.8 ml/min; Est GFR (African American) 8.2 ml/min; Est GFR (Non-African American) 7.1 ml/min; Potassium 3.4 mmol/L (3.5-5.1)
--- NOTE | 2020-11-03 09:02 | Nephrology Progress Note ---
Date of Service November 03, 2020 Assessment & Plan (1) ESRD (end stage renal disease) on dialysis: Plan: ESRD -patient is home hemopatient, on Wednesday treatment. He has been having problems with his access, being positional and complains of not having a decent hemodialysis over the last 2 weeks. Last dialysis yesterday with 3 L UF, no problems encountered Access flow. -Patient's passed the message to the nursing staff, regarding problems with axis at home. I I will make Dr. Rachel aware. Allright to be discharged from nephrology. (2) Hypertensive urgency: Plan: Recently on on metoprolol 50 mg twice daily. Lisinopril 20, and amlodipine to 10 mg, blood pressure still generous. -Would add hydralazine 50 mg 3 times daily today. This can be reviewed by Dr. Rachel when reviewed in the dialysis clinic. Admission and Anticipated Discharge Date Admission Date: November 02, 2020 Subjective Sleeping comfortably, no shortness of breath. Feels back to baseline. Review of Systems Review of Systems: Not in respiratory distress, no pedal edema Physical Exam Physical Exam: Gen- AAO x 3, NAD, perm cath in place, in respiratory distress HEENT- NCAT, EOMI, PERRL, Anicteric Sclera, No Posterior Pharyngeal Erythema Neck- Supple, No JVD Lungs-bilateral crepitations. Chest- No S4, +S1, +S2, No S3, No Murmurs Abdomen- Soft, + Bowel Sounds, Non Tender, Non Distended Musculoskeletal- Full Range of Motion Bilaterally, No CVAT Extremities- No Edema, moves extremities spontaneously Neuro-alert, oriented Results & Data (MN) Vital Signs (Past 12 Hours) Vital Signs Temp Pulse Pulse Pulse Resp BP Pulse Ox 11/03/20 06:24 185/66 H 11/03/20 04:42 170/58 H 11/03/20 03:30 36.9 C 68 18 165/65 H 94 11/02/20 23:00 36.5 C 61 71 20 135/59 L 97 Laboratory Results 11/03/20 07:13 11/03/20 07:13
[2020-11-03] MEDS: METOPROLOL SUCC 50MG EXT REL TAB PO SCH ×2 (09:03→20:34)
[2020-11-03] MEDS ORDERED: POTASSIUM CHLORIDE CRTAB 20 MEQ TABCR PO ONE (09:25)
--- NOTE | 2020-11-03 14:56 | Hospitalist Progress Note ---
Date of Service November 03, 2020 Assessment & Plan (1) Acute hypoxemic respiratory failure: Plan: Acute respiratory failure with hypoxia Volume overload ESD on HD Secondary to Problems with Catheter -CXR:Cardiomegaly with stable to slightly worsened pulmonary edema.Trace pleural effusions. Emphysema. -Continue dialysis as per cardiology Consulted vascular surgery to help with dialysis catheter Saturating well on room air Hypertensive urgency Likely secondary to volume overload Continue lisinopril 20 mg daily Metoprolol succinate increased to 50 mg twice daily Started on amlodipine 10 mg daily Added hydralazine 50 mg 3 times daily Monitor Chronic Leukocytosis Chronic as per patient unaware of etiology No clear source of infection Consider antibiotics if patient tolerates fever Blood cultures negative to date Hypokalemia Replace electrolytes as needed Monitor CAD S/P CABG PVD Continue aspirin, statin Hyperlipidemia on atorvastatin DM II Last HbA1c of 6.15 July 2020 Continue insulin therapy Monitor BGs Chronic anemia Past tobacco abuse Hb stable DVT Px: Heparin SQ Code Status Full code Admission and Anticipated Discharge Date Admission Date: November 02, 2020 Subjective Patient is seen and examined at bedside Cough much improved Denies any dyspnea, dizziness, nausea, abdominal pain Eager to get discharged Updated patient's over the phone Discussed with nephrology today Blood pressure remains elevated Review of Systems Review of Systems: All systems reviewed & are unremarkable except as noted in Subjective Physical Exam Physical Exam: Physical Exam: Vitals signs as noted above General Appearance:Moderately built and nourished, no apparent distress Head: normocephalic, Atraumatic Eyes: normal inspection, EOMI Neck: supple, Trachea midline Respiratory/Chest: Normal breath sounds, CTA, No accessory muscle use Cardiovascular: S1, S2, +murmur Abdomen/GI:Soft, Non tender, Bowel sounds present Extremities/Musculoskeletal:normal inspection, no edema Neurologic/Psych:AAOX3, grossly no focal neurological deficits Skin: normal color, warm Results & Data Results & Data ([facility]) Vital Signs (Past 12 Hours) Vital Signs Temp Pulse Pulse Pulse Resp BP Pulse Ox 11/03/20 12:42 198/70 H 11/03/20 12:08 36.7 C 68 19 214/76 H 95 11/03/20 09:00 64 11/03/20 08:00 36.8 C 86 18 165/65 H 96 11/03/20 06:24 185/66 H 11/03/20 04:42 170/58 H 11/03/20 03:30 36.9 C 68 18 165/65 H 94 Laboratory Results Short CBC 11/03/20 Range/Units 07:13 WBC 15.66 H (4.8-10.8) K/uL Hgb 9.0 L (14.0-18.0) g/dL Hct 28.6 L (42-52) % Plt Count 512 H (130-400) K/uL BMP 11/03/20 07:13 Sodium 140 Potassium 3.4 L Chloride 107 Carbon Dioxide 24 BUN 44 H Creatinine 7.36 H* D Glucose 99 Calcium 8.6
[2020-11-03] MEDS: rOPINIRole HCL 0.25 MG TABLET PO SCH (20:34)
[2020-11-03] MEDS: ASPIRIN 81 MG ECTAB PO SCH (20:35)
[2020-11-03] MEDS: ATORVASTATIN 40 MG TAB PO SCH (20:36)
[2020-11-03] MEDS: lisinopril 20 MG TAB PO SCH (20:50)
[2020-11-03] MEDS ORDERED: hydrALAZINE 10 MG TAB PO SCH (21:00)
[2020-11-03] MEDS ORDERED: METOPROLOL SUCC 50MG EXT REL TAB PO SCH (21:00)
[2020-11-03] MEDS ORDERED: hydrALAZINE HCL 25 MG TAB PO STA (23:38)
[2020-11-04] MEDS: HEPARIN SOD 5,000 UNIT/0.5 ML VIAL SQ SCH ×3 (05:20→21:49)
[2020-11-04] MEDS ORDERED: LABETALOL HCL 100 MG TAB PO ONE (05:24)
--- NOTE | 2020-11-04 05:26 | Communication Note ---
Date of Service: November 04, 2020 Made aware by RN of uncontrolled blood pressure at 515 AM. 195/69 CR 60s Patient asymptomatic. SBP 160-210 the last 24 hours. AP Hypertensive urgency (Patient currently on Toprol-XL, hydralazine, lisinopril, and amlodipine) Change Toprol-XL to labetalol. Will relay to AM provider.
[2020-11-04 07:20] LABS: Hematocrit (blood only) 30.5 % (42-52); Hemoglobin 9.7 g/dL (14.0-18.0); Mean Corpuscular Hemoglobin 29.5 pg (25-34); Mean Corpuscular Hgb Conc 31.8 g/dL (32-36); Mean Corpuscular Volume 92.7 fL (80-100); Mean Platelet Volume 10.2 fL (7.4-10.4); Platelet Count 561 K/uL (130-400); RDW Standard Deviation 53.9 fL (36.4-46.3); Red Blood Count 3.29 M/uL (4.7-6.1); White Blood Count 14.75 K/uL (4.8-10.8)
[2020-11-04 07:54] LABS: BUN Creatinine Ratio 7.1 (10-20); Calcium 9.2 mg/dl (8.5-10.1); Est GFR (African American) 6.5 ml/min; Est GFR (Non-African American) 5.6 ml/min; Potassium 4.5 mmol/L (3.5-5.1)
[2020-11-04] MEDS ORDERED: SODIUM CHLORIDE 0.9% 1000ML 1,000 ML IV PRN (08:00)
[2020-11-04] MEDS ORDERED: EPOETIN ALFA 10,000 UNITS/ML VIAL IV ONE (08:00)
[2020-11-04] MEDS ORDERED: HEPARIN SOD (PORCINE) 1000 UNIT/ML IV ONE (08:00)
[2020-11-04] MEDS: INSULIN ASPART 100 UNITS/ML 3 ML PEN SC SCH ×4 (08:41→20:32)
[2020-11-04] MEDS: hydrALAZINE TAB 50 MG TAB PO SCH ×3 (08:43→20:31)
[2020-11-04] MEDS ORDERED: amLODIPine BESYLATE 5 MG TAB PO SCH (09:00)
--- NOTE | 2020-11-04 09:45 | Consultation ---
Date of Consultation November 04, 2020 Assessment & Plan (1) Hemodialysis catheter malfunction: Pt discussed with Dr Rivers, planning on permcath exchange vs permcath removal and replacement in OR tomorrow morning. Pt agreeable. Please call if needed. Encounter type: initial encounter Qualified Code(s): T82.41XA - Breakdown (mechanical) of vascular dialysis catheter, initial encounter History of Present Illness Reason for Consultation: malfunctioning permcath Attending Physician: Sebastian Park MD History of Present Illness 65 yo m with multiple medical problems, including ESRD on HD, HTN, DMII, NE, GERD, hx GI bleed and colon ca, known to Dr Rivers for vascular access for HD, seen in consultation today for eval of malfunctioning permcath. Pt previously had LUE AV graft for HD that unfortunately developed vascular steal syndrome and required DRIL procedure. His AV graft ultimately thrombosed and pt refuses to have further AV fistula creation d/t complications he experienced with his original one. He is permcath dependent for HD and performs this at home with the help of his . Pt states his L IJ permcath has been alarming and not functioning well intermittently for 2-3 weeks, but was not functioning when he came to ED 3 days ago. Pt underwent HD here at [facility] without problems 2 days ago, but this AM the unit is not able to run him properly d/t increased arterial pressures/alarming/positional malfunctioning. Pt denies TORRES, fever, chest pain, SOB, abd pain, N/V, rest pain, claudication, other complaints. Allergies Allergy/AdvReac Type Severity Reaction Status Date / Time oxycodone AdvReac Intermediate Hallucinati Verified 11/02/20 07:30 ons Home Medications Medication Instructions Recorded Confirmed Type atorvastatin 80 mg tablet (Lipitor) 80 mg PO QPM 11/23/17 11/02/20 History glyburide 2.5 mg tablet 2.5 mg PO QAM 11/23/17 11/02/20 History trazodone 50 mg tablet 50 mg PO HS PRN 01/04/18 11/02/20 History aspirin 81 mg tablet,delayed 81 mg PO QPM 03/02/18 11/02/20 History release hydroxyzine HCl 10 mg tablet 25 mg PO QID PRN 03/02/18 11/02/20 History lisinopril 20 mg tablet 20 mg PO QPM 03/08/18 11/02/20 History dicyclomine 10 mg capsule 10 mg PO QID 04/11/19 11/02/20 History pantoprazole 40 mg tablet,delayed 40 mg PO BID 04/11/19 11/02/20 History release ropinirole 0.25 mg tablet 0.25 mg PO HS 04/11/19 11/02/20 History vitamin B complex and vitamin C 1 cap PO QAM 04/11/19 11/02/20 History no.20-folic acid 1 mg capsule (Triphrocaps) calcium acetate 667 mg tablet 2,001 - 2,668 mg PO TIDM 11/14/19 11/02/20 History diclofenac sodium 1 % topical gel 2 g TOPICAL DIRECTED PRN 10/08/20 11/02/20 History metoprolol succinate 50 mg 50 mg PO QPM #30 tab 10/15/20 11/02/20 Rx tablet,extended release 24 hr Patient History Medical History Anemia Anxiety AV fistula LUE Carotid artery stenosis under surveillance by cardiology Chronic systolic CHF (congestive heart failure) Coronary artery disease S/P CABG x4 09/2017 Diabetes mellitus, type 2 NIDDM Dyslipidemia ESRD (end stage renal disease) dialysis M/W/F, [facility] ([place]) GERD (gastroesophageal reflux disease) controlled GI bleed 11/2017 2/2 gastric ulcer s/p cauterization/clipping History of blood transfusion 11/2017/2 gastric ulcer s/p cauterization/clipping Hypertension Ischemic cardiomyopathy Myocardial Infarction 08/2017 Peripheral arterial disease w/ L>R carotid stenosis and L subclavian artery stenosis and BL common iliac stenosis Restless leg syndrome S/P arteriogram of extremity Surgical History History of cardiac cath 08/2017 @ [facility]--no stents placed History of colonoscopy with polypectomy History of esophagogastroduodenoscopy (EGD) EGD/COLONOSCOPY= 01/13/18= MAC SEDATION AT [facility] History of removal of Port-a-Cath 05/10/18, REMOVAL OF DIAYLSIS CATH FROM CHEST WALL. History of tonsillectomy History of tooth extraction History of vascular access device CHEST PORT/DIALYSIS ACCESS History of vascular surgery "bypass" put into left arm after fistula placed to establish blood flow--Dr. Rivers Hx of vascular surgery STARCLOSE - RIGHT FEMORAL AREA. Status post coronary artery bypass graft CABG x 4 09/09/2017 @ [facility] [place] Status post creation of arteriovenous fistula left arm 05/2018 Dr. 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 Required: No Beliefs That Will Affect Care: None marital status: Current Living Situation: Spouse Current Living Situation Comment: HOUSE Other Information That Helps Us Care for You: No Feels Safe at Home: Yes Safety Concerns: Feels Safe At This Time Assistive Devices: Glasses Review of Systems 2 Review of Systems: 14 systems reviewed and negative aside from HPI Physical Exam Constitutional: WD/WN, vitals as above healthy appearing, cooperative and comfortable; not in distress ENMT: Ears: no hearing impairment Neck: trachea midline L IJ permcath nontender, no erythema or draiange Respiratory: normal respiratory effort Auscultation: lungs clear to auscultation bilaterally and + diminished lung sounds Cardiovascular: Rate/Rhythm: regular rate and regular rhythm Vessels: posterior tibial pulses present, dorsalis pedis pulses present and radial pulses present; + abnormal peripheral pulses Extremities: normal capillary refill, + edema (mild) and + vascular access device (L IJ) Gastrointestinal (Abdomen): Inspection/Auscultation: normal bowel sounds Percussion/Palpation: abdomen soft; abdomen nontender Musculoskeletal: no cyanosis or clubbing, extremities motor strength 5/5 Skin: no rashes, warm and dry Neurologic: moves all extremities and awake; no focal motor deficits and not confused Psychiatric: A+Ox3, euthymic affect Results & Data ([facility]) Vital Signs (Past 12 Hours) Vital Signs Temp Pulse Pulse Resp BP Pulse Ox 11/04/20 07:44 61 11/04/20 07:40 36.9 C 66 18 177/61 H 97 11/04/20 06:31 65 186/62 H 11/04/20 05:33 62 195/69 H 11/04/20 02:00 36.7 C 62 18 94 11/04/20 01:59 61 171/85 H 11/03/20 23:17 37.0 C 67 16 183/61 H 98 11/03/20 23:00 74
[2020-11-04] MEDS: CALCIUM ACETATE 667 MG CAP/TAB PO SCH ×3 (09:51→16:34)
[2020-11-04] MEDS: guaiFENesin 600 MG TABCR PO SCH ×2 (09:51→20:29)
[2020-11-04] MEDS: PANTOprazole 40 MG TAB PO SCH ×2 (09:52→20:29)
[2020-11-04] MEDS: NEPHROCAPS PO SCH (09:53)
[2020-11-04] MEDS: INSULIN GLARGINE SOLOSTAR 100 UNITS/ML 3 ML PEN SC SCH (09:53)
[2020-11-04] MEDS: HEPARIN SOD (PORCINE) 1000 UNIT/ML IV SCH ×2 (09:55→11:24)
--- NOTE | 2020-11-04 15:04 | Hospitalist Progress Note ---
Date of Service November 04, 2020 Assessment & Plan (1) Acute hypoxemic respiratory failure: Plan: Acute respiratory failure with hypoxia Volume overload ESRD on HD Secondary to dialysis catheter malfunction -CXR:Cardiomegaly with stable to slightly worsened pulmonary edema.Trace pleural effusions. Emphysema. Appreciate vascular surgery Input Saturating well on room air Plan for permanent catheter exchange versus removal and replacement tomorrow N.p.o. after midnight Volume status to be managed through dialysis as able Hypertensive urgency Likely secondary to volume overload Continue lisinopril 20 mg daily Metoprolol changed to labetelol Continue amlodipine 10 mg daily, hydralazine 50 mg 3 times daily Monitor Chronic Leukocytosis Chronic as per patient unaware of etiology No clear source of infection Consider antibiotics if patient develops fever Blood culture:s negative to date Hypokalemia Replace electrolytes as needed Monitor CAD S/P CABG PVD Continue aspirin, statin Hyperlipidemia on atorvastatin DM II Last HbA1c of 6.15 July 2020 Continue insulin therapy Monitor BGs Chronic anemia Past tobacco abuse Hb stable DVT Px: Heparin SQ Code Status Full code Admission and Anticipated Discharge Date Admission Date: November 02, 2020 Subjective Patient is seen and examined at bedside Patient unable to get dialyzed today due to hemodialysis catheter malfunction States feeling well today No complaints Blood pressure better today Denies any dyspnea, dizziness, nausea, abdominal pain Review of Systems Review of Systems: All systems reviewed & are unremarkable except as noted in Subjective Physical Exam Physical Exam: Physical Exam: Vitals signs as noted above General Appearance:Moderately built and nourished, no apparent distress Head: normocephalic, Atraumatic Eyes: normal inspection, EOMI Neck: supple, Trachea midline Respiratory/Chest: Normal breath sounds, CTA, No accessory muscle use Cardiovascular: S1, S2, +murmur Abdomen/GI:Soft, Non tender, Bowel sounds present Extremities/Musculoskeletal:normal inspection, no edema Neurologic/Psych:AAOX3, grossly no focal neurological deficits Skin: normal color, warm Results & Data Results & Data ([facility]) Vital Signs (Past 12 Hours) Vital Signs Temp Pulse Pulse Pulse Pulse Resp BP 11/04/20 11:40 36.7 C 67 19 11/04/20 09:35 36.7 C 75 65 11/04/20 09:06 61 172/65 H 11/04/20 08:55 36.7 C 65 11/04/20 07:44 61 11/04/20 07:40 36.9 C 66 18 11/04/20 06:31 65 11/04/20 05:33 62 BP Pulse Ox 11/04/20 11:40 160/63 H 98 11/04/20 09:35 162/65 H 11/04/20 09:06 11/04/20 08:55 11/04/20 07:44 11/04/20 07:40 177/61 H 97 11/04/20 06:31 186/62 H 11/04/20 05:33 195/69 H Laboratory Results Short CBC 11/04/20 Range/Units 06:13 WBC 14.75 H (4.8-10.8) K/uL Hgb 9.7 L (14.0-18.0) g/dL Hct 30.5 L (42-52) % Plt Count 561 H (130-400) K/uL BMP 11/04/20 06:13 Sodium 138 Potassium 4.5 D Chloride 105 Carbon Dioxide 24 BUN 64 H Creatinine 8.99 H* D Glucose 126 H Calcium 9.2
--- NOTE | 2020-11-04 16:03 | Nephrology Progress Note ---
Date of Service November 04, 2020 Assessment & Plan (1) ESRD (end stage renal disease) on dialysis: Plan: ESRD -patient is home hemopatient, on Wednesday treatment. He has been having problems with his access, being positional and complains of not having a decent hemodialysis over the last 2 weeks. Last dialysis yesterday with 3 L UF but ran at only 250 pump speed -TDC exch tomorrow w/ HD afterward (2) Hypertensive urgency: Plan: Recently on Lisinopril 20, and amlodipine to 10 mg, blood pressure still generous. metoprolol had been lowered d/t bradycardia prior to admission/during last admission. then he moved to labetalol this am d/t concerns about ongoing htn -just added hydralazine 50 mg 3 times daily this weekend; cont same or increase if bp worsens (sbp 150-160s on dayligth today) -cont current meds and dialysis. Admission and Anticipated Discharge Date Admission Date: November 02, 2020 Subjective attempted to run dialysis today but had to run reversed and change positions constantly, had to de-reverse it > could not run w/o alarming every few minutes; tx stopped and for TDC exch tomorrow; concerns about uncontrolled HTN this am, no sx; and started on labetalol Review of Systems Review of Systems: All systems reviewed & are unremarkable except as noted in Subjective Physical Exam Constitutional: well developed and well nourished slight facial edema Eyes: EOM intact bilaterally ENMT: Ears: no external ear abnormality Nose: no external nose abnormality Mouth: + dry oral mucous membranes Neck: no nuchal rigidity Respiratory: normal respiratory effort Auscultation: + diminished lung sounds Cardiovascular: Rate/Rhythm: regular rate and regular rhythm Extremities: no edema Gastrointestinal (Abdomen): Inspection/Auscultation: normal bowel sounds Percussion/Palpation: abdomen soft; abdomen nontender Musculoskeletal: Extremities: strength 5/5 throughout Skin: no rashes, warm and dry Neurologic: portillo, fluent speech, no tremor Results & Data ([facility]) Vital Signs (Past 12 Hours) Vital Signs Temp Pulse Pulse Pulse Pulse Resp BP 11/04/20 15:49 36.9 C 67 18 11/04/20 11:40 36.7 C 67 19 11/04/20 09:35 36.7 C 75 65 11/04/20 09:06 61 172/65 H 11/04/20 08:55 36.7 C 65 11/04/20 07:44 61 11/04/20 07:40 36.9 C 66 18 11/04/20 06:31 65 11/04/20 05:33 62 BP Pulse Ox 11/04/20 15:49 159/66 H 98 11/04/20 11:40 160/63 H 98 11/04/20 09:35 162/65 H 11/04/20 09:06 11/04/20 08:55 11/04/20 07:44 11/04/20 07:40 177/61 H 97 11/04/20 06:31 186/62 H 11/04/20 05:33 195/69 H Laboratory Results 11/04/20 06:13 11/04/20 06:13
[2020-11-04] MEDS: lisinopril 20 MG TAB PO SCH (20:29)
[2020-11-04] MEDS: ASPIRIN 81 MG ECTAB PO SCH (20:30)
[2020-11-04] MEDS: ATORVASTATIN 40 MG TAB PO SCH (20:30)
[2020-11-04] MEDS: rOPINIRole HCL 0.25 MG TABLET PO SCH (20:31)
[2020-11-04] MEDS ORDERED: LABETALOL HCL 100 MG TAB PO SCH (21:00)
[2020-11-05] MEDS ORDERED: hydrALAZINE TAB 50 MG TAB PO ONE (01:45)
[2020-11-05] MEDS: hydrALAZINE TAB 50 MG TAB PO SCH ×3 (05:58→19:44)
[2020-11-05] MEDS: amLODIPine BESYLATE 5 MG TAB PO SCH (05:58)
[2020-11-05] MEDS: LABETALOL HCL 100 MG TAB PO SCH ×2 (05:58→19:45)
[2020-11-05 06:14] LABS: Hematocrit (blood only) 25.7 % (42-52); Hemoglobin 8.4 g/dL (14.0-18.0); Mean Corpuscular Hemoglobin 29.3 pg (25-34); Mean Corpuscular Hgb Conc 32.7 g/dL (32-36); Mean Corpuscular Volume 89.5 fL (80-100); Mean Platelet Volume 9.7 fL (7.4-10.4); Platelet Count 415 K/uL (130-400); RDW Coefficient of Variation 15.9 % (11.5-14.5); RDW Standard Deviation 51.3 fL (36.4-46.3); Red Blood Count 2.87 M/uL (4.7-6.1); White Blood Count 12.37 K/uL (4.8-10.8)
[2020-11-05 06:58] LABS: BUN Creatinine Ratio 7.4 (10-20); Calcium 8.6 mg/dl (8.5-10.1); Est GFR (African American) 5.5 ml/min; Est GFR (Non-African American) 4.7 ml/min; Potassium 4.6 mmol/L (3.5-5.1)
--- NOTE | 2020-11-05 07:46 | History & Physical Bridge Note ---
Date of Service November 05, 2020 History & Physical Bridge Note Patient for permcath exchange today. I have discussed the risks options and benefits of the procedure with the patient. The patient understands the risks options and benefits and agrees to the procedure. I have examined the patient, reviewed the History & Physical and in the interval since the performance of the History & Physical I have noted the following changes of clinical significance: no changes noted
[2020-11-05] MEDS: INSULIN ASPART 100 UNITS/ML 3 ML PEN SC SCH ×4 (07:53→20:24)
[2020-11-05] MEDS: CALCIUM ACETATE 667 MG CAP/TAB PO SCH ×3 (07:55→17:51)
[2020-11-05] MEDS: NEPHROCAPS PO SCH (07:56)
[2020-11-05] MEDS: INSULIN GLARGINE SOLOSTAR 100 UNITS/ML 3 ML PEN SC SCH (07:56)
[2020-11-05] MEDS: PANTOprazole 40 MG TAB PO SCH ×2 (07:56→19:48)
[2020-11-05] MEDS: guaiFENesin 600 MG TABCR PO SCH ×2 (07:56→19:46)
[2020-11-05] MEDS ORDERED: ceFAZolin 1000MG 1,000 MG/7.5 ML SYR IV ONE (08:00)
[2020-11-05] MEDS ORDERED: LIDOCAINE 1% LOCAL 20 ML VIAL ONE (08:44)
[2020-11-05] MEDS ORDERED: fentaNYL citrate 100 MCG/2 ML VIAL ONE (08:44)
[2020-11-05] MEDS ORDERED: HEPARIN SOD (PORCINE) 5,000 UNITS/ML VIAL ONE (08:44)
[2020-11-05] MEDS ORDERED: MIDAZOLAM HCL 1 MG/ML 2ML VIAL ONE ×2 (08:45→09:21)
--- NOTE | 2020-11-05 09:24 | Pre Anesthesia Assessment ---
Date of Service November 05, 2020 Pre Sedation Assessment Vital Signs Temp Pulse Pulse Pulse Pulse Resp BP 11/05/20 09:08 36.8 C 66 20 159/52 H 11/05/20 07:00 36.8 C 80 16 90/59 L 11/05/20 05:57 72 167/72 H 11/05/20 05:53 170/58 H 11/05/20 04:52 36.6 C 67 16 165/56 H 11/05/20 01:49 169/54 H 11/05/20 01:36 64 11/05/20 01:32 177/63 H 11/04/20 23:30 67 11/04/20 23:07 36.5 C 65 17 147/54 H 11/04/20 21:30 165/80 H 11/04/20 20:28 64 190/67 H 11/04/20 19:27 37 C 71 20 174/85 H 11/04/20 15:49 36.9 C 67 18 159/66 H 11/04/20 11:40 36.7 C 67 19 160/63 H 11/04/20 09:35 36.7 C 75 65 162/65 H Pulse Ox 11/05/20 09:08 95 11/05/20 07:00 99 11/05/20 05:57 11/05/20 05:53 11/05/20 04:52 96 11/05/20 01:49 11/05/20 01:36 11/05/20 01:32 11/04/20 23:30 11/04/20 23:07 95 11/04/20 21:30 11/04/20 20:28 11/04/20 19:27 97 11/04/20 15:49 98 11/04/20 11:40 98 11/04/20 09:35 Cardiovascular RRR, no murmur, no edema Respiratory normal respiratory effort, lungs clear to auscultation Pre-Sedation Airway Assessment Smoking Status: Current every day smoker Hx Sleep Apnea: No Short, Thick Neck: No Thyromental Distance: > or= 3.5 Finger Breadths Oral Cavity: + WNL Mallampati Class: III ASA: ASA3 NPO Status Date of Last Intake of Fluids: 11/04/20 Time of Last Intake of Fluids: 18:00 Date of Last Intake of Solid Food: 11/04/20 Time of Last Intake of Solid Foods: 12:00 Procedure Planning Contraindications for Sedation: none Current Medications Reviewed: Yes Notes The planned sedation has been discussed with the patient. Informed Consent was obtained. I have identified the patient, determined the appropriateness of sedation and have assessed the patient immediately prior to the procedure. All medicine(s) and interventions are by my order.
[2020-11-05] MEDS ORDERED: OPTIRAY 300 IV PRN (09:43)
--- NOTE | 2020-11-05 10:08 | Nephrology Progress Note ---
Date of Service November 05, 2020 Assessment & Plan (1) ESRD (end stage renal disease) on dialysis: Plan: ESRD -patient is home hemopatient, on Wednesday treatment. He has been having problems with his access, being positional and with slow pump speed, minimal fluid removal over the 2 weeks prior to admission. Last dialysis Wednesday in house with 3 L UF but ran at only 250 pump speed; attempted HD on 11/04 but too positional, pump speeds too low -TDC exch today w/ HD afterward > orders in From a renal standpoint if TDC runs well, he can be d/c home after tx. I did alert him however that since this is his 3rd cathether in only a few months, we hope there will be no ongoing malfunction but need to be prepared for it. (2) Hypertensive urgency: Plan: Recently on Lisinopril 20, and amlodipine to 10 mg, blood pressure still generous w/ past 24 hrs mostly 150-160s systolic. metoprolol had been lowered d/t bradycardia prior to admission/during last admission. then he moved to labetalol this am d/t concerns about ongoing htn -just added hydralazine 50 mg 3 times daily this ; cont same or increase if bp worsens (sbp 150-160s on daylight today) -cont current meds and dialysis. Admission and Anticipated Discharge Date Admission Date: November 02, 2020 Subjective no overnight events; seen at about 830AM before TDC placement; c/o sinus congestion; no sob, no orthopnea, no chest pain, no TORRES or confusion or visual changes; no edema or abd pain Review of Systems Review of Systems: All systems reviewed & are unremarkable except as noted in Subjective Physical Exam Constitutional: well developed and well nourished; no acute distress Eyes: EOM intact bilaterally ENMT: Ears: no external ear abnormality Nose: no external nose abnormality Mouth: + dry oral mucous membranes Neck: no nuchal rigidity Respiratory: normal respiratory effort Auscultation: + diminished lung sounds Cardiovascular: Rate/Rhythm: regular rate and regular rhythm Extremities: no edema Gastrointestinal (Abdomen): Inspection/Auscultation: normal bowel sounds Percussion/Palpation: abdomen soft; abdomen nontender Musculoskeletal: Extremities: strength 5/5 throughout maneuvers readily for exam Skin: no rashes, warm and dry Psychiatric: Orientation: alert and oriented x 3 Eye Contact: good eye contact Speech: normal rate/rhythm/volume of speech Results & Data ([facility]) Vital Signs (Past 12 Hours) Vital Signs Temp Pulse Pulse Pulse Pulse Resp BP 11/05/20 10:00 74 16 160/61 H 11/05/20 09:55 68 16 162/61 H 11/05/20 09:50 70 16 159/59 H 11/05/20 09:45 67 16 150/54 H 11/05/20 09:40 65 16 160/57 H 11/05/20 09:35 67 16 154/57 H 11/05/20 09:30 64 16 150/58 H 11/05/20 09:25 64 16 157/56 H 11/05/20 09:20 66 18 160/56 H 11/05/20 09:08 36.8 C 66 20 159/52 H 11/05/20 07:00 36.8 C 80 16 90/59 L 11/05/20 05:57 72 167/72 H 11/05/20 05:53 170/58 H 11/05/20 04:52 36.6 C 67 16 165/56 H 11/05/20 01:49 169/54 H 11/05/20 01:36 64 11/05/20 01:32 177/63 H 11/04/20 23:30 67 11/04/20 23:07 36.5 C 65 17 147/54 H Pulse Ox 11/05/20 10:00 100 11/05/20 09:55 100 11/05/20 09:50 100 11/05/20 09:45 100 11/05/20 09:40 100 11/05/20 09:35 100 11/05/20 09:30 100 11/05/20 09:25 100 11/05/20 09:20 100 11/05/20 09:08 95 11/05/20 07:00 99 11/05/20 05:57 11/05/20 05:53 11/05/20 04:52 96 11/05/20 01:49 11/05/20 01:36 11/05/20 01:32 11/04/20 23:30 11/04/20 23:07 95 Laboratory Results 11/05/20 05:42 11/05/20 05:42
--- NOTE | 2020-11-05 10:09 | Operative Report ---
Post Operative Report Pre & Post Diagnosis Operation Date: 11/05/20 08:45 Pre-Op Diagnosis: malfunctioning perm catheter Post-Op Diagnosis: malfunctioning perm catheter I identified the patient and participated in the time-out.: Yes Procedure Operation Date: 11/05/20 08:45 Actual Procedures p removal of left internal judular perm cath, insertion of perm cath right internal jugular approach, ultrasound of right internal jugular vein, fluroscopy for positioning, moderate sedation time [id number] - Weston Rivers MD Surgeon Weston Rivers MD Male Impersonator None Estimated Blood Loss 10 Findings Consistent with Post-Op Diagnosis Specimens None Anesthesia Type RN Sedation Complications none Disposition Accompanied Patient To Recovery: No Disposition: Recovery Room Indications This is a 65-year-old gentleman who has a left internal jugular vein PermCath in place. Is having difficulty running. He had removed the right side due to infection and cannot have another one placed due to hematoma. The hematoma is now resolved in the right chest.We will try to insert one in the right side and remove the 1 from the left if the vein is still patent. I have discussed the risks options and benefits of the procedure with the patient. The patient understands the risks options and benefits and agrees to the procedure. Description of Procedure Patient was taken to the angio suite and placed in the supine position. The right side of the neck and chest wall were prepped and draped in a sterile manner. The patient was identified and a timeout performed. Local anesthesia was then administered to the appropriate areas of the neck and chest wall. Ultrasound was then used to locate the right internal jugular vein. The vein compressed easily, had no filing defects, and was patentBut was fairly small.. The vein was then punctured under direct ultrasound imaging. A guidewire could not be passed centrally under fluoroscopic imaging. We then inserted the 035 Glidewire which appeared to go down the right subclavian vein. We inserted a 5 [place] sheath over the guidewire. Venography performed showed that there was a turn in the internal jugular its origin. This actually may have been a large collateral and that the main internal jugular vein.On the fluoroscopy we were able to pass the 035 wire down through the angled vein into the inferior vena c dayami.The 5 [place] sheath was then removed. A stab wound was then made in the anterior chest wall and a 19 cm permcath was passed from the stab wound on the chest wall to the puncture site on the neck. The puncture site was then dilated till the 14Fr peel away sheath was inserted. The permcath was then inserted through the sheath to a central position in the distal superior vena cava. The peel away sheath was then removed. The catheter was then sutured in place using nylon sutures. The puncture was then closed using a 4-0 Vicryl subcuticular suture. Dermabond was used for a dressing on the puncture site. Both ports aspirated and flushed easily and were then packed with heparin. A sterile dressing was applied to the catheter. The patient was again identified and a timeout performed. The left side of the neck, chest wall and catheter were prepped and draped in a sterile manner. Local anesthesia was then accomplished. Using sharp and blunt dissection, the cuff of the permcath was freed up from the surrounding fibrous tissue. The permcath and cuff were completely removed. Pressure was then applied and adequate hemostasis was obtained. A sterile dressing was then applied. The patient left the operation room in satisfactory condition and tolerated the procedure well. All needle and sponge counts were correct at the end of the procedure. I attest to the content of the Intraoperative Record and any orders documented therein. Any exceptions are noted below.
--- NOTE | 2020-11-05 10:10 | Post Anesthesia Assessment ---
Date of Service November 05, 2020 Post Sedation Assessment Vital Signs Temp Pulse Pulse Pulse Pulse Resp BP 11/05/20 10:05 68 16 172/66 H 11/05/20 10:00 74 16 160/61 H 11/05/20 09:55 68 16 162/61 H 11/05/20 09:50 70 16 159/59 H 11/05/20 09:45 67 16 150/54 H 11/05/20 09:40 65 16 160/57 H 11/05/20 09:35 67 16 154/57 H 11/05/20 09:30 64 16 150/58 H 11/05/20 09:25 64 16 157/56 H 11/05/20 09:20 66 18 160/56 H 11/05/20 09:08 36.8 C 66 20 159/52 H 11/05/20 07:00 36.8 C 80 16 90/59 L 11/05/20 05:57 72 167/72 H 11/05/20 05:53 170/58 H 11/05/20 04:52 36.6 C 67 16 165/56 H 11/05/20 01:49 169/54 H 11/05/20 01:36 64 11/05/20 01:32 177/63 H 11/04/20 23:30 67 11/04/20 23:07 36.5 C 65 17 147/54 H 11/04/20 21:30 165/80 H 11/04/20 20:28 64 190/67 H 11/04/20 19:27 37 C 71 20 174/85 H 11/04/20 15:49 36.9 C 67 18 159/66 H 11/04/20 11:40 36.7 C 67 19 160/63 H Pulse Ox 11/05/20 10:05 100 11/05/20 10:00 100 11/05/20 09:55 100 11/05/20 09:50 100 11/05/20 09:45 100 11/05/20 09:40 100 11/05/20 09:35 100 11/05/20 09:30 100 11/05/20 09:25 100 11/05/20 09:20 100 11/05/20 09:08 95 11/05/20 07:00 99 11/05/20 05:57 11/05/20 05:53 11/05/20 04:52 96 11/05/20 01:49 11/05/20 01:36 11/05/20 01:32 11/04/20 23:30 11/04/20 23:07 95 11/04/20 21:30 11/04/20 20:28 11/04/20 19:27 97 11/04/20 15:49 98 11/04/20 11:40 98 Recovery Score Activity: Moves 4 extremities Respiration: Deep Breath/Cough Circulation: +/-20% PreAnes Value Consciousness: Fully Awake Oxygen Saturation: > 92% On Room Air Post Anesthesia Score: 10 Discharge Sedation Level of Care: Fast Track Phase II Post Sedation Plan On clinical assessment, the patient appears to have tolerated the sedation without complications. Patient is recovering as anticipated. Patient will continue to be monitored by nursing and may be discharged when sedation discharge criteria are met per below protocol. Upon Completions of procedure up to 15 minutes continue every 5 minute vital signs and the P.A.R. score; then discharge to a Phase I or Fast Track to Phase II per the following guidelines: * Discharge Patient to appropriate Phase II area if PAR is 8 or greater or return to pre- procedure baseline. The post - procedure orders will be as directed. * If PAR score is less than 8 or not return to pre-procedure baseline then patient will follow Phase I monitoring till PAR is reached for Phase II. The Phase I may be done in procedure room or may call to secure a Phase I area. * If naloxone or flumazenil are used for reversal, hold in Phase I for continued monitoring from when last reversal dose was given for a minimum of 60 minutes or longer pending the nurse and/or physician discretion of patient condition before discharge to Phase II. Please call the Sedation Physician to re-evaluate and complete post-note for discharge to Phase II area. Do NOT discharge from procedure sedation or Phase 1 until post- sedation evaluation note is complete by procedure /sedation MD Sedation Discharge Instructions to be given to the patient at discharge to home.
[2020-11-05] MEDS ORDERED: EPOETIN ALFA 20,000 UNITS/ML VIAL IV SCH (10:21)
[2020-11-05] MEDS ORDERED: SODIUM CHLORIDE 0.9% 1000ML 1,000 ML IV PRN (10:21)
[2020-11-05] MEDS: HEPARIN SOD 5,000 UNIT/0.5 ML VIAL SQ SCH ×2 (13:10→21:07)
--- NOTE | 2020-11-05 16:28 | Hospitalist Progress Note ---
Date of Service November 05, 2020 Assessment & Plan (1) Acute hypoxemic respiratory failure: Plan: Acute respiratory failure with hypoxia Volume overload ESRD on HD Secondary to dialysis catheter malfunction -CXR:Cardiomegaly with stable to slightly worsened pulmonary edema.Trace pleural effusions. Emphysema. -S/P Removal of left internal jugular perm cath, insertion of perm cath right internal jugular approach POD#0 Appreciate vascular surgery Input Saturating well on room air Volume status to be managed through dialysis Plan for hemodialysis today Hypertensive urgency Likely secondary to volume overload Continue lisinopril 20 mg daily Metoprolol changed to labetalol Continue amlodipine 10 mg daily, hydralazine 50 mg 3 times daily Monitor BP and adjust Medications as needed after the dialysis Chronic Leukocytosis Chronic as per patient unaware of etiology Prominent mediastinal lymph nodes--Likely reactive No clear source of infection Consider antibiotics if patient develops fever Blood cultures: negative to date May need follow up with Oncology upon discharge Hypokalemia Replace electrolytes as needed Monitor CAD S/P CABG PVD Continue aspirin, statin Hyperlipidemia on atorvastatin DM II Last HbA1c of 6.15 July 2020 Continue insulin therapy Monitor BGs Chronic anemia Past tobacco abuse Hb stable DVT Px: Heparin SQ Code Status Full code Admission and Anticipated Discharge Date Admission Date: November 02, 2020 Subjective Patient is seen and examined at bedside Patient had dialysis catheter replaced today Planned for HD today Denies any dyspnea, dizziness, nausea, abdominal pain No new complaints Review of Systems Review of Systems: All systems reviewed & are unremarkable except as noted in Subjective Physical Exam Physical Exam: Physical Exam: Vitals signs as noted above General Appearance:Moderately built and nourished, no apparent distress Head: normocephalic, Atraumatic Eyes: normal inspection, EOMI Neck: supple, Trachea midline Respiratory/Chest: Normal breath sounds, CTA, No accessory muscle use Cardiovascular: S1, S2, +murmur Abdomen/GI:Soft, Non tender, Bowel sounds present Extremities/Musculoskeletal:normal inspection, no edema Neurologic/Psych:AAOX3, grossly no focal neurological deficits Skin: normal color, warm Results & Data Results & Data ([facility]) Vital Signs (Past 12 Hours) Vital Signs Temp Pulse Pulse Pulse Pulse Resp BP 11/05/20 16:00 67 147/67 H 11/05/20 15:40 63 171/57 H 11/05/20 15:00 64 164/59 H 11/05/20 14:40 62 165/63 H 11/05/20 14:25 61 162/61 H 11/05/20 14:20 36.6 C 62 11/05/20 13:00 36.6 C 67 18 11/05/20 10:20 36.5 C 68 20 11/05/20 10:05 68 16 11/05/20 10:00 74 16 11/05/20 09:55 68 16 11/05/20 09:50 70 16 11/05/20 09:45 67 16 11/05/20 09:40 65 16 11/05/20 09:35 67 16 11/05/20 09:30 64 16 11/05/20 09:25 64 16 11/05/20 09:20 66 18 11/05/20 09:08 36.8 C 66 20 11/05/20 08:00 61 11/05/20 07:00 36.8 C 80 16 11/05/20 05:57 72 11/05/20 05:53 11/05/20 04:52 36.6 C 67 16 BP Pulse Ox 11/05/20 16:00 11/05/20 15:40 11/05/20 15:00 11/05/20 14:40 11/05/20 14:25 11/05/20 14:20 11/05/20 13:00 154/56 H 97 11/05/20 10:20 149/60 H 98 11/05/20 10:05 172/66 H 100 11/05/20 10:00 160/61 H 100 11/05/20 09:55 162/61 H 100 11/05/20 09:50 159/59 H 100 11/05/20 09:45 150/54 H 100 11/05/20 09:40 160/57 H 100 11/05/20 09:35 154/57 H 100 11/05/20 09:30 150/58 H 100 11/05/20 09:25 157/56 H 100 11/05/20 09:20 160/56 H 100 11/05/20 09:08 159/52 H 95 11/05/20 08:00 11/05/20 07:00 90/59 L 99 11/05/20 05:57 167/72 H 11/05/20 05:53 170/58 H 11/05/20 04:52 165/56 H 96 Laboratory Results Short CBC 11/05/20 Range/Units 05:42 WBC 12.37 H (4.8-10.8) K/uL Hgb 8.4 L (14.0-18.0) g/dL Hct 25.7 L (42-52) % Plt Count 415 H (130-400) K/uL BMP 11/05/20 05:42 Sodium 140 Potassium 4.6 Chloride 106 Carbon Dioxide 24 BUN 76 H Creatinine 10.30 H* D Glucose 133 H Calcium 8.6
[2020-11-05] MEDS: traMADol HCL 50 MG TABLET PO PRN (19:43)
[2020-11-05] MEDS: lisinopril 20 MG TAB PO SCH (19:45)
[2020-11-05] MEDS: ASPIRIN 81 MG ECTAB PO SCH (19:45)
[2020-11-05] MEDS: ATORVASTATIN 40 MG TAB PO SCH (19:46)
[2020-11-05] MEDS: rOPINIRole HCL 0.25 MG TABLET PO SCH (19:47)
[2020-11-05] MEDS ORDERED: hydrOXYzine HCl 25 MG TAB PO PRN (20:16)
[2020-11-06] MEDS ORDERED: HYDROmorphone INJ 0.5 MG/0.5 ML SYR IV PRN (00:16)
[2020-11-06] MEDS: traMADol HCL 50 MG TABLET PO PRN (05:29)
[2020-11-06] MEDS: HEPARIN SOD 5,000 UNIT/0.5 ML VIAL SQ SCH (05:38)
[2020-11-06] MEDS: INSULIN ASPART 100 UNITS/ML 3 ML PEN SC SCH (07:46)
[2020-11-06] MEDS: guaiFENesin 600 MG TABCR PO SCH (07:47)
[2020-11-06] MEDS: CALCIUM ACETATE 667 MG CAP/TAB PO SCH ×2 (07:47→07:53)
[2020-11-06] MEDS: NEPHROCAPS PO SCH (07:47)
[2020-11-06] MEDS: PANTOprazole 40 MG TAB PO SCH (07:47)
[2020-11-06] MEDS: INSULIN GLARGINE SOLOSTAR 100 UNITS/ML 3 ML PEN SC SCH (07:48)
[2020-11-06] MEDS: LABETALOL HCL 100 MG TAB PO SCH (07:48)
[2020-11-06] MEDS: hydrALAZINE TAB 50 MG TAB PO SCH (07:48)
[2020-11-06] MEDS: amLODIPine BESYLATE 5 MG TAB PO SCH (07:49)
--- NOTE | 2020-11-06 09:00 | Hospitalist Progress Note ---
Date of Service November 06, 2020 Assessment & Plan (1) Acute hypoxemic respiratory failure: Plan: Acute respiratory failure with hypoxia Volume overload ESRD on HD Secondary to dialysis catheter malfunction -CXR:Cardiomegaly with stable to slightly worsened pulmonary edema.Trace pleural effusions. Emphysema. -S/P Removal of left internal jugular perm cath, insertion of perm cath right internal jugular approach POD#1 Appreciate vascular surgery Input Saturating well on room air Volume status to be managed through dialysis hemodialysis yesterday after procedure Hypertensive urgency Likely secondary to volume overload Continue lisinopril 20 mg daily Metoprolol changed to labetalol Continue amlodipine 10 mg daily, hydralazine 50 mg 3 times daily Monitor BP and adjust Medications as needed Follow up w/ PCP and nephrology Chronic Leukocytosis Chronic as per patient unaware of etiology Prominent mediastinal lymph nodes--Likely reactive No clear source of infection Consider antibiotics if patient develops fever Blood cultures: negative to date May need follow up with Oncology upon discharge Hypokalemia Replace electrolytes as needed Monitor CAD S/P CABG PVD Continue aspirin, statin Hyperlipidemia on atorvastatin DM II Last HbA1c of 6.15 July 2020 Continue insulin therapy Monitor BGs Chronic anemia Past tobacco abuse Hb stable DVT Px: Heparin SQ Code Status : Full code Admission and Anticipated Discharge Date Admission Date: November 02, 2020 Subjective Patient is seen and examined at bedside Patient had dialysis catheter replaced yesterday S/ p HD yesterday Denies any dyspnea, dizziness, chest pain, nausea, abdominal pain No new complaints Eager to be discharged home Review of Systems Review of Systems: All systems reviewed & are unremarkable except as noted in Subjective Physical Exam Physical Exam: General Appearance: Moderately built and nourished, no apparent distress Head: normocephalic, Atraumatic Eyes: normal inspection, EOMI Neck: supple, Trachea midline Respiratory/Chest: Normal breath sounds, CTA, No accessory muscle use Cardiovascular: S1, S2, +murmur Abdomen/GI:Soft, Non tender, Bowel sounds present Extremities/Musculoskeletal:normal inspection, no edema Neurologic/Psych:AAOX3, grossly no focal neurological deficits Skin: normal color, warm Results & Data Results & Data ([facility]) Vital Signs (Past 12 Hours) Vital Signs Temp Pulse Pulse Pulse Pulse Resp BP 11/06/20 08:09 36.5 C 73 20 145/55 H 11/06/20 08:00 63 11/06/20 05:24 36.6 C 80 16 137/57 L 11/06/20 00:09 36.5 C 70 16 137/55 L 11/05/20 22:19 65 Pulse Ox 11/06/20 08:09 94 11/06/20 08:00 11/06/20 05:24 96 11/06/20 00:09 96 11/05/20 22:19 Laboratory Results 11/06/20 11/05/20 11/05/20 Range/Units 07:29 19:58 11:38 POC Glucose 120 H 100 H 141 H (70-99) mg/dl Medications Administered Current Inpatient Medications Acetaminophen (Acetaminophen 325 Mg Tab) 650 mg PO Q4H PRN PRN Reason: Pain or Fever Stop: 12/02/20 09:57 Last Admin: 11/05/20 11:57 Dose: 650 mg Documented by: Amlodipine Besylate (Amlodipine Besylate 5 Mg Tab) 10 mg PO QAM TROY Stop: 12/05/20 05:54 Last Admin: 11/06/20 07:49 Dose: 10 mg Documented by: Aspirin (Aspirin 81 Mg Ectab) 81 mg PO QPM TROY Stop: 12/02/20 20:59 Last Admin: 11/05/20 19:45 Dose: 81 mg Documented by: Atorvastatin Calcium (Atorvastatin 40 Mg Tab) 80 mg PO QPM TROY Stop: 12/02/20 20:59 Last Admin: 11/05/20 19:46 Dose: 80 mg Documented by: Calcium Acetate (Calcium Acetate 667 Mg Cap/Tab) 2,001 mg PO TIDM TROY Stop: 12/02/20 16:59 Last Admin: 11/06/20 07:53 Dose: Not Given Documented by: Calcium Acetate (Calcium Acetate 667 Mg Cap/Tab) 667 - 2,668 mg PO TIDM PRN PRN Reason: Snacks or additional meal dose Stop: 12/02/20 13:55 Dextrose (Dextrose 50% 50 Ml Syringe) 25 - 50 ml IV UD PRN; Protocol PRN Reason: Hypoglycemia Protocol Stop: 12/02/20 09:57 Diclofenac Sodium (Diclofenac Sod 1% Gel 100 Gm Tube) 2 gm EXT BID PRN PRN Reason: Pain left hand Stop: 12/02/20 09:57 Glucagon (Glucagon For Inj 1 Mg Vial) 1 mg SQ UD PRN; Protocol PRN Reason: Hypoglycemia Protocol Stop: 12/02/20 09:57 Glucose (Glucose 10 Tabs/Tube) 4 - 8 tabs PO UD PRN; Protocol PRN Reason: Hypoglycemia Protocol Stop: 12/02/20 09:57 Glucose (Glucose 40% Gel 15 Gm Tube) 15 - 30 gm PO UD PRN; Protocol PRN Reason: Hypoglycemia Protocol Stop: 12/02/20 09:57 Guaifenesin (Guaifenesin 600 Mg Tabcr) 600 mg PO Q12 [facility] Stop: 12/02/20 09:57 Last Admin: 11/06/20 07:47 Dose: 600 mg Documented by: Heparin Sodium (Porcine) (Heparin Sod 5,000 Unit/0.5 Ml Vial) 5,000 units SQ Q8 [facility] Stop: 12/05/20 13:59 Last Admin: 11/06/20 05:38 Dose: Not Given Documented by: Hydralazine HCl (Hydralazine Tab 50 Mg Tab) 50 mg PO TID [facility] Stop: 12/05/20 05:54 Last Admin: 11/06/20 07:48 Dose: 50 mg Documented by: Hydromorphone HCl (Hydromorphone Inj 0.5 Mg/0.5 Ml Syr) 0.25 mg IV Q6H PRN PRN Reason: Pain Stop: 11/20/20 00:15 Last Admin: 11/06/20 00:35 Dose: 0.25 mg Documented by: Hydroxyzine HCl (Hydroxyzine Hcl 25 Mg Tab) 25 mg PO QID PRN PRN Reason: Itching Stop: 12/05/20 20:15 Last Admin: 11/05/20 21:05 Dose: 25 mg Documented by: Promethazine HCl 12.5 mg/ (Sodium Chloride) 50.5 mls @ 202 mls/hr IV Q6H PRN PRN Reason: Nausea And Vomiting Stop: 12/02/20 09:57 Insulin Aspart (Insulin Aspart 100 Units/Ml 3 Ml Pen) 0 units SC ACHS [facility] Stop: 12/02/20 11:29 Last Admin: 11/06/20 07:46 Dose: Not Given Documented by: Insulin Glargine (Insulin Glargine Solostar 100 Units/Ml 3 Ml Pen) 5 units SC DAILY [facility] Stop: 12/02/20 08:59 Last Admin: 11/06/20 07:48 Dose: 5 units Documented by: Ipratropium [place] (Ipratropium [place] Neb Soln 0.02% 2.5 Ml Vial) 0.5 mg INH Q4H PRN PRN Reason: Shortness Of Breath Or Wheezin Stop: 12/02/20 09:57 Labetalol HCl (Labetalol Hcl 100 Mg Tab) 100 mg PO BID TROY Stop: 12/05/20 05:54 Last Admin: 11/06/20 07:48 Dose: 100 mg Documented by: Levalbuterol HCl (Levalbuterol 1.25mg/0.5ml Neb) 1.25 mg INH Q4H PRN PRN Reason: Shortness Of Breath Or Wheezin Stop: 12/02/20 09:57 Lisinopril (Lisinopril 20 Mg Tab) 20 mg PO QPM TROY Stop: 12/02/20 20:59 Last Admin: 11/05/20 19:45 Dose: 20 mg Documented by: Miscellaneous (Carbohydrates For Hypoglycemia ) 15 - 30 gm PO UD PRN PRN Reason: Hypoglycemia Protocol Stop: 12/02/20 09:57 Nitroglycerin (Nitroglycerin Sl 0.4 Mg/Tab Tab) 0.4 mg SL UD PRN PRN Reason: Chest Pain Stop: 12/02/20 09:57 Pantoprazole Sodium (Pantoprazole 40 Mg Tab) 40 mg PO BID TROY Stop: 12/02/20 09:57 Last Admin: 11/06/20 07:47 Dose: 40 mg Documented by: Ropinirole HCl (Ropinirole Hcl 0.25 Mg Tablet) 0.25 mg PO HS TROY Stop: 12/02/20 20:59 Last Admin: 11/05/20 19:47 Dose: 0.25 mg Documented by: Tramadol HCl (Tramadol Hcl 50 Mg Tablet) 25 - 50 mg PO Q4H PRN PRN Reason: Pain Stop: 12/02/20 09:57 Last Admin: 11/06/20 05:29 Dose: 50 mg Documented by: Trazodone HCl (Trazodone Hcl 50 Mg Tab) 50 mg PO HS PRN PRN Reason: Sleep Stop: 12/02/20 09:57 Vitamin B Complex/Folic Acid (Nephrocaps) 1 cap PO QAM TROY Stop: 12/02/20 09:57 Last Admin: 11/06/20 07:47 Dose: 1 cap Documented by:
--- NOTE | 2020-11-06 09:48 | Discharge Summary ---
Date of Service November 06, 2020 Admission HPI Per Admitting Provider History obtained from patient and records. Medical history significant for chronic diastolic heart failure (EF 67%, TTE 2020), CAD status post CABG, PVD, hypertension, hyperlipidemia, ESRD on peritoneal dialysis, DM2 on oral medications, chronic anemia (baseline hemoglobin of 9 ), past tobacco abuse. Last confinement 3 weeks ago for hypertensive urgency and gram-negative mamta (Serratia marcescens) bacteremia possibly secondary to infected HD catheter status post removal of right IJ HD permacath status post Bactrim Rx. 2 weeks history of junky cough symptoms, patient unable to expectorate. No chest pain, no fever, no chills, no aspiration. Not sure about recent COVID-19 contacts given recent confinement. Patient denies aspiration. Patient having issues with peritoneal dialysis catheter the last few days. Difficulty aspirating catheter as per . Increase fluid retention as per patient. BP always high at home as per patient despite compliance with medications. Patient woke up early this morning with shortness of breath. No actual chest pain. No headache symptoms. Patient brought to the ER for evaluation. 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 Admission Exam Per Admitting Provider GENERAL: Slightly uncomfortable, minimal respiratory distress SKIN: Pallor, warm HEENT: Pale palpebral conjunctivae, no ptosis, dry buccal mucosa, O2 mask in place NECK : Supple, no tenderness CHEST : Decreased breath sounds, occasional expiratory wheezes, no tenderness HEART : RRR, no obvious murmurs ABDOMEN: Some distention, nontender EXTREMITIES : Minimal LE swelling, no LE tenderness, no other conspicuous deformities noted NEUROLOGIC : Coherent, no facial asymmetry, no other gross focality Principal Diagnosis Acute respiratory failure with hypoxia Volume overload ESRD on HD Secondary to dialysis catheter malfunction Discharge Exam General Appearance: Moderately built and nourished, no apparent distress Head: normocephalic, Atraumatic Eyes: normal inspection, EOMI Neck: supple, Trachea midline Respiratory/Chest: Normal breath sounds, CTA, No accessory muscle use Cardiovascular: S1, S2, +murmur Abdomen/GI:Soft, Non tender, Bowel sounds present Extremities/Musculoskeletal:normal inspection, no edema Neurologic/Psych:AAOX3, grossly no focal neurological deficits Skin: normal color, warm Discharge Data Allergies Allergy/AdvReac Type Severity Reaction Status Date / Time oxycodone AdvReac Intermediate Hallucinati Verified 11/02/20 07:30 ons Consultations 11/02/20 06:18 ED Decision to Admit Stat 11/02/20 09:10 Consult Nephrology Routine 11/03/20 10:52 Consult Vascular Surgery Routine Procedures Performed Operation Date: 11/05/20 08:45 Actual Procedures p removal of left internal jugular perm cath, insertion of perm cath right i nternal jugular approach, ultrasound of right internal jugular vein, fluroscopy for positioning, moderate sedation time 9836-7222 - Weston Rivers MD Ordered Studies 11/05/20 08:48 US EV guide vascular access Routine 11/05/20 09:16 EV cvc replace tunnel wo pp Routine Hospital Course (1) Acute hypoxemic respiratory failure: Acute respiratory failure with hypoxia Volume overload ESRD on HD Secondary to dialysis catheter malfunction -CXR:Cardiomegaly with stable to slightly worsened pulmonary edema.Trace pleural effusions. Emphysema. -S/P Removal of left internal jugular perm cath, insertion of perm cath right internal jugular approach POD#1 Appreciate vascular surgery Input Saturating well on room air Volume status to be managed through dialysis hemodialysis yesterday after procedure Hypertensive urgency Likely secondary to volume overload Continue lisinopril 20 mg daily Metoprolol changed to labetalol Continue amlodipine 10 mg daily, hydralazine 50 mg 3 times daily Monitor BP and adjust Medications as needed Follow up w/ PCP and nephrology Chronic Leukocytosis Chronic as per patient unaware of etiology Prominent mediastinal lymph nodes--Likely reactive No clear source of infection Consider antibiotics if patient develops fever Blood cultures: negative to date May need follow up with Oncology upon discharge Hypokalemia Replace electrolytes as needed Monitor CAD S/P CABG PVD Continue aspirin, statin Hyperlipidemia on atorvastatin DM II Last HbA1c of 6.15 July 2020 Continue insulin therapy Monitor BGs Chronic anemia Past tobacco abuse Hb stable DVT Px: Heparin SQ Code Status : Full code Total Time Total Time Spent Total Time Spent (In Minutes): 40 Discharge Plan Discharge Items Patient Disposition: Home - Self-Care Reason For Visit: RESP FAILURE Discharge Diagnosis: Acute respiratory failure with hypoxia Volume overload ESRD on HD Secondary to dialysis catheter malfunction Activity: Per Instructions section Non-emergency contact: Primary Care Provider and [employer] Call non-emergency contact if: you have any medication questions and your symptoms worsen Follow-up/Referrals: Myron Frost DO [Primary Care Provider] - (Date & Time 11/11/2020 9:00 AM Provider Ryan Greene MD Department [facility] ) Diet: Carb Consistent or DM2 and Dialysis Renal Addtl Attending Provider Instructions: Follow-up with your primary care doctor, the appointment was scheduled for you for November 11. Your blood pressure medications were changed during this hospitalization. Do not take metoprolol, and instead take labetalol as prescribed. In addition take amlodipine, and hydralazine. Prescription was sent to your pharmacy. Continue taking lisinopril as previously. Discuss all your medications with your primary care doctor and principal consulting engineer. It is recommended that you monitor your blood pressure at home if you are able to and record these numbers. You are also scheduled to be seen at hemodialysis clinic at [facility], this Wednesday. Pending Studies at Discharge: No Stand-Alone Forms: My [facility] [employer], Smoking Cessation Medications and DC Order Prescriptions: New amlodipine [Norvasc] 5 mg Tablet 10 mg PO QAM Qty: 20 RF: 0 hydralazine 50 mg Tablet 50 mg PO TID Qty: 60 RF: 0 labetalol 100 mg Tablet 100 mg PO BID Qty: 60 RF: 0 tramadol 50 mg Tablet 25 mg PO Q4H PRN (Reason: pain) Qty: 10 RF: 0 Continued hydroxyzine HCl 10 mg Tablet 25 mg PO QID PRN (Reason: Itching) RF: 0 aspirin 81 mg tablet,delayed release (DR/EC) 81 mg PO QPM RF: 0 lisinopril 20 mg Tablet 20 mg PO QPM RF: 0 atorvastatin [Lipitor] 80 mg Tablet 80 mg PO QPM RF: 0 glyburide 2.5 mg Tablet 2.5 mg PO QAM RF: 0 trazodone 50 mg Tablet 50 mg PO HS PRN (Reason: Sleep) RF: 0 ropinirole 0.25 mg Tablet 0.25 mg PO HS RF: 0 pantoprazole 40 mg Tablet,Delayed Release (Dr/Ec) 40 mg PO BID RF: 0 Triphrocaps 1 mg Capsule 1 cap PO QAM RF: 0 dicyclomine 10 mg Capsule 10 mg PO QID RF: 0 calcium acetate 667 mg Tablet 2,001 - 2,668 mg PO TIDM RF: 0 diclofenac sodium 1 % gel 2 g TOPICAL DIRECTED PRN (Reason: Pain left hand) RF: 0 Discontinued metoprolol succinate 50 mg Tablet Extended Release 24 Hr 50 mg PO QPM Qty: 30 RF: 0 Discharge Orders: Discharge Order (Routine); Ordered 11/06/20 Ordered By: Candelario Mills/Other Patient Handouts: High Blood Sugar (Hyperglycemia), Hypoglycemia ( Low Blood Sugar), Managing Type 2 Diabetes, Diabetes: Meal Planning Admission Data Admit Date/Time: 11/02/20 07:21 Attending Provider: Candelario Banda Admit Provider: Ben Pedro Primary Care Provider: Myron Frost Other Providers: Ben Pedro ; Carmel Childs ; Weston Rivers ; Sebastian Park ; Deborah Mata I.
== END 2020-11-06 10:23 | disposition home or self-care (01) | DRG 314 ==
LOC: EDBD → ED 04:40 → MERGE 04:40 → SUATTDRO 07:21 → 2S 07:21